=== PATIENT | female | born 1985 | race Caucasian/White ===

== ENCOUNTER 2018-05-22 13:43 | Emergency (ER) | payer BC, SELFPAY ==
[2018-05-22] VITALS (8 sets, daily range): BP systolic 104–132; BP diastolic 66–97; PULSE 51–100; RESP 16–18; TEMP 36.6; O2SAT 96–99; BMI 41.5
--- NOTE | 2018-05-22 14:18 | CT_ITS ---
STUDY: CT ABDOMEN AND PELVIS WITH CONTRAST REASON FOR EXAM: Female, 32 years old. UPPER ABDOM PAIN, HX OF GB REMOVED AND PANCREATITIS. RADIATION DOSAGE (If Supplied By Facility): CTDIvol = ( 17.19 ) mGy, DLP = ( 1149.26 ) mGycm TECHNIQUE: Transaxial images were obtained from the dome of the diaphragm to the symphysis pubis without oral contrast. 100 ml of Isovue 300 contrast was administered. Sagittal and coronal images were reconstructed. Individualized dose optimization techniques were used for this CT. COMPARISON: None. FINDINGS: The visualized lung bases are unremarkable. The visualized portions of the heart are within normal limits. Normal liver. 3 gallstones are seen within a cystic duct remnant measuring approximately 9 mm each. Normal spleen. Normal pancreas. Normal bilateral adrenal glands. Normal right kidney. Normal left kidney. Normal visualized stomach. Normal small intestine. Normal colon. The appendix is visualized and appears normal. Normal abdominal aorta. Normal inferior vena cava. Normal retroperitoneum. Normal urinary bladder. Normal abdominal wall. Normal osseous structures. CT/Abdomen/Pelvis W IV Cont ONLY IMPRESSION: 3 gallstones are seen within a cystic duct remnant measuring approximately 9 mm each. Electronically Signed: Amanda Gonzales MD at 15:27 EDT Tel , Service support ,
--- NOTE | 2018-05-22 14:19 | ED.VISSUMM ---
- ER Visit Summary Date of Service: 05/22/18 Chief Complaint: [] Abdominal pain pancreatitis, common bile duct stones cholecystectomy History of Present Illness: The patient is a 32 F [] patient reports that basically in April she began having pain in the right upper abdomen, she was seen at [facility] found to have cholecystitis/common bile duct stones, mid April she indicates she had an ERCP to remove the stones and then the next day she had a cholecystectomy she was discharged a few days later. She indicates around the she again developed severe abdominal pain and she was taken back to [facility] for management, she indicates she had studies done that showed she had recurrence of the common bile duct stones that could not be managed at [facility] they decided to put on a medicine to help dissolve the stones, she indicates the pain has persisted to the point now she is nauseated she cannot eat or drink. She indicates she has no other past history except as above She indicates she did not go back to [facility] because she is dissatisfied with the care that she received there and when she spoke with her primary care physician she was instructed to come to the [facility] In addition the patient reports that recently she was found to have bradycardia and she believes 2 days ago she had an outpatient Holter monitor she does not know those results, she believes her heart rate was anywhere from 40-60, she denies a history of cardiovascular disease Physical Examination: [] Her vital signs are within normal range this she is resting in the bed no distress she points to the epigastric area as area of discomfort head neck unremarkable lungs sound clear heart tones are normal the abdomen is soft there is a mild discomfort in the epigastric area and urban guarding organomegaly she indicates she is having bowel habits and urinary habits no blood, denies , no fever no cough upper lower extremity unremarkable and the rest of her exams unremarkable neurologically normal Test Results: [] Emergency Department Course and Treatment: [] She has a recent complicated history as above given all of the above we will obtain screening labs CT pain management I have explained to her that if she does not fact have pancreatitis and/or signs of common bile duct obstruction pancreatitis she may require transfer to [facility] and she is agreeable as she indicates she wanted to be seen there but the physicians at [facility] would not arrange for the visit, I further explained that sometimes those visits are done as an outpatient. The patient's screening labs are generally unremarkable see those reports, EKG shows a sinus rhythm no acute injury pattern appreciated, did obtain a CT scan from [facility] it does show 3 gallstones in the cystic duct region, CT abdomen done today shows 3 gallstones in the remnant of the cystic duct please see that report Patient's pain is improved but not gone completely she indicates she cannot continue to have abdominal pain and vomiting to where she cannot even take the prescribed home meds, given all the above, and as patient was requesting transfer she agreed to [facility], we spoke with [facility] Dr. Badillo surgery accepted her in transfer, all records will be sent with her, discussed all of the above with the patient her family again they agree and were requesting transfer to [facility] Treatment Plan: [] Disposition: [] Transfer to [facility] Impression: [] Abdominal pain, status post cholecystectomy with retained stones in cystic duct remnant, failed outpatient therapy, history of bradycardia This note was generated with Leevia dictation software. It may contain incorrect words, spelling, and punctuation that were not noted in review of the chart prior to signing ED Disposition - Plan for ED Patient: Chief Complaint: Abd Pain Referrals: Laith Amaya MD [STAFF PHYSICIAN] -
--- NOTE | 2018-05-22 14:22 | ED.DCSUM_ITS ---
- ER Visit Summary Date of Service: 05/22/18 Chief Complaint: [] Abdominal pain pancreatitis, common bile duct stones cholecystectomy History of Present Illness: The patient is a 32 F [] patient reports that basically in April she began having pain in the right upper abdomen, she was seen at [facility] found to have cholecystitis/common bile duct stones, mid April she indicates she had an ERCP to remove the stones and then the next day she had a cholecystectomy she was discharged a few days later. She indicates around the she again developed severe abdominal pain and she was taken back to [facility] for management, she indicates she had studies done that showed she had recurrence of the common bile duct stones that could not be managed at [facility] they decided to put on a medicine to help dissolve the stones, she indicates the pain has persisted to the point now she is nauseated she cannot eat or drink. She indicates she has no other past history except as above She indicates she did not go back to [facility] because she is dissatisfied with the care that she received there and when she spoke with her primary care physician she was instructed to come to the [facility] In addition the patient reports that recently she was found to have bradycardia and she believes 2 days ago she had an outpatient Holter monitor she does not know those results, she believes her heart rate was anywhere from 40-60, she denies a history of cardiovascular disease Physical Examination: [] Her vital signs are within normal range this she is resting in the bed no distress she points to the epigastric area as area of discomfort head neck unremarkable lungs sound clear heart tones are normal the abdomen is soft there is a mild discomfort in the epigastric area and urban guarding organomegaly she indicates she is having bowel habits and urinary habits no blood, denies , no fever no cough upper lower extremity unremarkable and the rest of her exams unremarkable neurologically normal Test Results: [] Emergency Department Course and Treatment: [] She has a recent complicated history as above given all of the above we will obtain screening labs CT pain management I have explained to her that if she does not fact have pancreatitis and/or signs of common bile duct obstruction pancreatitis she may require transfer to [facility] and she is agreeable as she indicates she wanted to be seen there but the physicians at [facility] would not arrange for the visit, I further explained that sometimes those visits are done as an outpatient. The patient's screening labs are generally unremarkable see those reports, EKG shows a sinus rhythm no acute injury pattern appreciated, did obtain a CT scan from [facility] it does show 3 gallstones in the cystic duct region, CT abdomen done today shows 3 gallstones in the remnant of the cystic duct please see that report Patient's pain is improved but not gone completely she indicates she cannot continue to have abdominal pain and vomiting to where she cannot even take the prescribed home meds, given all the above, and as patient was requesting transfer she agreed to [facility], we spoke with [facility] Dr. Badillo surgery accepted her in transfer, all records will be sent with her, discussed all of the above with the patient her family again they agree and were requesting transfer to [facility] Treatment Plan: [] Disposition: [] Transfer to [facility] Impression: [] Abdominal pain, status post cholecystectomy with retained stones in cystic duct remnant, failed outpatient therapy, history of bradycardia This note was generated with fundfindr dictation software. It may contain incorrect words, spelling, and punctuation that were not noted in review of the chart prior to signing ED Disposition - Plan for ED Patient: Chief Complaint: Abd Pain Referrals: Laith Amaya MD [STAFF PHYSICIAN] -
[2018-05-22] MEDS: 0.9% Normal Saline 1,000 ML 125 ML IV (14:31)
[2018-05-22] MEDS: Ondansetron 4 MG/2 ML Vial IV (14:32)
[2018-05-22] MEDS: morphine 8 MG/ML Syringe IV (14:32)
[2018-05-22 14:36] LABS: Absolute Lymphocyte Count 1.64 X10^3/ul (0.83-4.51); Absolute Neutrophil Count 3.6 X10^3/uL (2.0-7.7); Basophil# 0.04 X10^3/uL; Basophil% 0.6 % (0-1); Eosinophil# 0.15 X10^3/uL; Eosinophils% 2.4 % (0-5); Hematocrit 38.7 % (37-47); Hemoglobin 12.9 g/dl (12.0-15.0); Lymphocyte # 1.64 X10^3/ul (4.0); Lymphocyte % 26.5 % (19-41); Mean Corp Hgb Conc 33.3 g/gl (32-36); Mean Corpuscular Hgb 30.4 pg (27.0-32.0); Mean Corpuscular Volume 91.3 fL (81-99); Mean Platelet Vol. 10.9 fl (6.2-12.0); Monocyte# 0.82 X10^3/uL; Monocyte% 13.2 % (0-10); Neutrophil # 3.55 X10^3/uL (2.7-7.7); Neutrophil % 57.3 % (47-70); POSITIVE COUNT NO; POSITIVE DIFFERENTIAL NO; POSITIVE MORPHOLOGY NO; Platelet Count 220 K/mm3 (150-450); RBC Distribution Width CV 13.7 % (11.6-14.6); RBC Distribution Width SD 45.2 fl (35.1-43.9); Red Blood Count 4.24 M/mm3 (4.2-5.4); White Blood Count 6.2 K/mm3 (4.4-11.0)
[2018-05-22 14:51] LABS: AST(SGOT) 19 U/L (15-37); Alanine Aminotransfer ALT/SGPT 31 U/L (13-56); Albumin, Serum 3.5 g/dL (3.2-5.0); Alkaline Phosphatase 133 U/L (45-117); Anion Gap 6 (5-15); BUN 9 mg/dL (7-18); BUN/Creat Ratio 10.8 RATIO (10-20); Bilirubin, Direct 0.16 mg/dL (0.00-0.30); Calcium,Total 8.8 mg/dL (8.5-10.1); Chloride 107 mmol/L (98-107); Creatinine, Serum 0.83 mg/dL (0.55-1.02); EST Glomerular Filtration Rate 85 mL/min (>60); Est Glom Filt Rate - Afr Amer 103 mL/min (>60); Estimated Creatinine Clearance 89.18 ml/min; Globulin 4.1 g/dL (2.2-4.2); Glucose 90 mg/dL (74-106); Lipase 354 U/L (73-393); Potassium 3.7 mmol/L (3.5-5.1); Protein, Total 7.6 g/dL (6.4-8.2); Sodium Level 141 mmol/L (136-145)
[2018-05-22 14:52] LABS: Pregnancy, Serum, hCG Quali. NEGATIVE Negative (0-9 Nonpreg)
[2018-05-22 15:55] LABS: Mucous, Urine 0 SEEN /hpf (<or=2+); Red Blood Cells-Urine 0 SEEN /hpf (0-5); White Blood Cells 0 SEEN /hpf (0-5)
[2018-05-22 15:57] LABS: Color, Urine Yellow (Yellow); Glucose, Dipstick Normal (Normal); Ketone-Dipstick Negative (Negative); Leukocyte Esterase-Dipstick Negative /ul (Negative); Nitrite-Dipstick Negative (Negative); Occult Blood-Urine Negative /ul (Negative); Protein-Dipstick Negative (Negative); Specific Gravity, Urine 1.005 (1.002-1.030); Urine Bilirubin Dipstick Negative (Negative); Urine Clarity Clear (Clear); Urine Urobilinogen Normal (Normal)
[2018-05-22 16:17] LABS: Bacteria RARE /hpf (None Seen); Squamous Epithelial Cells - UA 10-25 SEEN /hpf (5-10)
[2018-05-22] MEDS: Morphine 4 MG/ML Syringe IV ×2 (17:10→22:31)
--- NOTE | 2018-05-22 18:20 | ED.RN ---
PER [facility] THEY ARE STILL WAITING ON A BED
--- NOTE | 2018-05-22 22:21 | PCM.HP.STD ---
History of Present Illness The patient is a 32 year old F [] Past Medical History Allergies No Known Allergies Allergy (Verified 05/22/18 13:45) Home Medications: Ambulatory Orders Medication Instructions Recorded Acetaminophen [Tylenol] 650 mg PO Q8H PRN 05/22/18 Ursodiol 300 mg PO BID 05/22/18 Smoking Status: Former smoker - Physical Exam Vital Signs Temp Pulse Resp BP Pulse Ox 97.9 F 62 16 119/97 H 96 05/22/18 13:44 05/22/18 22:00 05/22/18 22:00 05/22/18 18:00 05/22/18 22:00 Oxygen Delivery Method Room Air Weight: 113.398 kg Body Mass Index (BMI) 41.5 Laboratory Tests Past 24 Hrs 05/22/18 05/22/18 05/22/18 14:26 14:26 14:26 WBC 6.2 RBC 4.24 Hgb 12.9 Hct 38.7 MCV 91.3 MCH 30.4 MCHC 33.3 RDW 13.7 RDW Differential 45.2 H Plt Count 220 MPV 10.9 Immature Gran % (Auto) 0.000 Neut % (Auto) 57.3 Lymph % (Auto) 26.5 [place] % (Auto) 13.2 H Eos % (Auto) 2.4 Baso % (Auto) 0.6 Absolute Neuts (auto) 3.6 Absolute Lymphs (auto) 1.64 Total Counted Not Reportable Sodium 141 Potassium 3.7 Chloride 107 Carbon Dioxide 28.0 Anion Gap 6 BUN 9 Creatinine 0.83 Estim Creat Clear Calc 89.18 Est GFR (MDRD) Af Amer 103 Est GFR (MDRD) Non-Af 85 BUN/Creatinine Ratio 10.8 Glucose 90 Calcium 8.8 Total Bilirubin 0.40 Direct Bilirubin 0.16 AST 19 ALT 31 Alkaline Phosphatase 133 H Total Protein 7.6 Albumin 3.5 Globulin 4.1 Lipase 354 Serum , Qual NEGATIVE Urine Color Urine Clarity Urine pH Ur Specific [place] Urine Protein Urine Glucose (UA) Urine Ketones Urine Occult Blood Urine Nitrite Urine Bilirubin Urine Urobilinogen Ur Leukocyte Esterase Urine RBC Urine WBC Ur Squamous Epith Cells Urine Bacteria Urine Mucus 05/22/18 15:50 WBC RBC Hgb Hct MCV MCH MCHC RDW RDW Differential Plt Count MPV Immature Gran % (Auto) Neut % (Auto) Lymph % (Auto) [place] % (Auto) Eos % (Auto) Baso % (Auto) Absolute Neuts (auto) Absolute Lymphs (auto) Total Counted Sodium Potassium Chloride Carbon Dioxide Anion Gap BUN Creatinine Estim Creat Clear Calc Est GFR (MDRD) Af Amer Est GFR (MDRD) Non-Af BUN/Creatinine Ratio Glucose Calcium Total Bilirubin Direct Bilirubin AST ALT Alkaline Phosphatase Total Protein Albumin Globulin Lipase Serum , Qual Urine Color Yellow Urine Clarity Clear Urine pH 7.0 Ur Specific [place] 1.005 Urine Protein Negative Urine Glucose (UA) Normal Urine Ketones Negative Urine Occult Blood Negative Urine Nitrite Negative Urine Bilirubin Negative Urine Urobilinogen Normal Ur Leukocyte Esterase Negative Urine RBC 0 SEEN Urine WBC 0 SEEN Ur Squamous Epith Cells 10-25 SEEN Urine Bacteria RARE Urine Mucus 0 SEEN
== END 2018-05-23 00:09 | disposition short-term general hospital (02) ==
PROVIDERS: Emergency Provider Emergency Medicine; Family Provider Nurse Practitioner Primary Care; PCP Nurse Practitioner Primary Care
DX: K80.20 Calculus of gallbladder without cholecystitis without obstruction (principal); Z90.49 Acquired absence of other specified parts of digestive tract
CPT/HCPCS: 74177; 80048; 80076; 81001; 83690; 84703; 85025; 93005; 96361; 96374; 96375; 96376; 99284; J7030; Q9967; A4216; J2405

== ENCOUNTER 2018-07-02 17:55 | Emergency (ER) | payer BC, SELFPAY ==
[2018-07-02 17:56] VITALS: BP 139/81; PULSE 68; RESP 16; TEMP 36.2; O2SAT 100; BMI 36.3
--- NOTE | 2018-07-02 18:21 | CT_ITS ---
STUDY: CT ABDOMEN AND PELVIS WITHOUT CONTRAST REASON FOR EXAM: Female, 32 years old. Pain. History of cholecystectomy. RADIATION DOSAGE (If Supplied By Facility): CTDIvol = ( 18.03 ) mGy, DLP = ( 1223.94 ) mGycm TECHNIQUE: Transaxial images were obtained from the dome of the diaphragm to the symphysis pubis without oral contrast, and without intravenous contrast. Sagittal and coronal images were reconstructed. Individualized dose optimization techniques were used for this CT. COMPARISON: 05/22/2018 FINDINGS: Evaluation of the abdominal viscera is limited in the absence of intravenous contrast. The visualized lung bases are clear. The visualized portions of the heart and pericardium are within normal limits. The patient is status post cholecystectomy. There is a small amount of pneumobilia present. The liver demonstrates an unremarkable unenhanced appearance. The spleen is normal in size. The pancreas demonstrates an unremarkable unenhanced appearance. The adrenal glands are within normal limits. There are no renal or ureteral stones. There is no hydronephrosis. Normal visualized stomach. There is no bowel obstruction or inflammation. There is a large amount of stool in the colon, consistent with constipation. The appendix is visualized and appears normal. The aorta is normal in caliber. There is no abdominal or pelvic free air, free fluid, fluid collection or lymphadenopathy. There are no destructive osseous lesions. CT/Abdomen/Pelvis W IV Cont ONLY IMPRESSION: Status post cholecystectomy. Small amount of pneumobilia. No free air, free fluid or fluid collection. No bowel obstruction or inflammation. Normal appendix. Constipation. Electronically Signed: Filemon Medina, at 19:55 EST Tel , Service support ,
[2018-07-02 18:47] LABS: Bacteria 0 SEEN /hpf (None Seen); Mucous, Urine 0 SEEN /hpf (<or=2+); Red Blood Cells-Urine 0 SEEN /hpf (0-5); White Blood Cells 0 SEEN /hpf (0-5)
[2018-07-02 18:50] LABS: Color, Urine Yellow (Yellow); Glucose, Dipstick Normal (Normal); Ketone-Dipstick Negative (Negative); Leukocyte Esterase-Dipstick Negative /ul (Negative); Nitrite-Dipstick Negative (Negative); Occult Blood-Urine Negative /ul (Negative); Protein-Dipstick Negative (Negative); Specific Gravity, Urine 1.015 (1.002-1.030); Urine Bilirubin Dipstick Negative (Negative); Urine Clarity Clear (Clear); Urine Urobilinogen Normal (Normal)
[2018-07-02 18:56] LABS: Squamous Epithelial Cells - UA 0-5 SEEN /hpf (5-10)
[2018-07-02 18:57] LABS: Absolute Lymphocyte Count 1.88 X10^3/ul (0.83-4.51); Absolute Neutrophil Count 2.9 X10^3/uL (2.0-7.7); Basophil# 0.04 X10^3/uL; Basophil% 0.7 % (0-1); Eosinophil# 0.17 X10^3/uL; Eosinophils% 2.9 % (0-5); Hematocrit 35.5 % (37-47); Hemoglobin 11.3 g/dl (12.0-15.0); Lymphocyte # 1.88 X10^3/ul (4.0); Lymphocyte % 32.5 % (19-41); Mean Corp Hgb Conc 31.8 g/gl (32-36); Mean Corpuscular Hgb 29.8 pg (27.0-32.0); Mean Corpuscular Volume 93.7 fL (81-99); Mean Platelet Vol. 10.8 fl (6.2-12.0); Monocyte# 0.81 X10^3/uL; Neutrophil # 2.88 X10^3/uL (2.7-7.7); Neutrophil % 49.7 % (47-70); Platelet Count 286 K/mm3 (150-450); RBC Distribution Width CV 13.2 % (11.6-14.6); RBC Distribution Width SD 43.8 fl (35.1-43.9); Red Blood Count 3.79 M/mm3 (4.2-5.4); White Blood Count 5.8 K/mm3 (4.4-11.0)
[2018-07-02 19:02] LABS: POSITIVE COUNT NO; POSITIVE DIFFERENTIAL NO; POSITIVE MORPHOLOGY NO
--- NOTE | 2018-07-02 19:03 | ED.VISSUMM ---
- ER Visit Summary Date of Service: 07/02/18 Chief Complaint: Abdominal pain History of Present Illness: The patient is a 32 F presenting for evaluation secondary to abdominal pain. Patient has a history of having a laparoscopic cholecystectomy in April that suffered complications and required repeat surgery on 1028 at the [facility] with a open laparotomy. Patient states that she was doing well, but since yesterday she had an onset of abdominal pain. She reports that this is on the right side of her abdomen, both upper and lower and seems to be acutely worse with taking a deep breath. Patient states that the pain actually only is really present when she is taking a deep breath. She denies that she is having any sort of fevers cough nausea vomiting diarrhea constipation or urinary symptoms. Patient does report that she had a complication of also having C. difficile, and is currently taking oral vancomycin. She reports that she has been having formed stools. No prior history of DVT or PE in the past. She denies any hemoptysis associated with this. Review of systems otherwise negative. Physical Examination: Vital signs are within normal limits, patient is afebrile. General: Patient is well-nourished well-developed and in no acute distress. Head: Normocephalic, atraumatic Eyes: Pupils equal round and reactive bilaterally, extra occular motion intact bialterally ENT: Moist mucous membranes Neck: Supple, no lymphadenopathy, no JVD, no meningismus CVS: Heart regular rate and rhythm, no murmurs, rubs or gallops, radial pulses 2+ bilaterally Resp: Respirations nondistressed, lung sounds clear bilaterally, no chest tenderness to palpation noted Abdomen: Well-healing surgical incision coursing over the patient's right upper quadrant without any evidence of surrounding erythema or drainage. Tenderness palpation noted in the right upper and right lower quadrants with no guarding or rebound tenderness. Back: Nontender Extremities: Nontender, atraumatic, active full range of motion, no peripheral edema Skin: warm, no rashes, no petechia Neuro: Alert and oriented x 4, CN 2-12 intact, no lateralizing neurological defecits Psyc: Normal affect Test Results: CT abdomen and pelvis shows postsurgical changes and constipation. CBC chemistry liver lipase urinalysis all found to be unremarkable Emergency Department Course and Treatment: Patient presented for evaluation secondary to abdominal pain. She did state that this was worse with taking a deep breath, but she denies that there is any sort of pain in her chest, and although she has recent surgery this does not seem like a presentation that would be consistent with pulmonary embolism but rather seems more focused in the patient's abdomen. Abdominal workup was obtained and was found to be negative except for constipation. Patient's pain definitely could be explained by this. She was given a dose of lactulose and will be discharged with a course of the same. She was instructed to return for worsening symptoms and follow-up with her surgeon as previously scheduled. Disposition: Discharge Impression: 1. Constipation 2. History of recent open cholecystectomy This note was generated with Baton dictation software. It may contain incorrect words, spelling, and punctuation that were not noted in review of the chart prior to signing ED Disposition - Plan for ED Patient: Disposition: Home or Assisted Living Chief Complaint: Shortness of Breath Diagnosis: Constipation Instructions: ED Constipation Prescriptions: Lactulose 10 gm PO DAILY #90 ml Referrals: Janee Londono NP-C [Primary Care Provider] - 3-5 Days if not improving
[2018-07-02 19:05] LABS: ALB/GLOB Ratio 0.9 RATIO (0.9-2.4); AST(SGOT) 12 U/L (15-37); Alanine Aminotransfer ALT/SGPT 29 U/L (13-56); Albumin, Serum 3.6 g/dL (3.2-5.0); Alkaline Phosphatase 106 U/L (45-117); Anion Gap 7 (5-15); BUN 9 mg/dL (7-18); BUN/Creat Ratio 11.2 RATIO (10-20); Calcium,Total 8.4 mg/dL (8.5-10.1); Chloride 107 mmol/L (98-107); EST Glomerular Filtration Rate 89 mL/min (>60); Est Glom Filt Rate - Afr Amer 108 mL/min (>60); Estimated Creatinine Clearance 92.53 ml/min; Globulin 4.1 g/dL (2.2-4.2); Glucose 83 mg/dL (74-106); Lipase 186 U/L (73-393); Potassium 3.9 mmol/L (3.5-5.1); Protein, Total 7.7 g/dL (6.4-8.2); Sodium Level 140 mmol/L (136-145)
--- NOTE | 2018-07-02 19:07 | ED.DCSUM_ITS ---
- ER Visit Summary Date of Service: 07/02/18 Chief Complaint: Abdominal pain History of Present Illness: The patient is a 32 F presenting for evaluation secondary to abdominal pain. Patient has a history of having a laparoscopic cholecystectomy in April that suffered complications and required repeat s urgery on 1028 at the [facility] with a open laparotomy. Patient states that she was doing well, but since yesterday she had an onset of abdominal pain. She reports that this is on the right side of her abdomen, both upper and lower and seems to be acutely worse with taking a deep breath. Patient states that the pain actually only is really present when she is taking a deep breath. She denies that she is having any sort of fevers cough nausea vomiting diarrhea constipation or urinary symptoms. Patient does report that she had a complication of also having C. difficile, and is currently taking oral vancomycin. She reports that she has been having formed stools. No prior history of DVT or PE in the past. She denies any hemoptysis associated with this. Review of systems otherwise negative. Physical Examination: Vital signs are within normal limits, patient is afebrile. General: Patient is well-nourished well-developed and in no acute distress. Head: Normocephalic, atraumatic Eyes: Pupils equal round and reactive bilaterally, extra occular motion intact bialterally ENT: Moist mucous membranes Neck: Supple, no lymphadenopathy, no JVD, no meningismus CVS: Heart regular rate and rhythm, no murmurs, rubs or gallops, radial pulses 2+ bilaterally Resp: Respirations nondistressed, lung sounds clear bilaterally, no chest tenderness to palpation noted Abdomen: Well-healing surgical incision coursing over the patient's right upper quadrant without any evidence of surrounding erythema or drainage. Tenderness palpation noted in the right upper and right lower quadrants with no guarding or rebound tenderness. Back: Nontender Extremities: Nontender, atraumatic, active full range of motion, no peripheral edema Skin: warm, no rashes, no petechia Neuro: Alert and oriented x 4, CN 2-12 intact, no lateralizing neurological defecits Psyc: Normal affect Test Results: CT abdomen and pelvis shows postsurgical changes and constipation. CBC chemistry liver lipase urinalysis all found to be unremarkable Emergency Department Course and Treatment: Patient presented for evaluation secondary to abdominal pain. She did state that this was worse with taking a deep breath, but she denies that there is any sort of pain in her chest, and although she has recent surgery this does not seem like a presentation that would be consistent with pulmonary embolism but rather seems more focused in the patient's abdomen. Abdominal workup was obtained and was found to be negative except for constipation. Patient's pain definitely could be explained by this. She was given a dose of lactulose and will be discharged with a course of the same. She was instructed to return for worsening symptoms and follow-up with her surgeon as previously scheduled. Disposition: Discharge Impression: 1. Constipation 2. History of recent open cholecystectomy This note was generated with Logo[employer]ab dictation software. It may contain incorrect words, spelling, and punctuation that were not noted in review of the chart prior to signing ED Disposition - Plan for ED Patient: Disposition: Home or Assisted Living Chief Complaint: Shortness of Breath Diagnosis: Constipation Instructions: ED Constipation Prescriptions: Lactulose 10 gm PO DAILY #90 ml Referrals: Janee Londono NP-C [Primary Care Provider] - 3-5 Days if not improving
[2018-07-02 19:14] LABS: Internal QC Validated? YES +Cl - CLEAR BKGD; Pregnancy, Urine Negative Negative
[2018-07-02 20:29] VITALS: BP 113/65; PULSE 61; PULSE 67; O2SAT 98; O2SAT 99
[2018-07-02] MEDS: Lactulose 20 GM/30 ML UDC PO (20:29)
== END 2018-07-02 20:33 | disposition home or self-care (01) ==
PROVIDERS: Emergency Provider Emergency Medicine; Family Provider Nurse Practitioner Primary Care; PCP Nurse Practitioner Primary Care
DX: K59.00 Constipation, unspecified (principal); A04.72 Enterocolitis due to Clostridium difficile, not specified as recurrent; Z87.19 Personal history of other diseases of the digestive system; Z90.49 Acquired absence of other specified parts of digestive tract
CPT/HCPCS: 74177; 80053; 81001; 81025; 83690; 85025; 99284; Q9967; A4216

== ENCOUNTER 2018-08-04 10:57 | Emergency (ER) | payer BC, SELFPAY ==
[2018-08-04 10:59] VITALS: BP 130/83; PULSE 109; RESP 15; TEMP 35.9; BMI 37.0
--- NOTE | 2018-08-04 11:43 | ED.VISSUMM ---
- ER Visit Summary Date of Service: 08/04/18 Chief Complaint: Right upper quadrant incisional pain. History of Present Illness: The patient is a 32 F status post 2 attempted laparoscopic cholecystectomy is. First 1 they were unable to complete the procedure at [facility]. Weeks later about 6 weeks ago she had attempted laparoscopic cholecystectomy at the [facility] [place] they had to convert to an open procedure. Since then she is done well. She states that she has had some pain around the incision since yesterday. No vomiting. No diarrhea or fever. She did have diarrhea after developing C. difficile from her hospitalization but that is since resolved. She denies any dysuria. She states the pain is worse with movement or bending over. She sees no redness or discharge from the surgical incision. Physical Examination: Well-appearing young female. Vital signs are stable. She is afebrile. She does not look septic or toxic. No distress. H EENT exam unremarkable. Neck nontender. Lungs clear to auscultation bilaterally. Heart regular rhythm rate of 100 no murmur. Abdomen soft. Nondistended. Normal bowel sounds. No peritoneal signs. She is a large right upper quadrant prior open cholecystectomy surgical incision. It is well-healing. There is no separation. No redness or warmth. It is minimally tender in the very proximal medial end. There are no hernias. No palpable abscesses. No Marin sign. The rest abdomen is soft. Nondistended. Normal bowel sounds. No tenderness. She is moving all 4 extremities. Calves are nontender. Neurologically she is awake and alert. Back is nontender. Test Results: CBC shows acute change. White count of 4. 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 Electrolytes normal. Normal creatinine gap. Liver enzymes normal. Lipase normal at 85. Emergency Department Course and Treatment: Patient treated with IV Toradol. On multiple repeat exams patient is resting comfortably. Abdomen is benign. No peritoneal signs. Patient and her mom are comfortable being discharged home. Follow-up with your primary care physician as needed. Treatment Plan: Tylenol and/or Motrin for pain. Follow-up with your doctor if pain continues. Disposition: Discharge Impression: Right upper quadrant abdominal pain of uncertain etiology suspect secondary to incisional pain. Status post open cholecystectomy This note was generated with [employer] software. It may contain incorrect words, spelling, and punctuation that were not noted in review of the chart prior to signing ED Disposition - Plan for ED Patient: Chief Complaint: Other, Pain/Inj Referrals: Janee Londono, [facility] [Primary Care Provider] -
[2018-08-04] MEDS: Ketorolac 30 MG/ML Syringe IV (12:31)
[2018-08-04 13:02] VITALS: BP 102/80; PULSE 49; RESP 16; O2SAT 100
[2018-08-04 13:04] LABS: Absolute Lymphocyte Count 1.34 X10^3/ul (0.83-4.51); Absolute Neutrophil Count 2.8 X10^3/uL (2.0-7.7); Basophil# 0.04 X10^3/uL; Basophil% 0.8 % (0-1); Eosinophil# 0.11 X10^3/uL; Eosinophils% 2.3 % (0-5); Hematocrit 35.1 % (37-47); Hemoglobin 11.4 g/dl (12.0-15.0); Lymphocyte # 1.34 X10^3/ul (4.0); Lymphocyte % 27.5 % (19-41); Mean Corp Hgb Conc 32.5 g/gl (32-36); Mean Corpuscular Hgb 29.7 pg (27.0-32.0); Mean Corpuscular Volume 91.4 fL (81-99); Monocyte# 0.56 X10^3/uL; Monocyte% 11.5 % (0-10); Neutrophil # 2.82 X10^3/uL (2.7-7.7); Neutrophil % 57.9 % (47-70); POSITIVE COUNT NO; POSITIVE DIFFERENTIAL NO; POSITIVE MORPHOLOGY NO; Platelet Count 211 K/mm3 (150-450); RBC Distribution Width CV 13.1 % (11.6-14.6); RBC Distribution Width SD 43.9 fl (35.1-43.9); Red Blood Count 3.84 M/mm3 (4.2-5.4); White Blood Count 4.9 K/mm3 (4.4-11.0)
[2018-08-04 13:20] LABS: AST(SGOT) 12 U/L (15-37); Alanine Aminotransfer ALT/SGPT 21 U/L (13-56); Albumin, Serum 3.6 g/dL (3.2-5.0); Alkaline Phosphatase 82 U/L (45-117); Anion Gap 6 (5-15); BUN 12 mg/dL (7-18); BUN/Creat Ratio 15.7 RATIO (10-20); Bilirubin, Direct 0.11 mg/dL (0.00-0.30); Calcium,Total 8.8 mg/dL (8.5-10.1); Chloride 109 mmol/L (98-107); Creatinine, Serum 0.76 mg/dL (0.55-1.02); EST Glomerular Filtration Rate 94 mL/min (>60); Est Glom Filt Rate - Afr Amer 114 mL/min (>60); Globulin 4.1 g/dL (2.2-4.2); Glucose 84 mg/dL (74-106); Lipase 85 U/L (73-393); Potassium 3.9 mmol/L (3.5-5.1); Protein, Total 7.7 g/dL (6.4-8.2); Sodium Level 141 mmol/L (136-145)
--- NOTE | 2018-08-04 14:28 | ED.DEP ---
ED Disposition - Plan for ED Patient: Disposition: Home or Assisted Living Chief Complaint: Other, Pain/Inj Instructions: ED Abdominal Pain Unkn Cause Additional Instructions: Tylenol and/or Motrin for pain. If not improving follow-up with your surgeon. At the [facility].
[2018-08-04 14:46] VITALS: BP 122/86; PULSE 60; RESP 15; O2SAT 98
--- OUTSIDE RECORDS SUMMARY | 2018-11-06 02:23 | XMS RPT_ITS ---
:1985 Author Organization OHIP Support Name Relationship Address Phone ANUSHA Unavailable [address] + [place] [address] LAURA KIMBLEON Unavailable [address] + [place] [address] ANUSHA Unavailable [address] + [place] [address] LAURA KIMBLEON Unavailable [address] + [place] [address] ANUSHA Unavailable [address] + [place] [address] LAURA KIMBLEON Unavailable [address] + [place] [address] GLENDY KIMBLE Unavailable Unavailable + GLENDY KIMBLE Unavailable Unavailable + MARGARITA KIMBLE Unavailable [address] + [place] [address] ERIS KIMBLE Unavailable [address] + [place] [address] GLENDY KIMBLE Unavailable Unavailable + GLENDY KIMBLE Unavailable Unavailable + MARGARITA KIMBLE Unavailable [address] + [place] [address] ERIS KIMBLE Unavailable [address] + [place] [address] GLENDY KIMBLE Unavailable Unavailable + GLENDY KIMBLE Unavailable Unavailable + MARGARITA KIMBLE Unavailable [address] + [place] [address] ERIS KIMBLE Unavailable [address] + [place] [address] KIMBLELAURAON Unavailable Unavailable + KIMBLE, GLENDY Unavailable Unavailable + JUDITH KIMBLEYDENCE Unavailable [address] + [place] [address] MARY KIMBLENAH Unavailable [address] + [place] [address] KIMBLE, GLENDY Unavailable Unavailable + KIMBLE, GLENDY Unavailable Unavailable + JUDITH KIMBLEYDENCE Unavailable [address] + [place] [address] SHYANNEMARYERIS Unavailable [address] + [place] [address] KIMBLE, GLENDY Unavailable Unavailable + KIMBLE, GLENDY Unavailable Unavailable + SHYANNE ERIS Unavailable [address] + [place] [address] KIMBLE, GLENDY Unavailable Unavailable + KIMBLE, GLENDY Unavailable Unavailable + SHYANNE ERIS Unavailable [address] + [place] [address] KIMBLE, GLENDY Unavailable Unavailable + KIMBLE, GLENDY Unavailable Unavailable + SHYANNE ERIS Unavailable [address] + [place] [address] KIMBLE, GLENDY Unavailable Unavailable + KIMBLE, GLENDY Unavailable Unavailable + KIMBLE, ERIS Unavailable [address] + [place] [address] KIMBLE, GLENDY Unavailable Unavailable + KIMBLE, GLENDY Unavailable Unavailable + KIMBLE, ERIS Unavailable [address] + [place] [address] KIMBLE, GLENDY Unavailable Unavailable + KIMBLE, GLENDY Unavailable Unavailable + SHYANNE, BABY-GIRL AP Unavailable [address] + [place] [address] GLENDY KIMBLE Unavailable Unavailable + LAURA KIMBLEON Unavailable Unavailable + LAURA KIMBLEON Unavailable Unavailable + LAURA KIMBLEON Unavailable Unavailable + LAURA KIMBLEON Unavailable Unavailable + KIMBLELAURAON Unavailable Unavailable + KIMBLELAURAON Unavailable Unavailable + KIMBLELAURAON Unavailable Unavailable + Care Team Providers Name Role Phone Esvin Vera Attending Unavailable Janee Londono CUSTOMER EXPERT-C Primary Care Unavailable Janee Londono CUSTOMER EXPERT-C Primary Care Unavailable Antonio Guardado Attending Unavailable Janee Londono CUSTOMER EXPERT-C Primary Care Unavailable Aleksandar Grimaldo Attending Unavailable MIRNA GUTIERREZ CNM Attending Unavailable PHYSICIAN, NONE Primary Care Unavailable PANTERA TIJERINA, DR. MICHAEL Bach Attending Unavailable PHYSICIAN, NONE Primary Care Unavailable PANTERA TIJERINA, DR. MICHAEL Bach Attending Unavailable PHYSICIAN, NONE Primary Care Unavailable PANTERA TIJERINA, DR. MICHAEL Bach Attending Unavailable PHYSICIAN, NONE Primary Care Unavailable PANTERA TIJERINA, DR. MICHAEL Bach Attending Unavailable PHYSICIAN, NONE Primary Care Unavailable PANTERA TIJERINA, DR. MICHAEL Bach Admitting Unavailable MIRNA GUTIERREZ CNM Attending Unavailable PHYSICIAN, NONE Primary Care Unavailable Heidi Nagel MD Attending Unavailable PHYSICIAN, NONE Primary Care Unavailable IMELDA PINO, MS. JANEE SDusty Attending Unavailable PHYSICIAN, NONE Primary Care Unavailable IMELDA PINO, MS. JANEE SDusty Attending Unavailable PHYSICIAN, NONE Primary Care Unavailable ADAIR BRITTON, DR. LISA Solares Attending Unavailable PHYSICIAN, NONE Primary Care Unavailable ADAIR BRITTON, DR. LISA Solares Attending Unavailable IMELDA PINO, MS. JANEE S. Primary Care Unavailable OVIDIO DEL VALLE DO Attending Unavailable IMELDA PINO, MS. JANEE S. Primary Care Unavailable MD. VAZQUEZ NOVOA MD. Consulting Unavailable KATY WOMACK MD Consulting Unavailable MD. VAZQUEZ NOVOA MD. Admitting Unavailable MD. VAZQUEZ NOVOA MD. Attending Unavailable [facility], MS. JANEE S. Primary Care Unavailable [facility], MS. JANEE S. Consulting Unavailable AMARA RUANO MD Consulting Unavailable ALEKSANDAR PILLAI MD Consulting Unavailable MARIANN CHILDS MD Consulting Unavailable BETSY SANDERS MD Consulting Unavailable [facility], MS. JANEE S. Primary Care Unavailable KATY WOMACK MD Admitting Unavailable KATY WOMACK MD Attending Unavailable MD ALMAS WEN MD Consulting Unavailable JEN MEDEL Consulting Unavailable DILIP LYNCH MD Consulting Unavailable BETSY SANDERS MD Consulting Unavailable [facility], MS. JANEE S. Consulting Unavailable SOMMER BRITTON, MD. VAZQUEZ Solares Consulting Unavailable KATY WOMACK MD Consulting Unavailable OLGA WHEELER Attending Unavailable [facility], MS. JANEE S. Primary Care Unavailable VAZQUEZ HORTON (FEL) Admitting Unavailable VAZQUEZ HORTON (FEL) Attending Unavailable VAZQUEZ HORTON (FEL) Referring Unavailable TAMARA RAMIRES Attending Unavailable CLIFFORD, VAZQUEZ (FEL) Referring Unavailable CLIFFORD, VAZQUEZ (FEL) Referring Unavailable CLIFFORD, VAZQUEZ (FEL) Attending Unavailable CLIFFORD, VAZQUEZ (FEL) Referring Unavailable CLIFFORD, VAZQUEZ (FEL) Admitting Unavailable CLIFFORD, VAZQUEZ (FEL) Attending Unavailable CLIFFORD, VAZQUEZ (FEL) Admitting Unavailable CLIFFORD, VAZQUEZ (FEL) Attending Unavailable CLIFFORD, VAZQUEZ (FEL) Referring Unavailable CLIFFORD, VAZQUEZ (FEL) Attending Unavailable CHRISTIAN LIANG (PA) Referring Unavailable JOSESITO STEVENSON (CUSTOMER EXPERT) Referring Unavailable PROBLEMS PROBLEMS DATE TYPE CONDITION / CODE ATTENDING STATUS SOURCE 08/17/2018 Active Other general NA Active [place] symptoms and signs / [facility] Main R68.89(ICD-10) [facility] 06/22/2018 Active Nausea with VAZQUEZ HORTON Active [place] vomiting, (FEL) Clinic Main unspecified / [facility] R11.2(ICD-10) Repository 06/22/2018 Active Diarrhea, VAZQUEZ HORTON Active [place] unspecified / (FEL) Clinic Main R19.7(ICD-10) [facility] 06/22/2018 Active Generalized VAZQUEZ HORTON Active [place] abdominal pain / (FEL) Clinic Main R10.84(ICD-10) [facility] 06/22/2018 Active Acquired absence of VAZQUEZ HORTON Active [place] other specified (FEL) Clinic Main parts of digestive [facility] tract / Repository Z90.49(ICD-10) 06/22/2018 Active Other specified VAZQUEZ HORTON symptoms and signs (FEL) Clinic Main involving the [facility] digestive system and Repository abdomen / R19.8(ICD-10) 06/18/2018 Active Bradycardia, VAZQUEZ HORTON unspecified / (FEL) Clinic [facility] R00.1(ICD-10) [facility] 06/18/2018 Active Other postprocedural VAZQUEZ HORTON complications and (FEL) Clinic Main disorders of [facility] digestive system / Repository K91.89(ICD-10) 06/18/2018 Active Calculus of VAZQUEZ HORTON gallbladder without (FEL) Clinic Main cholecystitis [facility] without obstruction Repository / K80.20(ICD-10) 06/18/2018 Active Cholecystitis, VAZQUEZ HORTON unspecified / (FEL) Clinic [facility] K81.9(ICD-10) [facility] Rep[facility] 05/27/2018 Active Obesity, unspecified VAZQUEZ HORTON / E66.9(ICD-10) (FEL) Clinic [facility] 05/27/2018 Active Unspecified severe VAZQUEZ HORTON protein-calorie (FEL) Clinic Main malnutrition / [facility] E43(ICD-10) Repository 05/23/2018 Active Other acute VAZQUEZ HORTON postprocedural pain (FEL) Clinic Main / G89.18(ICD-10) [facility] Rep[facility] 04/11/2018 Admitting Right upper quadrant IMELDA EVALUATION MANAGER, Active [facility] Diagnosis pain / MS. JANEE Ch R10.11(ICD-10) Repository 2017 Admitting Unknown / NA Active [facility] Medical diagnosis UNK(Unknown) [facility] Repository PROCEDURES PROCEDURES No Procedure Records FoundRESULTS RESULTS XR CHEST 2V FRONTAL/LAT Observed: 08/17/2018 Status: F Source: [place] 2:17 PM [facility] REPOSITORY * * *Final Report* * * DATE OF EXAM: Aug 17 2018 2:17PM WOX [id number] - XR CHEST 2V FRONTAL/LAT / PROCEDURE REASON: Flu-like symptoms * * * * Physician Interpretation * * * * EXAMINATION: CHEST RADIOGRAPH (2 VIEW FRONTAL and LATERAL) CLINICAL HISTORY: Flu-like symptoms MQ: XC2_5 Comparison: 05/30/2016 RESULT: Lines, tubes, and devices: None. Lungs and pleura: No consolidation. No lung mass. No pleural effusion. Cardiomediastinal silhouette: Normal cardiomediastinal silhouette. IMPRESSION: No acute radiographic abnormality. Cloth Desizing Range Operator Chief: PSCB Transcribe Date/Time: Aug 17 2018 2:19P Dictated by : HAYLIE WALKER MD This examination was interpreted and the report reviewed and electronically signed by: HAYLIE WALKER MD on Aug 17 2018 2:19PM EST [id number] PROGRESS Observed: 08/17/2018 Status: COMPLETED Source: [place] 2:11 PM [facility] REPOSITORY HNO ID: [id number] Author: William Delgado (Rt) Harini Sales Service: (none) Author Type: Quality Process Lead Type: Progress Notes Filed: 08/17/2018 2:17 PM Note Text: Radiology Service Progress Note PATIENT NAME: Mary Alice Kimble DATE OF SERVICE: August 17, 2018 TIME: 2:11 PM PATIENT IDENTITY VERIFICATION COMPLETED USING TWO (2) METHODS: Patient confirmed name verbally and Date of . PATIENT GENDER DATA: Female. status: : No status: NO. PATIENT RELEVANT IMPLANT DATA REVIEWED: Not Applicable RADIOLOGY DEPARTMENT: General X-ray: Exam(s) Completed: Chest X-Ray PERIPHERAL IV DATA: Not applicable SIGNED BY: RT Loyd August 17, 2018 2:11 PM PROGRESS Observed: 08/17/2018 Status: COMPLETED Source: [place] 2:03 PM [facility] REPOSITORY HNO ID: [id number] Author: Josesito Phoenix Service: (none) Author Type: Nurse Practitioner Type: Progress Notes Filed: 08/17/2018 2:36 PM Note Text: Subjective HPI Patient presents with: Fatigue, Cough, nasal drainage and congestion x 3 days ill with same symptoms. Denies flu vaccine this season. Dayquil and Nyquil otc with minimal relief. Former smoker. Review of Systems Constitutional: Positive for fever and malaise/fatigue. Negative for chills. HENT: Positive for congestion and sore throat. Negative for ear pain. Eyes: Negative for discharge and redness. Respiratory: Positive for cough. Negative for hemoptysis, sputum production, shortness of breath and wheezing. Gastrointestinal: Negative for abdominal pain, diarrhea, nausea and vomiting. Musculoskeletal: Positive for myalgias. Skin: Negative for rash. Neurological: Negative for headaches. PAST MEDICAL HISTORY Diagnosis Date - Cholecystitis - Closed fracture of unspecified part of femur right - Cough - Other forms of migraine - Pancreatitis - Unspecified open fracture of carpal bone right PAST SURGICAL HISTORY Procedure Laterality Date - BREAST BIOPSY 2011 - ERCP x2 - LAPAROSCOPIC CHOLECYSTECTOMY ALLERGIES Patient has no known allergies. MEDICATIONS albuterol HFA (VENTOLIN HFA) 90 mcg/actuation inhaler Inhale 2 Puffs as instructed every 4 hours as needed for Wheezing/Shortness of Breath. benzonatate (TESSALON PERLE) 100 mg capsule Take 1 capsule by mouth three times daily as needed. multivit with calcium,iron,min (WOMEN'S MULTIPLE VITAMINS ORAL) Take by mouth. omeprazole (PRILOSEC) 20 mg capsule Take 20 mg by mouth once daily. predniSONE (DELTASONE) 20 mg tablet Prednisone 40 mg (2-20mg tablets) po QD for 5 days SPRINTEC 0.25-35 mg-mcg per tablet ursodiol (ACTIGALL) 300 mg capsule Take 300 mg by mouth twice daily. FAMILY HISTORY Problem Relation Age of Onset - Hearing Loss Sister hearing impaired - other (Cholelithiasis) Sister - Breast Cancer Paternal Grandmother - Pancreatic Cancer Maternal Uncle Social History Substance Use Topics - Smoking status: Former Smoker Years: 3.00 Quit date: 07/13/2016 - Smokeless tobacco: Never Used Comment: less than 1/4 pack daily - Alcohol use No Objective Physical Exam Constitutional: She is well-developed, well-nourished, and in no distress. HENT: Head: Normocephalic. Right Ear: Tympanic membrane, external ear and ear canal normal. Left Ear: Tympanic membrane, external ear and ear canal normal. Nose: Rhinorrhea present. Right sinus exhibits no maxillary sinus tenderness and no frontal sinus tenderness. Left sinus exhibits no maxillary sinus tenderness and no frontal sinus tenderness. Mouth/Throat: Posterior oropharyngeal erythema (PND) present. Eyes: Conjunctivae are normal. Neck: Normal range of motion. Neck supple. Cardiovascular: Normal rate, regular rhythm and normal heart sounds. Pulmonary/Chest: Effort normal. No respiratory distress. She has no wheezes. She has rhonchi (faint scattered rhonchi). She has no rales. Abdominal: Soft. She exhibits no distension. There is no tenderness. Lymphadenopathy: She has no cervical adenopathy. Skin: Skin is warm and dry. No rash noted. Nursing note and vitals reviewed. ASSESSMENT/PLAN: 1. Flu-like symptoms - ICD9: 780.99, ICD10: R68.89 ->48hrs onset -reviewed viral etiology -supportive care, rest, fluids, analgesics PRN -F/u with pcp in 3-5 days or sooner if symptoms are not improving or worsening Prescription instructions reviewed with patient as applicable. Patient advised if symptoms do not improve or if symptoms worsen sooner, to contact their primary care physician. Potential red flag symptoms discussed with the patient. Reviewed appropriate action plan to take if red flag symptoms occur. Patient agreeable to treatment plan. Josesito Phoenix APRN.CNP CNOV Observed: 08/17/2018 Status: COMPLETED Source: [place] 2:00 PM [facility] REPOSITORY Office Visit (WSTR) MARY ALICE KIMBLE ([id number]) 1985 F Date Time Provider Department 08/17/18 2:00 PM JOSESITO PHOENIX (CUSTOMER EXPERT) [facility] During your visit today, we recorded the following information about you: Temperature Pulse Respiration Blood pressure 100.5 degrees 106/minute 16/minute 120/80 Weight 98.9 kg Josesito Phoenix APRN.CNP 08/17/2018 2:36 PM Signed Subjective HPI Patient presents with: Fatigue, Cough, nasal drainage and congestion x 3 days ill with same symptoms. Denies flu vaccine this season. Dayquil and Nyquil otc with minimal relief. Former smoker. Review of Systems Constitutional: Positive for fever and malaise/fatigue. Negative for chills. HENT: Positive for congestion and sore throat. Negative for ear pain. Eyes: Negative for discharge and redness. Respiratory: Positive for cough. Negative for hemoptysis, sputum production, shortness of breath and wheezing. Gastrointestinal: Negative for abdominal pain, diarrhea, nausea and vomiting. Musculoskeletal: Positive for myalgias. Skin: Negative for rash. Neurological: Negative for headaches. PAST MEDICAL HISTORY Diagnosis Date - Cholecystitis - Closed fracture of unspecified part of femur right - Cough - Other forms of migraine - Pancreatitis - Unspecified open fracture of carpal bone right PAST SURGICAL HISTORY Procedure Laterality Date - BREAST BIOPSY 2011 - ERCP x2 - LAPAROSCOPIC CHOLECYSTECTOMY ALLERGIES Patient has no known allergies. MEDICATIONS albuterol HFA (VENTOLIN HFA) 90 mcg/actuation inhaler Inhale 2 Puffs as instructed every 4 hours as needed for Wheezing/Shortness of Breath. benzonatate (TESSALON PERLE) 100 mg capsule Take 1 capsule by mouth three times daily as needed. multivit with calcium,iron,min (WOMEN'S MULTIPLE VITAMINS ORAL) Take by mouth. omeprazole (PRILOSEC) 20 mg capsule Take 20 mg by mouth once daily. predniSONE (DELTASONE) 20 mg tablet Prednisone 40 mg (2-20mg tablets) po QD for 5 days SPRINTEC 0.25-35 mg-mcg per tablet ursodiol (ACTIGALL) 300 mg capsule Take 300 mg by mouth twice daily. FAMILY HISTORY Problem Relation Age of Onset - Hearing Loss Sister hearing impaired - other (Cholelithiasis) Sister - Breast Cancer Paternal Grandmother - Pancreatic Cancer Maternal Uncle Social History Substance Use Topics - Smoking status: Former Smoker Years: 3.00 Quit date: 07/13/2016 - Smokeless tobacco: Never Used Comment: less than 1/4 pack daily - Alcohol use No Objective Physical Exam Constitutional: She is well-developed, well-nourished, and in no distress. HENT: Head: Normocephalic. Right Ear: Tympanic membrane, external ear and ear canal normal. Left Ear: Tympanic membrane, external ear and ear canal normal. Nose: Rhinorrhea present. Right sinus exhibits no maxillary sinus tenderness and no frontal sinus tenderness. Left sinus exhibits no maxillary sinus tenderness and no frontal sinus tenderness. Mouth/Throat: Posterior oropharyngeal erythema (PND) present. Eyes: Conjunctivae are normal. Neck: Normal range of motion. Neck supple. Cardiovascular: Normal rate, regular rhythm and normal heart sounds. Pulmonary/Chest: Effort normal. No respiratory distress. She has no wheezes. She has rhonchi (faint scattered rhonchi). She has no rales. Abdominal: Soft. She exhibits no distension. There is no tenderness. Lymphadenopathy: She has no cervical adenopathy. Skin: Skin is warm and dry. No rash noted. Nursing note and vitals reviewed. ASSESSMENT/PLAN: 1. Flu-like symptoms - ICD9: 780.99, ICD10: R68.89 ->48hrs onset -reviewed viral etiology -supportive care, rest, fluids, analgesics PRN -F/u with pcp in 3-5 days or sooner if symptoms are not improving or worsening Prescription instructions reviewed with patient as applicable. Patient advised if symptoms do not improve or if symptoms worsen sooner, to contact their primary care physician. Potential red flag symptoms discussed with the patient. Reviewed appropriate action plan to take if red flag symptoms occur. Patient agreeable to treatment plan. Josesito Phoenix APRN.EVALUATION MANAGER Referring Provider: SELF [200] Allergies As of Date: 08/17/2018 (No Known Allergies) Date Reviewed: 08/17/2018 Reviewed by: Aaron Espinoza Ma - Fully Assessed Reason for Visit: Fatigue [46] Cough [28] Sinus Problem [99] Primary Visit Diagnosis:Flu-like symptoms [R68.89] Order(s):XR CHEST 2V FRONTAL/LAT [[id number]] Order #: [id number] FUTURE methylPREDNISolone (MEDROL, MILAGRO,) 4 mg Dose-PackAs Instructed per packageDisp: 1 PackageRfl: 0 Hhfcjnqltdvjvsi-Fejunzhph-IL (BROMFED DM) 2-30-10 mg/5 mL syrupTake 10 mL by mouth four times daily as needed for up to 7 days.Disp: 240 mLRfl: 0 albuterol HFA (PROAIR HFA) 90 mcg/actuation inhalerInhale 2 Puffs as instructed every 4 hours as needed.Disp: 1 InhalerRfl: 0 Inhalational Spacing Device spcr1 Device one time only for 1 dose.Disp: 1 EachRfl: 0 Prescriptions as of 08/17/2018 Sig: ALBUTEROL SULFATE HFA 90 MCG/* Inhale 2 Puffs as instructed * ALBUTEROL SULFATE HFA 90 MCG/* Inhale 2 Puffs as instructed * Patient not taking: Reported on 08/17/2018 BENZONATATE 100 MG CAPSULE Take 1 capsule by mouth three* Patient not taking: Reported on 08/17/2018 BROMPHENIRAMINE-PSEUDOEPHEDRI* Take 10 mL by mouth four time* INHALATIONAL SPACING DEVICE 1 Device one time only for 1 * METHYLPREDNISOLONE 4 MG TABLE* As Instructed per package WOMEN'S MULTIPLE VITAMINS ORAL Take by mouth. OMEPRAZOLE 20 MG CAPSULE,LEV* Take 20 mg by mouth once lois* PREDNISONE 20 MG TABLET Prednisone 40 mg (2-20mg tabl* Patient not taking: Reported on 08/17/2018 SPRINTEC (28) 0.25 MG-35 MCG * URSODIOL 300 MG CAPSULE Take 300 mg by mouth twice da* Problem List As Of Date 08/17/2018 Noted Resolved CLASSICAL MIGRAINE [346.0] INVALID FOR* LOW BLADDER COMPLIANCE [N31.8] INVALID FOR* Backache, unspecified [M54.9] INVALID FOR* Retained gallstones following laparoscopic chol*INVALID FOR* Severe protein-calorie malnutrition (HCC) [E43] INVALID FOR* Obesity, Class II, BMI 35-39.9 [E66.9] INVALID FOR* Cholecystitis [K81.9] INVALID FOR* More... Sinus bradycardia [R00.1] INVALID FOR* Obesity, Class I, BMI 30-34.9 [E66.9] INVALID FOR* Abdominal pain [R10.9] INVALID FOR* Prescriptions ordered this encounter Disp Refills Start End METHYLPREDNISOLONE 4 MG TABLETS IN A* 1 Pa* 0 08/17/2018 Sig: As Instructed per package [id number]-RK 2* 240 * 0 08/17/2018 08/24/2018 Route: ORAL Sig: Take 10 mL by mouth four times daily as needed for up to 7 days. ALBUTEROL SULFATE HFA 90 MCG/ACTUATI* 1 In* 0 08/17/2018 Route: INHALATION Sig: Inhale 2 Puffs as instructed every 4 hours as needed. INHALATIONAL SPACING DEVICE 1 Ea* 0 08/17/2018 08/17/2018 Route: Misc Si Device one time only for 1 dose. Disposition: Return if symptoms worsen or fail to improve. Follow-up and Disposition History Recorded Encounter Status:Closed by JOSESITO PHOENIX on 08/17/18 EMERGENCY DEPARTMENT Observed: 08/04/2018 Status: F Source: [place] SUMMARY 4:29 PM [facility] REPOSITORY [facility] Medical Records Department [address] [address] Emergency Department Summary 08/04/18 1143 MR#: [id number] Acct: [id number] Name: MARY ALICE KIMBLE Rep #: [id number] : 1985 32 From: Aleksandar Grimaldo MD PCP: Janee Norman Status: DEP ER - ER Visit Summary Date of Service: 08/04/18 Chief Complaint: Right upper quadrant incisional pain. History of Present Illness: The patient is a 32 F status post 2 attempted laparoscopic cholecystectomy is. First 1 they were unable to complete the procedure at [facility]. Weeks later about 6 weeks ago she had attempted laparoscopic cholecystectomy at the [facility] they had to convert to an open procedure. Since then she is done well. She states that she has had some pain around the incision since yesterday. No vomiting. No diarrhea or fever. She did have diarrhea after developing C. difficile from her hospitalization but that is since resolved. She denies any dysuria. She states the pain is worse with movement or bending over. She sees no redness or discharge from the surgical incision. Physical Examination: Well-appearing young female. Vital signs are stable. She is afebrile. She does not look septic or toxic. No distress. H EENT exam unremarkable. Neck nontender. Lungs clear to auscultation bilaterally. Heart regular rhythm rate of 100 no murmur. Abdomen soft. Nondistended. Normal bowel sounds. No peritoneal signs. She is a large right upper quadrant prior open cholecystectomy surgical incision. It is well-healing. There is no separation. No redness or warmth. It is minimally tender in the very proximal medial end. There are no hernias. No palpable abscesses. No Marin sign. The rest abdomen is soft. Nondistended. Normal bowel sounds. No tenderness. She is moving all 4 extremities. Calves are nontender. Neurologically she is awake and alert. Back is nontender. Test Results: CBC shows acute change. White count of 4. 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 Electrolytes normal. Normal creatinine gap. Liver enzymes normal. Lipase normal at 85. Emergency Department Course and Treatment: Patient treated with IV Toradol. On multiple repeat exams patient is resting comfortably. Abdomen is benign. No peritoneal signs. Patient and her mom are comfortable being discharged home. Follow-up with your primary care physician as needed. Treatment Plan: Tylenol and/or Motrin for pain. Follow-up with your doctor if pain continues. Disposition: Discharge Impression: Right upper quadrant abdominal pain of uncertain etiology suspect secondary to incisional pain. Status post open cholecystectomy This note was generated with [employer] dictation software. It may contain incorrect words, spelling, and punctuation that were not noted in review of the chart prior to signing ED Disposition - Plan for ED Patient: Chief Complaint: Other, Pain/Inj Referrals: Janee Londono NP-C [Primary Care Provider] - What to do if you have Problems For any increased pain, shortness of breath, bleeding, nausea or vomiting, chest pain, or any unexpected problems, contact your Primary Care Provider. Call [facility] ([phone]) or report to the closest Emergency Room. Call 911 if necessary. 08/04/18 1629 <Electronically signed by Aleksandar Grimaldo MD> Date Aleksandar Grimaldo MD Cosigner Signature (If Indicated): Date CC: Janee JESSICA DISCHARGE INSTRUCTION Observed: 08/04/2018 Status: F Source: [place] 4:28 PM [facility] REPOSITORY [facility] Medical Records Department [address] [place] [id number] Discharge Instruction 08/04/18 1428 MR#: [id number] Acct: [id number] Name: MARY ALICE KIMBLE Rep #: [id number] : 1985 32 From: Aleksandar Grimaldo MD PCP: Janee Norman Status: [facility] ER ED Disposition - Plan for ED Patient: Disposition: Home or Assisted Living Chief Complaint: Other, Pain/Inj Instructions: ED Abdominal Pain Unkn Cause Additional Instructions: Tylenol and/or Motrin for pain. If not improving follow-up with your surgeon. At the [facility]. What to do if you have Problems For any increased pain, shortness of breath, bleeding, nausea or vomiting, chest pain, or any unexpected problems, contact your Primary Care Provider. Call [facility] ([phone]) or report to the closest Emergency Room. Call 911 if necessary. 08/04/18 9918 <Electronically signed by Aleksandar Grimaldo MD> Date Aleksandar Grimaldo MD Cosigner Signature (If Indicated): Date CC: Janee Londono CUSTOMER EXPERT-C CBC W/DIFF, AUTOMATED Collected: 08/04/2018 Status: F Source: [place] 12:55 PM [facility] REPOSITORY TYPE CODE TESTS RESULT OUT OF RANGE REFERENCE UNITS LAB L100.1000 4.4-11.0 K/mm3 Normal WBC 4.9 LAB L100.1200 4.2-5.4 M/mm3 Low RBC 3.84 LAB L100.1300 12.0-15.0 g/dl Low HGB 11.4 LAB L100.1400 37-47 % Low HCT 35.1 LAB L100.1500 81-99 fL Normal MCV 91.4 LAB L100.1600 27.0-32.0 pg Normal MCH 29.7 LAB L100.1700 32-36 g/gl Normal MCHC 32.5 LAB L100.1810 11.6-14.6 % Normal RDW CV 13.1 LAB L100.1820 35.1-43.9 fl Normal RDW SD 43.9 LAB L100.1900 150-450 K/mm3 Normal PLT 211 LAB L100.2000 6.2-12.0 fl Normal MPV 10.0 LAB L100.2100 47-70 % Normal NEUT% 57.9 LAB L100.2200 19-41 % Normal LY% 27.5 LAB L100.2300 0-10 % High MONO% 11.5 LAB L100.2400 0-5 % Normal EO% 2.3 LAB L100.2500 0-1 % Normal BASO% 0.8 LAB L100.2550 0.0-0.9 % Normal IM GRAN % 0.000 Result Comment: IG% - Immature Granulocytes (promyelocytes, myelocytes and metamyelocytes) > 1% indicates that a LEFT SHIFT is Present. LAB L100.2620 2.0-7.7 X10 3/uL Normal Absolute Neut 2.8 LAB L100.2720 0.83-4.51 X10 3/ul Normal Absolute Lymph 1.34 Performed By: #### L100.0100 #### [facility] [address] [facility] [place], [place], [id number] BASIC METABOLIC Collected: 08/04/2018 Status: F Source: [place] PROFILE ([facility]) 12:55 PM [facility] REPOSITORY TYPE CODE TESTS RESULT OUT OF RANGE REFERENCE UNITS LAB L501.0100 74-106 mg/dL Normal GLU 84 Result Comment: Please note revised GLUCOSE reference range effective 2017. LAB L501.1000 7-18 mg/dL Normal BUN 12 LAB L501.1100 0.55-1.02 mg/dL Normal CREAT,SERUM 0.76 Result Comment: The validity of the calculated GFR AND GFRAA in patients over 70 years has not been determined. Clinical correlation is essential. LAB L501.1110 >60 mL/min Normal EST GFR 94 Result Comment: Non- GFR Calc LAB L501.1115 >60 mL/min Normal EST GFR - AA 114 Result Comment: GFR Calc LAB L501.1255 ml/min Normal Estimated CRCL 97.40 LAB L501.1300 10-20 RATIO Normal BUN/CRE 15.7 LAB L501.2200 8.5-10 mg/dL Normal .1 CA 8.8 LAB L501.5300 136-14 mmol/L Normal 5 NA 141 LAB L501.5600 3.5-5. mmol/L Normal 1 K 3.9 LAB L501.5900 98-107 mmol/L High CL 109 LAB L501.6100 21.0-3 mmol/L Normal 2.0 CO2 26.0 LAB L501.6200 5-15 Normal GAP 6 Performed By: #### L500.2500, L500.3400, L501.2450 #### [facility] [address] [place], [address] LIVER PROFILE Collected: 08/04/2018 Status: F Source: [place] 12:55 PM [facility] REPOSITORY TYPE CODE TESTS RESULT OUT OF RANGE REFERENCE UNITS LAB L501.1500 6.4-8.2 g/dL Normal T PROT 7.7 LAB L501.1800 3.2-5.0 g/dL Normal ALB 3.6 LAB L501.1950 2.2-4.2 g/dL Normal GLOB 4.1 LAB L501.4100 15-37 U/L Low AST 12 LAB L501.4305 45-117 U/L Normal ALK P 82 LAB L501.4405 13-56 U/L Normal ALT 21 LAB L501.4600 0.20-1.00 mg/dL Normal T BILI 0.30 LAB L501.4700 0.00-0.30 mg/dL Normal D BILI 0.11 Performed By: #### L500.2500, L500.3400, L501.2450 #### [facility] [address] [place], [address] LIPASE Collected: 08/04/2018 Status: F Source: [place] 12:55 PM [facility] REPOSITORY TYPE CODE TESTS RESULT OUT OF RANGE REFERENCE UNITS LAB L501.2450 73-393 U/L Normal LIPASE 85 Performed By: #### L500.2500, L500.3400, L501.2450 #### [facility] [address] [facility] [place], [address] PROGRESS Observed: 07/08/2018 Status: COMPLETED Source: [place] 12:51 PM [facility] REPOSITORY O ID: [id number] Author: Vazquez Horton Service: (none) Author Type: Physician Type: Progress Notes Filed: 07/08/2018 12:56 PM Note Text: Addendum: I have reviewed the history and physical examination obtained and documented by the resident and I personally participated in the dumont components. I have discussed the case and management of the patient's care. The following comments revise or confirm relevant dumont components of the note. CC: Diarrhea HPI: Patient continues to have some occasional RUQ abdominal pain. No nausea or vomiting. No fevers or chills. No problems with PO. Treated for c. Difficile. Plan: - If diarrhea continues or worsens, will recheck c. Difficile and potentially add cholestyramine - Follow up PRN SIGNATURE: Jerzy Horton MD HPB surgery Pager: [phone] PROGRESS Observed: 07/08/2018 Status: COMPLETED Source: [place] 12:19 PM [facility] REPOSITORY HNO ID: [id number] Author: Vazquez Horton Service: (none) Author Type: Physician Type: Progress Notes Filed: 07/08/2018 12:56 PM Note Text: General Surgery Clinic Progress Note Name: Mary Alice Kimble Date: 07/08/2018 Subjective: Patient presents following laparoscopic-converted to open completion cholecystectomy. Developed C diff and was treated. Diarrhea has improved, now just 1-2 times per day, down from 10 when presenting with C Diff. Has some RUQ pain. Eating okay. Objective: Physical exam: Blood pressure 141/83, pulse 75, temperature 36.4 ?C (97.6 ?F), temperature source Temporal Artery, resp. rate 16, height 165.1 cm (5' 5), weight 98 kg (216 lb), last menstrual period 06/08/2018. General: NAD, alert, oriented Abdomen: soft, nondistended, nontender, incisions C/D/I Assessment and plan: 32 year old female s/p completion cholecystectomy c/b C diff - No further treatment for C diff - Trial cholestyramine for diarrhea if does not resolve Michael Shanks MD General Surgery Resident Pager [phone] CNOV Observed: 07/08/2018 Status: COMPLETED Source: [place] 11:30 AM [facility] REPOSITORY Office Visit (ROSENDO) MARY ALICE KIMBLE ([id number]) 1985 F Date Time Provider Department 07/08/18 11:30 AM VAZQUEZ HORTON During your visit today, we recorded the following information about you: Temperature Pulse Respiration Blood pressure 97.6 degrees 75/minute 16/minute 141/83 Weight Height 98 kg 1.651 m Nabil Gregorio 07/08/2018 11:44 AM Signed What is the reason for your visit today? Post op Who is your referring physician? Dr Horton Are you having poor oral intake? NO Have you had unintentional weight loss of 15 lbs/7 Kg in the last 3-6 months? NO Bowels: regular Wound: clean AND dry Temperature: No Drains: No Vazquez Horton MD 07/08/2018 12:56 PM Signed General Surgery Clinic Progress Note Name: Mary Alice Kimble Date: 07/08/2018 Subjective: Patient presents following laparoscopic-converted to open completion cholecystectomy. Developed C diff and was treated. Diarrhea has improved, now just 1-2 times per day, down from 10 when presenting with C Diff. Has some RUQ pain. Eating okay. Objective: Physical exam: Blood pressure 141/83, pulse 75, temperature 36.4 ?C (97.6 ?F), temperature source Temporal Artery, resp. rate 16, height 165.1 cm (5' 5), weight 98 kg (216 lb), last menstrual period 06/08/2018. General: NAD, alert, oriented Abdomen: soft, nondistended, nontender, incisions C/D/I Assessment and plan: 32 year old female s/p completion cholecystectomy c/b C diff - No further treatment for C diff - Trial cholestyramine for diarrhea if does not resolve Michael Shanks MD General Surgery Resident Pager [phone] Vazquez Horton MD 07/08/2018 12:56 PM Signed Addendum: I have reviewed the history and physical examination obtained and documented by the resident and I personally participated in the dumont components. I have discussed the case and management of the patient's care. The following comments revise or confirm relevant dumont components of the note. CC: Diarrhea HPI: Patient continues to have some occasional RUQ abdominal pain. No nausea or vomiting. No fevers or chills. No problems with PO. Treated for c. Difficile. Plan: - If diarrhea continues or worsens, will recheck c. Difficile and potentially add cholestyramine - Follow up PRN SIGNATURE: Jerzy Horton MD HPB surgery Pager: [phone] Referring Provider: CHRISTIAN LIANG) [[id number]] Allergies As of Date: 07/08/2018 (No Known Allergies) Date Reviewed: 07/08/2018 Reviewed by: Vazquez Horton - Fully Assessed Reason for Visit: Post Op [174] Primary Visit Diagnosis:Cholecystitis [K81.9] Prescriptions as of 07/08/2018 Sig: OMEPRAZOLE 20 MG CAPSULE,LEV* Take 20 mg by mouth once lois* URSODIOL 300 MG CAPSULE Take 300 mg by mouth twice da* WOMEN'S MULTIPLE VITAMINS ORAL Take by mouth. 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 Sinus bradycardia [R00.1] INVALID FOR* Obesity, Class I, BMI 30-34.9 [E66.9] INVALID FOR* Abdominal pain [R10.9] INVALID FOR* Visit Notes: >> Nabil Jg Nix Jul 08, 2018 11:41 AM Status: Signed What is the reason for your visit today? Post op Who is your referring physician? Dr Horton Are you having poor oral intake? NO Have you had unintentional weight loss of 15 lbs/7 Kg in the last 3-6 months? NO Bowels: regular Wound: clean AND dry Temperature: No Drains: No Encounter Status:Closed by VAZQUEZ HORTON MD on 07/08/18 CNCO Observed: 07/08/2018 Status: COMPLETED Source: [place] 12:00 AM [facility] REPOSITORY Letter Text . Vazquez Horton MD Department of General Surgery [address] [place] [address]/[place] [address] Office: July 08, 2018 Re: Mary Aliceavni Kimble 1985 To Whom it May Concern: This is to confirm that the above patient has been under my care for a medical problem. The patient is able to return to work, 2017 Without restrictions.Thank you for your cooperation in this matter. Sincerely yours, Sarah Heck RN (Electronically signed to expedite mailing.) EMERGENCY DEPARTMENT Observed: 07/03/2018 Status: F Source: [place] SUMMARY 12:43 AM [facility] REPOSITORY [facility] Medical Records Department [address] [place] [address] Emergency Department Summary 07/02/18 1903 MR#: [id number] Acct: [id number] Name: MARY ALICE KIMBLE Rep #: [id number] : 1985 32 From: Antonio Guardado MD PCP: Janee Norman Status: DEP ER - ER Visit Summary Date of Service: 07/02/18 Chief Complaint: Abdominal pain History of Present Illness: The patient is a 32 F presenting for evaluation secondary to abdominal pain. Patient has a history of having a laparoscopic cholecystectomy in April that suffered complications and required repeat surgery on 1028 at the [facility] with a open laparotomy. Patient states that she was doing well, but since yesterday she had an onset of abdominal pain. She reports that this is on the right side of her abdomen, both upper and lower and seems to be acutely worse with taking a deep breath. Patient states that the pain actually only is really present when she is taking a deep breath. She denies that she is having any sort of fevers cough nausea vomiting diarrhea constipation or urinary symptoms. Patient does report that she had a complication of also having C. difficile, and is currently taking oral vancomycin. She reports that she has been having formed stools. No prior history of DVT or PE in the past. She denies any hemoptysis associated with this. Review of systems otherwise negative. Physical Examination: Vital signs are within normal limits, patient is afebrile. General: Patient is well-nourished well-developed and in no acute distress. Head: Normocephalic, atraumatic Eyes: Pupils equal round and reactive bilaterally, extra occular motion intact bialterally ENT: Moist mucous membranes Neck: Supple, no lymphadenopathy, no JVD, no meningismus CVS: Heart regular rate and rhythm, no murmurs, rubs or gallops, radial pulses 2+ bilaterally Resp: Respirations nondistressed, lung sounds clear bilaterally, no chest tenderness to palpation noted Abdomen: Well-healing surgical incision coursing over the patient's right upper quadrant without any evidence of surrounding erythema or drainage. Tenderness palpation noted in the right upper and right lower quadrants with no guarding or rebound tenderness. Back: Nontender Extremities: Nontender, atraumatic, active full range of motion, no peripheral edema Skin: warm, no rashes, no petechia Neuro: Alert and oriented x 4, CN 2-12 intact, no lateralizing neurological defecits Psyc: Normal affect Test Results: CT abdomen and pelvis shows postsurgical changes and constipation. CBC chemistry liver lipase urinalysis all found to be unremarkable Emergency Department Course and Treatment: Patient presented for evaluation secondary to abdominal pain. She did state that this was worse with taking a deep breath, but she denies that there is any sort of pain in her chest, and although she has recent surgery this does not seem like a presentation that would be consistent with pulmonary embolism but rather seems more focused in the patient's abdomen. Abdominal workup was obtained and was found to be negative except for constipation. Patient's pain definitely could be explained by this. She was given a dose of lactulose and will be discharged with a course of the same. She was instructed to return for worsening symptoms and follow-up with her surgeon as previously scheduled. Disposition: Discharge Impression: 1. Constipation 2. History of recent open cholecystectomy This note was generated with [employer] dictation software. It may contain incorrect words, spelling, and punctuation that were not noted in review of the chart prior to signing ED Disposition - Plan for ED Patient: Disposition: Home or Assisted Living Chief Complaint: Shortness of Breath Diagnosis: Constipation Instructions: ED Constipation Prescriptions: Lactulose 10 gm PO DAILY #90 ml Referrals: Janee Londono NP-C [Primary Care Provider] - 3-5 Days if not improving What to do if you have Problems For any increased pain, shortness of breath, bleeding, nausea or vomiting, chest pain, or any unexpected problems, contact your Primary Care Provider. Call [facility] ([phone]) or report to the closest Emergency Room. Call 911 if necessary. 07/03/18 0043 <Electronically signed by Antonio Guardado MD> Date Antonio Guardado MD Cosigner Signature (If Indicated): Date CC: Janee Londono CUSTOMER EXPERT-C ,URINE Collected: 07/02/2018 Status: F Source: [place] 7:05 PM [facility] REPOSITORY Order Comment: Order Date: 07/02/18 TYPE CODE TESTS RESULT OUT OF REFERENCE UNITS RANGE LAB L400.8000 Negative Normal HCGUQUAL Negative Result Comment: Very dilute urine specimens, as indicated by a low specific gravity, may not contain correspondence representative levels of hCG. If is still suspected, a first morning urine specimen should be collected 48 hours later and tested. Performed By: #### L400.7600 #### [facility] [address] [place], [place], [address] CBC W/DIFF, AUTOMATED Collected: 07/02/2018 Status: F Source: [place] 6:40 PM [facility] REPOSITORY TYPE CODE TESTS RESULT OUT OF RANGE REFERENCE UNITS LAB L100.1000 4.4-11.0 K/mm3 Normal WBC 5.8 LAB L100.1200 4.2-5.4 M/mm3 Low RBC 3.79 LAB L100.1300 12.0-15.0 g/dl Low HGB 11.3 LAB L100.1400 37-47 % Low HCT 35.5 LAB L100.1500 81-99 fL Normal MCV 93.7 LAB L100.1600 27.0-32.0 pg Normal MCH 29.8 LAB L100.1700 32-36 g/gl Low MCHC 31.8 LAB L100.1810 11.6-14.6 % Normal RDW CV 13.2 LAB L100.1820 35.1-43.9 fl Normal RDW SD 43.8 LAB L100.1900 150-450 K/mm3 Normal PLT 286 LAB L100.2000 6.2-12.0 fl Normal MPV 10.8 LAB L100.2100 47-70 % Normal NEUT% 49.7 LAB L100.2200 19-41 % Normal LY% 32.5 LAB L100.2300 0-10 % High MONO% 14.0 LAB L100.2400 0-5 % Normal EO% 2.9 LAB L100.2500 0-1 % Normal BASO% 0.7 LAB L100.2550 0.0-0.9 % Normal IM GRAN % 0.200 Result Comment: IG% - Immature Granulocytes (promyelocytes, myelocytes and metamyelocytes) > 1% indicates that a LEFT SHIFT is Present. LAB L100.2620 2.0-7.7 X10 3/uL Normal Absolute Neut 2.9 LAB L100.2720 0.83-4.51 X10 3/ul Normal Absolute Lymph 1.88 Performed By: #### L100.0100 #### [facility] [address] [place], [address] COMPREHENSIVE METABOLIC Collected: 07/02/2018 Status: F Source: [facility] 6:40 PM [facility] REPOSITORY TYPE CODE TESTS RESULT OUT OF RANGE REFERENCE UNITS LAB L501.0100 74-106 mg/dL Normal GLU 83 Result Comment: Please note revised GLUCOSE reference range effective 2017. LAB L501.1000 7-18 mg/dL Normal BUN 9 LAB L501.1100 0.55-1.02 mg/dL Normal CREAT,SERUM 0.80 Result Comment: The validity of the calculated GFR AND GFRAA in patients over 70 years has not been determined. Clinical correlation is essential. LAB L501.1110 >60 mL/min Normal EST GFR 89 Result Comment: Non- GFR Calc LAB L501.1115 >60 mL/min Normal EST GFR - AA 108 Result Comment: GFR Calc LAB L501.1255 ml/min Normal Estimated CRCL 92.53 LAB L501.1300 10-20 RATIO Normal BUN/CRE 11.2 LAB L501.1500 6.4-8. g/dL Normal 2 T PROT 7.7 LAB L501.1800 3.2-5. g/dL Normal 0 ALB 3.6 LAB L501.1950 2.2-4. g/dL Normal 2 GLOB 4.1 LAB L501.2000 0.9-2. RATIO Normal 4 A/G 0.9 LAB L501.2200 8.5-10 mg/dL Low .1 CA 8.4 LAB L501.4100 15-37 U/L Low AST 12 LAB L501.4305 45-117 U/L Normal ALK P 106 LAB L501.4405 13-56 U/L Normal ALT 29 LAB L501.4600 0.20-1 mg/dL Normal .00 T BILI 0.20 LAB L501.5300 136-14 mmol/L Normal 5 NA 140 LAB L501.5600 3.5-5. mmol/L Normal 1 K 3.9 LAB L501.5900 98-107 mmol/L Normal CL 107 LAB L501.6100 21.0-3 mmol/L Normal 2.0 CO2 26.0 LAB L501.6200 5-15 Normal GAP 7 Performed By: #### L500.4050, L501.2450 #### [facility] [address] [place], [address] LIPASE Collected: 07/02/2018 Status: F Source: [place] 6:40 PM [facility] REPOSITORY TYPE CODE TESTS RESULT OUT OF RANGE REFERENCE UNITS LAB L501.2450 73-393 U/L Normal LIPASE 186 Performed By: #### L500.4050, L501.2450 #### [facility] [address] [place], [address] URINALYSIS, COMPLETE Collected: 07/02/2018 Status: F Source: [place] 6:35 PM [facility] REPOSITORY Order Comment: Order Date: 07/02/18 How was Urine Obtained? CLEAN CATCH TYPE CODE TESTS RESULT OUT OF RANGE REFERENCE UNITS LAB L400.3000 Yellow COLOR Normal Yellow LAB L400.3050 Clear Normal CLARITY Clear LAB L400.3200 Normal mg/dl Normal GLUCOSE, UR Normal LAB L400.3300 Negative mg/dL Normal BILIRUBIN URINE Negative LAB L400.3400 Negative mg/dl Normal KETONE UR Negative LAB L400.3465 1.002-1.030 Normal SP.GR. DIPSTX 1.015 LAB L400.3550 5.0 - 8.0 pH UR Normal 6.0 LAB L400.3600 Negative mg/dl PROT Normal DIPSTX Negative LAB L400.3700 Normal mg/dl Normal UROBILI Normal LAB L400.3750 Negative Normal NITRITE UR Negative LAB L400.3780 Negative /ul Normal OCCULT BLOOD-UR Negative LAB L400.3800 Negative /ul LEUK Normal ESTERASE Negative LAB L400.4050 0-5 /hpf WBC 0 Normal SEEN LAB L400.4100 0-5 /hpf 0 Normal RBC-UA SEEN LAB L400.4150 5-10 /hpf SQUAM Normal EPI 0-5 SEEN LAB L400.4300 None Seen /hpf 0 Normal BACTERIA SEEN LAB L400.4350 <or=2+ /hpf 0 Normal MUCUS, URINE SEEN Performed By: #### L400.0001 #### [facility] [address] [place], [address] ABDOMEN/PELVIS W IV CONT Observed: 07/02/2018 Status: F Source: [facility] 6:22 PM [facility] REPOSITORY [facility] Imaging Services [address] [place] [address] Abdomen/Pelvis W IV Cont ONLY MR#: [id number] Acct: [id number] Name: MARY ALICE KIMBLE Rep #: [id number] : 1985 F 32 From: Mariann Medina MD PCP: Janee Norman Status: REG ER Study: Abdomen/Pelvis W IV Cont ONLY Date of Exam: 07/02/18 Exam# [id number] Ordering Dr: Antonio Guardado MD STUDY: CT ABDOMEN AND PELVIS WITHOUT CONTRAST REASON FOR EXAM: Female, 32 years old. Pain. History of cholecystectomy. RADIATION DOSAGE (If Supplied By Facility): CTDIvol = ( 18.03 ) mGy, DLP = ( 1223.94 ) mGycm TECHNIQUE: Transaxial images were obtained from the dome of the diaphragm to the symphysis pubis without oral contrast, and without intravenous contrast. Sagittal and coronal images were reconstructed. Individualized dose optimization techniques were used for this CT. COMPARISON: 05/22/2018 FINDINGS: Evaluation of the abdominal viscera is limited in the absence of intravenous contrast. The visualized lung bases are clear. The visualized portions of the heart and pericardium are within normal limits. The patient is status post cholecystectomy. There is a small amount of pneumobilia present. The liver demonstrates an unremarkable unenhanced appearance. The spleen is normal in size. The pancreas demonstrates an unremarkable unenhanced appearance. The adrenal glands are within normal limits. There are no renal or ureteral stones. There is no hydronephrosis. Normal visualized stomach. There is no bowel obstruction or inflammation. There is a large amount of stool in the colon, consistent with constipation. The appendix is visualized and appears normal. The aorta is normal in caliber. There is no abdominal or pelvic free air, free fluid, fluid collection or lymphadenopathy. There are no destructive osseous lesions. CT/Abdomen/Pelvis W IV Cont ONLY IMPRESSION: Status post cholecystectomy. Small amount of pneumobilia. No free air, free fluid or fluid collection. No bowel obstruction or inflammation. Normal appendix. Constipation. Electronically Signed: Mariann Adam, at 19:55 EST Tel , Service support , CC: Janee JESSICA; Antonio Guardado Cloth Desizing Range Operator Chief: Signed CNCO Observed: 06/27/2018 Status: COMPLETED Source: [place] 12:00 AM [facility] REPOSITORY Letter Text June 27, 2018 Ms. Wheat Iam Kimble [address] [facility] [address] Dear Ms. Mary Alice Kimble, You submitted an Advance Directive document to us. However, the Health Care Power of Human Services Instructor cannot be processed for one or more of the following reason(s): You did not sign the Health Care Power of Human Services Instructor as Principal. The Health Care Power of Human Services Instructor was not witnessed by two people who are not related to you or notarized. Your signature must be witnessed by two people not related to you or notarized as required by [place] law. Please provide the [facility] an accurate and completed copy of your Advance Directive document as soon as possible. Advance Directive forms are available free of charge at all [facility] locations. You can also download forms from this link: [email or web address]. Please return a copy of your Advance Directive documents (not the originals) to the following address: [facility] Information Management, AB7 Advance Directives Processing [address] [place], [place] [address] Thank you, Advance Directives Coordinator CNDS Observed: 06/24/2018 Status: COMPLETED Source: [place] 11:34 AM [facility] [place] REPOSITORY HNO ID: [id number] Author: Christian Liang (Pa) Service: General Surgery Author Type: Physician Sales Negotiator Type: Discharge Summaries Filed: 06/24/2018 11:39 AM Note Text: DISCHARGE SUMMARY PATIENT NAME: Mary Alice Kimble ADMISSION DATE: 06/22/2018 DISCHARGE DATE: 06/24/2018 Attending: Vazquez Horton Reason for Hospitalization: Active Problems: Abdominal pain Resolved Problems: * No resolved hospital problems. * Operations During Hospitalization: None Procedures During Hospitalization: No procedures performed Hospital Course: The patient was admitted to the hospital with a previous known diagnosis of completion cholecystectomy with intraoperative ultrasound, cholangiogram and choledochoduodenostomy 06/16/18. She presented to [facility] ED 06/22/2018 c/o worsening RUQ abdominal pain x 2 days associated with N/V and foul smelling, watery diarrhea. The patient was subsequently admitted to the [facility] surgery service. Stool culture was drawn and was positive for C. Diff. Patient was started on PO vancomycin. No complications were encountered. Daily labs were ordered and reviewed to follow up progress of patients medical condition. Heparin was ordered for prophylaxis of deep vein thrombosis. Diet was gradually advanced. After toleration of a full diet and adequate pain control, patient was discharged in a stable condition. Patient will continue with a 10 day course of oral Vancomycin upon discharge. Labs and Procedures Pending at Discharge: No pending results. Patient Condition at Discharge: Stable Discharge Disposition: Home/Self Care Discharge Physical Exam: VITAL SIGNS: BP 110/68 Pulse (!) 50 Temp 36.7 ?C (98.1 ?F) (Oral) Resp 18 Ht 165.1 cm (5' 5) Wt 95.3 kg (210 lb) LMP 06/08/2018 SpO2 100% BMI 34.95 kg/m? GENERAL/NEURO: Awake, Alert, no distress HEENT: Normocephalic, Atraumatic, sclera anicteric CARDIORESP: Non-labored breathing on RA, hemodynamically stable ABDOMEN: Soft, nontender, nondistended INCISIONS: clean/dry/intact EXTREMITIES: warm, well perfused, no jaundice, no cyanosis, no edema Information Provided to Patient: Patient given copy of Discharge Instructions Discharge Medications:Current Discharge Medication List START taking these medications vancomycin (VANCOCIN) 125 mg Take 125 mg by mouth four times daily. Qty: 200 mL Refills: 0 CONTINUE these medications which have NOT CHANGED omeprazole (PriLOSEC) 20 mg Take 20 mg by mouth once daily. Refills: 1 ursodiol (ACTIGALL) 300 mg Take 300 mg by mouth twice daily. Refills: 0 magnesium hydroxide (MOM) 30 mL Take 30 mL by mouth once daily as needed for Constipation. Qty: 354 mL Refills: 0 oxyCODONE IR (ROXICODONE) 5 mg Take 5 mg by mouth every 4 hours as needed. Earliest Fill Date: 06/18/18 Qty: 42 tablet Refills: 0 Associated Diagnoses:Postoperative pain ondansetron (ZOFRAN) 4 mg Take 4 mg by mouth every 8 hours as needed for Nausea/Vomiting. Qty: 42 tablet Refills: 0 docusate sodium (COLACE) 100 mg Take 100 mg by mouth twice daily. Qty: 14 capsule Refills: 0 acetaminophen (TYLENOL) 500 mg Take 500 mg by mouth every 4 hours as needed for Pain. Qty: 180 tablet Refills: 0 multivit with calcium,iron,min (WOMEN'S MULTIPLE VITAMINS ORAL) Take by mouth. predniSONE (DELTASONE) 20 mg tablet Prednisone 40 mg (2-20mg tablets) po QD for 5 days Qty: 10 tablet Refills: 0 Associated Diagnoses:Viral URI with cough benzonatate (TESSALON PERLE) 100 mg Take 100 mg by mouth three times daily as needed. Qty: 30 capsule Refills: 0 Associated Diagnoses:Viral URI with cough albuterol HFA (PROVENTIL HFA, VENTOLIN HFA) 2 Puffs Inhale 2 Puffs as instructed every 4 hours as needed for Wheezing/Shortness of Breath. Qty: 1 Inhaler Refills: 0 Associated Diagnoses:Viral URI with cough SPRINTEC 0.25-35 mg-mcg per tablet STOP taking these medications acetaminophen 325 mg cap Comments: Reason for Stopping: Future Appointments Date Time Provider Department Center 07/08/2018 11:30 AM Vazquez Clifford [facility] A/M BLD SIGNATURE: Christian Liang PA-C PAGER: [phone] DATE: June 24, 2018 TIME: 11:35 AM PROGRESS Observed: 06/24/2018 Status: COMPLETED Source: [place] 8:56 AM [facility] [place] REPOSITORY HNO ID: [id number] Author: Arnulfo Chiu MD Service: General Surgery Author Type: Resident Type: Progress Notes Filed: 06/24/2018 8:57 AM Note Text: SURGERY INPATIENT PROGRESS NOTE Patient Name: Mary Alice Kimble Assessment and Plan: 32 year old female with history of completion cholecystectomy on 06/16/18 who presented with 2 day duration with associated nausea, vomiting, multiple bouts of foul smelling watery diarrhea and found to be C Diff positive Neuro/Pain: PO/IV regimen Cardioresp: Incentive spirometry, OOB FEN/GI: HLIV. Replete Lytes. Diet: GIS diet . Zofran prn Renal: Strict I/Os. No Avery Heme: No indication for transfusion ID: C Diff positive. PO vanc Endo: monitor Prophylaxis: IPCs, SQH Dispo: DC today with 10d PO vanc Plan to be discussed with Surgery Staff Arnulfo Chiu MD General Surgery PGY-2 Date: 06/24/2018 Time: 8:56 AM [facility] pager: [phone] *Please page Night/Weekend Pager [phone]) after 6pm (7pm on Wednesdays) and on weekends.* Subjective: Interval Events: no acute events. Pain controlled. Tolerating diet Physical Exam: BP 106/61 Pulse (!) 41 Temp 36.6 ?C (97.9 ?F) (Oral) Resp 18 Ht 165.1 cm (5' 5) Wt 95.3 kg (210 lb) LMP 06/08/2018 SpO2 98% BMI 34.95 kg/m? GENERAL/NEURO: Awake, Alert, no distress HEENT: Normocephalic, Atraumatic, sclera anicteric CARDIORESP: Non-labored breathing on RA, hemodynamically stable ABDOMEN: Soft, nontender, nondistended INCISIONS: clean/dry/intact EXTREMITIES: warm, well perfused, no jaundice, no cyanosis, no edema Labs: CBC, BMP, MG, PHOS Recent Labs 06/24/18 0551 06/23/18 0823 06/23/18 0548 06/22/18 1626 06/22/18 1044 06/19/18 0435 06/18/18 0634 WBC 6.57 -- 10.76 14.93* 19.38* 6.35 7.64 HB 9.7* -- 9.3* 9.6* 12.4 10.7* 10.4* HCT 30.0* -- 27.7* 28.8* 36.3 32.0* 32.5* PLT 201 -- 199 202 262 199 193 NA -- 139 -- -- 139 138 139 K -- 4.1 -- -- 4.2 3.7 4.2 CHLOR -- 107* -- -- 102 99 104 CO2 -- 22 -- -- 23 24 22 BUN -- 3* -- -- 8 7 7 CREAT -- 0.70 -- -- 0.73 0.89 0.82 GLUC -- 103* -- -- 111* 89 81 CA -- 8.6 -- -- 9.7 8.9 8.7 MG -- 1.7 -- -- -- 1.6* 1.6* P -- 2.9 -- -- -- 3.7 2.6* Liver Function, Amylase, AND Lipase Recent Labs 06/23/18 0823 06/22/18 1044 06/22/18 1041 06/19/18 0435 06/16/18 1331 TPROT 6.2* 7.8 -- 6.7 < > -- ALB 3.1* 4.0 -- 3.5* < > -- ALT 22 37 -- 50* < > -- AST 15 19 -- 36* < > -- ALKPHOS 63 81 -- 62 < > -- TBILI 0.3 0.3 -- 0.3 < > -- LACT -- -- 1.2 -- -- 2.7* < > = values in this interval not displayed. Coags Recent Labs 06/15/18 0905 05/26/18 0556 APTT 26.5 27.9 INR 1.0 1.0 Intake and Output: Date 06/23/18 07 - 06/24/1859 06/24/18699 - 06/25/18 0659 Shift 2712-5619 5006-6371 3178-7652 24 Hour Total 3070-0136 9347-0279 0365-2953 24 Hour Total I N T A K E PO 240 240 PO 240 240 Shift Total 240 240 O U T P U T Urine Urine Incontinence/Not Saved 1 x 1 x Urine Not Saved. 1 x 1 x # of BMs Number of BMs 1 x 1 x Shift Total Weight (kg) 95.3 95.3 95.3 95.3 95.3 95.3 95.3 95.3 Current Medications: Current hospital medications: 0.9% NaCl 2-10 mL 2-10 mL INTRAVENOUS q 12 H vancomycin 125 mg oral liquid (VANCOCIN) 125 mg ORAL QID acetaminophen 650 mg tab(s) (TYLENOL) 650 mg ORAL q 6 H PRN ondansetron 4 mg tab(s) (ZOFRAN) 4 mg ORAL q 6 H PRN HYDROmorphone 0.2 mg injection (DILAUDID) 0.2 mg INTRAVENOUS q 4 H PRN heparin 5,000 Units injection 5,000 Units SUBCUTANEOUS q 12 H *A review of daily goals, interventions, and plan of care with the multidisciplinary team and patient has been conducted. The patient?s concerns have been addressed and he/she agrees to proceed with today?s plan of care. ALLIED HEALTH Observed: 06/24/2018 Status: COMPLETED Source: [place] 8:40 AM [facility] REPOSITORY [facility] ID: [id number] Author: Aaron Sutton RN Service: (none) Author Type: (none) Type: Allied Health Filed: 06/24/2018 8:42 AM Note Text: ISOLATION NOTE Admission Date: 06/22/2018 Type of Isolation Recommended: Contact Precautions - Soap and Water (Brown Isolation Sign) Indication: Clostridium difficile Date Isolation Initiated: 06/22/2018 Anticipated Duration of Isolation: Until patient completes 10-14 days of antibiotic therapy for C. difficile and no longer symptomatic. In the event of PCR-positive/EIA-negative result: Isolate the patient. Consult Infection Prevention for guidance regarding duration of isolation. Type and Date of Positive Test(s): 06/22/2018 Positive for C.difficile by PCR SIGNATURE: Aaron Sutton RN PATIENT NAME: Mary Alice Kimble DATE: June 24, 2018 TIME: 8:40 AM PAGER/CONTACT #: [phone] Infection Prevention after hours/weekend pager: [phone] CBC Collected: 06/24/2018 Status: F Source: [place] 5:51 AM [facility] RE[facility] TYPE CODE TESTS RESULT OUT OF REFERENCE UNITS RANGE LAB WBC 3.70-11.00 k/uL WBC 6.57 LAB RBC 3.90-5.20 m/uL Low RBC 3.24 LAB HGB 11.5-15.5 g/dL Low Hemoglobin 9.7 LAB HCT 36.0-46.0 % Low Hematocrit 30.0 LAB MCV 80.0-100.0 fL MCV 92.6 LAB MCH 26.0-34.0 pG MCH 29.9 LAB MCHC 30.5-36.0 g/dL MCHC 32.3 LAB RDWCV 11.5-15.0 % RDW-CV 13.1 LAB PLTCT 150-400 k/uL Platelet Count 201 LAB MPV 9.0-12.7 fL MPV 11.3 LAB ABSNUC <0.01 k/uL Absolute nRBC <0.01 Performed By: #### CBC #### [facility] [address] [place], [place] [address] ED NOTE Observed: 06/23/2018 Status: COMPLETED Source: [place] 8:45 PM [facility] [place] REPOSITORY HNO ID: [id number] Author: Leatha RutledgeRn) Allyson RN Service: Emergency Medicine Author Type: Registered Nurse Type: ED Notes Filed: 06/23/2018 8:46 PM Note Text: Report called to KIRSTEN Gallo. Bed 25 on G90 ready. ED NOTE Observed: 06/23/2018 Status: COMPLETED Source: [place] 8:12 PM [facility] [place] REPOSITORY HNO ID: [id number] Author: Leatha RutledgeRnMelania Valadez RN Service: Emergency Medicine Author Type: Registered Nurse Type: ED Notes Filed: 06/23/2018 8:13 PM Note Text: Assumed care of patient. Patient c/o abdominal pain 11/26. Patient denies sob, dizziness, and nausea. NAD. ABCs intact. AANDO X 3. ID band on, bed in lowest position and locked, side rails up X 2, call light within reach. Will continue to monitor. CDU Plan of Care Admit to inpatient. ED NOTE Observed: 06/23/2018 Status: COMPLETED Source: [place] 7:22 PM [facility] REPOSITORY HNO ID: [id number] Author: Jane RutledgeRn) KIRSTEN Mcguire Service: Emergency Medicine Author Type: Registered Nurse Type: ED Notes Filed: 06/23/2018 7:22 PM Note Text: Handoff report to KIRSTEN Zhang. ED NOTE Observed: 06/23/2018 Status: COMPLETED Source: [place] 6:53 PM [facility] REPOSITORY HNO ID: [id number] Author: Jane RutledgeRn) KIRSTEN Mcguire Service: Emergency Medicine Author Type: Registered Nurse Type: ED Notes Filed: 06/23/2018 6:54 PM Note Text: [place] [phone] to inquire as to patient dispo, inpatient vs discharge. Also advised peripheral IV discontinued 2/2 infiltration, inquiring if new peripheral IV site needs to be established or can hold on IVF's as patient is tolerating PO. Awaiting reply. ED NOTE Observed: 06/23/2018 Status: COMPLETED Source: [place] 4:36 PM [facility] REPOSITORY HNO ID: [id number] Author: Jane RutledgeRn) KIRSTEN Mcguire Service: Emergency Medicine Author Type: Registered Nurse Type: ED Notes Filed: 06/23/2018 4:37 PM Note Text: Text page sent to Arnulfo Chiu MD informing of passing 24 hour pankaj under Surg Obs, inquiring re: POC/Dispo. Return page received, per Dr. Chiu, will be down to see patient and determine dispo. ED NOTE Observed: 06/23/2018 Status: COMPLETED Source: [place] 11:20 AM [facility] REPOSITORY HNO ID: [id number] Author: Jane RutledgeRnMelania Mcguire RN Service: Emergency Medicine Author Type: Registered Nurse Type: ED Notes Filed: 06/23/2018 11:22 AM Note Text: Focused assessment complete as charted. VSS, Blood pressure 119/67, pulse 64, temperature 36.8 ?C (98.2 ?F), temperature source Oral, resp. rate 16, height 165.1 cm (5' 5), weight 95.3 kg (210 lb), last menstrual period 06/08/2018, SpO2 100 %. Denies pain at this time. Denies N/V at this time. Pt ate breakfast of cereal, yogurt and fruit cup without emesis, but states, it went right through me. Continues to have watery, yellow stools. IVF's infusing as ordered without complications. Contact precautions maintained. Cont to monitor. Comfort measures addressed. Patient has an ID Band on , is in the bed/cart with Side Rails up x2 and has the Call Spence within reach. COMP METABOLIC PANEL Collected: 06/23/2018 Status: F Source: [place] 8:23 AM [facility] RE[facility] TYPE CODE TESTS RESULT OUT OF REFERENCE UNITS RANGE LAB TP 6.3-8.0 g/dL Low Protein, Total 6.2 LAB ALB 3.9-4.9 g/dL Low Albumin 3.1 LAB CA 8.5-10.2 mg/dL Calcium, Total 8.6 LAB TBIL 0.2-1.3 mg/dL Bilirubin, Total 0.3 LAB ALKP 34-123 U/L Alkaline Phosphatase 63 LAB AST 13-35 U/L AST 15 LAB GLU 74-99 mg/dL Glucose High 103 Result Comment: The [place] Diabetes [employer] (ADA) provides guidance for cutoff values for fasting glucose and random glucose. The ADA defines fasting as no caloric intake for at least 8 hours. Fas ting plasma glucose results between 100 to 125 mg/dL indicate increased risk for diabetes (prediabetes). Fasting plasma glucose results greater than or equal to 126 mg/dL meet the criteria for diagnosis of diabetes. In the absence of unequivocal hyperglycemia, results should be confirmed by repeat testing. In a patient with classic symptoms of hyperglycemia or hyperglycemic crisis, random plasma glucose results greater than or equal to 200 mg/dL meet the criteria for diagnosis of diabetes. Reference: Standards of Medical Care in Diabetes 2016, [place] [employer]. Diabetes Care. 2016.39(Suppl 1). LAB BUN 7-21 mg/dL Low BUN 3 LAB CRET 0.58-0.96 mg/dL Creatinine 0.70 LAB NA 136-144 mmol/L Sodium 139 LAB K 3.7-5.1 mmol/L Potassium 4.1 LAB CL 97-105 mmol/L Chloride High 107 LAB CO2 22-30 mmol/L CO2 22 LAB AGAP 9-18 mmol/L Anion Gap 10 LAB ALT 7-38 U/L ALT 22 LAB GFRAA eGFR- Amer. >60 LAB GFRNAA . eGFR-All Other Races >60 Result Comment: eGFR (Estimated GFR) Units of measure: mL/min/1.73 meters squared eGFR is derived from the reexpressed MDRD Study equation using the following parameters: serum creatinine, age, gender and race. The creatinine assay has been calibrated to be traceable to IDMS. An eGFR <60 mL/min/1.73m2 for >3 months is consistent with chronic kidney disease. Refer to KDOQI guidelines for clinical interpretation. In patients with unstable renal function, e.g. those with acute kidney injury, the eGFR may not accurately reflect actual GFR. Performed By: #### CMP, MG1, PHOS #### [facility] [address] [place] [address] MAGNESIUM Collected: 06/23/2018 Status: F Source: [place] 8:23 AM [facility] REPOSITORY TYPE CODE TESTS RESULT OUT OF REFERENCE UNITS RANGE LAB MG 1.7-2.3 mg/dL Magnesium 1.7 Performed By: #### CMP, MG1, PHOS #### [facility] [address] [place] [address] PHOSPHORUS Collected: 06/23/2018 Status: F Source: [place] 8:23 AM [facility] REPOSITORY TYPE CODE TESTS RESULT OUT OF REFERENCE UNITS RANGE LAB PHOS 2.7-4.8 mg/dL Phosphorus 2.9 Performed By: #### CMP, MG1, PHOS #### [facility] [address] [place] [address] ED NOTE Observed: 06/23/2018 Status: COMPLETED Source: [place] 7:48 AM [facility] REPOSITORY [facility]NO ID: [id number] Author: Jane (Rn) KIRSTEN Mcguire Service: Emergency Medicine Author Type: Registered Nurse Type: ED Notes Filed: 06/23/2018 7:56 AM Note Text: Handoff report received from KIRSTEN Zhang. Assumed patient care. Assessment complete as charted. Pt is A/O X 3, calm AND cooperative. VSS,Blood pressure 129/74, pulse 66, temperature 36.6 ?C (97.9 ?F), temperature source Oral, resp. rate 16, height 165.1 cm (5' 5), weight 95.3 kg (210 lb), last menstrual period 06/08/2018, SpO2 97 %. Denies pain at this time. Reports intermittent ABD pain. ABD soft, distended, mildly tender to palpation. Pt is POD 7, ABD incision well approximated, no redness, erythema, drainage. Resp even AND unlabored. LS cta b/l. Pt c/o I am just really tired, not getting enough sleep. Encouraged frequent periods of rest. Intermittent nausea, none at this time. No emesis since yesterday morning per patient. Pt also reports frequent diarrhea, brown and watery in consistency. Contact precautions maintained for +C-diff. Pt advised diet advanced to GI diet. Tolerating PO intake. IVF's infusing as ordered without complications. POC reviewed. Nursing Plan of Care: Continue observation in CDU Obtain and monitor vital signs per protocol Treat pain and reassess per protocol Continue to monitor for patient safety and comfort Contact precautions GI diet Continuous IVF's Antibiotics Pt agreeable to POC. Comfort measures addressed. Cont to monitor. Patient has an ID Band on , is in the bed/cart with Side Rails up x2 and has the Call Spence within reach. PROGRESS Observed: 06/23/2018 Status: COMPLETED Source: [place] 7:06 AM [facility] REPOSITORY O ID: [id number] Author: Arnulfo (Lexi) MD Aram Service: General Surgery Author Type: Resident Type: Progress Notes Filed: 06/23/2018 7:09 AM Note Text: SURGERY INPATIENT PROGRESS NOTE Patient Name: Mary Alice Kimble Assessment and Plan: 32 year old female with history of completion cholecystectomy on 06/16/18 who presented with 2 day duration with associated nausea, vomiting, multiple bouts of foul smelling watery diarrhea and found to be C Diff positive Neuro/Pain: PO/IV regimen Cardioresp: Incentive spirometry, OOB FEN/GI: IVF until taking PO, improved dehydration. Replete Lytes. Diet: trial GIS diet . Zofran prn Renal: Strict I/Os. No Avery Heme: No indication for transfusion ID: C Diff positive. Started PO vanc Endo: monitor Prophylaxis: IPCs, SQH Dispo: CDU, pending diet tolerance Plan to be discussed with Surgery Staff Arnulfo Chiu MD General Surgery PGY-2 Date: 06/23/2018 Time: 7:06 AM [phone] [facility] pager: [phone] *Please page Night/Weekend Pager [phone]) after 6pm (7pm on Wednesdays) and on weekends.* Subjective: Interval Events: no acute events. Pain controlled. ++ liquid bowel function. + nausea. No other complaints. Physical Exam: BP 126/71 Pulse 65 Temp 36.8 ?C (98.2 ?F) (Oral) Resp 18 Ht 165.1 cm (5' 5) Wt 95.3 kg (210 lb) LMP 06/08/2018 SpO2 95% BMI 34.95 kg/m? GENERAL/NEURO: Awake, Alert, no distress HEENT: Normocephalic, Atraumatic, sclera anicteric CARDIORESP: Non-labored breathing on RA, hemodynamically stable ABDOMEN: Soft, nontender, nondistended INCISIONS: clean/dry/intact EXTREMITIES: warm, well perfused, no jaundice, no cyanosis, no edema Labs: CBC, BMP, MG, PHOS Recent Labs 06/23/18 0548 06/22/18 1626 06/22/18 1044 06/19/18 0435 06/18/18 0634 06/17/18 0641 05/27/18 0509 WBC 10.76 14.93* 19.38* 6.35 7.64 11.34* < > 6.49 HB 9.3* 9.6* 12.4 10.7* 10.4* 11.0* < > 12.6 HCT 27.7* 28.8* 36.3 32.0* 32.5* 33.0* < > 38.6 PLT 199 202 262 199 193 211 < > 205 NA -- -- 139 138 139 -- < > 140 K -- -- 4.2 3.7 4.2 -- < > 4.0 CHLOR -- -- 102 99 104 -- < > 103 CO2 -- -- 23 24 22 -- < > 22 BUN -- -- 8 7 7 -- < > 12 CREAT -- -- 0.73 0.89 0.82 -- < > 0.85 GLUC -- -- 111* 89 81 -- < > 92 CA -- -- 9.7 8.9 8.7 -- < > 9.3 MG -- -- -- 1.6* 1.6* 1.8 -- 1.7 P -- -- -- 3.7 2.6* -- -- 4.1 < > = values in this interval not displayed. Liver Function, Amylase, AND Lipase Recent Labs 06/22/18 1044 06/22/18 1041 06/19/18 0435 06/18/18 0634 06/16/18 1331 TPROT 7.8 -- 6.7 6.4 < > -- ALB 4.0 -- 3.5* 3.4* < > -- ALT 37 -- 50* 61* < > -- AST 19 -- 36* 51* < > -- ALKPHOS 81 -- 62 60 < > -- TBILI 0.3 -- 0.3 0.3 < > -- LACT -- 1.2 -- -- -- 2.7* < > = values in this interval not displayed. Coags Recent Labs 06/15/18 0905 05/26/18 0556 APTT 26.5 27.9 INR 1.0 1.0 Intake and Output: Date 06/22/18699 - 06/23/1865806/23/18699 - 06/24/18 0659 Shift 2474-4099 3007-8338 0177-7137 24 Hour Total 8531-2124 7034-0590 1610-3956 24 Hour Total I N T A K E PO 120 120 PO 120 120 Shift Total 120 120 O U T P U T Shift Total Weight (kg) 95.3 95.3 95.3 95.3 95.3 95.3 95.3 95.3 Current Medications: Current hospital medications: vancomycin 125 mg oral liquid (VANCOCIN) 125 mg ORAL QID ondansetron 4 mg tab(s) (ZOFRAN) 4 mg ORAL q 6 H PRN HYDROmorphone 0.2 mg injection (DILAUDID) 0.2 mg INTRAVENOUS q 4 H PRN dextrose 5% in NaCl 0.45% with 20 mEq/L KCl iv infusion 125 mL/hr INTRAVENOUS CONTINUOUS heparin 5,000 Units injection 5,000 Units SUBCUTANEOUS q 12 H *A review of daily goals, interventions, and plan of care with the multidisciplinary team and patient has been conducted. The patient?s concerns have been addressed and he/she agrees to proceed with today?s plan of care. ED NOTE Observed: 06/23/2018 Status: COMPLETED Source: [place] 7:05 AM [facility] REPOSITORY HNO ID: [id number] Author: Leatha Costa) Allyson RN Service: Emergency Medicine Author Type: Registered Nurse Type: ED Notes Filed: 06/23/2018 7:05 AM Note Text: Hand off report given to KIRSTEN Lara. CBC Collected: 06/23/2018 Status: F Source: [place] 5:48 AM [facility] REPOSITORY TYPE CODE TESTS RESULT OUT OF REFERENCE UNITS RANGE LAB WBC 3.70-11.00 k/uL WBC 10.76 LAB RBC 3.90-5.20 m/uL Low RBC 3.03 LAB HGB 11.5-15.5 g/dL Low Hemoglobin 9.3 LAB HCT 36.0-46.0 % Low Hematocrit 27.7 LAB MCV 80.0-100.0 fL MCV 91.4 LAB MCH 26.0-34.0 pG MCH 30.7 LAB MCHC 30.5-36.0 g/dL MCHC 33.6 LAB RDWCV 11.5-15.0 % RDW-CV 13.2 LAB PLTCT 150-400 k/uL Platelet Count 199 LAB MPV 9.0-12.7 fL MPV 10.4 LAB ABSNUC <0.01 k/uL Absolute nRBC <0.01 Performed By: #### CBC #### [facility] [address] [place], [place] [address] ED NOTE Observed: 06/23/2018 Status: COMPLETED Source: [place] 4:23 AM [facility] REPOSITORY HNO ID: [id number] Author: Leatha (Rn) Valadez, RN Service: Emergency Medicine Author Type: Registered Nurse Type: ED Notes Filed: 06/23/2018 4:24 AM Note Text: Patient c/o generalized back and abdominal pain 03/28. Patient denies sob, dizziness, and nausea. NAD. Call light within reach. Will continue to monitor. ED NOTE Observed: 06/23/2018 Status: COMPLETED Source: [place] 12:26 AM [facility] REPOSITORY HNO ID: [id number] Author: Leatha Valadez RN Service: Emergency Medicine Author Type: Registered Nurse Type: ED Notes Filed: 06/23/2018 12:27 AM Note Text: Patient c/o generalized abdominal and back pain 02/25. Patient denies sob, dizziness, and nausea. Patient medicated with zofran per request to help with temporary nausea from dilaudid. NAD. Call light within reach. Will continue to monitor. ED NOTE Observed: 06/22/2018 Status: COMPLETED Source: [place] 8:08 PM [facility] REPOSITORY HNO ID: [id number] Author: Leatha Valadez RN Service: Emergency Medicine Author Type: Registered Nurse Type: ED Notes Filed: 06/22/2018 8:09 PM Note Text: Surgery paged about patient statement that she has tingling in bilateral legs when asked during assessment. ED NOTE Observed: 06/22/2018 Status: COMPLETED Source: [place] 7:52 PM [facility] REPOSITORY [facility]NO ID: [id number] Author: Leatha Valadez RN Service: Emergency Medicine Author Type: Registered Nurse Type: ED Notes Filed: 06/22/2018 7:56 PM Note Text: Assumed care of patient. Patient is 32 year old female in with diagnosis of post op complications. Patient states she had the rest of her gallbladder removed Saturday after a previous operation where part of it was left in. Patient states starting this weekend she has been having abdominal pain and nausea. Patient currently c/o generalized abdominal and back pain 03/28. Patient denies sob, dizziness, and nausea. Patient states she occasionally feels like she needs to take and extra breath. NAD. ABCs intact. AANDO X 3. ID band on, bed in lowest position and locked, side rails up X 2, call light within reach. Will continue to monitor. CDU Plan of Care Vitals q 4 and as needed. Pain management. Continuous IVF infusion. Maintain patient comfort. Notify Lip of any acute changes. CBC AND DIFFERENTIAL Collected: 06/22/2018 Status: F Source: [place] 4:26 PM [facility] REPOSITORY TYPE CODE TESTS RESULT OUT OF REFERENCE UNITS RANGE LAB WBC 3.70-11.00 k/uL WBC High 14.93 LAB RBC 3.90-5.20 m/uL Low RBC 3.17 LAB HGB 11.5-15.5 g/dL Low Hemoglobin 9.6 LAB HCT 36.0-46.0 % Low Hematocrit 28.8 LAB MCV 80.0-100.0 fL MCV 90.9 LAB MCH 26.0-34.0 pG MCH 30.3 LAB MCHC 30.5-36.0 g/dL MCHC 33.3 LAB RDWCV 11.5-15.0 % RDW-CV 13.0 LAB PLTCT 150-400 k/uL Platelet Count 202 LAB MPV 9.0-12.7 fL MPV 10.5 LAB ANEUT % Neut% 83.5 LAB AANEUT 1.45-7.50 k/uL Abs Neut High 12.48 LAB ALYMP % Lymph% 7.7 LAB AALYMP 1.00-4.00 k/uL Abs Lymph 1.15 LAB AMONO % [place]% 8.4 LAB AAMONO <0.87 k/uL Abs [place] High 1.25 LAB AEOS % Eosin% 0.1 LAB AAEOS <0.46 k/uL Abs Eosin <0.03 LAB ABASO % Baso% 0.3 LAB AABASO <0.11 k/uL Abs Baso 0.04 LAB AUNRBC 0 /100 WBC NRBCs 0.0 LAB ABNRBC <0.01 k/uL Absolute nRBC <0.01 LAB DTYP DTYPE Auto Diff Performed By: #### CBCDIF #### [facility] [address] [place] [id number] ED NOTE Observed: 06/22/2018 Status: COMPLETED Source: [place] 4:10 PM [facility] REPOSITORY HNO ID: [id number] Author: Rosa RutledgeInvestment Sales Assistant) GERARDO Chu Service: Emergency Medicine Author Type: Registered Resp Therapist Type: ED Notes Filed: 06/22/2018 4:11 PM Note Text: Patient being admitted to CDU( Surgical Obs.) with complaints of N/V.Breath sounds bilaterally clear. Patient states no pulmonary history or medications.Patient able to speak full sentences and appears in no respiratory distress at this time. HR84, RR18, pulse ox 99% RA. Will continue to monitor patient. ED NOTE Observed: 06/22/2018 Status: COMPLETED Source: [place] 3:14 PM [facility] REPOSITORY HNO ID: [id number] Author: Key Costa) KIRSTEN Hernandez Service: Emergency Medicine Author Type: Registered Nurse Type: ED Notes Filed: 06/22/2018 3:17 PM Note Text: Pt is AOx3. Pt was transferred from ED to CDU as a surgical obs. Pt is able to ambulate steady from WC to bed. Pt denies dizziness. Pt is post -op albert on Saturday and has increased nausea, vomiting and pain at surgical site. Abd is soft and +tender to touch. Afebrile. BS+x4 and normoactive. Pt is tolerating clears at this time. MAEX4. Pt denies N+v at this time. Call light in reach. Oriented to unit and call light system. Nursing Plan of Care -manage and control pain -IV antibiotics -Gen surg following ED NOTE Observed: 06/22/2018 Status: COMPLETED Source: [place] 3:02 PM [facility] REPOSITORY HNO ID: [id number] Author: Key Costa) KIRSTEN Hernandez Service: Emergency Medicine Author Type: Registered Nurse Type: ED Notes Filed: 06/22/2018 3:02 PM Note Text: Patient has an ID Band on , has an Allergy Band on, is in the bed/cart with Side Rails up x2 and has the Call Spence within reach. ED NOTE Observed: 06/22/2018 Status: COMPLETED Source: [place] 2:19 PM [facility] REPOSITORY HNO ID: [id number] Author: Sidra RutledgeRn) KIRSTEN Sanchez Service: Emergency Medicine Author Type: Registered Nurse Type: ED Notes Filed: 06/22/2018 2:19 PM Note Text: Report given to KIRSTEN Mackey. Bed 6 ready. CDU-6. ED NOTE Observed: 06/22/2018 Status: COMPLETED Source: [place] 2:19 PM [facility] REPOSITORY HNO ID: [id number] Author: Mike Gee MD Service: Emergency Medicine Author Type: Resident Type: ED Notes Filed: 06/22/2018 2:20 PM Note Text: Received sign out from Dr. Hendrickson. TO follow up on general surgery recommendations, and recommendation is to admit to CDU for observation. She will not receive abx there, and per Dr. Romero's recommendation, she has been prescribed a 1 x dose of unasyn 3g whilst in the ED, only to be given after blood and urine cultures are obtained. Mike Gee MD Pre-neurology Resident PGY-1 Pager: [phone] June 22, 2018 PROGRESS Observed: 06/22/2018 Status: COMPLETED Source: [place] 12:45 PM [facility] REPOSITORY [facility] ID: [id number] Author: KELSI Myers (Ct) Service: (none) Author Type: Clinical Quality Process Lead Type: Progress Notes Filed: 06/22/2018 12:45 PM Note Text: Radiology Service Progress Note PATIENT NAME: Mary Alice Kimble DATE OF SERVICE: June 22, 2018 TIME: 12:45 PM PATIENT IDENTITY VERIFICATION COMPLETED USING TWO (2) METHODS: Patient confirmed name verbally and ID band matches.. PATIENT GENDER DATA: Female. status: : No status: NO. PATIENT RELEVANT IMPLANT DATA REVIEWED: Yes CONTRAST INDUCED NEPHROPATHY RISK FACTORS: Not applicable CREATININE: Creatinine Date Value Ref Range Status 06/22/2018 0.73 0.58 - 0.96 mg/dL Final 06/19/2018 0.89 0.58 - 0.96 mg/dL Final 06/18/2018 0.82 0.58 - 0.96 mg/dL Final eGFR-All Other Races Date Value Ref Range Status 06/22/2018 >60 . Final Comment: eGFR (Estimated GFR) Units of measure: mL/min/1.73 meters squared eGFR is derived from the reexpressed MDRD Study equation using the following parameters: serum creatinine, age, gender and race. The creatinine assay has been calibrated to be traceable to IDMS. An eGFR <60 mL/min/1.73m2 for >3 months is consistent with chronic kidney disease. Refer to KDOQI guidelines for clinical interpretation. In patients with unstable renal function, e.g. those with acute kidney injury, the eGFR may not accurately reflect actual GFR. eGFR- Date Value Ref Range Status 06/22/2018 >60 Final P.O.C.T. RESULTS: N/A June 22, 2018 RADIOLOGIST NOTIFIED?: No ALLERGIES: Reviewed and unchanged CONTRAST ALLERGY: NO. PERIPHERAL IV ACCESS: Ambulatory: IV type: Existing peripheral IV utilized, Site assessment: Clean,Dry and Intact, Site disposition Left in for next appointment RADIOLOGY DEPARTMENT: CT; Exam(s) Completed: Abdomen/Pelvis SIGNED BY: Kirstin Lester RT(R)(CT) June 22, 2018 12:[address] ABD/PEL W IVCON Observed: 06/22/2018 Status: F Source: [place] 12:45 PM [facility] REPOSITORY * * *Final Report* * * DATE OF EXAM: Jun 22 2018 12:45PM [facility] 0530 - CT ABD/PEL W IVCON / PROCEDURE REASON: Infection, abdomen-pelvis * * * * Physician Interpretation * * * * EXAMINATION: CT ABDOMEN AND PELVIS WITH IV CONTRAST CLINICAL HISTORY: Laparoscopic subtotal cholecystectomy for acute cholecystitis performed at an outside hospital complicated by retained cystic duct stones. Status post laparoscopic converted to open completion cholecystectomy and choledochoduodenostomy. Now with worsening nausea, vomiting, abdominal pain, and leukocytosis. TECHNIQUE: CT of the abdomen and pelvis was performed using standard technique, scanning from just above the dome of the diaphragm to the symphysis pubis. MQ: CTAP_3 Contrast: IV: 150 ml of Omnipaque 300 Oral: 600 ml of 50ML Omnipaque [address] Radiation dose: Integrated Dose-length product (DLP) for this visit = 990 mGy*cm. CT Dose Reduction Employed: Automated exposure control (AEC) COMPARISON: CT abdomen pelvis 08/22/2017, MRCP 05/23/2018 RESULT: Liver: No mass. Biliary: Small amount of intrahepatic pneumobilia. Status post cholecystectomy. Trace fluid in the cholecystectomy bed. No fluid collection. Spleen: No mass. Craniocaudal length of the spleen is 13 cm, top normal. No splenic lesion. Pancreas: No mass or duct dilation. Adrenals: No mass. Kidneys: Subcentimeter low-attenuation lesion in the lower pole of the left kidney, too small to characterize but likely benign. No hydronephrosis or nephrolithiasis. GI tract: Mild wall thickening of the rectum and sigmoid colon with surrounding fat stranding and vascular engorgement. The appendix is unremarkable. Small bowel is normal caliber with no wall thickening. Lymph nodes: No abdominal or pelvic lymphadenopathy. Mesentery/Peritoneum/Retroperitoneum: Ill-defined stranding in the cholecystectomy bed. No fluid collection. No ascites or mass. Vasculature: The celiac axis and SMA are patent. The portal vein and branches, splenic vein, SMV, and hepatic veins are patent. No abdominal aortic or iliac artery aneurysm. Pelvis: Trace free fluid in the pelvis. No loculated fluid collection. Tiny focus of gas in the urinary bladder, likely from recent instrumentation. Bones/Soft Tissues: Small foci of gas along the right abdominal wall, as well as subcutaneous stranding, likely related to recent surgery. No acute or destructive osseous lesion. Lower thorax: Trace bilateral pleural effusions. Dependent atelectasis. IMPRESSION: Sigmoid colon wall thickening, likely related to nonspecific infectious or inflammatory colitis. Expected postoperative changes with trace fluid and stranding in the cholecystectomy bed and pneumobilia. No loculated intra-abdominal fluid collection. Cloth Desizing Range Operator Chief: PSCB Transcribe Date/Time: Jun 22 2018 12:56P Dictated by : ERIS PEREZ MD This examination was interpreted and the report reviewed and electronically signed by: IRMA MEDINA MD on Jun 22 2018 2:17PM EST [id number] ED NOTE Observed: 06/22/2018 Status: COMPLETED Source: [place] 12:05 PM [facility] REPOSITORY HNO ID: [id number] Author: Sandra Danielle (Medic) Service: Emergency Medicine Author Type: Railroad Maintenance Clerk and Quality Process Lead Type: ED Notes Filed: 06/22/2018 12:14 PM Note Text: Blood cultures drawn and sent.L arm Observed: 06/22/2018 Status: F Source: [place] BLOOD CULTURE 12:05 PM [facility] REPOSITORY Culture Result - No growth 5 days Performed By: #### BLCUL #### [facility] [address] [place], [place] [address] ED NOTE Observed: 06/22/2018 Status: COMPLETED Source: [place] 11:51 AM [facility] REPOSITORY HNO ID: [id number] Author: Manav (MedicSnadra Contreras Service: Emergency Medicine Author Type: Railroad Maintenance Clerk and Quality Process Lead Type: ED Notes Filed: 06/22/2018 11:51 AM Note Text: Blood cultures drawn and sent.BC#1 RAC Observed: 06/22/2018 Status: F Source: [place] BLOOD CULTURE 11:49 AM [facility] REPOSITORY Culture Result - No growth 5 days Performed By: #### BLCUL #### [facility] [address] [place] [address] C DIFFICILE PCR Collected: 06/22/2018 Status: F Source: [place] 11:18 AM [facility] REPOSITORY TYPE CODE TESTS RESULT OUT OF RANGE REFERENCE UNITS LAB CDFRES C Abnormal difficile PCR Positive for Alert C. difficile toxin by PCR Result Comment: . A positive PCR result may indicate C. difficile infection or colonization. The positive predictive value of this test for C. difficile infection is highest for patients with clinically significant diarrhea (>=3 unformed stools in 24 h) who do not have an alternative explanation (e.g., recent receipt of laxatives). Toxin EIA testing will also be performed as recommended by IDSA clinical practice guidelines for institutions without preagreed criteria for specimen submission. Performed By: #### CDPCR #### [facility] [address] [place] [id number] C. DIFF TOXIN BY Collected: 06/22/2018 Status: F Source: [place] EIA LAB 11:18 AM [facility] ORDER ONLY REPOSITORY TYPE CODE TESTS RESULT OUT OF RANGE REFERENCE UNITS LAB CDEIAT C. Abnormal difficile toxin Alert C.diff detected by Toxin EIA EIA. Performed By: #### CDEIA #### [facility] [address] [place] [address] ED NOTE Observed: 06/22/2018 Status: COMPLETED Source: [place] 11:00 AM [facility] REPOSITORY HNO ID: [id number] Author: Sidra RutledgeRnMelania Sanchez RN Service: Emergency Medicine Author Type: Registered Nurse Type: ED Notes Filed: 06/22/2018 12:00 PM Note Text: Patient lying in bed in stable condition. Agree with previous triage per RN. Assumed care of pt. Pt presented to ED for post op complications. Pt had 2nd gall bladder surgery earlier this week, reports increasing pain and nausea since surgery. Pt reports having diarrhea that started last night as well, stating that she had x10 liquid BM's last night. NAD, ABC's intact, respirations even and unlabored. Pain 8/10, generalized. Awaiting further orders or disposition. Will notify MD of any acute changes. Side rails up x2, bed in lowest locked position, call light within reach. Pt. has no further questions/concerns at this time. Will continue to monitor. Pt. updated on POC. CONSULT Observed: 06/22/2018 Status: COMPLETED Source: [place] 10:57 AM [facility] REPOSITORY HNO ID: [id number] Author: Torsten Melo MD Service: General Surgery Author Type: Resident Type: Consults Filed: 06/22/2018 11:56 AM Note Text: ACUTE CARE SURGERY HISTORY AND PHYSICAL EVALUATION Mary Alice Kimble [id number] SERVICE DATE: 06/22/2018 SERVICE TIME: 10:57 AM PRIMARY CARE PHYSICIAN: Janee Londono CNP ASSESSMENT AND PLAN 32 year old female with history of completion cholecystectomy on 06/16/18 with intraoperative u/s, cholangiogram, and choledochoduodenostomy presenting today following RUQ abdominal pain of 2 day duration with associated nausea, vomiting, multiple bouts of foul smelling watery diarrhea. Neuro: Pain control per ED NPO, and IVF resuscitation per ED Follow up CBC w/ diff, CMP, C.diff, hepatic function panel, lipase Imaging: obtain CT AP with IV and PO contrast Disposition Plan: pending CT results Care discussed with senior resident personal carer SUBJECTIVE CHIEF COMPLAINT: RUQ abdominal pain HISTORY OF PRESENT ILLNESS: Ms. Kimble is a 32 year old female w/ a hx significant for pancreatitis, cholecystitis s/p ERCP on 05/01/18 and lap subtotal cholecystectomy on 05/02/18 at [facility] who was admitted to on 05/23/18 with persistent RUQ abdominal pain and was found to have retained cystic duct stones. she underwent an ERCP on 05/26/18 which had unsuccessful extraction of the stones with balloon extraction and mechanical lithotripsy. On 06/16/18 underwent laparoscopic converted to open completion cholecystectomy with intraoperative u/s, cholangiogram, and choledochoduodenostomy. She presents today following RUQ abdominal pain of 2 day duration with associated nausea, vomiting, multiple bouts of diarrhea - foul smelling and watery. Denies sob, cp, torres, myalgias, or seizure. PAST MEDICAL HISTORY: PAST MEDICAL HISTORY Diagnosis Date - Cholecystitis - Closed fracture of unspecified part of femur right - Cough - Other forms of migraine - Pancreatitis - Unspecified open fracture of carpal bone right PAST SURGICAL HISTORY: PAST SURGICAL HISTORY Procedure Laterality Date - BREAST BIOPSY 2012 - ERCP x2 - LAPAROSCOPIC CHOLECYSTECTOMY FAMILY HISTORY: FAMILY HISTORY Problem Relation Age of Onset - Hearing Loss Sister hearing impaired - other (Cholelithiasis) Sister - Breast Cancer Paternal Grandmother - Pancreatic Cancer Maternal Uncle SOCIAL HISTORY: Social History Substance Use Topics - Smoking status: Former Smoker Years: 3.00 Quit date: 07/13/2016 - Smokeless tobacco: Never Used Comment: less than 1/4 pack daily - Alcohol use No MEDICATIONS: Prior to Admission Medications: (Not in a hospital admission) ALLERGIES: ALLERGIES No Known Allergies COMPLETE REVIEW OF SYSTEMS: GENERAL: Positive for decrease in appetite, chills, fatigue, No weight loss, malaise or fevers HEENT: Negative for frequent or significant headaches NECK: Negative for pain and significant neck swelling RESPIRATORY: Negative for cough, wheezing or shortness of breath. CARDIOVASCULAR: Negative for chest pain, or palpitations GI: Positive for abdominal pain, diarrhea, nausea, vomiting : No history of dysuria, negative for CKD or ESRD MUSCULOSKELETAL: Negative for new joint pain SKIN: Negative for new lesions NEURO: No new headaches. No new symptoms of TIA or difficultly speaking All other reviewed and negative other than HPI OBJECTIVE PHYSICAL EXAM: BP 120/73 Pulse (!) 99 Temp 36.6 ?C (97.9 ?F) (Oral) Resp 20 Ht 165.1 cm (5' 5) Wt 95.3 kg (210 lb) LMP 06/08/2018 SpO2 100% BMI 34.95 kg/m? General Appearance: appears in mild distress, AANDO HEENT: NC/AT Eyes: Sclera anicteric, EOMI Lungs: Nonlabored breathing on RA Heart: Regular rate Abdomen: Soft, very ttp in RUQ, nondistended Neuro: Non focal, sensory motor grossly intact, moving all extremities Incisions: clean, dry, and intact DATA: Laboratory: CBC, Coags, BMP, Mg, Phos Recent Labs 06/22/18 1044 WBC 19.38* HB 12.4 HCT 36.3 PLT 262 NA 139 K 4.2 CHLOR 102 CO2 23 BUN 8 CREAT 0.73 GLUC 111* CA 9.7 Liver Function, Amylase, AND Lipase Recent Labs 06/22/18 1044 06/22/18 1041 TPROT 7.8 -- ALB 4.0 -- ALT 37 -- AST 19 -- ALKPHOS 81 -- TBILI 0.3 -- AMYLASE 35 -- LIPASE 21 -- LACT -- 1.2 SIGNATURE: Torsten Melo MD PATIENT NAME: Mary Alice Kimble DATE: June 22, 2018 TIME: 10:57 AM PAGER/CONTACT #: [phone] Weekends, holidays and after 6pm please page General Surgery Celeste Pager [phone] ED NOTE Observed: 06/22/2018 Status: COMPLETED Source: [place] 10:57 AM [facility] REPOSITORY HNO ID: [id number] Author: Manav (Medic) Sandra Robles Service: Emergency Medicine Author Type: Railroad Maintenance Clerk and Quality Process Lead Type: ED Notes Filed: 06/22/2018 10:57 AM Note Text: Clean catch urine specimen obtained and sent. URINALYSIS WITH Collected: 06/22/2018 Status: F Source: [facility] 10:55 AM [facility] REPOSITORY TYPE CODE TESTS RESULT OUT OF RANGE REFERENCE UNITS LAB UCOL Yellow Color Yellow LAB [facility] Clear Clarity Abnormal Cloudy Alert LAB UGLUC Negative mg/dL Glucose, Urine Negative LAB UBIL Negative Bilirubin, Urine Negative LAB UKET Negative Ketones, Abnormal Urine 1+ Alert LAB USPG 1.005-1.030 Specific [place], Ur 1.024 LAB UHGB Negative Hemoglobin/Blood, Negative Ur LAB UPH 4.5-8.0 pH 5.0 LAB UPROT Negative mg/dL Protein, Urine Negative LAB UUROB Normal Urobilinogen Normal LAB UNITR Negative Nitrites Negative LAB ULKEST Negative Leukest Negative LAB UCOM Comments SEE COMMENT Result Comment: N/A LAB UMCOM Urine SEE Teddy Comment COMMENT Result Comment: N/A LAB UWBC 0-5 /HPF WBC 0-5 LAB URBC 0-3 /HPF RBC 0-3 LAB UEPI /HPF Epithelial SEE Cells COMMENT Result Comment: Few Squamous Epithelial Cells Performed By: #### UAWMIC #### [facility] [address] [place] [address] Observed: 06/22/2018 Status: F Source: [place] URINE CULTURE 10:55 AM [facility] REPOSITORY Sp. Request/Comment: - Specimen received in preservative Culture Result - 50,000 - <100,000 CFU/ml Enterococcus faecalis --> ABNORMAL ALERT Cephalosporins, clindamycin, and TMP-SMX are not effective for the treatment of enterococcal infections. --> A BNORMAL ALERT Insignificant colony count. No further workup. --> ABNORMAL ALERT <10,000 CFU/ml --> ABNORMAL ALERT Lactose positive gram negative bacilli --> ABNORMAL ALERT Insignificant colo ny count. No further workup. --> ABNORMAL ALERT 10,000 - <50,000 CFU/ml Normal urogenital axel Performed By: #### URCUL #### [facility] [address] [place] [address] ED NOTE Observed: 06/22/2018 Status: COMPLETED Source: [place] 10:49 AM [facility] REPOSITORY HNO ID: [id number] Author: Manav (Medic) Sandra Robles Service: Emergency Medicine Author Type: Railroad Maintenance Clerk and Quality Process Lead Type: ED Notes Filed: 06/22/2018 10:50 AM Note Text: Labs were drawn and sent. POC lactate CBC Collected: 06/22/2018 Status: F Source: [place] 10:44 AM [facility] REPOSITORY TYPE CODE TESTS RESULT OUT OF REFERENCE UNITS RANGE LAB WBC 3.70-11.00 k/uL WBC High 19.38 LAB RBC 3.90-5.20 m/uL RBC 3.99 LAB HGB 11.5-15.5 g/dL Hemoglobin 12.4 LAB HCT 36.0-46.0 % Hematocrit 36.3 LAB MCV 80.0-100.0 fL MCV 91.0 LAB MCH 26.0-34.0 pG MCH 31.1 LAB MCHC 30.5-36.0 g/dL MCHC 34.2 LAB RDWCV 11.5-15.0 % RDW-CV 13.0 LAB PLTCT 150-400 k/uL Platelet Count 262 LAB MPV 9.0-12.7 fL MPV 10.6 LAB ABSNUC <0.01 k/uL Absolute nRBC <0.01 Performed By: #### CBC, AMYL, CMP, LIPA #### [facility] [address], [place] [address] AMYLASE Collected: 06/22/2018 Status: F Source: [place] 10:44 AM [facility] REPOSITORY TYPE CODE TESTS RESULT OUT OF REFERENCE UNITS RANGE LAB AMYL 30-104 U/L Amylase 35 Performed By: #### CBC, AMYL, CMP, LIPA #### [facility] [address] [place], [place] [address] COMP METABOLIC PANEL Collected: 06/22/2018 Status: F Source: [place] 10:44 AM [facility] REPOSITORY TYPE CODE TESTS RESULT OUT OF REFERENCE UNITS RANGE LAB TP 6.3-8.0 g/dL Protein, Total 7.8 LAB ALB 3.9-4.9 g/dL Albumin 4.0 LAB CA 8.5-10.2 mg/dL Calcium, Total 9.7 LAB TBIL 0.2-1.3 mg/dL Bilirubin, Total 0.3 LAB ALKP 34-123 U/L Alkaline Phosphatase 81 LAB AST 13-35 U/L AST 19 LAB GLU 74-99 mg/dL Glucose High 111 Result Comment: The [place] Diabetes Association (ADA) provides guidance for cutoff values for fasting glucose and random glucose. The ADA defines fasting as no caloric intake for at least 8 hours. Fas ting plasma glucose results between 100 to 125 mg/dL indicate increased risk for diabetes (prediabetes). Fasting plasma glucose results greater than or equal to 126 mg/dL meet the criteria for diagnosis of diabetes. In the absence of unequivocal hyperglycemia, results should be confirmed by repeat testing. In a patient with classic symptoms of hyperglycemia or hyperglycemic crisis, random plasma glucose results greater than or equal to 200 mg/dL meet the criteria for diagnosis of diabetes. Reference: Standards of Medical Care in Diabetes 2016, [place] [employer] Association. Diabetes Care. 2016.39(Suppl 1). LAB BUN 7-21 mg/dL BUN 8 LAB CRET 0.58-0.96 mg/dL Creatinine 0.73 LAB NA 136-144 mmol/L Sodium 139 LAB K 3.7-5.1 mmol/L Potassium 4.2 LAB CL 97-105 mmol/L Chloride 102 LAB CO2 22-30 mmol/L CO2 23 LAB AGAP 9-18 mmol/L Anion Gap 14 LAB ALT 7-38 U/L ALT 37 LAB GFRAA eGFR- Amer. >60 LAB GFRNAA . eGFR-All Other Races >60 Result Comment: eGFR (Estimated GFR) Units of measure: mL/min/1.73 meters squared eGFR is derived from the reexpressed MDRD Study equation using the following parameters: serum creatinine, age, gender and race. The creatinine assay has been calibrated to be traceable to IDMS. An eGFR <60 mL/min/1.73m2 for >3 months is consistent with chronic kidney disease. Refer to KDOQI guidelines for clinical interpretation. In patients with unstable renal function, e.g. those with acute kidney injury, the eGFR may not accurately reflect actual GFR. Performed By: #### CBC, AMYL, CMP, LIPA #### [facility] [address] [place] [id number] LIPASE Collected: 06/22/2018 Status: F Source: [place] 10:44 AM [facility] REPOSITORY TYPE CODE TESTS RESULT OUT OF REFERENCE UNITS RANGE LAB LIPA 16-61 U/L Lipase 21 Performed By: #### CBC, AMYL, CMP, LIPA #### [facility] [address] [place] [address] ED NOTE Observed: 06/22/2018 Status: COMPLETED Source: [place] 10:40 AM [facility] [facility] HNO ID: [id number] Author: Marciano Costa) KIRSTEN Grijalva Service: Emergency Medicine Author Type: Registered Nurse Type: ED Notes Filed: 06/22/2018 10:58 AM Note Text: Assumed care of pt. Pt presented to ED for abd pain with N/V/D. Pt states symptoms started on Saturday and have not improved. Pt states she had a second gallbladder surgery on Saturday. Pt states pain is worse when she eats. NAD noted at this time. Safety checks completed. Will continue to monitor. ED NOTE Observed: 06/22/2018 Status: COMPLETED Source: [place] 10:32 AM [facility] REPOSITORY HNO ID: [id number] Author: Flores Costa) KIRSTEN Montez Service: (none) Author Type: Registered Nurse Type: ED Notes Filed: 06/22/2018 10:33 AM Note Text: Pt instructed to come to ED for eval for diarrhea, vomiting s/p completion open cholecystectomy. ABCs intact in triage. No active vomiting. ED PROV NOTE Observed: 06/22/2018 Status: COMPLETED Source: [place] 10:32 AM [facility] REPOSITORY HNO ID: [id number] Author: Floyd Mcgill) MD Heather Service: Emergency Medicine Author Type: Physician Type: ED Provider Notes Filed: 06/22/2018 2:26 PM Note Text: ED Provider Note Patient Name: Mary Alice Kimble SERVICE DATE: 06/22/18 History Patient presents with: Post op complications Vomiting Ms. Mishra os a 32 y/o female w PMHx of Cholecystitis s/p subtotal lap cholecystecomy c/b retained cystic duct stones at an OSH 05/02 s/p open cholecystectomy for symptomatic retained cystic stones on 05/22 after a failed ERCP who presents w worsening nausea, vomiting and abdomen pain. She says she had the surgery on 06/19 and had been recovering ok up until Saturday when she started experiencing diffuse abdomen pain, nausea and nonbilious vomiting which is worse with food. Abd pain is dull in nature and diffuse and radiates to the back, 6/10 in severity. It is associated with diarrhea which is foul smelling, brown in color and watery and has lot of mucus in it. She also endorses tenesmus with the diarrhea. Endorses chills but no fever. No SOB, chest pain, leg pain, headache, vision changes, myalgias. Of note, she received ceftriaxone and metronidazole josefina-operatively. Per recent DC summary: After subtotal lap cholecystectomy, she was readmitted to the OSH 05/09 and received medications to help dissolve the retained stones and she was dishcarged 05/16. Upon discharge, the patient continued to have persistent RUQ abdominal pain. The patient presented to OSH ED 05/22 with imaging notable for retained cystic duct stones. Patient was transferred to [facility] and admitted under the B surgery service for further management. The GI team was consulted for ERCP with stone extraction but the procedure was unsuccessful. The decision was then made along with the patient to manage her condition operatively with the above noted procedure. Patient tolerated the procedure well and was transferred to the regular nursing floor. During the post op course patient developed asymptomatic bradycardia and PVCs. The Cardiology team was consulted recommended to perform an ECHO which was subsequently benign. No complications were encountered. PAST MEDICAL HISTORY Diagnosis Date - Cholecystitis - Closed fracture of unspecified part of femur right - Cough - Other forms of migraine - Pancreatitis - Unspecified open fracture of carpal bone right PAST SURGICAL HISTORY Procedure Laterality Date - BREAST BIOPSY 2011 - ERCP x2 - LAPAROSCOPIC CHOLECYSTECTOMY FAMILY HISTORY Problem Relation Age of Onset - Hearing Loss Sister hearing impaired - other (Cholelithiasis) Sister - Breast Cancer Paternal Grandmother - Pancreatic Cancer Maternal Uncle Social History Social History Main Topics - Smoking status: Former Smoker Years: 3.00 Quit date: 07/13/2016 - Smokeless tobacco: Never Used Comment: less than 1/4 pack daily - Alcohol use No - Drug use: No - Sexual activity: Not on file ALLERGIES No Known Allergies Review of Systems Constitutional: Positive for appetite change, chills and fatigue. Negative for activity change, diaphoresis, fever and unexpected weight change. HENT: Negative for postnasal drip, rhinorrhea, sinus pain and tinnitus. Eyes: Negative for pain, discharge and itching. Respiratory: Negative for apnea, choking, chest tightness, shortness of breath and wheezing. Cardiovascular: Negative for chest pain, palpitations and leg swelling. Gastrointestinal: Positive for abdominal distention, abdominal pain, diarrhea, nausea, rectal pain and vomiting. Endocrine: Positive for cold intolerance. Negative for heat intolerance, polydipsia, polyphagia and polyuria. Genitourinary: Negative for difficulty urinating, dysuria, flank pain, hematuria and urgency. Musculoskeletal: Negative for arthralgias, back pain, gait problem, neck pain and neck stiffness. Skin: Negative for color change and pallor. Neurological: Negative for dizziness, tremors, syncope, weakness and headaches. Hematological: Negative for adenopathy. Psychiatric/Behavioral: Negative for agitation, confusion and suicidal ideas. Physical Exam BP 120/73 Pulse 99 Temp (Src) 97.9 (Oral) Resp 20 Ht 5' 5 (1.65m) Wt 210 lb (95.3kg) SpO2 100% LMP 06/08/2018 BMI 34.95 kg/(m2). Physical Exam Constitutional: She is oriented to person, place, and time. She appears well-developed and well-nourished. Distressed: due to pain. HENT: Head: Normocephalic and atraumatic. Eyes: Pupils are equal, round, and reactive to light. EOM are normal. Neck: Normal range of motion. Neck supple. Cardiovascular: Normal rate. Exam reveals no gallop. No murmur heard. Tachycardic Pulmonary/Chest: Effort normal and breath sounds normal. Abdominal: Bowel sounds are normal. She exhibits distension. There is tenderness (Diffuse tenderness worse in RUQ). Musculoskeletal: She exhibits no edema or deformity. Neurological: She is alert and oriented to person, place, and time. No cranial nerve deficit. Skin: Skin is warm and dry. Capillary refill takes less than 2 seconds. No erythema. Psychiatric: She has a normal mood and affect. Diagnostic Testing ED Labs Ordered and Reviewed CBC - Abnormal; Notable for the following: Result Value Ref Range WBC 19.38 (*) 3.70 - 11.00 k/uL All other components within normal limits HCG URINE - ED(POC) - Normal COMP METABOLIC PANEL LIPASE BLD AMYLASE BLD LACTATE - ED (POC) ED BG VENOUS/LAB PANELS URINALYSIS WITH MICROSCOPIC C. DIFFICILE PCR Procedures ED Course / Clinical Impression Clinical Impressions as of Jun 22 1113 Nausea vomiting and diarrhea Diffuse abdominal pain Post-op pain S/P cholecystectomy Tenesmus (rectal) MDM / Disposition / Plan 32 year old w h/o cholecystitis s/p open cholecystectomy for residual cystic stones after lap subtotal cholecystectomy who presents with chills, nausea, vomiting, diarrhea, tenesmus and diffuse abdomen pain for 3 days. DDx: C.diff vs pancreatitis vs post op complications CBC shows leukocytosis of 19K, CMP shows NO transaminitis, PREET or dyselectrolytemia. Lipase/Amylase within normal range. Lactate 1.2 C.diff PCR sent and pending CT abd/pel w iv AND po contrast pending. General surgery team aware of the patient. IVF Morphine for pain zofran for nausea At the end of my shift, sign out given to Dr. Mike Gee MD. C.diff PCR and CT abd/pel result is pending. SIGNATURE: MD Michael Stewart (Lexi) Emeka Resident 06/22/18 2923 . ATTENDING NOTE: I personally evaluated the patient and personally participated in the dumont components. I agree with the resident's findings and plan as documented and have discussed the case and management of the patient's care with the resident. Active Ambulatory Problems Migraine with aura Date Noted: 06/22/2005 Low bladder compliance Date Noted: 06/22/2005 Backache, unspecified Date Noted: 04/02/2013 Retained gallstones following laparoscopic cholecystectomy Date Noted: 05/23/2018 Severe protein-calorie malnutrition (HCC) Date Noted: 05/23/2018 Obesity, Class II, BMI 35-39.9 Date Noted: 05/27/2018 Cholecystitis Date Noted: 06/13/2018 Sinus bradycardia Date Noted: 06/14/2018 Obesity, Class I, BMI 30-34.9 Date Noted: 06/18/2018 Resolved Ambulatory Problems No Resolved Ambulatory Problems Past Medical History: No date: Cholecystitis No date: Closed fracture of unspecified part of femur No date: Cough No date: Other forms of migraine No date: Pancreatitis No date: Unspecified open fracture of carpal bone No current facility-administered medications on file prior to encounter. Current Outpatient Prescriptions on File Prior to Encounter: magnesium hydroxide (MILK OF MAGNESIA) 400 mg/5 mL suspension Take 30 mL by mouth once daily as needed for Constipation for up to 7 days. oxyCODONE IR (ROXICODONE) 5 mg immediate release tablet Take 1 tablet by mouth every 4 hours as needed for up to 7 days. acetaminophen (TYLENOL EXTRA STRENGTH) 500 mg tablet Take 1 tablet by mouth every 4 hours as needed. ondansetron (ZOFRAN) 4 mg tablet Take 1 tablet by mouth every 8 hours as needed for Nausea/Vomiting for up to 14 days. docusate sodium (COLACE) 100 mg capsule Take 1 capsule by mouth twice daily for 7 days. acetaminophen (TYLENOL EXTRA STRENGTH) 500 mg tablet Take 1 tablet by mouth every 4 hours as needed for Pain. ursodiol (ACTIGALL ORAL) Take by mouth twice daily. multivit with calcium,iron,min (WOMEN'S MULTIPLE VITAMINS ORAL) Take by mouth. predniSONE (DELTASONE) 20 mg tablet Prednisone 40 mg (2-20mg tablets) po QD for 5 days (Patient not taking: Reported on 01/30/2018 ) benzonatate (TESSALON PERLE) 100 mg capsule Take 1 capsule by mouth three times daily as needed. (Patient not taking: Reported on 01/30/2018 ) albuterol HFA (VENTOLIN HFA) 90 mcg/actuation inhaler Inhale 2 Puffs as instructed every 4 hours as needed for Wheezing/Shortness of Breath. SPRINTEC 0.25-35 mg-mcg per tablet Social History Marital status: Spouse name: Years of education: Number of children: Social History Main Topics Smoking status: Former Smoker Packs/day: 0.00 Years: 3.00 Quit date: 07/13/2016 Smokeless tobacco: Never Used Comment: less than 1/4 pack daily Alcohol use: No Drug use: No Other Topics Concern Service No Blood Transfusions No Caffeine Concern No Occupational Exposure Yes Hobby Hazards No Sleep Concern No Stress Concern Yes Weight Concern Yes Special Diet No Back Care No Exercise No Bike Helmet No Seat Belt Yes Self-Exams No Comment:breast exam sheets ALLERGIES No Known Allergies Family History Problem Relation Age of Onset - Hearing Loss Sister hearing impaired - other (Cholelithiasis) Sister - Breast Cancer Paternal Grandmother - Pancreatic Cancer Maternal Uncle PE: BP 125/68 Pulse 90 Temp 36.8 ?C (98.2 ?F) (Oral) Resp 20 Ht 165.1 cm (5' 5) Wt 95.3 kg (210 lb) LMP 06/08/2018 SpO2 96% BMI 34.95 kg/m? General Appearance: This is an age appropriate patient who appears in NAD HENT: NCAT, MMM, OP normal. Lungs: CTA bilaterally, no rales, rhonchi or wheezes. Cardiac: RRR, normal S1 AND S2, no murmur Abd: TTP diffusely without rebound nor guarding, normal bowel sounds. Neuro: Alert and oriented, appropriate with no gross deficits, normal speech. This is a well appearing pt who is appropriate for out-pt.treatment and follow-up. Dx: (R11.2, R19.7) Nausea vomiting and diarrhea (primary encounter diagnosis) (R10.84) Diffuse abdominal pain (G89.18) Post-op pain (Z90.49) S/P cholecystectomy (R19.8) Tenesmus (rectal) Course: EMR reviewed IVF labs reviewed Discussed withy Surgery CT reviewed This is a well appearing pt who is appropriate for CDU referral and if doing well tomorrow, out-pt.treatment and follow-up. There is no indication for ICU care Disposition: CDU as Surgical Observation patient Condition: Improved Floyd Romero MD, FACEP Floyd Mcgill) MD Heather 06/22/18 1426 PLAN OF CARE Observed: 06/19/2018 Status: COMPLETED Source: [place] 12:03 PM [facility] REPOSITORY HNO ID: [id number] Author: Lisset Ballesteros (Account Support Analyst) Service: (none) Author Type: Quality Process Lead Type: Plan of Care Filed: 06/19/2018 12:04 PM Note Text: PHARMACY BEDSIDE DELIVERY SERVICE Patient Name: Mary Alice Kimble The marked outpatient medications were Filled at: [facility] and delivered to the patient's bedside to patient Medication List START taking these medications docusate sodium 100 mg capsule Commonly known as: COLACE (gave pt hard copy) Take 1 capsule by mouth twice daily for 7 days. magnesium hydroxide 400 mg/5 mL suspension Commonly known as: MILK OF MAGNESIA (gave pt hard copy) Take 30 mL by mouth once daily as needed for Constipation for up to 7 days. ondansetron 4 mg tablet Commonly known as: ZOFRAN Take 1 tablet by mouth every 8 hours as needed for Nausea/Vomiting for up to 14 days. X oxyCODONE IR 5 mg immediate release tablet Commonly known as: ROXICODONE Take 1 tablet by mouth every 4 hours as needed for up to 7 days. X CHANGE how you take these medications * acetaminophen 500 mg tablet Commonly known as: TYLENOL EXTRA STRENGTH Take 1 tablet by mouth every 4 hours as needed for Pain. What changed: Another medication with the same name was added. Make sure you understand how and when to take each. * acetaminophen 500 mg tablet Commonly known as: TYLENOL EXTRA STRENGTH (gave pt hard copy) Take 1 tablet by mouth every 4 hours as needed. What changed: You were already taking a medication with the same name, and this prescription was added. Make sure you understand how and when to take each. * This list has 2 medication(s) that are the same as other medications prescribed for you. Read the directions carefully, and ask your doctor or other care provider to review them with you. CONTINUE taking these medications ACTIGALL ORAL albuterol HFA 90 mcg/actuation inhaler Commonly known as: VENTOLIN HFA Inhale 2 Puffs as instructed every 4 hours as needed for Wheezing/Shortness of Breath. benzonatate 100 mg capsule Commonly known as: TESSALON PERLE Take 1 capsule by mouth three times daily as needed. predniSONE 20 mg tablet Commonly known as: DELTASONE Prednisone 40 mg (2-20mg tablets) po QD for 5 days Sprintec 0.25-35 mg-mcg per tablet Generic drug: norgestimate 0.25 mg-ethinyl estradiol 35 mcg WOMEN'S MULTIPLE VITAMINS ORAL You might also be taking other medications not listed above. If you have questions about any of your other medications, talk to the person who prescribed them or your Primary Care Provider. STOP taking these medications HYDROcodone-acetaminophen 5-325 mg per tablet Commonly known as: MICHAEL Ballesteros ([place]) PAGER: [phone] June 19, 2018 12:04 PM PLAN OF CARE Observed: 06/19/2018 Status: COMPLETED Source: [place] 11:01 AM [facility] REPOSITORY HNO ID: [id number] Author: Lisset Ballesteros ([place]) Service: (none) Author Type: Quality Process Lead Type: Plan of Care Filed: 06/19/2018 11:01 AM Note Text: Pharmacy Discharge Medication Service: This patient has elected to receive their discharge prescriptions through the [facility] Bedside Prescription Delivery program. The prescriptions are currently being processed. A follow-up note will be entered once the prescriptions have been filled and delivered to the patient. Please contact me with any questions or updates to the patient's discharge medications. Lisset Ballesteros ([place]) DCT Contact Info: [phone] PLAN OF CARE Observed: 06/19/2018 Status: COMPLETED Source: [place] 10:37 AM [facility] REPOSITORY HNO ID: [id number] Author: Lisset Ballesteros ([place]) Service: (none) Author Type: Quality Process Lead Type: Plan of Care Filed: 06/19/2018 11:00 AM Note Text: DISTRIBUTION ASSOCIATE BEDSIDE DELIVERY SURVEY 1. Patient to use [facility] Bedside Delivery - YES 2. If fax, patient would like us to fax prescriptions to Pharmacy of choice a. Pharmacy: b. Location: c. Phone: 3. Insurance card on file - YES 4. Credit card for payment - YES CNDS Observed: 06/19/2018 Status: COMPLETED Source: [place] 7:50 AM [facility] REPOSITORY HNO ID: [id number] Author: Christian Liang (Pa) Service: General Surgery Author Type: Physician Sales Negotiator Type: Discharge Summaries Filed: 06/19/2018 8:37 AM Note Text: DISCHARGE SUMMARY PATIENT NAME: Mary Alice Kimble ADMISSION DATE: 06/13/2018 DISCHARGE DATE: 06/19/2018 Attending: Vazquez Horton Reason for Hospitalization: Principal Problem: Retained gallstones following laparoscopic cholecystectomy Active Problems: Cholecystitis Sinus bradycardia Obesity, Class I, BMI 30-34.9 Resolved Problems: * No resolved hospital problems. * Operations During Hospitalization: Laparoscopic converted to open completion cholecystectomy, intraoperative ultrasound, intraoperative cholangiogram, choledochoduodenostomy Procedures During Hospitalization: Echocardiogram Hospital Course: The patient was admitted to the hospital with a previous known diagnosis of cholecystitis s/p laparoscopic subtotal cholecystectomy c/b retained cystic duct stones at an OSH 05/02. She was subsequently readmitted to the OSH 05/09 and received medications to help dissolve the retained stones and she was dishcarged 05/16. Upon discharge, the patient continued to have persistent RUQ abdominal pain. The patient presented to OSH ED 05/22 with imaging notable for retained cystic duct stones. Patient was transferred to [facility] and admitted under the [facility] surgery service for further management. The GI team was consulted for ERCP with stone extraction but the procedure was unsuccessful. The decision was then made along with the patient to manage her condition operatively with the above noted procedure. Patient tolerated the procedure well and was transferred to the regular nursing floor. During the post op course patient developed asymptomatic bradycardia and PVCs. The Cardiology team was consulted recommended to perform an ECHO which was subsequently benign. No complications were encountered. Daily labs were ordered and reviewed to follow up progress of patients medical condition. Heparin was ordered for prophylaxis of deep vein thrombosis. Diet was gradually advanced. After toleration of a full diet and adequate pain control, patient was discharged in a stable condition. Labs and Procedures Pending at Discharge: No pending results. Patient Condition at Discharge: Stable Discharge Disposition: Home/Self Care Discharge Physical Exam: VITAL SIGNS: BP 119/74 Pulse 64 Temp 36.8 ?C (98.2 ?F) (Oral) Resp 16 Ht 165.1 cm (5' 5) Wt 95.3 kg (210 lb) SpO2 97% BMI 34.95 kg/m? General: no acute distress, alert, oriented CV: RRR Pulm: nonlabored on RA, symmetrical rise Abdomen: soft, nondistended. Appropriately TTP. Incision c/d/i. Neuro: no focal deficits. DAVIS Information Provided to Patient: Patient given copy of Discharge Instructions Discharge Medications:Current Discharge Medication List START taking these medications oxyCODONE IR (ROXICODONE) 5 mg Take 5 mg by mouth every 4 hours as needed. Earliest Fill Date: 06/18/18 Qty: 42 tablet Refills: 0 Associated Diagnoses:Postoperative pain !! acetaminophen (TYLENOL) 500 mg Take 500 mg by mouth every 4 hours as needed. Qty: 180 tablet Refills: 0 ondansetron (ZOFRAN) 4 mg Take 4 mg by mouth every 8 hours as needed for Nausea/Vomiting. Qty: 42 tablet Refills: 0 docusate sodium (COLACE) 100 mg Take 100 mg by mouth twice daily. Qty: 14 capsule Refills: 0 !! - Potential duplicate medications found. Please discuss with provider. CONTINUE these medications which have NOT CHANGED !! acetaminophen (TYLENOL) 500 mg Take 500 mg by mouth every 4 hours as needed for Pain. Qty: 180 tablet Refills: 0 ursodiol (ACTIGALL ORAL) Take by mouth twice daily. multivit with calcium,iron,min (WOMEN'S MULTIPLE VITAMINS ORAL) Take by mouth. predniSONE (DELTASONE) 20 mg tablet Prednisone 40 mg (2-20mg tablets) po QD for 5 days Qty: 10 tablet Refills: 0 Associated Diagnoses:Viral URI with cough benzonatate (TESSALON PERLE) 100 mg Take 100 mg by mouth three times daily as needed. Qty: 30 capsule Refills: 0 Associated Diagnoses:Viral URI with cough albuterol HFA (PROVENTIL HFA, VENTOLIN HFA) 2 Puffs Inhale 2 Puffs as instructed every 4 hours as needed for Wheezing/Shortness of Breath. Qty: 1 Inhaler Refills: 0 Associated Diagnoses:Viral URI with cough SPRINTEC 0.25-35 mg-mcg per tablet !! - Potential duplicate medications found. Please discuss with provider. STOP taking these medications HYDROcodone-acetaminophen (NORCO) 5-325 mg per tablet Comments: Reason for Stopping: Future Appointments Date Time Provider Department Center 07/08/2018 11:30 AM Vazquez MASON A/Jerson [facility] SIGNATURE: Christian Liang PA-C PAGER: [phone] DATE: June 19, 2018 TIME: 7:50 AM PROGRESS Observed: 06/19/2018 Status: COMPLETED Source: [place] 6:55 AM [facility] REPOSITORY [facility] ID: [id number] Author: Arnulfo Chiu MD Service: General Surgery Author Type: Resident Type: Progress Notes Filed: 06/19/2018 6:57 AM Note Text: Attestation signed by Vazquez Horton at 06/19/2018 12:35 PM Addendum: I have reviewed the history and physical examination obtained and documented by the resident and I personally participated in the dumont components. I have discussed the case and management of the patient's care. The following comments revise or confirm relevant dumont components of the note. CC: No bowel movement HPI: Patient is passing flatus, but has not had bowel movement since surgery. No nausea or vomiting. Pain is well controlled. Plan: - Suppository - Diet as tolerated - PO pain medications - DIspo: Likely home later today SIGNATURE: Jerzy Horton MD B surgery Pager: [phone] GENERAL SURGERY PROGRESS NOTE ASSESSMENT AND PLAN 32 year old female with a hx of cholecystitis and CBD stones s/p ERCP (05/01) and lap subtotal cholecystectomy (05/02) c/b retained cystic duct stones with persistent RUQ pain and nausea. No evidence of biliary obstruction or pancreatitis on lap work. Now POD#3 s/p laparoscopic converted to open completion cholecystectomy, intraoperative ultrasound, intraoperative cholangiogram, choledochoduodenostomy. ? -Neuro/pain: PO/IV regimen -Pulm: bronchopulmonary hygiene. Encourage IS. PRN albuterol -CV: 1st degree AV block, no need for further workup per discussion with Cards -FEN/GI: GIS. HLIV -Endo: no active issues -ID: s/p periop abx -Heme: trend H/H. No indication for transfusion -DVT ppx: SCDs, SQH -Lines/drains: PIV until DC -Dispo: Plan for discharge today Arnulfo Chiu MD General Surgery PGY-2 Date: 06/19/2018 Time: 6:56 AM [id number] HPB pager: [phone] *Please page Night/Weekend Pager ([phone]) after 6pm (7pm on Wednesdays) and on weekends.* SUBJECTIVE/INTERVAL EVENTS No N/V Tolerating GIS +flatus, -BM Pain controlled OBJECTIVE BP 119/74 Pulse 64 Temp 36.8 ?C (98.2 ?F) (Oral) Resp 16 Ht 165.1 cm (5' 5) Wt 95.3 kg (210 lb) SpO2 97% BMI 34.95 kg/m? Intake/Output Summary (Last 24 hours) at 06/18/18 0659 Last data filed at 06/18/18 0500 Gross per 24 hour Intake 2540 ml Output 3521 ml Net -981 ml General: no acute distress, alert, oriented CV: RRR Pulm: nonlabored on RA, symmetrical rise Abdomen: soft, nondistended. Appropriately TTP. Incision c/d/i. Neuro: no focal deficits. DAVIS Labs/Imaging: CBC, BMP, MG, PHOS Recent Labs 06/18/18 0634 06/17/18 0641 06/16/18 1331 06/15/18 0904 06/14/18 0619 06/13/18 1622 05/27/18 0509 05/26/18 0556 05/25/18 0720 WBC 7.64 11.34* -- 3.92 3.78 4.71 8.64 6.49 5.89 5.50 HB 10.4* 11.0* -- 12.6 12.5 12.2 12.9 12.6 12.8 12.3 HCT 32.5* 33.0* -- 37.6 37.4 36.1 38.5 38.6 38.2 37.2 PLT 193 211 -- 222 222 218 251 205 218 208 NA 139 -- -- 137 137 136 140 139 138 K 4.2 -- -- 3.8 3.7 4.2 4.0 3.8 4.0 CHLOR 104 -- -- 99 100 100 103 105 101 CO2 22 -- 24* 27 22 23 22 21* 22 BUN 7 -- -- 14 9 11 12 12 11 CREAT 0.82 -- -- 0.96 0.88 0.79 0.85 0.80 0.83 GLUC 81 -- -- 70* 86 92 92 88 91 CA 8.7 -- -- 9.7 9.2 9.9 9.3 9.5 9.2 MG 1.6* 1.8 -- -- -- -- 1.7 1.8 1.9 P 2.6* -- -- -- -- -- 4.1 3.6 3.2 Liver Function, Amylase, AND Lipase Recent Labs 06/18/18 0634 06/17/18 1530 06/16/18 1331 06/15/18 0904 06/14/18 0619 TPROT 6.4 6.6 -- 7.7 7.4 ALB 3.4* 3.8* -- 4.2 3.9 ALT 61* 75* -- 19 18 AST 51* 65* -- 16 17 ALKPHOS 60 67 -- 85 83 TBILI 0.3 0.4 -- 0.4 0.5 LACT -- -- 2.7* -- -- Coags Recent Labs 06/15/18 0905 05/26/18 0556 APTT 26.5 27.9 INR 1.0 1.0 Active Hospital Problems Diagnosis Date Noted - Retained gallstones following laparoscopic cholecystectomy 05/23/2018 - Obesity, Class I, BMI 30-34.9 06/18/2018 - Sinus bradycardia 06/14/2018 - Cholecystitis 06/13/2018 Overview Note: Added automatically from request for surgery [id number] CBC Collected: 06/19/2018 Status: F Source: [place] 4:35 AM [facility] REPOSITORY TYPE CODE TESTS RESULT OUT OF REFERENCE UNITS RANGE LAB WBC 3.70-11.00 k/uL WBC 6.35 LAB RBC 3.90-5.20 m/uL Low RBC 3.44 LAB HGB 11.5-15.5 g/dL Low Hemoglobin 10.7 LAB HCT 36.0-46.0 % Low Hematocrit 32.0 LAB MCV 80.0-100.0 fL MCV 93.0 LAB MCH 26.0-34.0 pG MCH 31.1 LAB MCHC 30.5-36.0 g/dL MCHC 33.4 LAB RDWCV 11.5-15.0 % RDW-CV 13.2 LAB PLTCT 150-400 k/uL Platelet Count 199 LAB MPV 9.0-12.7 fL MPV 11.6 LAB ABSNUC <0.01 k/uL Absolute nRBC <0.01 Performed By: #### CBC, CMP, MG1, PHOS #### [facility] [address] [place], [place] [address] COMP METABOLIC PANEL Collected: 06/19/2018 Status: F Source: [place] 4:35 AM [facility] REPOSITORY TYPE CODE TESTS RESULT OUT OF REFERENCE UNITS RANGE LAB TP 6.3-8.0 g/dL Protein, Total 6.7 LAB ALB 3.9-4.9 g/dL Low Albumin 3.5 LAB CA 8.5-10.2 mg/dL Calcium, Total 8.9 LAB TBIL 0.2-1.3 mg/dL Bilirubin, Total 0.3 LAB ALKP 34-123 U/L Alkaline Phosphatase 62 LAB AST 13-35 U/L AST High 36 LAB GLU 74-99 mg/dL Glucose 89 Result Comment: The [place] Diabetes Association (ADA) provides guidance for cutoff values for fasting glucose and random glucose. The ADA defines fasting as no caloric intake for at least 8 hours. Fas ting plasma glucose results between 100 to 125 mg/dL indicate increased risk for diabetes (prediabetes). Fasting plasma glucose results greater than or equal to 126 mg/dL meet the criteria for diagnosis of diabetes. In the absence of unequivocal hyperglycemia, results should be confirmed by repeat testing. In a patient with classic symptoms of hyperglycemia or hyperglycemic crisis, random plasma glucose results greater than or equal to 200 mg/dL meet the criteria for diagnosis of diabetes. Reference: Standards of Medical Care in Diabetes 2016, [place] [employer]. Diabetes Care. 2016.39(Suppl 1). LAB BUN 7-21 mg/dL BUN 7 LAB CRET 0.58-0.96 mg/dL Creatinine 0.89 LAB NA 136-144 mmol/L Sodium 138 LAB K 3.7-5.1 mmol/L Potassium 3.7 LAB CL 97-105 mmol/L Chloride 99 LAB CO2 22-30 mmol/L CO2 24 LAB AGAP 9-18 mmol/L Anion Gap 15 LAB ALT 7-38 U/L ALT High 50 LAB GFRAA eGFR- Amer. >60 LAB GFRNAA . eGFR-All Other Races >60 Result Comment: eGFR (Estimated GFR) Units of measure: mL/min/1.73 meters squared eGFR is derived from the reexpressed MDRD Study equation using the following parameters: serum creatinine, age, gender and race. The creatinine assay has been calibrated to be traceable to IDMS. An eGFR <60 mL/min/1.73m2 for >3 months is consistent with chronic kidney disease. Refer to KDOQI guidelines for clinical interpretation. In patients with unstable renal function, e.g. those with acute kidney injury, the eGFR may not accurately reflect actual GFR. Performed By: #### CBC, CMP, MG1, PHOS #### [facility] [address] [address] MAGNESIUM Collected: 06/19/2018 Status: F Source: [place] 4:35 AM [facility] REPOSITORY TYPE CODE TESTS RESULT OUT OF REFERENCE UNITS RANGE LAB MG 1.7-2.3 mg/dL Low Magnesium 1.6 Performed By: #### CBC, CMP, MG1, PHOS #### [facility] [address] [address] PHOSPHORUS Collected: 06/19/2018 Status: F Source: [place] 4:35 AM [facility] REPOSITORY TYPE CODE TESTS RESULT OUT OF REFERENCE UNITS RANGE LAB PHOS 2.7-4.8 mg/dL Phosphorus 3.7 Performed By: #### CBC, CMP, MG1, PHOS #### [facility] [address] [place] [id number] TROPONIN T Collected: 06/18/2018 Status: F Source: [place] 5:02 PM [facility] REPOSITORY TYPE CODE TESTS RESULT OUT OF REFERENCE UNITS RANGE LAB TROPT 0.000-0.029 ng/mL Troponin T <0.010 Performed By: #### DANA #### [facility] [address] [place], [place] [address] ECG COMPLETE W Observed: 06/18/2018 Status: F Source: [place] INTERPRET[place] 4:23 PM [facility] [place] REPOSITORY NAME : MARY ALICE KIMBLE PID : [id number] : 1985 Gender : Female Race : ORD : [id number] Procedure Date : Jun 18 2018 16:23:03 Edit Date : Jun 27 2018 07:52:32 Diagnosis:SINUS RHYTHM WITH 1ST DEGREE AV BLOCK OTHERWISE NORMAL ECG Confirmed by ANALY JORGE MD ([id number]) on 06/27/2018 7:52:30 AM Ventricular Rate : 92 BPM Atrial Rate : 92 BPM P-R Interval : 296 ms QRS Duration : 92 ms Q-T Interval : 358 ms QTC Calculation(Bezet) : 442 ms P [place] : 46 degrees R [place] : 41 degrees T [place] : 47 degrees Test Reason : Chest Pain Location : 54 : H51 025 Overread By : ANALY JORGE MD Edited By : ANALY JORGE MD Referred By : , Acquired by : ISAIAH FLETCHER NURSING PROG Observed: 06/18/2018 Status: COMPLETED Source: [place] 3:13 PM [facility] [place] REPOSITORY O ID: [id number] Author: Janee (Rn) KIRSTEN Bains Service: (none) Author Type: Registered Nurse Type: Nursing Progress Note Filed: 06/18/2018 6:58 PM Note Text: Nursing Progress Note Patient Name: Mary Alice Kimble Patient Location: H[facility]/H051-25 Event(s) / Intervention Note: The patient complained of the following problems: sharp chest pain. The time of the event occurred at: 1510. The following intervention(s) were initiated: RN to assess. Pt describes pain only lasting 10 sec and happened yesterday as well. States it getting worse when takes a deep breath. Currently on tele. MD Tommy Dover made aware via page at [phone] After the initiated interventions, the following observation(s) were made: MD at bedside. Orders placed for EKG to be done and troponin lab work. Addendum: 1630: EKG done - showed normal sinus with 1st degree AV block - Tommy Dover made aware. at bedside to talk to pt; cards c/s This note was completed by: Janee Bains RN CASE MANAGEM Observed: 06/18/2018 Status: COMPLETED Source: [place] 12:13 PM [facility] REPOSITORY HNO ID: [id number] Author: Aniya Barnett (Sw) Service: Care Management Author Type: Sleeper Cutter Type: Care Mgt Progress Note Filed: 06/18/2018 12:14 PM Note Text: CARE MANAGEMENT PROGRESS NOTE SERVICE DATE: 06/18/2018 SERVICE TIME: 12:13 PM LOS: 5 days Needs Prior to Discharge: To Be Determined Per PA-C, patient to have R drain taken out today. Anticipated discharge possible tomorrow. Patient has no skilled needs. SUSANA following. SIGNATURE: YURIY Cramer PATIENT NAME: Mary Alice Kimble DATE: June 18, 2018 TIME: 12:13 PM PAGER/CONTACT #:[phone] PROGRESS Observed: 06/18/2018 Status: COMPLETED Source: [place] 11:04 AM [facility] REPOSITORY HNO ID: [id number] Author: Kendra Dover Service: General Surgery Author Type: Resident Type: Progress Notes Filed: 06/18/2018 11:05 AM Note Text: Attestation signed by Vazquez Horton at 06/18/2018 2:34 PM Addendum: I have reviewed the history and physical examination obtained and documented by the resident and I personally participated in the dumont components. I have discussed the case and management of the patient's care. The following comments revise or confirm relevant dumont components of the note. CC: Tired HPI: No nausea or vomiting. Pain well controlled. Abd soft, mild josefina-incisional tenderness. Plan: - Remove drain - ADAT - PO pain control - Dispo planning SIGNATURE: Jerzy Horton MD B surgery Pager: [phone] GENERAL SURGERY PROGRESS NOTE ASSESSMENT AND PLAN 32 year old female with a hx of cholecystitis and CBD stones s/p ERCP (05/01) and lap subtotal cholecystectomy (05/02) c/b retained cystic duct stones with persistent RUQ pain and nausea. No evidence of biliary obstruction or pancreatitis on lap work. Now POD#2 s/p laparoscopic converted to open completion cholecystectomy, intraoperative ultrasound, intraoperative cholangiogram, choledochoduodenostomy. ? -Neuro/pain: d/c INSPECTOR [facility]IALS-->PO + IV BTP -Pulm: bronchopulmonary hygiene. Encourage IS. PRN albuterol -FEN/GI: GIS. HLIV -Endo: no active issues -ID: s/p periop abx -Heme: trend H/H. No indication for transfusion -DVT ppx: SCDs, SQH -Lines/drains: d/c [facility]OR [facility]S -Dispo: continue care on RNF Kendra Dover MD PGY4 General Surgery Pager: [phone] *After 6pm and on weekends please page general surgery personal carer [phone]* SUBJECTIVE/INTERVAL EVENTS No N/V Tolerating clears +flatus, -BM Pain controlled OBJECTIVE BP 118/74 Pulse 93 Temp 37 ?C (98.6 ?F) (Oral) Resp 18 Ht 165.1 cm (5' 5) Wt 95.3 kg (210 lb) SpO2 95% BMI 34.95 kg/m? Intake/Output Summary (Last 24 hours) at 06/18/18 0659 Last data filed at 06/18/18 0500 Gross per 24 hour Intake 2540 ml Output 3521 ml Net -981 ml General: no acute distress, alert, oriented CV: RRR Pulm: nonlabored on RA, symmetrical rise Abdomen: soft, nondistended. Appropriately TTP. Incision c/d/i. LUIS ALFREDO serosang. Neuro: no focal deficits. DAVIS Labs/Imaging: CBC, BMP, MG, PHOS Recent Labs 06/18/18 0634 06/17/18 0641 06/16/18 1331 06/15/18 0904 06/14/18 0619 06/13/18 1622 05/27/18 0509 05/26/18 0556 05/25/18 0720 WBC 7.64 11.34* -- 3.92 3.78 4.71 8.64 6.49 5.89 5.50 HB 10.4* 11.0* -- 12.6 12.5 12.2 12.9 12.6 12.8 12.3 HCT 32.5* 33.0* -- 37.6 37.4 36.1 38.5 38.6 38.2 37.2 PLT 193 211 -- 222 222 218 251 205 218 208 NA 139 -- -- 137 137 136 140 139 138 K 4.2 -- -- 3.8 3.7 4.2 4.0 3.8 4.0 CHLOR 104 -- -- 99 100 100 103 105 101 CO2 22 -- 24* 27 22 23 22 21* 22 BUN 7 -- -- 14 9 11 12 12 11 CREAT 0.82 -- -- 0.96 0.88 0.79 0.85 0.80 0.83 GLUC 81 -- -- 70* 86 92 92 88 91 CA 8.7 -- -- 9.7 9.2 9.9 9.3 9.5 9.2 MG 1.6* 1.8 -- -- -- -- 1.7 1.8 1.9 P 2.6* -- -- -- -- -- 4.1 3.6 3.2 Liver Function, Amylase, AND Lipase Recent Labs 06/18/18 0634 06/17/18 1530 06/16/18 1331 06/15/18 0904 06/14/18 0619 TPROT 6.4 6.6 -- 7.7 7.4 ALB 3.4* 3.8* -- 4.2 3.9 ALT 61* 75* -- 19 18 AST 51* 65* -- 16 17 ALKPHOS 60 67 -- 85 83 TBILI 0.3 0.4 -- 0.4 0.5 LACT -- -- 2.7* -- -- Coags Recent Labs 06/15/18 0905 05/26/18 0556 APTT 26.5 27.9 INR 1.0 1.0 Active Hospital Problems Diagnosis Date Noted - Cholecystitis 06/13/2018 Overview Note: Added automatically from request for surgery [id number] - Sinus bradycardia 06/14/2018 - Retained gallstones following laparoscopic cholecystectomy 05/23/2018 NUTRITION Observed: 06/18/2018 Status: COMPLETED Source: [place] 8:30 AM [facility] [place] REPOSITORY O ID: [id number] Author: Rosa (Leyla) LEYLA Vargas Service: Nutrition Therapy Author Type: Registered Dietitian Type: Nutrition Filed: 06/18/2018 2:48 PM Note Text: NUTRITION THERAPY INITIAL ASSESSMENT SERVICE DATE: 06/18/2018 SERVICE TIME: 10:25 AM RECOMMENDED MALNUTRITION DIAGNOSIS: NO MALNUTRITION IDENTIFIED NUTRITION CARE PLAN: Problem, Etiology and Signs/Symptoms: Increased protein-energy needs related to healing as evidenced by surgery. Intervention: Meals and Snacks - Continue GI Soft fiber controlled diet - Encourage intake Medical Food Supplements - Ensure Enlive TID (350 kcals, 20g pro each) Coordination of Care: -PCNAs- please record percentage of meal intakes and supplement intakes in I/Os for most accurate nutrient analysis - thank you Monitor and Evaluation: Goal: Meet >75% of estimated needs Monitor fluid/electrolyte balance Monitor labs, I/Os, vital signs, weight Discharge Nutrition Recommendations: Diet: gi soft Supplements: high calorie, high protein oral supplements when meeting <75% estimated needs via meals Per HPI: 32 year old female with a hx of cholecystitis and CBD stones s/p ERCP (05/01) and lap subtotal cholecystectomy (05/02) c/b retained cystic duct stones with persistent RUQ pain and nausea. No evidence of biliary obstruction or pancreatitis on lap work. Now s/p laparoscopic converted to open completion cholecystectomy, intraoperative ultrasound, intraoperative cholangiogram, choledochoduodenostomy (06/16/18). Current Diet Order DIET LIQUID Order Specific Question: Liquid Diet Answer: CLEAR LIQUID -- diet advanced to gi soft Supplement 1 (19 years and up): ENSURE ENLIVE STRAWBERRY Supplement 1 Frequency: THREE TIMES/DAY BETWEEN MEALS Lines and Drains: Peripheral 06/16/18 0859 Short Right Forearm 22 Gauge (Active) Peripheral 06/16/18 Left Hand 18 Gauge (Active) Drain/Tube 06/16/18 1604 Jg Solano Right Upper Quadrant Abdomen Drain #1 (Active) Current intake: 06/16-06/17: NPO/Cl 06/15: 75%, 100%, 100% = 1412 kclas, 59g pro 06/14: 100% x 3 meals = 1739 kcals, 67g pro Nutritional Intake Prior to Admission: Unable to determine GI symptoms: none Nutrition Abdominal Exam: and not assessed ANTHROPOMETRICS Height: 165.1 cm (5' 5) Admission Weight: 95.3 kg (210 lb) Current Weight: 95.3 kg (210 lb) Body mass index is 34.95 kg/m?. class 1 obesity Weight has decreased by 5.3 kg over 5-6 months representing 5 % weight change potentially clinically significant but does not meet criteria to support a malnutrition diagnosis Last Wt 06/13/18 : 95.3 kg (210 lb) 06/06/18 : 99.8 kg (220 lb) 05/23/18 : 98.7 kg (217 lb 9.6 oz) 01/30/18 : 100.6 kg (221 lb 12.8 oz) 05/16/17 : 108 kg (238 lb) 01/22/17 : 108.4 kg (239 lb) 11/28/16 : 104.8 kg (231 lb) 11/13/16 : 104.3 kg (230 lb) 11/09/16 : 107 kg (236 lb) UBW: ~235lbs (106.8kg) x 1 year ago [place] Body Weight: 56.8kg Dosing Weight: 95 kg Resting Metabolic Rate: 1674 Estimated kilocalorie needs: 7664-3433 kilocalories determined by [employer] x 1.1-1.3 Estimated protein needs: 92-108 grams determined by 20% of estimated energy needs Estimated fluid needs: 9194-3488 milliliters based on 1 mL per kcal NUTRITION FOCUSED PHYSICAL EXAM: Subcutaneous Fat Loss Orbital No fat loss Triceps No fat loss Mid-axillary at the iliac crest Unable to determine at this time Muscle Loss Locations: Temporalis No muscle loss Pectoralis No muscle loss Deltoids No muscle loss Interosseous No muscle loss Latissimus dorsi, trapezius Unable to determine at this time Quadriceps No muscle loss Gastrocnemius No muscle loss Potential micronutrient deficiency revealed in: No deficiency identified Edema: No Ascites: No Assessment of Functional Status: Functional capacity is unrelated to nutrition status Temperature Max in 24 hours: Temp (24hrs), Av.9 ?C (98.5 ?F), Min:36.7 ?C (98 ?F), Max:37.4 ?C (99.3 ?F) BP 118/74 Pulse 93 Temp 37 ?C (98.6 ?F) (Oral) Resp 18 Ht 165.1 cm (5' 5) Wt 95.3 kg (210 lb) SpO2 95% BMI 34.95 kg/m? Recent Labs 06/17/18 1530 06/17/18 0641 06/16/18 1331 06/15/18 0904 GLUC -- -- -- 70* BUN -- -- -- 14 CREAT -- -- -- 0.96 NA -- -- -- 137 K -- -- -- 3.8 CHLOR -- -- -- 99 CO2 -- -- 24* 27 ALB 3.8* -- -- 4.2 HB -- 11.0* -- 12.6 12.5 HCT -- 33.0* -- 37.6 37.4 WBC -- 11.34* -- 3.92 3.78 MG -- 1.8 -- -- Potential Signs of Inflammation: leukocytosis and hypoalbuminemia ALLERGIES No Known Allergies Current Facility-Administered Medications: HYDROmorphone 0.2 mg injection (DILAUDID) 0.2 mg INTRAVENOUS q 3 H PRN oxyCODONE IR 5-10 mg tab(s) (ROXICODONE) 5-10 mg ORAL q 3 H PRN perflutren lipid microspheres 1.1 mg/mL 1.3 mL injection (DEFINITY) 1.3 mL INTRAVENOUS DIRECTED PRN docusate sodium 100 mg cap(s) (COLACE) 100 mg ORAL BID benzonatate 100 mg cap(s) (TESSALON PERLE) 100 mg ORAL TID PRN albuterol HFA 90 mcg/actuation 2 Puff (PROVENTIL HFA, VENTOLIN HFA) 2 Puff INHALATION q 4 H PRN 0.9% NaCl 2-10 mL 2-10 mL INTRAVENOUS q 12 H ondansetron (PF) 4 mg injection (ZOFRAN) 4 mg INTRAVENOUS q 6 H PRN heparin 5,000 Units injection 5,000 Units SUBCUTANEOUS q 12 H ondansetron 4 mg tab(s) (ZOFRAN) 4 mg ORAL q 6 H acetaminophen 650 mg tab(s) (TYLENOL) 650 mg ORAL q 6 H PRN Date 06/17/18 07 - 06/18/18 0659 06/18/18 07 - 06/19/18 0659 Shift 6193-7149 0627-3568 0357-9692 24 Hour Total 8323-2024 1301-8508 4552-6764 24 Hour Total I N T A K E PO 200 240 200 640 PO 200 240 200 640 IV 700 640 844 1183 IVPB 100 100 NS 0.9% 600 041 656 9366 Shift Total 900 346 470 2840 O U T P U T Urine 1400 1000 1101 3501 300 300 Void (ml) 600 1000 1101 2701 300 300 Urine Incontinence/Not Saved 1 x 1 x Tube Output ([REMOVED] Indwelling Urinary Catheter 06/16/18 1213 [place] 06/17/18 0859) 800 800 Tubes 10 5 5 20 Drain/Tube Output ([REMOVED] Drain/Tube 06/16/18 1604 Jg Solano Right Upper Quadrant Abdomen Drain #1 06/18/18 0946) 10 5 5 20 # of BMs Number of BMs 0 x 0 x Stool 0 0 0 Liquid BM (mL) 0 0 0 Shift Total 1410 1005 1106 3521 300 300 Weight (kg) 95.3 95.3 95.3 95.3 95.3 95.3 95.3 95.3 Surgical Incision 06/16/18 1237 Abdomen - Laparoscopy Sites (Active) Dressing Status None: Open to Air 06/18/2018 8:42 AM Incision Closures Topical Skin Adhesive 06/18/2018 8:42 AM Drainage Description None 06/18/2018 8:42 AM Drainage Amount None 06/18/2018 8:42 AM Edges Intact 06/18/2018 8:42 AM Hematoma No 06/18/2018 8:42 AM Number of days: 2 Surgical Incision 06/16/18 1457 Abdomen (Active) Dressing Status None: Open to Air 06/18/2018 8:42 AM Frequency of Dressing Change Daily 06/17/2018 9:40 AM Dressing Change Due 06/18/18 06/17/2018 8:36 PM Dressing /Treatment Type Dry Sterile Dressing 06/17/2018 8:36 PM Incision Closures Topical Skin Adhesive 06/18/2018 8:42 AM Drainage Description None 06/18/2018 8:42 AM Drainage Amount None 06/18/2018 8:42 AM Edges Intact 06/18/2018 8:42 AM Hematoma No 06/18/2018 8:42 AM Number of days: 1 MNT Billing Type: Initial Assess/15 min 4 units SIGNATURE: Rosa Vargas, MS, RD, LD PATIENT NAME: Mary Alice Kimble DATE: June 18, 2018 TIME: 8:31 AM PAGER: [phone] CBC Collected: 06/18/2018 Status: F Source: [place] 6:34 AM [facility] REPOSITORY TYPE CODE TESTS RESULT OUT OF REFERENCE UNITS RANGE LAB WBC 3.70-11.00 k/uL WBC 7.64 LAB RBC 3.90-5.20 m/uL Low RBC 3.38 LAB HGB 11.5-15.5 g/dL Low Hemoglobin 10.4 LAB HCT 36.0-46.0 % Low Hematocrit 32.5 LAB MCV 80.0-100.0 fL MCV 96.2 LAB MCH 26.0-34.0 pG MCH 30.8 LAB MCHC 30.5-36.0 g/dL MCHC 32.0 LAB RDWCV 11.5-15.0 % RDW-CV 13.5 LAB PLTCT 150-400 k/uL Platelet Count 193 LAB MPV 9.0-12.7 fL MPV 11.5 LAB ABSNUC <0.01 k/uL Absolute nRBC <0.01 Performed By: #### CBC, CMP, MG1, PHOS #### [facility] [address] [place], [place] [address] COMP METABOLIC PANEL Collected: 06/18/2018 Status: F Source: [place] 6:34 AM [facility] REPOSITORY TYPE CODE TESTS RESULT OUT OF REFERENCE UNITS RANGE LAB TP 6.3-8.0 g/dL Protein, Total 6.4 LAB ALB 3.9-4.9 g/dL Low Albumin 3.4 LAB CA 8.5-10.2 mg/dL Calcium, Total 8.7 LAB TBIL 0.2-1.3 mg/dL Bilirubin, Total 0.3 LAB ALKP 34-123 U/L Alkaline Phosphatase 60 LAB AST 13-35 U/L AST High 51 LAB GLU 74-99 mg/dL Glucose 81 Result Comment: The [place] Diabetes [employer] (ADA) provides guidance for cutoff values for fasting glucose and random glucose. The ADA defines fasting as no caloric intake for at least 8 hours. Fas ting plasma glucose results between 100 to 125 mg/dL indicate increased risk for diabetes (prediabetes). Fasting plasma glucose results greater than or equal to 126 mg/dL meet the criteria for diagnosis of diabetes. In the absence of unequivocal hyperglycemia, results should be confirmed by repeat testing. In a patient with classic symptoms of hyperglycemia or hyperglycemic crisis, random plasma glucose results greater than or equal to 200 mg/dL meet the criteria for diagnosis of diabetes. Reference: Standards of Medical Care in Diabetes 2016, [place] [employer]. Diabetes Care. 2016.39(Suppl 1). LAB BUN 7-21 mg/dL BUN 7 LAB CRET 0.58-0.96 mg/dL Creatinine 0.82 LAB NA 136-144 mmol/L Sodium 139 LAB K 3.7-5.1 mmol/L Potassium 4.2 LAB CL 97-105 mmol/L Chloride 104 LAB CO2 22-30 mmol/L CO2 22 LAB AGAP 9-18 mmol/L Anion Gap 13 LAB ALT 7-38 U/L ALT High 61 LAB GFRAA eGFR- Amer. >60 LAB GFRNAA . eGFR-All Other Races >60 Result Comment: eGFR (Estimated GFR) Units of measure: mL/min/1.73 meters squared eGFR is derived from the reexpressed MDRD Study equation using the following parameters: serum creatinine, age, gender and race. The creatinine assay has been calibrated to be traceable to IDMS. An eGFR <60 mL/min/1.73m2 for >3 months is consistent with chronic kidney disease. Refer to KDOQI guidelines for clinical interpretation. In patients with unstable renal function, e.g. those with acute kidney injury, the eGFR may not accurately reflect actual GFR. Performed By: #### CBC, CMP, MG1, PHOS #### [facility] [address] [address] MAGNESIUM Collected: 06/18/2018 Status: F Source: [place] 6:34 AM [facility] REPOSITORY TYPE CODE TESTS RESULT OUT OF REFERENCE UNITS RANGE LAB MG 1.7-2.3 mg/dL Low Magnesium 1.6 Performed By: #### CBC, CMP, MG1, PHOS #### [place] [address] PHOSPHORUS Collected: 06/18/2018 Status: F Source: [place] 6:34 AM [facility] REPOSITORY TYPE CODE TESTS RESULT OUT OF REFERENCE UNITS RANGE LAB PHOS 2.7-4.8 mg/dL Low Phosphorus 2.6 Performed By: #### CBC, CMP, MG1, PHOS #### [place] [address] HEPATIC FUNCTN PANEL Collected: 06/17/2018 Status: F Source: [place] 3:30 PM [facility] REPOSITORY TYPE CODE TESTS RESULT OUT OF REFERENCE UNITS RANGE LAB ALB 3.9-4.9 g/dL Low Albumin 3.8 LAB TBIL 0.2-1.3 mg/dL Bilirubin, Total 0.4 LAB CBIL <0.2 mg/dL Bilirubin,Conjuga <0.2 terrence LAB ALKP 34-123 U/L Alkaline Phosphatase 67 LAB AST 13-35 U/L AST High 65 LAB ALT 7-38 U/L ALT High 75 LAB TP 6.3-8.0 g/dL Protein, Total 6.6 Performed By: #### HFP #### [facility] [address] [address] ALLIED HEALTH Observed: 06/17/2018 Status: COMPLETED Source: [place] 1:17 PM [facility] REPOSITORY HNO ID: [id number] Author: Nargis RutledgeRn) wJ [place] RN Service: Healing Service Author Type: Registered Nurse Type: Allied Health Filed: 06/17/2018 2:21 PM Note Text: HEALING SERVICES THERAPY NOTE SERVICE DATE: 06/17/2018 SERVICE TIME: 01:17 PM INTERVENTIONAL FOCUS: Emotional Support Self-directed Care / Patient Experience Other: Canine Visit Visit With: Patient Urgency of Visit: Routine Type of Visit: Brief Visit Pt sitting in a chair in her room. Provided supportive community for pt who is alone. Caring, calm, attentive and intentional presence provided with empathetic, active listening and conversation while pt shared some of her story with this nurse. Emotional support provided. Introduced HS to pt; various HS modalities explained. Written HS information provided along with our phone number to call if she would like another HS visit. Pt thanked this nurse for the HS visit; she would like a canine visit - referral placed and Kendra Lance notified. Will return upon request. SIGNATURE: Nargis Lowry RN PATIENT NAME: Mary Alice Kimble DATE: June 17, 2018 TIME: 2:19 PM PAGER/CONTACT #: [phone] NURSING PROG Observed: 06/17/2018 Status: COMPLETED Source: [place] 10:08 AM [facility] REPOSITORY HNO ID: [id number] Author: Leo RutledgeRn) KIRSTEN Man Service: Nursing Author Type: Registered Nurse Type: Nursing Progress Note Filed: 06/17/2018 10:46 AM Note Text: Nursing Progress Note Patient Name: Mary Alice Kimble Patient Location: [place] [address]- Event(s) / Intervention Note: The patient was observed having the following problems: telemetry showing bigeminy and multiple PVCs. The time of the event occurred at: 0915. The following intervention(s) were [place]: [place] [phone] Liang around 1005. After the initiated interventions, the following observation(s) were made: Pt is up to the chair and asymptomatic. Nothing further noted. Will continue to observe and check with patient. 1046: Cards c/s placed for management of PVCs. Will continue to monitor the pt. This note was completed by: Leo Man RN PROGRESS Observed: 06/17/2018 Status: COMPLETED Source: [place] 9:00 AM [facility] REPOSITORY O ID: [id number] Author: Kendra Dover Service: General Surgery Author Type: Resident Type: Progress Notes Filed: 06/17/2018 9:03 AM Note Text: Attestation signed by Vazquez Horton at 06/17/2018 6:23 PM Addendum: I have reviewed the history and physical examination obtained and documented by the resident and I personally participated in the dumont components. I have discussed the case and management of the patient's care. The following comments revise or confirm relevant dumont components of the note. CC: Pleuritic abdominal pain HPI: POD#1 completion cholecystectomy. Pain is well controlled, although is having some pain with deep inspiration. No nausea or vomiting. Passing flatus. LUIS ALFREDO with serosanguinous drainage, non-bilious. Plan: - Ambulate - Clears - Continue LUIS ALFREDO drain today, likely remove tomorrow - Continue INSPECTOR DIALS for now, will convert to PO with IV for breakthrough tomorrow - Continue RNF SIGNATURE: Jerzy Horton MD B surgery Pager: [phone] GENERAL SURGERY PROGRESS NOTE ASSESSMENT AND PLAN 32 year old female with a hx of cholecystitis and CBD stones s/p ERCP (05/01) and lap subtotal cholecystectomy (05/02) c/b retained cystic duct stones with persistent RUQ pain and nausea. No evidence of biliary obstruction or pancreatitis on lap work. Now POD#1 s/p laparoscopic converted to open completion cholecystectomy, intraoperative ultrasound, intraoperative cholangiogram, choledochoduodenostomy. ? -Neuro/pain: PRN pain meds -Pulm: bronchopulmonary hygiene. Encourage IS. PRN albuterol -FEN/GI: clears. MIVF. -Endo: no active issues -ID: s/p periop abx -Heme: trend H/H. No indication for transfusion -DVT ppx: SCDs, SQH -Dispo: continue care on RNF Kendra Dover MD PGY4 General Surgery Pager: [phone] *After 6pm and on weekends please page general surgery personal carer [phone]* SUBJECTIVE/INTERVAL EVENTS No N/V Pain controlled with INSPECTOR DIALS -flatus, -BM OBJECTIVE BP 134/85 Pulse 103 Temp 37.2 ?C (98.9 ?F) (Oral) Resp 18 Ht 165.1 cm (5' 5) Wt 95.3 kg (210 lb) SpO2 100% BMI 34.95 kg/m? Intake/Output Summary (Last 24 hours) at 06/17/18 0659 Last data filed at 06/17/18 0500 Gross per 24 hour Intake 4625 ml Output 1740 ml Net 2885 ml General: no acute distress, alert, oriented CV: RRR Pulm: nonlabored on RA, symmetrical rise Abdomen: soft, nondistended. Appropriately TTP. Dressing c/d/i. LUIS ALFREDO serosang. Neuro: no focal deficits. DAVIS Labs/Imaging: CBC, BMP, MG, PHOS Recent Labs 06/17/18 0641 06/16/18 1331 06/15/18 0904 06/14/18 0619 06/13/18 1622 05/27/18 0509 05/26/18 0556 05/25/18 0720 05/24/18 0615 WBC 11.34* -- 3.92 3.78 4.71 8.64 6.49 5.89 5.50 5.05 HB 11.0* -- 12.6 12.5 12.2 12.9 12.6 12.8 12.3 11.9 HCT 33.0* -- 37.6 37.4 36.1 38.5 38.6 38.2 37.2 35.9* PLT 211 -- 222 222 218 251 205 218 208 201 NA -- -- 137 137 136 140 139 138 139 K -- -- 3.8 3.7 4.2 4.0 3.8 4.0 4.0 CHLOR -- -- 99 100 100 103 105 101 103 CO2 -- 24* 27 22 23 22 21* 22 24 BUN -- -- 14 9 11 12 12 11 10 CREAT -- -- 0.96 0.88 0.79 0.85 0.80 0.83 0.79 GLUC -- -- 70* 86 92 92 88 91 92 CA -- -- 9.7 9.2 9.9 9.3 9.5 9.2 8.8 MG 1.8 -- -- -- -- 1.7 1.8 1.9 1.9 P -- -- -- -- -- 4.1 3.6 3.2 3.4 Liver Function, Amylase, AND Lipase Recent Labs 06/16/18 1331 06/15/18 0904 06/14/18 0619 06/13/18 1622 05/27/18 0509 TPROT -- 7.7 7.4 8.1* 6.7 ALB -- 4.2 3.9 4.5 3.8* ALT -- 19 18 23 13 AST -- 16 17 20 16 ALKPHOS -- 85 83 94 96 TBILI -- 0.4 0.5 0.5 0.3 LACT 2.7* -- -- -- -- Coags Recent Labs 06/15/18 0905 05/26/18 0556 APTT 26.5 27.9 INR 1.0 1.0 Active Hospital Problems Diagnosis Date Noted - Cholecystitis 06/13/2018 Overview Note: Added automatically from request for surgery [id number] - Sinus bradycardia 06/14/2018 - Retained gallstones following laparoscopic cholecystectomy 05/23/2018 CBC Collected: 06/17/2018 Status: F Source: [place] 6:41 AM [facility] REPOSITORY TYPE CODE TESTS RESULT OUT OF REFERENCE UNITS RANGE LAB WBC 3.70-11.00 k/uL WBC High 11.34 LAB RBC 3.90-5.20 m/uL Low RBC 3.57 LAB HGB 11.5-15.5 g/dL Low Hemoglobin 11.0 LAB HCT 36.0-46.0 % Low Hematocrit 33.0 LAB MCV 80.0-100.0 fL MCV 92.4 LAB MCH 26.0-34.0 pG MCH 30.8 LAB MCHC 30.5-36.0 g/dL MCHC 33.3 LAB RDWCV 11.5-15.0 % RDW-CV 13.2 LAB PLTCT 150-400 k/uL Platelet Count 211 LAB MPV 9.0-12.7 fL MPV 11.9 LAB ABSNUC <0.01 k/uL Absolute nRBC <0.01 Performed By: #### CBC, MG1 #### [facility] [address] [place], [place] [id number] MAGNESIUM Collected: 06/17/2018 Status: F Source: [place] 6:41 AM [facility] REPOSITORY TYPE CODE TESTS RESULT OUT OF REFERENCE UNITS RANGE LAB MG 1.7-2.3 mg/dL Magnesium 1.8 Performed By: #### CBC, MG1 #### [facility] [address] [place], [place] [address] PLAN OF CARE Observed: 06/16/2018 Status: COMPLETED Source: [place] 9:14 PM [facility] REPOSITORY HNO ID: [id number] Author: Analy (Koffi Goldman MD Service: General Surgery Author Type: Resident Type: Plan of Care Filed: 06/16/2018 9:16 PM Note Text: POST OP CHECK Mary Alice Kimble [id number] 06/16/2018 9:14 PM S: Mary Alice Kimble is a 32 year old female now POD 0 s/p laparoscopic converted to open completion cholecystectomy, intraoperative ultrasound, intraoperative cholangiogram, choledochoduodenostomy. Currently on a RNF. Doing well postoperatively in NAD. - Pain well controlled - Denies fever, chills, cp, sob - No nausea or vomiting O: BP 119/74 Pulse 110 Temp (Src) 98.5 (Oral) Resp 18 Ht 5' 5 (1.65m) Wt 210 lb (95.3kg) SpO2 99% BMI 34.95 kg/(m2). Gen: well appearing, nad, resting comfortably, AANDO Pulm: breathing comfortably on RA Abd: soft, hypoactive BS, appropriately TTP, ND Surgical dressing c/d Extrem: WWP, no edema Intake/Output Summary (Last 24 hours) at 06/16/184 Last data filed at 06/16/18 1900 Gross per 24 hour Intake 3920 ml Output 1385 ml Net 2535 ml A/P: Mary Alice Kimble is a 32 year old female. POD 0 with appropriate postoperative course, pain well controlled, patient in NAD. - Continue routine post operative care - Follow AM labs Analy Goldman MD Surgery, PGY-1 NURSING PROG Observed: 06/16/2018 Status: COMPLETED Source: [place] 7:35 PM [facility] REPOSITORY HNO ID: [id number] Author: Janee RutledgeRn) Herson RN Service: (none) Author Type: Registered Nurse Type: Nursing Progress Note Filed: 06/16/2018 7:46 PM Note Text: Admission/Transfer Note PATIENT NAME: Mary Alice Kimble Patient transferred from PACU via bed in stable condition. Actions taken: Patient oriented to room, call light function, prescribed activities, Patient rights and Quiet at night. The patient has been instructed on the plan of care , importance of IPC use and IS. Patient belongings with patient and family at bedside. No futher actions taken at this time. Will continue to monitor and check with patient. This note was completed by: Janee Bains RN NURSING PROG Observed: 06/16/2018 Status: COMPLETED Source: [place] 6:55 PM [facility] REPOSITORY HNO ID: [id number] Author: Deanne RutledgeRn) KIRSTEN Edwards Service: Nursing Author Type: Registered Nurse Type: Nursing Progress Note Filed: 06/16/2018 6:56 PM Note Text: Nursing Progress Note Patient Name: Mary Alice Kimble Patient Location: G031 [facility]/G031-07 VSS. Pain 8 but more tolerable, I want to go back to my room. Patient has received fentanyl + Dilaudid IV push as well as a INSPECTOR DIALS pump. Ofirmev infusing and will get Toradol as well. This note was completed by: KIRSTEN Vo POST Observed: 06/16/2018 Status: COMPLETED Source: [place] 6:33 PM [facility] REPOSITORY HNO ID: [id number] Author: Paige Lee Service: Anesthesiology Author Type: Anesthesiologist Type: Anesthesia PostOp Filed: 06/16/2018 6:34 PM Note Text: POST ANESTHESIA EVALUATION NOTE SERVICE DATE: 06/16/2018 SERVICE TIME: current : 1987 Vitals: 06/16/18 0222 06/16/18 0500 06/16/18 1000 06/16/181745 Temp: 36.5 ?C (97.7 ?F) 36.8 ?C (98.2 ?F) 36.7 ?C (98.1 ?F) 36.6 ?C (97.9 ?F) 06/16/18 17406/16/18 1800 06/16/18 18106/16/18 183 BP: 113/56 100/53 115/58 113/61 06/16/18 17406/16/18 1800 06/16/18 18106/16/18 183 Pulse: 89 81 94 80 06/16/18 17406/16/18 1800 06/16/18 18106/16/18 183 Resp: 20 18 18 14 06/16/18 17406/16/18 1800 06/16/18 18106/16/18 183 SpO2: 97% 96% 96% 97% Validated Vital Signs: Yes POST ANES STATUS: PACU/ICU Patient Condition: Stable Neurological Status: Awake AND alert. Pulmonary Status: Breathing comfortably on supplemental oxygen. Airway Control: Returned to baseline unsupported. Cardiovascular Status: Stable Pain: Uncontrolled with additional medications being ordered/administered. Postoperative Nausea/Vomiting: No significant post operative nausea or vomiting Postoperative Hydration Status: Adequate. Intra-Operative Events: No Significant Anesthesia Events Anesthetic Complications: None Recommendation: Continue current plan of care and Pain control: IV Tylenol ordered, IV INSPECTOR DIALS started per primary service Other Remarks: SIGNATURE: Paige Lee MD PATIENT NAME: Mary Alice Kimble DATE: June 16, 2018 TIME: 6:33 PM PAGER/CONTACT #: [phone] BRIEF OP NOT Observed: 06/16/2018 Status: COMPLETED Source: [place] 5:08 PM [facility] REPOSITORY HNO ID: [id number] Author: Kendra Dover Service: General Surgery Author Type: Resident Type: Brief Op Note Filed: 06/16/2018 5:10 PM Note Text: BRIEF OP NOTE LOG ID: [id number] Surgery/Procedure Date: 06/16/2018 Incision/Procedure Start Time: 12:37 PM Incision Close/Procedure End Time: 5:05 PM Surgeon(s)/Proceduralist(s) and Sales Negotiator(s): Surgeon(s) and Role: * Ruben Christian - Primary * Kendra Dover - Resident - Assisting * Ana Paredes - Resident - Assisting * Vazquez Horton - Assisting Procedure(s): laparoscopic converted to open completion cholecystectomy, intraoperative ultrasound, intraoperative cholangiogram, choledochoduodenostomy Anesthesia: General Findings: 3 stones impacted in cystic duct and CBD. Adhesions in cystic triangle. IOC showed filling of duodenum. Estimated Blood Loss: 50 mls Specimens: Specimen ID Type Site Comments Sent To Path 1 Stone Common Bile duct stones Pathology Routine Path 2 Tissue Gallbladder Pathology Routine Complications: None Pre-Op/Pre-Procedure Diagnosis: s/p subtotal cholecystectomy with retained cystic duct stones Post-Op/Post-Procedure Diagnosis: retained cystic duct and CBD stone SIGNATURE: Kendra Dover MD PATIENT NAME: Mary Alice Kimble DATE: June 16, 2018 TIME: 5:08 PM PAGER/CONTACT #: [phone] CHOLANGIOGRAM INTRAOP Observed: 06/16/2018 Status: F Source: [place] 3:54 PM [facility] REPOSITORY * * *Final Report* * * DATE OF EXAM: Jun 16 2018 3:54PM ESX [id number] - XR CHOLANGIOGRAM INTRAOP / PROCEDURE REASON: ALBERT * * * * Physician Interpretation * * * * INTRAOPERATIVE CHOLANGIOGRAM HISTORY: Prior cholecystectomy with choledochoduodenostomy, reported impacted cystic duct and common bile duct stones. TECHNIQUE: 2 images are submitted for interpretation. The procedure was performed by the referring surgical service. Fluoroscopy radiation summary: Fluoroscopy time: 0:18 (min:sec). Air kerma: 1.2 mGy. RESULT: See impression. IMPRESSION: Contrast opacifies normal caliber common bile duct and short cystic duct stump. No stricture or filling defect in the opacified bile ducts on limited provided images. Contrast opacifies the second duodenum. Cloth Desizing Range Operator Chief: PSCB Transcribe Date/Time: Jun 17 2018 7:50A Dictated by : KAMINI MADERA DO This examination was interpreted and the report reviewed and electronically signed by: KAMINI MADERA DO on Jun 17 2018 7:51AM EST [id number] LILI BARTON MG Collected: 06/16/2018 Status: F Source: [place] 1:31 PM [facility] REPOSITORY TYPE CODE TESTS RESULT OUT OF REFERENCE UNITS RANGE LAB VPH 7.32-7.42 pH 7.33 LAB VPC2 42-55 mm Hg pCO2 45 LAB VPO2 35-45 mm Hg pO2 High 58 LAB VBE mmol/L Base Excess NEG 3 LAB VHC3 24-28 mmol/L Bicarbonate Low 23 LAB VC2C 25-29 mmol/L CO2 Content Low 24 LAB O2HBCX 60-85 % Oxyhemoglobin, High Jonah. 86 LAB CO <2.0 % Carboxyhemoglobin,V 0.9 en LAB METHB 0.4-1.5 % Methemoglobin 0.4 LAB VTMP C Temperature, Body 37.0 LAB VPHTC 7.32-7.42 pH, Temp Corrected 7.33 LAB VPC2T mm Hg pCO2, Temp Correct 45 LAB VPO2T mm Hg pO2, Temp Corrected 58 LAB NAB 132-148 mmol/L Sodium,Whole Bld 138 LAB KWB 3.5-5.0 mmol/L Potassium, Whole Bld 4.0 LAB HGBB 11.5-15.5 g/dL Low Hemoglobin,Total,AC 11.1 L LAB HCTB 36.0-46.0 % Hematocrit, ACL Low 34 LAB IC 1.08-1.30 mmol/L Calcium, Ion, WB 1.20 LAB GLB 60-105 mg/dL Glucose,Whole Bld High 222 LAB LACT 0.5-2.2 mmol/L Lactate High 2.7 LAB MGI 0.43-0.66 mmol/L Magnesium, Ion, WB 0.50 Performed By: #### VALLMG #### [facility] [address] [place], [place] [address] OPERATIVE NO Observed: 06/16/2018 Status: COMPLETED Source: [place] 11:47 AM [facility] REPOSITORY HNO ID: [id number] Author: Vazquez Horton Service: General Surgery Author Type: Physician Type: Operative Report Filed: 06/16/2018 5:46 PM Note Text: OPERATIVE/PROCEDURE REPORT LOG ID: [id number] Surgery/Procedure Date: 06/16/2018 Incision/Procedure Start Time: 12:37 PM Incision Close/Procedure End Time: 5:05 PM Surgeon(s)/Proceduralist(s) and Sales Negotiator(s): * Ruben Christian - Primary * Kendra (Res) Stanislaw - Resident - Assisting * Ana (Res) Reggie - Resident - Assisting * Vazquez Horton - Assisting Pre-Op/Pre-Procedure Diagnosis: Retained gallbladder Cystic duct stones Cholecystitis Post-Op/Post-Procedure Diagnosis: Same Procedure(s): Laparoscopic converted to open completion cholecystectomy, intraoperative ultrasound, intraoperative cholangiogram, choledochoduodenostomy Anesthesia: General Indications: The patient underwent a laparoscopic subtotal cholecystectomy for acute cholecystitis at an OSH. The patient had a lots of inflammation and therefore the patient underwent a laparoscopic subtotal cholecystectomy at the outside hospital. The patient had persistent symptoms and was found to have retained cystic duct stones. They were unable to retrieve the stones with a post-operative ERCP and it was recommended that she undergo a completion cholecystectomy. The risks of the operation were discussed in detail with the patient, including, but not limited to infection, bleeding, and damage to surrounding structures. All of her questions were answered and informed consent was obtained. Procedure Details: A huddle was performed when the patient first entered the operating room. The patient was sedated and intubated. The patient was prepped and draped in the normal sterile fashion and a pre-operative timeout was performed. A left subcostal 5mm visiport was inserted under direct visualization. Additional 5mm ports and a supraumbilical 12mm port was inserted under direct visualization. The right lobe of the liver was retracted superiorly and there were some adhesions to the gallbladder fossa that were carefully taken down with electrocautery. A jude retractor was inserted to help retract the right lobe of the liver. The retained gallbladder was identified and a maryland retractor was used to help dissect it out. An intraoperative ultrasound was used to help identify the 3 retained stones. The Pinpoint camera was used to try and identify the common bile duct, but there was too much inflammation in the gallbladder fossa and therefore it was determined to convert to an open operation. The 12mm portsite fascia incisions were closed with heavy vicryl under direct visualization prior to making the subcostal incision. A right subcostal incision was made and the muscle was cauterized. The peritoneum was opened and the round ligament was ligated with heavy silk suture. The falciform ligament was then dissected with electrocautery. The liver gutierrez retractor was then placed. Two packs were placed behind the liver and the sweetheart retractor was placed to help retract the liver. The duodenum was kocherized and the remnant gallbladder was dissected off of the gallbladder fossa. The right hepatic artery was identified and spared. The ultrasound was utilized to help visualize the stones. The cystic duct was opened at the end and two of the stones were removed. The cystic duct was then followed down to the common bile duct and opened directly over the remaining stone. The stone was then able to be removed and bile was immediately seen pouring out of the duct. A cholangiogram was then performed and rapid transit of contrast was obtained flowing into the duodenum. The choledochotomy was felt to be right at the junction of the cystic duct and the common hepatic duct and therefore there was no flow of contrast into the right and left hepatic ducts. Since there was rapid flow of bile though, the biliary tree was patent and not obstructed. At this time a choledochoduodenostomy was fashioned after making a transverse duodenotomy. A single layer of 4-0 PDS was used to make the anastomosis. There was no leakage of bile. The abdomen was irrigated out with copious warm irrigation. Hemostasis was obtained. A 19 kiswahili round reno drain was placed over the anastomosis and secured to the skin with 3-0 nylon suture. The fascia was closed in two layers with heavy PDS and the subcutaneous tissue was closed with 3-0 vicryl in an interrupted fashion. The skin was then closed with 4-0 monocril in a running subcuticular fashion and covered with skin glue. All counts were correct. Dr. Horton assisted with the case because there was no qualified resident available. Estimated Blood Loss: 50 mls Specimens: Specimen ID Type Site Comments Sent To Path 1 Stone Common Bile duct stones Pathology Routine Path 2 Tissue Gallbladder Pathology Routine Implantable Devices: None Drains: LUIS ALFREDO x1 near biliary anastomosis Complications: None The primary surgeon/proceduralist performed the procedure with assistance. SIGNATURE: Vazquez Horton MD PATIENT NAME: Mary Alice Kimble DATE: June 16, 2018 TIME: 5:24 PM PAGER/CONTACT #: [phone] CASE MGT INIT Observed: 06/16/2018 Status: COMPLETED Source: [facility] 11:30 AM [facility] REPOSITORY HNO ID: [id number] Author: Anneliese (Rn) KIRSTEN Wright Service: Care Management Author Type: Registered Nurse Type: Care Mgt Initial Assessment Filed: 06/16/2018 11:36 AM Note Text: CARE MANAGEMENT: ASSESSMENT AND DISCHARGE PLAN SERVICE DATE: 06/16/2018 SERVICE TIME: 11:30 AM PRIMARY CARE PHYSICIAN: Janee Londono CNP ADMISSION STATUS: Inpatient Needs Prior to Discharge: To Be Determined MEDICAL: Patient/[employer] Stated Goals: To have reduction in pain To have reduction in symptoms To be cured/healed Health Insurance: [employer] [facility] Issues Impacting Discharge Plan: Cholecystitis Last Admission Date: Previous admit date: 05/23/2018 Is this Within the Past 30 days? Yes Is This a Planned Readmission? Yes Followed Up with Appointment Prior to Admission: Appointment completed Where Did the Patient Come From? Home Intervention Taken to Avoid Future Readmission? 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 How often do you need to have someone help you when you read instructions, pamphlets, or other written material from your doctor or pharmacy? Never - 1 2. How confident are you filling out medical forms by yourself? Extremely - 1 If Patient scores > 3 on either question, the following interventions were put into place: Patient did not score > 3 FUNCTIONAL AND COGNITIVE/BEHAVIORAL PRIOR TO ADMISSION: Baseline Mental Status: Alert AND Oriented, Person, Place , Time and Situation Functional Status: Independent Does Patient Currently Receive Any Community Services or Home Care? None Equipment Prior to Admission: None Has the Patient Been in a Intermediate Facility in the Past 30 days? No SOCIAL: Living Arrangement: Home Lives With: Spouse Financial Resources: Employed: [employer] Primary Contact: Extended Emergency Contact Information Primary Emergency Contact: Glendy Kimble Address: [address] [place] [id number] [facility] Mobile Relation: Spouse Secondary Emergency Contact: Obdulia Riley Mobile Relation: Mother Supportive: Yes Other Important Patient Contacts: None Caregiver Assessment: Caregiver is ready, willing and able to meet the patient's needs as recommended by the inter-professional team? No Caregiver Needed Patient's transition needs and plan for meeting these needs: TBD Does the patient have an acute stroke diagnosis, or has the patient had a stroke during this admission? No Medication Adherence: I am convinced of the importance of my prescription medication: Agree completely - 0 I worry that my prescription medication will do more harm than good to me Disagree completely - 0 I feel financially burdened by my niz-uw-mucuft expenses for my prescription medication: Disagree completely - 0 Patient is categorized as low risk < 2 Are you interested in bedside delivery of your medications? Yes Food Concerns: In the Last Month, Have You had Trouble Getting Food? No trouble getting food During the Last Month, Have You Worried Whether Your Food Would Run Out Before You Had Enough Money to Buy More? No Is the Patient Psychosocially Complex? No ASSESSMENT AND PLAN: Medical Needs: None Psychosocial Needs: None FREEDOM OF CHOICE EXPLAINED: Yes Patient Declined skilled home care needs POTENTIAL TRANSITION PLANS Home .Pick Up And Delivery Driver to bedside for introduction and to discuss discharge plans and needs. Anticipated discharge plan is home with no skilled home care needs at this time. Patient denies any new questions or concerns at this time. CM will continue to follow and update on discharge plans and needs. Upon discharge family will provide transport. SIGNATURE: Anneliese Wright RN PATIENT NAME: Mary Alice Kimble DATE: June 16, 2018 TIME: 11:30 AM PAGER/CONTACT #: [phone] PROGRESS Observed: 06/16/2018 Status: COMPLETED Source: [place] 7:23 AM [facility] REPOSITORY HNO ID: [id number] Author: Arnulfo Chiu MD Service: General Surgery Author Type: Resident Type: Progress Notes Filed: 06/16/2018 7:24 AM Note Text: GENERAL SURGERY PROGRESS NOTE ASSESSMENT AND PLAN 32 year old female with a hx of cholecystitis and CBD stones s/p ERCP (05/01) and lap partial cholecystectomy (05/02) c/b retained cystic duct stones with persistent RUQ pain and nausea. No evidence of biliary obstruction or pancreatitis on lap work. ? -Neuro/pain: PRN pain meds -CV: hx of symptomatic bradycardia at previous admission. Cards consult for pre-op clearance/risk stratification. Appreciate recs. -Pulm: bronchopulmonary hygiene. Encourage IS. PRN albuterol -FEN/GI:NPO for OR today -Endo: no active issues -ID: no abx. Josefina-op abx OCTOR -Heme: type and screen/coags pre-op -DVT ppx: SCDs, SQH -Dispo: admit to RNF under [facility]B surgery. Plan for completion cholecystectomy today Arnulfo Chiu MD General Surgery PGY-2 Date: 06/16/2018 Time: 7:24 AM [id number] [facility] pager: [phone] *Please page Night/Weekend Pager [phone]) after 6pm (7pm on Wednesdays) and on weekends.* SUBJECTIVE/INTERVAL EVENTS No N/V Still with pain in RUQ, improved Afebrile OBJECTIVE BP 105/55 Pulse 61 Temp 36.8 ?C (98.2 ?F) (Oral) Resp 16 Ht 165.1 cm (5' 5) Wt 95.3 kg (210 lb) SpO2 100% BMI 34.95 kg/m? Intake/Output Summary (Last 24 hours) at 06/16/18 0659 Last data filed at 06/16/18 0600 Gross per 24 hour Intake 910 ml Output 2026 ml Net -1116 ml General: no acute distress, alert, oriented CV: RRR Pulm: nonlabored on RA, symmetrical rise Abdomen: soft, nondistended. Mildly tender in RUQ. No rebound or guarding. Healed incisions from prior surgery Neuro: no focal deficits. DAVIS Labs/Imaging: CBC, BMP, MG, PHOS Recent Labs 06/15/18 0904 06/14/18 0619 06/13/18 1622 05/27/18 0509 05/26/18 0556 05/25/18 0720 05/24/18 0615 WBC 3.92 3.78 4.71 8.64 6.49 5.89 5.50 5.05 HB 12.6 12.5 12.2 12.9 12.6 12.8 12.3 11.9 HCT 37.6 37.4 36.1 38.5 38.6 38.2 37.2 35.9* PLT 222 222 218 251 205 218 208 201 NA 137 137 136 140 139 138 139 K 3.8 3.7 4.2 4.0 3.8 4.0 4.0 CHLOR 99 100 100 103 105 101 103 CO2 27 22 23 22 21* 22 24 BUN 14 9 11 12 12 11 10 CREAT 0.96 0.88 0.79 0.85 0.80 0.83 0.79 GLUC 70* 86 92 92 88 91 92 CA 9.7 9.2 9.9 9.3 9.5 9.2 8.8 MG -- -- -- 1.7 1.8 1.9 1.9 P -- -- -- 4.1 3.6 3.2 3.4 Liver Function, Amylase, AND Lipase Recent Labs 06/15/18 0904 06/14/18 0619 06/13/18 1622 05/27/18 0509 TPROT 7.7 7.4 8.1* 6.7 ALB 4.2 3.9 4.5 3.8* ALT 19 18 23 13 AST 16 17 20 16 ALKPHOS 85 83 94 96 TBILI 0.4 0.5 0.5 0.3 Coags Recent Labs 06/15/18 0905 05/26/18 0556 APTT 26.5 27.9 INR 1.0 1.0 Active Hospital Problems Diagnosis Date Noted - Cholecystitis 06/13/2018 Overview Note: Added automatically from request for surgery [id number] - Sinus bradycardia 06/14/2018 - Retained gallstones following laparoscopic cholecystectomy 05/23/2018 NURSING PROG Observed: 06/16/2018 Status: COMPLETED Source: [place] 1:27 AM [facility] REPOSITORY HNO ID: [id number] Author: Sherlyn (Rn) KIRSTEN Larry Service: (none) Author Type: Registered Nurse Type: Nursing Progress Note Filed: 06/16/2018 1:28 AM Note Text: Nursing Progress Note Patient Name: Mary Alice Kimble Patient Location: [id number]/[id number] Daily Note: Pt scheduled for OR, it does not appear she has a HANDP on file, personal carer notified This note was completed by: Sherlyn Larry RN OPERATIVE NO Observed: 06/16/2018 Status: COMPLETED Source: [place] 12:00 AM [facility] REPOSITORY O ID: [id number] Author: Ruben Christian Service: General Surgery Author Type: Physician Type: Operative Report Filed: 06/18/2018 12:12 PM Note Text: [facility] - Operative Report [address] [place] [address] [place] MARY ALICE KIMBLE : 1985 AGE: 32. SEX: F PATIENT TYPE: I HOSP [facility]: GEN LOCATION: [id number] ATTENDING PHYSICIAN: Ruben Murdock M.D. CSN NUMBER: [id number] DATE OF SURGERY/PROCEDURE: 06/16/2018 INCISION/PROCEDURE START TIME: 12:37 p.m. INCISION CLOSE/PROCEDURE END TIME: 05:05 p.m. TOTAL OPERATIVE TIME: 4 hours and 28 minutes. PREOPERATIVE DIAGNOSIS: 1. Status post subtotal cholecystectomy with retained cystic duct stones. 2. Recurrent acute cholecystitis POSTOPERATIVE DIAGNOSIS: 1. Status post subtotal cholecystectomy with retained cystic duct stones. 2. Recurrent acute cholecystitis SURGEON: Ruben Murdock M.D. Co-SURGEON: Vazquez Horton M.D. PASTEURIZER: 1. Kendra Dover M.D. 2. Ana Paredes M.D. SURGERY/PROCEDURE: 1. Laparoscopic converted to open completion cholecystectomy. 2. Intraoperative laparoscopic ultrasound with intraoperative cholangiogram and ICG imaging. 3. Common bile duct exploration with removal of multiple common bile duct stones. 4. Choledochoduodenostomy. ANESTHESIA: General with endotracheal anesthesia. OPERATIVE FINDINGS: Three stones impacted in the cystic duct and common bile duct requiring common bile duct exploration with flushing of the biliary system adhesions within the cystic triangle. Intraoperative cholangiogram showed filling of the duodenum. ESTIMATED BLOOD LOSS: 50 mL. COMPLICATIONS: None. WOUND CLASS: Class 2, clean and contaminated. OPERATIVE INDICATIONS: This is a 32-year-old female, who underwent a prior subtotal cholecystectomy with evidence of recurrent pain and disease consistent with her recurrent cholecystitis. She underwent significant workup and imaging that confirmed the diagnosis of retained bile duct stones and choledocholithiasis. She had multiple endoscopic attempts at clearing the stones, and these were unsuccessful. Therefore, following discussion of the risks, benefits, alternatives, and personnel involved with the patient, she consents to proceed with the above- mentioned findings. DESCRIPTION OF PROCEDURE: The patient was undergoing the operation with Dr. Horton, when I entered the operating room. I scrubbed in and assisted with laparoscopic dissection of the retained gallbladder. ICG was instilled intravenously and using the pinHumacyte imaging system, we were able to identify the evidence of biliary dilation. We also identified at this point using intraoperative ultrasound, 3 stones, 2 within what appeared to be a retained infundibulum of the gallbladder as well as 1 located at the junction of the cystic duct common duct. For this reason, we felt it more prudent to proceed with a laparotomy and common bile duct exploration. This was performed and the Gutierrez retractor was placed for better exposure. This area was again confirmed via ultrasound, and the infundibulum was opened. Two stones were evacuated and there was 1 remaining within the bile duct. The infundibulum was then resected to the level of the stone in the common bile duct. An incision was made to evacuate the final stone. This area was then irrigated and flushed, and a cholangiogram was performed showing rapid filling within the duodenum with inability to fill the proximal hepatic ducts. For this reason, we elected to proceed with a biliary enteric bypass namely with choledochoduodenostomy. A transverse incision was made along the duodenum and the longitudinal incision was anastomosed from the bile duct to the duodenum in side-to- side fashion using 4-0 PDS suture in interrupted technique. The abdomen was then irrigated and suctioned. A #19 round drain was placed within the abdomen, and the patient was closed by Dr. Horton and his team. Dr. Murdock performed the entire dictated portion with assistance. Dr. Horton and Dr. Murdock were required as co- surgeons due to complexity of the operation and the lack of qualified residents available. SPECIMENS: Completion cholecystectomy with bile duct stones COUNTS: Correct x 2 WOUND CLASS: Class 2, clean contaminated DRAINS: 1 19 Fr round reno drain Ruben Murdock M.D. KE:[id number] /[id number] cc: SURGICAL PATHOLOGY Observed: 06/16/2018 Status: F Source: [place] 12:00 AM [facility] REPOSITORY Specimen originated from [facility] Specimen #: [id number] Submitting Physician: RUBEN MURDOCK MD FINAL DIAGNOSIS 1. Stones, common bile duct, removal (A) - Stones (gross diagnosis only). FT/CINDA/analy 06/17/2018 2. Gallbladder, cholecystectomy (B) - Acute and chronic cholecystitis with transmural inflammation. AEB//srpatricia 06/18/2018 Blanca De Jesus M.D. (Electronic Signature) SPECIMEN SUBMITTED A: COMMON BILE DUCT STONES B: GALLBLADDER CLINICAL DATA CHOLECYSTITIS GROSS DESCRIPTION A. Received fresh labeled common bile duct stones are multiple mineralized segments of material consistent with stones of the admixed nature ranging in size from 0.8 to 0.9 cm in greatest dimension. No tissue is present. No sections are submitted. The specimen is for gross examination only. The specimen was reviewed by Dr. Swartz. CINDA/analy 06/17/2018 B. Received fixed in formalin and labeled with patient's name, medical record number and gallbladder is an unoriented partial gallbladder measuring 2.5 x 2 x 1 cm. The serosal aspect is white-resendiz and dull. A defect is present opposite the presumed cystic duct margin. The gallbladder wall ranges from 0.3 cm to 1 cm in thickness and appears fibrotic. Calculi are not present. The lumen is empty. The mucosa appears hemorrhagic. Slunk Skinner sections are submitted as follows: B1 presumed duct margin and opposing defect, B2 correspondence representative gallbladder wall. /airam/06-17-2018 Gross examination performed at [facility], [facility] [place] [address] Date of Report: 06/19/2018 Date of Procedure: 06/16/2018 Date of Receipt: 06/16/2018 Submitted by: RUBEN MURDOCK MD Location: [facility] Diagnostic interpretation performed at [place] [address]. HCG QUAL, URINE Collected: 06/15/2018 Status: F Source: [place] 10:29 PM [facility] REPOSITORY TYPE CODE TESTS RESULT OUT OF REFERENCE UNITS RANGE LAB UHCG Negative HCG Qual, Negative Urine Result Comment: This test is intended to aid in the early detection of . Very dilute urine samples, as indicated by a low specific gravity, may not contain correspondence representative levels of hCG. This te st detects intact hCG only. This test does not reliably detect hCG degradation products, including free-beta subunit and beta-core fragment. Therefore, this test may show reduced reactivity in urine after 8 weeks gestation. A number of conditions other than , including trophoblastic disease and certain non-trophoblastic neoplasms ca use elevated levels of hCG. As with any assay employing mouse antibodies, the possibility exists for interference by human anti-mouse antibodies (HAMA) in the specimen. The test provides a presumptive diagnosis for . Performed By: #### UHCG #### [place] [address] [place] [address] TYPE AND SCREEN Collected: 06/15/2018 Status: F Source: [place] 9:06 AM [facility] REPOSITORY TYPE CODE TESTS RESULT OUT OF REFERENCE UNITS RANGE LAB %ABR O ABO/RH(D) POSITIVE LAB % Antibody NEG Screen Performed By: #### TSCR #### [place] [address] [place], [place] [address] PROTIME Collected: 06/15/2018 Status: F Source: [place] 9:05 AM [facility] REPOSITORY TYPE CODE TESTS RESULT OUT OF RANGE REFERENCE UNITS LAB PSEC 9.7-13.0 sec PT Sec 10.5 LAB INR 0.9-1.3 PT INR 1.0 Result Comment: Vitamin K Antagonist (VKA) Therapeutic Range: INR 2 to 3 (Target INR of 2.5) Note: For patients treated with VKA drugs, such as warfarin, the [place] [employer] 2012 Guideline recommends a therapeutic INR range of 2 to 3 (target INR of 2.5). This recommendation includes high-risk patients with antiphospholipid syndrome with previous arterial or venous thromboembolism, current-generation mechanical or bioprosthetic aortic heart valve replacement. Note: Patients with mechanical aortic valve replacement and additional risk factors for thromboembolic events (atrial fibrillation, previous thromboembolism, LV dysfunction, hypercoagulable conditions) or an older generation mechanical AVR (i.e., ball in-Cage) or any mechanical MVR should have a INR therapeutic range of 2.5 to 3.5 (target INR of 3). Shawn GH, et al. Chest 2012, 141:7S-47S Pipo RA, et al. JAC 2017, 70: 252-289 Performed By: #### PT, PTT #### [facility] [address] [place], [place] [address] APTT Collected: 06/15/2018 Status: F Source: [place] 9:05 [facility] REPOSITORY TYPE CODE TESTS RESULT OUT OF RANGE REFERENCE UNITS LAB APTT 23.0-32.4 sec APTT 26.5 Result Comment: Unfractionated Heparin Therapeutic Ranges: Standard Heparin Nomogram: 53 to 78 seconds (anti-Xa level of 0.3 to 0.7 U/ml) Low Dose/ACS Nomogram: 49 to 67 seconds (anti-Xa level of 0.2 to 0.5 U/ml) Stroke Treatment Nomogram: 49 to 67 seconds (anti-Xa level of 0.2 to 0.5 U/ml) Note: The APTT therapeutic range has been determined for the current lot of laboratory APTT reagent in use throughout the [facility]. Performed By: #### PT, PTT #### [facility] [address] [place], [place] [address] CBC AND DIFFERENTIAL Collected: 06/15/2018 Status: F Source: [place] 9:04 AM [facility] REPOSITORY TYPE CODE TESTS RESULT OUT OF REFERENCE UNITS RANGE LAB WBC 3.70-11.00 k/uL WBC 3.78 LAB RBC 3.90-5.20 m/uL RBC 4.09 LAB HGB 11.5-15.5 g/dL Hemoglobin 12.5 LAB HCT 36.0-46.0 % Hematocrit 37.4 LAB MCV 80.0-100.0 fL MCV 91.4 LAB MCH 26.0-34.0 pG MCH 30.6 LAB MCHC 30.5-36.0 g/dL MCHC 33.4 LAB RDWCV 11.5-15.0 % RDW-CV 13.1 LAB PLTCT 150-400 k/uL Platelet Count 222 LAB MPV 9.0-12.7 fL MPV 10.5 LAB ANEUT % Neut% 44.0 LAB AANEUT 1.45-7.50 k/uL Abs Neut 1.65 LAB ALYMP % Lymph% 38.9 LAB AALYMP 1.00-4.00 k/uL Abs Lymph 1.47 LAB AMONO % [place]% 12.4 LAB AAMONO <0.87 k/uL Abs [place] 0.47 LAB AEOS % Eosin% 4.2 LAB AAEOS <0.46 k/uL Abs Eosin 0.16 LAB ABASO % Baso% 0.5 LAB AABASO <0.11 k/uL Abs Baso <0.03 LAB AUNRBC 0 /100 WBC NRBCs 0.0 LAB ABNRBC <0.01 k/uL Absolute nRBC <0.01 LAB DTYP DTYPE Auto Diff Performed By: #### CBCDIF #### [facility] [address] [place], [place] [address] CBC AND DIFFERENTIAL Collected: 06/15/2018 Status: F Source: [place] 9:04 [facility] REPOSITORY TYPE CODE TESTS RESULT OUT OF REFERENCE UNITS RANGE LAB WBC 3.70-11.00 k/uL WBC 3.92 LAB RBC 3.90-5.20 m/uL RBC 4.12 LAB HGB 11.5-15.5 g/dL Hemoglobin 12.6 LAB HCT 36.0-46.0 % Hematocrit 37.6 LAB MCV 80.0-100.0 fL MCV 91.3 LAB MCH 26.0-34.0 pG MCH 30.6 LAB MCHC 30.5-36.0 g/dL MCHC 33.5 LAB RDWCV 11.5-15.0 % RDW-CV 13.2 LAB PLTCT 150-400 k/uL Platelet Count 222 LAB MPV 9.0-12.7 fL MPV 10.7 LAB ANEUT % Neut% 43.6 LAB AANEUT 1.45-7.50 k/uL Abs Neut 1.70 LAB ALYMP % Lymph% 37.5 LAB AALYMP 1.00-4.00 k/uL Abs Lymph 1.47 LAB AMONO % [place]% 13.3 LAB AAMONO <0.87 k/uL Abs [place] 0.52 LAB AEOS % Eosin% 5.1 LAB AAEOS <0.46 k/uL Abs Eosin 0.20 LAB ABASO % Baso% 0.5 LAB AABASO <0.11 k/uL Abs Baso <0.03 LAB AUNRBC 0 /100 WBC NRBCs 0.0 LAB ABNRBC <0.01 k/uL Absolute nRBC <0.01 LAB DTYP DTYPE Auto Diff Performed By: #### CBCDIF, CMP #### [facility] [address] [place] [place] [id number] COMP METABOLIC PANEL Collected: 06/15/2018 Status: F Source: [place] 9:04 [facility] REPOSITORY TYPE CODE TESTS RESULT OUT OF REFERENCE UNITS RANGE LAB TP 6.3-8.0 g/dL Protein, Total 7.7 LAB ALB 3.9-4.9 g/dL Albumin 4.2 LAB CA 8.5-10.2 mg/dL Calcium, Total 9.7 LAB TBIL 0.2-1.3 mg/dL Bilirubin, Total 0.4 LAB ALKP 34-123 U/L Alkaline Phosphatase 85 LAB AST 13-35 U/L AST 16 LAB GLU 74-99 mg/dL Low Glucose 70 Result Comment: The [place] [employer] (ADA) provides guidance for cutoff values for fasting glucose and random glucose. The ADA defines fasting as no caloric intake for at least 8 hours. Fas ting plasma glucose results between 100 to 125 mg/dL indicate increased risk for diabetes (prediabetes). Fasting plasma glucose results greater than or equal to 126 mg/dL meet the criteria for diagnosis of diabetes. In the absence of unequivocal hyperglycemia, results should be confirmed by repeat testing. In a patient with classic symptoms of hyperglycemia or hyperglycemic crisis, random plasma glucose results greater than or equal to 200 mg/dL meet the criteria for diagnosis of diabetes. Reference: Standards of Medical Care in Diabetes 2016, [place] [employer]. Diabetes Care. 2016.39(Suppl 1). LAB BUN 7-21 mg/dL BUN 14 LAB CRET 0.58-0.96 mg/dL Creatinine 0.96 LAB NA 136-144 mmol/L Sodium 137 LAB K 3.7-5.1 mmol/L Potassium 3.8 LAB CL 97-105 mmol/L Chloride 99 LAB CO2 22-30 mmol/L CO2 27 LAB AGAP 9-18 mmol/L Anion Gap 11 LAB ALT 7-38 U/L ALT 19 LAB GFRAA eGFR- Amer. >60 LAB GFRNAA . eGFR-All Other Races >60 Result Comment: eGFR (Estimated GFR) Units of measure: mL/min/1.73 meters squared eGFR is derived from the reexpressed MDRD Study equation using the following parameters: serum creatinine, age, gender and race. The creatinine assay has been calibrated to be traceable to IDMS. An eGFR <60 mL/min/1.73m2 for >3 months is consistent with chronic kidney disease. Refer to KDOQI guidelines for clinical interpretation. In patients with unstable renal function, e.g. those with acute kidney injury, the eGFR may not accurately reflect actual GFR. Performed By: #### CBCDIF, CMP #### [facility] [address] [place] [id number] PROGRESS Observed: 06/15/2018 Status: COMPLETED Source: [place] 7:08 AM [facility] REPOSITORY HNO ID: [id number] Author: Kendra Dover Service: General Surgery Author Type: Resident Type: Progress Notes Filed: 06/15/2018 7:09 AM Note Text: GENERAL SURGERY PROGRESS NOTE ASSESSMENT AND PLAN 32 year old female with a hx of cholecystitis and CBD stones s/p ERCP (9/13) and lap partial cholecystectomy (05/02) c/b retained cystic duct stones with persistent RUQ pain and nausea. No evidence of biliary obstruction or pancreatitis on lap work. ? -Neuro/pain: PRN pain meds -CV: hx of symptomatic bradycardia at previous admission. Cards consult for pre-op clearance/risk stratification. Appreciate recs. -Pulm: bronchopulmonary hygiene. Encourage IS. PRN albuterol -FEN/GI: low fat diet + supplements. NPO after midnight on Saturday for OR. -Endo: no active issues -ID: no abx. Josefina-op abx OCTOR -Heme: type and screen/coags pre-op -DVT ppx: SCDs, SQH -Dispo: admit to RNF under HPB surgery. Plan for completion cholecystectomy on Saturday (consent obtained) Kendra Dover MD PGY4 General Surgery Pager: [phone] *After 6pm and on weekends please page general surgery personal carer [phone]* SUBJECTIVE/INTERVAL EVENTS Tolerating diet. No N/V Still with pain in RUQ Afebrile OBJECTIVE BP 90/50 Pulse 60 Temp 36.5 ?C (97.7 ?F) (Oral) Resp 18 Ht 165.1 cm (5' 5) Wt 95.3 kg (210 lb) SpO2 96% BMI 34.95 kg/m? Intake/Output Summary (Last 24 hours) at 06/15/18 0659 Last data filed at 06/15/18 0500 Gross per 24 hour Intake 2060 ml Output 2125 ml Net -65 ml General: no acute distress, alert, oriented CV: RRR Pulm: nonlabored on RA, symmetrical rise Abdomen: soft, nondistended. Tender in RUQ. No rebound or guarding. Healed incisions from prior surgery Neuro: no focal deficits. DAVIS Labs/Imaging: CBC, BMP, MG, PHOS Recent Labs 06/14/18 0619 06/13/18 1622 05/27/18 0509 05/26/18 0556 05/25/18 0720 05/24/18 0615 WBC 4.71 8.64 6.49 5.89 5.50 5.05 HB 12.2 12.9 12.6 12.8 12.3 11.9 HCT 36.1 38.5 38.6 38.2 37.2 35.9* PLT 218 251 205 218 208 201 NA 137 136 140 139 138 139 K 3.7 4.2 4.0 3.8 4.0 4.0 CHLOR 100 100 103 105 101 103 CO2 22 23 22 21* 22 24 BUN 9 11 12 12 11 10 CREAT 0.88 0.79 0.85 0.80 0.83 0.79 GLUC 86 92 92 88 91 92 CA 9.2 9.9 9.3 9.5 9.2 8.8 MG -- -- 1.7 1.8 1.9 1.9 P -- -- 4.1 3.6 3.2 3.4 Liver Function, Amylase, AND Lipase Recent Labs 06/14/18 0619 06/13/18 1622 05/27/18 0509 05/26/18 0556 TPROT 7.4 8.1* 6.7 7.1 ALB 3.9 4.5 3.8* 3.9 ALT 18 23 13 14 AST 17 20 16 14 ALKPHOS 83 94 96 101 TBILI 0.5 0.5 0.3 0.3 Coags Recent Labs 05/26/18 0556 APTT 27.9 INR 1.0 Active Hospital Problems Diagnosis Date Noted - Cholecystitis 06/13/2018 Overview Note: Added automatically from request for surgery [id number] - Sinus bradycardia 06/14/2018 - Retained gallstones following laparoscopic cholecystectomy 05/23/2018 PROGRESS Observed: 06/14/2018 Status: COMPLETED Source: [place] 9:14 AM [facility] REPOSITORY O ID: [id number] Author: Kendra Dover Service: General Surgery Author Type: Resident Type: Progress Notes Filed: 06/14/2018 9:15 AM Note Text: GENERAL SURGERY PROGRESS NOTE ASSESSMENT AND PLAN 32 year old female with a hx of cholecystitis and CBD stones s/p ERCP (05/01) and lap partial cholecystectomy (05/02) c/b retained cystic duct stones with persistent RUQ pain and nausea. No evidence of biliary obstruction or pancreatitis on lap work. ? -Neuro/pain: PRN pain meds -CV: hx of symptomatic bradycardia at previous admission. Cards consult for pre-op clearance/risk stratification. Appreciate recs. Echo ordered. -Pulm: bronchopulmonary hygiene. Encourage IS. PRN albuterol -FEN/GI: low fat diet + supplements. NPO after midnight on Saturday for OR. -Endo: no active issues -ID: no abx. Josefina-op abx OCTOR -Heme: type and screen/coags pre-op -DVT ppx: SCDs, SQH -Dispo: admit to RNF under HPB surgery. Plan for completion cholecystectomy on Saturday (consent obtained) Kendra Dover MD PGY4 General Surgery Pager: [phone] *After 6pm and on weekends please page general surgery personal carer [phone]* SUBJECTIVE/INTERVAL EVENTS Still having RUQ pain No N/V Minimal PO intake OBJECTIVE BP 101/64 Pulse (!) 50 Temp 36.2 ?C (97.2 ?F) (Oral) Resp 16 Ht 165.1 cm (5' 5) Wt 95.3 kg (210 lb) SpO2 98% BMI 34.95 kg/m? Intake/Output Summary (Last 24 hours) at 06/14/18 0659 Last data filed at 06/14/18 0530 Gross per 24 hour Intake 200 ml Output 500 ml Net -300 ml General: no acute distress, alert, oriented CV: RRR Pulm: nonlabored on RA, symmetrical rise Abdomen: soft, nondistended. Tender in epigastrium and RUQ. No rebound or guarding. Healed incisions from prior surgery Neuro: no focal deficits. DAVIS Labs/Imaging: CBC, BMP, MG, PHOS Recent Labs 06/14/18 0619 06/13/18 1622 05/27/18 0509 05/26/18 0556 05/25/18 0720 05/24/18 0615 WBC 4.71 8.64 6.49 5.89 5.50 5.05 HB 12.2 12.9 12.6 12.8 12.3 11.9 HCT 36.1 38.5 38.6 38.2 37.2 35.9* PLT 218 251 205 218 208 201 NA 137 136 140 139 138 139 K 3.7 4.2 4.0 3.8 4.0 4.0 CHLOR 100 100 103 105 101 103 CO2 22 23 22 21* 22 24 BUN 9 11 12 12 11 10 CREAT 0.88 0.79 0.85 0.80 0.83 0.79 GLUC 86 92 92 88 91 92 CA 9.2 9.9 9.3 9.5 9.2 8.8 MG -- -- 1.7 1.8 1.9 1.9 P -- -- 4.1 3.6 3.2 3.4 Liver Function, Amylase, AND Lipase Recent Labs 06/14/18 0619 06/13/18 1622 05/27/18 0509 05/26/18 0556 TPROT 7.4 8.1* 6.7 7.1 ALB 3.9 4.5 3.8* 3.9 ALT 18 23 13 14 AST 17 20 16 14 ALKPHOS 83 94 96 101 TBILI 0.5 0.5 0.3 0.3 Coags Recent Labs 05/26/18 0556 APTT 27.9 INR 1.0 Active Hospital Problems Diagnosis Date Noted - Cholecystitis 06/13/2018 Overview Note: Added automatically from request for surgery [id number] - Retained gallstones following laparoscopic cholecystectomy 05/23/2018 COMP METABOLIC PANEL Collected: 06/14/2018 Status: F Source: [place] 6:19 AM [facility] REPOSITORY TYPE CODE TESTS RESULT OUT OF REFERENCE UNITS RANGE LAB TP 6.3-8.0 g/dL Protein, Total 7.4 LAB ALB 3.9-4.9 g/dL Albumin 3.9 LAB CA 8.5-10.2 mg/dL Calcium, Total 9.2 LAB TBIL 0.2-1.3 mg/dL Bilirubin, Total 0.5 LAB ALKP 34-123 U/L Alkaline Phosphatase 83 LAB AST 13-35 U/L AST 17 LAB GLU 74-99 mg/dL Glucose 86 Result Comment: The [place] Diabetes Association (ADA) provides guidance for cutoff values for fasting glucose and random glucose. The ADA defines fasting as no caloric intake for at least 8 hours. Fas ting plasma glucose results between 100 to 125 mg/dL indicate increased risk for diabetes (prediabetes). Fasting plasma glucose results greater than or equal to 126 mg/dL meet the criteria for diagnosis of diabetes. In the absence of unequivocal hyperglycemia, results should be confirmed by repeat testing. In a patient with classic symptoms of hyperglycemia or hyperglycemic crisis, random plasma glucose results greater than or equal to 200 mg/dL meet the criteria for diagnosis of diabetes. Reference: Standards of Medical Care in Diabetes 2016, [place] [employer]. Diabetes Care. 2016.39(Suppl 1). LAB BUN 7-21 mg/dL BUN 9 LAB CRET 0.58-0.96 mg/dL Creatinine 0.88 LAB NA 136-144 mmol/L Sodium 137 LAB K 3.7-5.1 mmol/L Potassium 3.7 LAB CL 97-105 mmol/L Chloride 100 LAB CO2 22-30 mmol/L CO2 22 LAB AGAP 9-18 mmol/L Anion Gap 15 LAB ALT 7-38 U/L ALT 18 LAB GFRAA eGFR- Amer. >60 LAB GFRNAA . eGFR-All Other Races >60 Result Comment: eGFR (Estimated GFR) Units of measure: mL/min/1.73 meters squared eGFR is derived from the reexpressed MDRD Study equation using the following parameters: serum creatinine, age, gender and race. The creatinine assay has been calibrated to be traceable to IDMS. An eGFR <60 mL/min/1.73m2 for >3 months is consistent with chronic kidney disease. Refer to KDOQI guidelines for clinical interpretation. In patients with unstable renal function, e.g. those with acute kidney injury, the eGFR may not accurately reflect actual GFR. Performed By: #### CMP, CBCDIF #### [facility] [address] [place], [place] [address] CBC AND DIFFERENTIAL Collected: 06/14/2018 Status: F Source: [place] 6:19 AM [facility] REPOSITORY TYPE CODE TESTS RESULT OUT OF REFERENCE UNITS RANGE LAB WBC 3.70-11.00 k/uL WBC 4.71 LAB RBC 3.90-5.20 m/uL RBC 3.96 LAB HGB 11.5-15.5 g/dL Hemoglobin 12.2 LAB HCT 36.0-46.0 % Hematocrit 36.1 LAB MCV 80.0-100.0 fL MCV 91.2 LAB MCH 26.0-34.0 pG MCH 30.8 LAB MCHC 30.5-36.0 g/dL MCHC 33.8 LAB RDWCV 11.5-15.0 % RDW-CV 13.2 LAB PLTCT 150-400 k/uL Platelet Count 218 LAB MPV 9.0-12.7 fL MPV 11.2 LAB ANEUT % Neut% 45.1 LAB AANEUT 1.45-7.50 k/uL Abs Neut 2.11 LAB ALYMP % Lymph% 37.8 LAB AALYMP 1.00-4.00 k/uL Abs Lymph 1.78 LAB AMONO % [place]% 12.5 LAB AAMONO <0.87 k/uL Abs [place] 0.59 LAB AEOS % Eosin% 4.0 LAB AAEOS <0.46 k/uL Abs Eosin 0.19 LAB ABASO % Baso% 0.6 LAB AABASO <0.11 k/uL Abs Baso 0.03 LAB AUNRBC 0 /100 WBC NRBCs 0.0 LAB ABNRBC <0.01 k/uL Absolute nRBC <0.01 LAB DTYP DTYPE Auto Diff Performed By: #### CMP, CBCDIF #### [facility] [address] [address] PROGRESS Observed: 06/14/2018 Status: COMPLETED Source: [place] 1:58 AM [facility] REPOSITORY HNO ID: [id number] Author: Downtime Note Service: (none) Author Type: (none) Type: Progress Notes Filed: 06/14/2018 2:00 AM Note Text: Epic Scheduled Downtime: 06/14/2018 12:00:01 AM to 06/14/2018 1:54:00 AM ED NOTE Observed: 06/13/2018 Status: COMPLETED Source: [place] 6:13 PM [facility] REPOSITORY HNO ID: [id number] Author: Blu RutledgeRn) KIRSTEN Wylie Service: Emergency Medicine Author Type: Registered Nurse Type: ED Notes Filed: 06/13/2018 6:14 PM Note Text: Report called to KIRSTEN Arce. Pt will be transferred to [facility]. CONSULT Observed: 06/13/2018 Status: COMPLETED Source: [place] 5:39 PM [facility] REPOSITORY HNO ID: [id number] Author: Homero Zhou Service: Cardiovascular Medicine Author Type: Physician Type: Consults Filed: 06/14/2018 10:35 AM Note Text: CARDIOVASCULAR MEDICINE CONSULTATION Mary Alice Kimble [id number] PRIMARY SERVICE: Surgery CONSULTING SERVICE: Cardiovascular Medicine: General Consults DATE OF ADMISSION: 06/13/2018 DATE OF CONSULT: 06/13/2018 REASON FOR CONSULT Pre-op risk evaluation HISTORY OF PRESENT ILLNESS Mary Alice Kimble is a 32 year old female with cholecystitis and CBD stones s/p ERCP (9/13) and laparoscopic cholecystectomy (05/02) c/b retained cystic duct stones who now presents again with abdominal pain with plan for repeat operation this coming Saturday 06/16. Cardiology is consulted for pre-op risk evaluation given reported symptomatic bradycardia during last admission. She currently complains of no chest pain, SOB, or palpitations. Only complain is abdominal pain. EKG shows sinus bradycardia with rate of 57. PAST MEDICAL HISTORY PAST MEDICAL HISTORY Diagnosis Date - Cholecystitis - Closed fracture of unspecified part of femur right - Cough - Other forms of migraine - Pancreatitis - Unspecified open fracture of carpal bone right PAST SURGICAL HISTORY Procedure Laterality Date - BREAST BIOPSY 2012 - ERCP x2 - LAPAROSCOPIC CHOLECYSTECTOMY FAMILY HISTORY FAMILY HISTORY Problem Relation Age of Onset - Hearing Loss Sister hearing impaired - other (Cholelithiasis) Sister - Breast Cancer Paternal Grandmother - Pancreatic Cancer Maternal Uncle SOCIAL HISTORY Social History Substance Use Topics - Smoking status: Former Smoker Years: 3.00 Quit date: 07/13/2016 - Smokeless tobacco: Never Used Comment: less than 1/4 pack daily - Alcohol use No HOME MEDICATIONS HYDROcodone-acetaminophen (NORCO) 5-325 mg per tablet TAKE 1 TABLET BY MOUTH EVERY 6 HOURS FOR 7 DAYS NEEDED FOR PAIN acetaminophen (TYLENOL EXTRA STRENGTH) 500 mg tablet Take 1 tablet by mouth every 4 hours as needed for Pain. ursodiol (ACTIGALL ORAL) Take by mouth twice daily. multivit with calcium,iron,min (WOMEN'S MULTIPLE VITAMINS ORAL) Take by mouth. predniSONE (DELTASONE) 20 mg tablet Prednisone 40 mg (2-20mg tablets) po QD for 5 days benzonatate (TESSALON PERLE) 100 mg capsule Take 1 capsule by mouth three times daily as needed. albuterol HFA (VENTOLIN HFA) 90 mcg/actuation inhaler Inhale 2 Puffs as instructed every 4 hours as needed for Wheezing/Shortness of Breath. SPRINTEC 0.25-35 mg-mcg per tablet INPATIENT MEDICATIONS Current hospital medications: benzonatate 100 mg cap(s) (TESSALON PERLE) 100 mg ORAL TID PRN albuterol HFA 90 mcg/actuation 2 Puff (PROVENTIL HFA, VENTOLIN HFA) 2 Puff INHALATION q 4 H PRN oxyCODONE-acetaminophen 5-325 mg 1-2 tablet (PERCOCET) 1-2 tablet ORAL q 4 H PRN ondansetron (PF) 4 mg injection (ZOFRAN) 4 mg INTRAVENOUS q 6 H PRN heparin 5,000 Units injection 5,000 Units SUBCUTANEOUS q 12 H ALLERGIES ALLERGIES No Known Allergies COMPLETE REVIEW OF SYSTEMS Constitutional: No weight loss, malaise or fevers. HEENT: Negative for frequent or significant headaches Respiratory: Negative for cough, wheezing, or shortness of breath Cardiovascular: Negative for chest pain, leg swelling or palpitations Gastrointestinal: + abdominal discomfort Genitourinary: No history of dysuria, frequency, or incontinence Endocrine: Negative for cold or heat intolerance, polyuria, polydipsia and goiter Hematologic: Negative for prolonged bleeding, bruising easily or swollen nodes Neurologic: No history or headaches, syncope, paralysis, seizures or tremors Integumentary: Negative for lesions, rash, and itching. PHYSICAL EXAM BP 131/94 Pulse 74 Temp 36.3 ?C (97.4 ?F) Resp 18 Ht 165.1 cm (5' 5) Wt 95.3 kg (210 lb) SpO2 99% BMI 34.95 kg/m? General Appearance: Well developed and No acute distress. Pleasant. HEENT: No JVD or carotid bruits Lungs: Clear bilaterally. No IWB on RA. Heart: Regular rate AND rhythm and S1, S2 normal. No m/g/r. Pulses 2+. Abdomen: Soft and Non-tender. +BS. Skin: Warm and Dry. Without edema. Musculoskeletal: No deformities Neurologic/Psychiatric: Oriented to time, place AND person DATA Laboratory: Recent Labs 06/13/18 1622 WBC 8.64 HB 12.9 HCT 38.5 PLT 251 Recent Labs 06/13/18 1622 NA 136 K 4.2 CO2 23 BUN 11 CREAT 0.79 GLUC 92 No results found for: CHOL, HDL, LDL, TG No results found for: HBA1C) EKG: Sinus bradycardia ASSESSMENT AND RECOMMENDATIONS Mary Alice Kimble is a 32 year old female with cholecystitis and CBD stones s/p ERCP (05/01) and laparoscopic cholecystectomy (05/02) c/b retained cystic duct stones who now presents again with abdominal pain with plan for repeat operation this coming Saturday 06/16. This 32 year olds RCRI is 0, which portends a 0.4% risk of major cardiac events. In this setting there is no further cardiac testing indicated prior to surgery. However, given reported hx of symptomatic bradycardia which patient explains as feeling sweaty, then they tell me my HR is in the 20-30s, would avoid beta blockers or non-dihydropyridine calcium channel blockers; anesthesia should also keep this in mind with induction and drug choice. Would also check echo prior to surgery. - monitor on telemetry - order Echo Case to be discussed with staff. Brenton Mo MD Cardiovascular Medicine Fellow Pager [phone] 06/13/2018 5:39 PM [facility] STAFF PHYSICIAN NOTE OF PERSONAL INVOLVEMENT IN CARE I have reviewed the consult note obtained and documented by the fellow and I personally participated in the dumont components. I have discussed the case and management of the patient's care. The following comments revise or confirm relevant dumont components of the note. IMPRESSION: Patient with previous history of bradycardia which may have been related to increased vagal tone-no indication for a pacemaker PLAN: Continue telemetry-agree with echo Homero Zhou MD CONSULT Observed: 06/13/2018 Status: COMPLETED Source: [place] 5:13 PM [facility] REPOSITORY HNO ID: [id number] Author: Kendra Dover Service: General Surgery Author Type: Resident Type: Consults Filed: 06/13/2018 5:35 PM Note Text: CONSULT INITIAL - SURGICAL SERVICES PATIENT NAME: Mary Alice Kimble SERVICE DATE: 06/13/2018 SERVICE TIME: 5:27 PM REASON FOR CONSULT: RUQ pain, hx of partial cholecystectomy REQUESTING PHYSICIAN: Dr. Buckley PRIMARY CARE PHYSICIAN: Janee Londono CNP ASSESSMENT AND PLAN 32 year old female with a hx of cholecystitis and CBD stones s/p ERCP (05/01) and lap partial cholecystectomy (05/02) c/b retained cystic duct stones with persistent RUQ pain and nausea. No evidence of biliary obstruction or pancreatitis on lap work. -Neuro/pain: PRN pain meds -CV: hx of symptomatic bradycardia at previous admission. Cards consult for pre-op clearance/risk stratification -Pulm: bronchopulmonary hygiene. Encourage IS. PRN albuterol -FEN/GI: low fat diet + supplements. NPO after midnight on Saturday for OR. -Endo: no active issues -ID: no abx. Josefina-op abx OCTOR -Heme: type and screen/coags pre-op -DVT ppx: SCDs, SQH -Dispo: admit to RNF under HPB surgery. Plan for completion cholecystectomy on Saturday (consent obtained) Discussed with staff, Dr. Horton SUBJECTIVE HISTORY OF PRESENT ILLNESS: Ms. Kimble is a 32 year old female with a hx of cholecystitis and CBD stones s/p ERCP (05/01) and lap partial cholecystectomy (05/02) c/b retained cystic duct stones. The patient underwent ERCP with sphincterotomy by Dr. James on 05/26 with attempted stone extraction. There were 2 large filling defects in the dilated remnant cystic duct that were unable to be extracted. There was evidence of stricture and large stone in cystic duct on cholangioscopy with spyglass. Pt was subsequently discharged and presented at B conference where it was recommend that she undergo a completion cholecystectomy. She has had intermittent dizziness and bradycardia first identified prior to her admission at an OSH. Reported HR to 40 at OSH with dizziness and lightheadedness. The patient has been following a low fat diet with some improvement in her symptoms. However, yesterday she developed severe RUQ pain. The pain is constant, with radiation to the back. Associated with nausea, no emesis. No fevers/chills. No jaundice. No dark urine or acholic stools. PAST MEDICAL HISTORY: has a past medical history of Cholecystitis; Closed fracture of unspecified part of femur; Cough; Other forms of migraine; Pancreatitis; and Unspecified open fracture of carpal bone. PAST SURGICAL HISTORY: has a past surgical history that includes breast biopsy (2011); laparoscopic cholecystectomy; and ercp. FAMILY HISTORY: family history includes Breast Cancer in her paternal grandmother; Cholelithiasis in her sister; Hearing Loss in her sister; Pancreatic Cancer in her maternal uncle. SOCIAL HISTORY: Social History Substance Use Topics - Smoking status: Former Smoker Years: 3.00 Quit date: 07/13/2016 - Smokeless tobacco: Never Used Comment: less than 1/4 pack daily - Alcohol use No MEDICATIONS: (Not in a hospital admission) Current hospital medications: NaCl 0.9% 1,000 mL iv bolus 1,000 mL INTRAVENOUS ONCE ALLERGIES: ALLERGIES No Known Allergies COMPLETE REVIEW OF SYSTEMS: Consitutional: no fevers/chills, +weight loss HEENT: no TORRES, no vision changes CV: no chest pain, no palpitations. See HPI. Pulm: no dyspnea, no cough GI: see HPI : no hematuria, no dysuria MSK: no back pain, no joint pain Skin: no rashes/lesions, no pruritus Neuro: no syncope, no numbness/tingling Heme: no hx of easy bleeding/bruising, no hx of DVT/PE OBJECTIVE PHYSICAL EXAM: BP 131/94 Pulse 74 Temp 36.3 ?C (97.4 ?F) Resp 18 Ht 165.1 cm (5' 5) Wt 95.3 kg (210 lb) SpO2 99% BMI 34.95 kg/m? Body mass index is 34.95 kg/m?. General: no acute distress, alert, oriented CV: RRR Pulm: nonlabored on RA, symmetrical rise Abdomen: soft, nondistended. Tender in epigastrium and RUQ. No rebound or guarding. Healed incisions from prior surgery Neuro: no focal deficits. DAVIS DATA: CBC, Coags, BMP, Mg, Phos Recent Labs 06/13/18 1622 WBC 8.64 HB 12.9 HCT 38.5 PLT 251 NA 136 K 4.2 CHLOR 100 CO2 23 BUN 11 CREAT 0.79 GLUC 92 CA 9.9 Liver Function, Amylase, AND Lipase Recent Labs 06/13/18 1622 TPROT 8.1* ALB 4.5 ALT 23 AST 20 ALKPHOS 94 TBILI 0.5 LIPASE 20 Kendra Dover MD PGY4 General Surgery Pager: [phone] June 13, 2018 5:13 PM ED NOTE Observed: 06/13/2018 Status: COMPLETED Source: [place] 4:51 PM [facility] REPOSITORY HNO ID: [id number] Author: Blu (Rn) KIRSTEN Wylie Service: Emergency Medicine Author Type: Registered Nurse Type: ED Notes Filed: 06/13/2018 4:51 PM Note Text: Dr. Buckley at bedside. ED NOTE Observed: 06/13/2018 Status: COMPLETED Source: [place] 4:22 PM [facility] REPOSITORY HNO ID: [id number] Author: Aba Spencer Service: Emergency Medicine Author Type: Railroad Maintenance Clerk and Quality Process Lead Type: ED Notes Filed: 06/13/2018 4:26 PM Note Text: Labs were drawn and sent. CBC AND DIFFERENTIAL Collected: 06/13/2018 Status: F Source: [place] 4:22 PM [facility] REPOSITORY TYPE CODE TESTS RESULT OUT OF REFERENCE UNITS RANGE LAB WBC 3.70-11.00 k/uL WBC 8.64 LAB RBC 3.90-5.20 m/uL RBC 4.25 LAB HGB 11.5-15.5 g/dL Hemoglobin 12.9 LAB HCT 36.0-46.0 % Hematocrit 38.5 LAB MCV 80.0-100.0 fL MCV 90.6 LAB MCH 26.0-34.0 pG MCH 30.4 LAB MCHC 30.5-36.0 g/dL MCHC 33.5 LAB RDWCV 11.5-15.0 % RDW-CV 12.9 LAB PLTCT 150-400 k/uL Platelet Count 251 LAB MPV 9.0-12.7 fL MPV 11.1 LAB ANEUT % Neut% 76.0 LAB AANEUT 1.45-7.50 k/uL Abs Neut 6.54 LAB ALYMP % Lymph% 14.6 LAB AALYMP 1.00-4.00 k/uL Abs Lymph 1.26 LAB AMONO % [place]% 8.3 LAB AAMONO <0.87 k/uL Abs [place] 0.72 LAB AEOS % Eosin% 0.8 LAB AAEOS <0.46 k/uL Abs Eosin 0.07 LAB ABASO % Baso% 0.3 LAB AABASO <0.11 k/uL Abs Baso 0.03 LAB AUNRBC 0 /100 WBC NRBCs 0.0 LAB ABNRBC <0.01 k/uL Absolute nRBC <0.01 LAB DTYP DTYPE Auto Diff Performed By: #### CBCDIF, CMP, LIPA #### [facility] [address] [place], [place] [address] COMP METABOLIC PANEL Collected: 06/13/2018 Status: F Source: [place] 4:22 PM [facility] REPOSITORY TYPE CODE TESTS RESULT OUT OF REFERENCE UNITS RANGE LAB TP 6.3-8.0 g/dL Protein, High Total 8.1 LAB ALB 3.9-4.9 g/dL Albumin 4.5 LAB CA 8.5-10.2 mg/dL Calcium, Total 9.9 LAB TBIL 0.2-1.3 mg/dL Bilirubin, Total 0.5 LAB ALKP 34-123 U/L Alkaline Phosphatase 94 LAB AST 13-35 U/L AST 20 LAB GLU 74-99 mg/dL Glucose 92 Result Comment: The [place] Diabetes Association (ADA) provides guidance for cutoff values for fasting glucose and random glucose. The ADA defines fasting as no caloric intake for at least 8 hours. Fas ting plasma glucose results between 100 to 125 mg/dL indicate increased risk for diabetes (prediabetes). Fasting plasma glucose results greater than or equal to 126 mg/dL meet the criteria for diagnosis of diabetes. In the absence of unequivocal hyperglycemia, results should be confirmed by repeat testing. In a patient with classic symptoms of hyperglycemia or hyperglycemic crisis, random plasma glucose results greater than or equal to 200 mg/dL meet the criteria for diagnosis of diabetes. Reference: Standards of Medical Care in Diabetes 2016, [place] [employer] Association. Diabetes Care. 2016.39(Suppl 1). LAB BUN 7-21 mg/dL BUN 11 LAB CRET 0.58-0.96 mg/dL Creatinine 0.79 LAB NA 136-144 mmol/L Sodium 136 LAB K 3.7-5.1 mmol/L Potassium 4.2 LAB CL 97-105 mmol/L Chloride 100 LAB CO2 22-30 mmol/L CO2 23 LAB AGAP 9-18 mmol/L Anion Gap 13 LAB ALT 7-38 U/L ALT 23 LAB GFRAA eGFR- Amer. >60 LAB GFRNAA . eGFR-All Other Races >60 Result Comment: eGFR (Estimated GFR) Units of measure: mL/min/1.73 meters squared eGFR is derived from the reexpressed MDRD Study equation using the following parameters: serum creatinine, age, gender and race. The creatinine assay has been calibrated to be traceable to IDMS. An eGFR <60 mL/min/1.73m2 for >3 months is consistent with chronic kidney disease. Refer to KDOQI guidelines for clinical interpretation. In patients with unstable renal function, e.g. those with acute kidney injury, the eGFR may not accurately reflect actual GFR. Performed By: #### CBCDIF, CMP, LIPA #### [facility] [address] [place], [place] [address] LIPASE Collected: 06/13/2018 Status: F Source: [place] 4:22 PM [facility] REPOSITORY TYPE CODE TESTS RESULT OUT OF REFERENCE UNITS RANGE LAB LIPA 16-61 U/L Lipase 20 Performed By: #### CBCDIF, CMP, LIPA #### [facility] [address] [place], [place] [address] ED PROV NOTE Observed: 06/13/2018 Status: COMPLETED Source: [place] 3:42 PM [facility] REPOSITORY HNO ID: [id number] Author: Antonio Buckley MD Service: Emergency Medicine Author Type: Physician Type: ED Provider Notes Filed: 06/13/2018 11:24 PM Note Text: ED Provider Note Patient Name: Mary Alice Kimble SERVICE DATE: 06/13/18 History No chief complaint on file. HPI Patient is a 32-year-old female with a past medical history of cholecystitis, pancreatitis presenting to the emergency department for Right upper quadrant and right posterior scapular pain ?2 days. Patient states the pain is constant and progressive over the last 2 days. Worsened by eating and associated with nausea. Patient denies any vomiting, chills, fever or fatigue. States this is similar to her complication sustained after cholecystectomy. Patient states the pain has worsened since her discharge at the beginning of May. States she called the surgical office who told her to come to the emergency department. Patient states she took Tylenol 3 as well as oxycodone at home without improvement in her symptoms. Per chart review, patient was previously admitted May 01 following the diagnosis of cholecystitis and common bile duct stones on ERCP. Patient underwent a laparoscopic cholecystectomy on May 02 which was complicated by retained cystic duct stones for which patient was readmitted. She remained at [facility] from May 09 receiving meds to dissolve stones until discharge on May 16. on May 22, patient presented to outside ED and found to have 3 retained gallstones and the cystic duct region. Patient was then transferred and admitted to [facility] on May 23. While in hospital, gastroenterology attempted stone removal with ERCP. GI was unable to use extraction balloon or balloon dilator to remove stones past inflammatory stricture. Mechanical lithotripsy was also unsuccessful because the stone could not be trapped. Gastroenterology deferred to surgery for definitive management. Scheduled for surgery July 17. PAST MEDICAL HISTORY Diagnosis Date - Cholecystitis - Closed fracture of unspecified part of femur right - Cough - Other forms of migraine - Pancreatitis - Unspecified open fracture of carpal bone right PAST SURGICAL HISTORY Procedure Laterality Date - BREAST BIOPSY 2011 - ERCP x2 - LAPAROSCOPIC CHOLECYSTECTOMY FAMILY HISTORY Problem Relation Age of Onset - Hearing Loss Sister hearing impaired - other (Cholelithiasis) Sister - Breast Cancer Paternal Grandmother - Pancreatic Cancer Maternal Uncle Social History Social History Main Topics - Smoking status: Former Smoker Years: 3.00 Quit date: 07/13/2016 - Smokeless tobacco: Never Used Comment: less than 1/4 pack daily - Alcohol use No - Drug use: No - Sexual activity: Not on file ALLERGIES No Known Allergies Review of Systems Constitutional: Positive for fatigue. Negative for chills and fever. HENT: Negative for trouble swallowing. Eyes: Negative for visual disturbance. Respiratory: Negative for cough and shortness of breath. Cardiovascular: Negative for chest pain. Gastrointestinal: Positive for abdominal pain and nausea. Negative for constipation, diarrhea and vomiting. Genitourinary: Negative for difficulty urinating. Musculoskeletal: Negative for back pain. Skin: Negative for rash. Neurological: Negative for headaches. Psychiatric/Behavioral: Negative for confusion. Physical Exam BP 131/94 Pulse 74 Temp 97.4 Resp 18 Ht 5' 5 (1.65m) Wt 210 lb (95.3kg) SpO2 99% BMI 34.95 kg/(m2). Physical Exam Constitutional: She is oriented to person, place, and time. She appears well-developed. No distress. HENT: Head: Normocephalic and atraumatic. Eyes: Pupils are equal, round, and reactive to light. Neck: Neck supple. Cardiovascular: Normal rate, regular rhythm, normal heart sounds and intact distal pulses. Pulmonary/Chest: Effort normal and breath sounds normal. No respiratory distress. Abdominal: Soft. She exhibits no distension. There is tenderness. There is no rebound and no guarding. TTP in the RUQ. No guarding, rebound, or rigidity. Musculoskeletal: Normal range of motion. She exhibits no edema. No tenderness to palpation to the right posterior shoulder Neurological: She is alert and oriented to person, place, and time. Skin: Skin is warm and dry. No rash noted. Psychiatric: She has a normal mood and affect. Diagnostic Testing ED Labs Ordered and Reviewed COMP METABOLIC PANEL - Abnormal; Notable for the following: Result Value Ref Range Protein, Total 8.1 (*) 6.3 - 8.0 g/dL All other components within normal limits CBC + DIFF LIPASE BLD EKG:Sinus bradycardia at a rate of 57 bpm. Normal axis. Normal intervals. No acute ST segment changes. Procedures ED Course / Clinical Impression Clinical Impressions as of Jun 13 1717 Retained gallstones following laparoscopic cholecystectomy MDM / Disposition / Plan MDM Patient is a 32-year-old female presenting to the emergency department following complications from her cholecystectomy resulting in retained cystic duct stones. Patient reports worsening of her right upper quadrant pain over the last 24 hours. On arrival patient is afebrile with normal vital signs. Exam and history as above. Nontoxic appearing on arrival. Abdominal exam benign with minimal tenderness. Provided IV fluids, Tylenol, and Zofran for symptom control. Obtained labs as above as well as EKG. Consulted surgery given history of retained stones and planned surgery. Laboratory results unremarkable. Lipase within normal limits and not consistent with pancreatitis. Hepatobiliary labs within normal limits. General surgery team at bedside and recommending admission for planned surgery Saturday. Patient understands the plan and is agreeable. The patient was ADMITTED TO: Regular nursing floor. Condition at time of disposition: stable SIGNATURE: MD Ingris Lopez) MD Jackie Resident 06/13/18 1721 Attending Note I evaluated the patient and personally participated in the dumont components. I agree with the resident's findings and plan as documented and have discussed the case and management of the patient's care with the resident. Signature: Antonio Buckley MD Date: 06/13/2018 Time: 11:24 PM Antonio Buckley MD 06/13/18 0632 ED NOTE Observed: 06/13/2018 Status: COMPLETED Source: [place] 3:30 PM [facility] REPOSITORY [facility] ID: [id number] Author: Blu (Rn) KIRSTEN Wylie Service: Emergency Medicine Author Type: Registered Nurse Type: ED Notes Filed: 06/13/2018 4:18 PM Note Text: Assumed care of patient. Patient presents to ER for abd pain and back pain. Pt states concern for pain being r/t gallstones; states recent partial gallbladder removal and thinks that they have missed some stones that are causing pain. Pt reports ongoing nausea, denies vomiting. Patient is alert and oriented X 3. NAD, ABC's intact, respirations even and unlabored, DAVIS. Skin acyanotic, warm and dry. Oriented to room and call light placed in reach. Side rails up x2, bed low AND locked, safety measures initiated. Plan of Care for patient: -Monitor vital signs -Monitor pain level -Monitor patient's status for acute changes and notify LIP as needed -Maintain patient safety and comfort -Maintain bed low and locked, with call light within reach -Await further orders and disposition HOSP Observed: 06/13/2018 Status: COMPLETED Source: [place] 12:00 AM [facility] REPOSITORY Patient Update (GENSMN) MARY ALICE KIMBLE ([id number]) 1985 F Date Time Provider Department 06/13/18 AARON SALMON (RN) ROSENDO During your visit today, we recorded the following information about you: Aaron Salmon RN, RN 06/13/2018 5:23 PM Signed I WILL CANCEL THIS CURE PER . PATIENT WILL BE ADMITTED TODAY AND DR. MURDOCK WILL DO PROCEDURE ON Saturday 06/16. Aaron Salmon RN, RN 06/13/2018 5:24 PM Signed Addended by: AARON SALMON on: 06/13/2018 05:24 PM Modules accepted: Orders Allergies As of Date: 06/13/2018 (No Known Allergies) Date Reviewed: 06/13/2018 Reviewed by: Whit RutledgeRn) KIRSTEN Thomason - Fully Assessed Reason for Visit: Schedule Surgery [1330] Primary Visit Diagnosis:Retained gallstones following laparoscopic cholecystectomy [K91.89, K80.20] Other Visit Diagnosis:Preoperative examination [Z01.818] Prescriptions as of 06/13/2018 Sig: HYDROCODONE 5 MG-ACETAMINOPHE* TAKE 1 TABLET BY MOUTH EVERY * ACETAMINOPHEN 500 MG TABLET Take 1 tablet by mouth every * ACTIGALL ORAL Take by mouth twice daily. WOMEN'S MULTIPLE VITAMINS ORAL Take by mouth. PREDNISONE 20 MG TABLET Prednisone 40 mg (2-20mg tabl* Patient not taking: Reported on 01/30/2018 BENZONATATE 100 MG CAPSULE Take 1 capsule by mouth three* Patient not taking: Reported on 01/30/2018 ALBUTEROL SULFATE HFA 90 MCG/* Inhale 2 Puffs as instructed * SPRINTEC (28) 0.25 MG-35 MCG * Problem List As Of Date 06/13/2018 Noted Resolved CLASSICAL MIGRAINE [346.0] INVALID FOR* LOW BLADDER COMPLIANCE [N31.8] INVALID FOR* Backache, unspecified [M54.9] INVALID FOR* Retained gallstones following laparoscopic chol*INVALID FOR* Severe protein-calorie malnutrition (HCC) [E43] INVALID FOR* Obesity, Class II, BMI 35-39.9 [E66.9] INVALID FOR* Visit Notes: >> Aaron (Rn) KIRSTEN Salmon SatJun 13, 2018 5:22 PM Status: Signed I WILL CANCEL THIS CURE PER . PATIENT WILL BE ADMITTED TODAY AND DR. MURDOCK WILL DO PROCEDURE ON Saturday 06/16. Follow-up and Disposition History Recorded Encounter Status:Closed by AARON SALMON on 06/13/18 HOSP Observed: 06/13/2018 Status: COMPLETED Source: [place] 12:00 AM [facility] REPOSITORY Patient:Mary Alice Kimble MRN: <[id number]> Height:5' 5(1.651 m) Weight:210 lb (95.255 kg) Outpatient Medications as of 06/16/18: HYDROcodone-acetaminophen (NORCO) 5-325 mg per tablet acetaminophen (TYLENOL EXTRA STRENGTH) 500 mg tablet ursodiol (ACTIGALL ORAL) multivit with calcium,iron,min (WOMEN'S MULTIPLE VITAMINS ORAL) predniSONE (DELTASONE) 20 mg tablet benzonatate (TESSALON PERLE) 100 mg capsule albuterol HFA (VENTOLIN HFA) 90 mcg/actuation inhaler SPRINTEC 0.25-35 mg-mcg per tablet Admission/Clinic Administered Medications as of 06/16/18: cefTRIAXone 2 g in D5W 100 mL MB+ (ROCEPHIN) metroNIDAZOLE 500 mg PREMIX piggyback (FLAGYL) perflutren lipid microspheres 1.1 mg/mL 1.3 mL injection (DEFINITY) docusate sodium 100 mg cap(s) (COLACE) benzonatate 100 mg cap(s) (TESSALON PERLE) albuterol HFA 90 mcg/actuation 2 Puff (PROVENTIL HFA, VENTOLIN HFA) HYDROcodone 5 mg - acetaminophen 325 mg tablet (NORCO) 0.9% NaCl 2-10 mL ondansetron (PF) 4 mg injection (ZOFRAN) heparin 5,000 Units injection ondansetron 4 mg tab(s) (ZOFRAN) acetaminophen 650 mg tab(s) (TYLENOL) oxyCODONE IR 5 mg tab(s) (ROXICODONE) Problem List: Migraine with aura [346.0] Low bladder compliance [N31.8] Backache, unspecified [M54.9] Retained gallstones following laparoscopic cholecystectomy [K91.89, K80.20] Severe protein-calorie malnutrition (HCC) [E43] Obesity, Class II, BMI 35-39.9 [E66.9] Cholecystitis [K81.9] Sinus bradycardia [R00.1] Allergies: No Known Allergies Date Verified:06/16/18 Lab Values Lab Value Units Date High Low POTA* 3.8 mmol/L 06/15/2018 5.1 3.7 NYDIA* 37.4 % 06/15/2018 46.0 36.0 Progress Notes (): Blu Wylie, RN, RN 06/13/2018 4:18 PM Signed Assumed care of patient. Patient presents to ER for abd pain and back pain. Pt states concern for pain being r/t gallstones; states recent partial gallbladder removal and thinks that they have missed some stones that are causing pain. Pt reports ongoing nausea, denies vomiting. Patient is alert and oriented X 3. NAD, ABC's intact, respirations even and unlabored, DAVIS. Skin acyanotic, warm and dry. Oriented to room and call light placed in reach. Side rails up x2, bed low AND locked, safety measures initiated. Plan of Care for patient: -Monitor vital signs -Monitor pain level -Monitor patient's status for acute changes and notify LIP as needed -Maintain patient safety and comfort -Maintain bed low and locked, with call light within reach -Await further orders and disposition Antonio Buckley MD, MD 06/13/2018 11:24 PM Signed ED Provider Note Patient Name: Mary Alice Kimble SERVICE DATE: 06/13/18 History No chief complaint on file. HPI Patient is a 32-year-old female with a past medical history of cholecystitis, pancreatitis presenting to the emergency department for Right upper quadrant and right posterior scapular pain ?2 days. Patient states the pain is constant and progressive over the last 2 days. Worsened by eating and associated with nausea. Patient denies any vomiting, chills, fever or fatigue. States this is similar to her complication sustained after cholecystectomy. Patient states the pain has worsened since her discharge at the beginning of May. States she called the surgical office who told her to come to the emergency department. Patient states she took Tylenol 3 as well as oxycodone at home without improvement in her symptoms. Per chart review, patient was previously admitted May 01 following the diagnosis of cholecystitis and common bile duct stones on ERCP. Patient underwent a laparoscopic cholecystectomy on May 02 which was complicated by retained cystic duct stones for which patient was readmitted. She remained at [facility] from May 09 receiving meds to dissolve stones until discharge on May 16. on May 22, patient presented to outside ED and found to have 3 retained gallstones and the cystic duct region. Patient was then transferred and admitted to [facility] on May 23. While in hospital, gastroenterology attempted stone removal with ERCP. GI was unable to use extraction balloon or balloon dilator to remove stones past inflammatory stricture. Mechanical lithotripsy was also unsuccessful because the stone could not be trapped. Gastroenterology deferred to surgery for definitive management. Scheduled for surgery July 17. PAST MEDICAL HISTORY Diagnosis Date - Cholecystitis - Closed fracture of unspecified part of femur right - Cough - Other forms of migraine - Pancreatitis - Unspecified open fracture of carpal bone right PAST SURGICAL HISTORY Procedure Laterality Date - BREAST BIOPSY 2011 - ERCP x2 - LAPAROSCOPIC CHOLECYSTECTOMY FAMILY HISTORY Problem Relation Age of Onset - Hearing Loss Sister hearing impaired - other (Cholelithiasis) Sister - Breast Cancer Paternal Grandmother - Pancreatic Cancer Maternal Uncle Social History Social History Main Topics - Smoking status: Former Smoker Years: 3.00 Quit date: 07/13/2016 - Smokeless tobacco: Never Used Comment: less than 1/4 pack daily - Alcohol use No - Drug use: No - Sexual activity: Not on file ALLERGIES No Known Allergies Review of Systems Constitutional: Positive for fatigue. Negative for chills and fever. HENT: Negative for trouble swallowing. Eyes: Negative for visual disturbance. Respiratory: Negative for cough and shortness of breath. Cardiovascular: Negative for chest pain. Gastrointestinal: Positive for abdominal pain and nausea. Negative for constipation, diarrhea and vomiting. Genitourinary: Negative for difficulty urinating. Musculoskeletal: Negative for back pain. Skin: Negative for rash. Neurological: Negative for headaches. Psychiatric/Behavioral: Negative for confusion. Physical Exam BP 131/94 Pulse 74 Temp 97.4 Resp 18 Ht 5' 5 (1.65m) Wt 210 lb (95.3kg) SpO2 99% BMI 34.95 kg/(m2). Physical Exam Constitutional: She is oriented to person, place, and time. She appears well-developed. No distress. HENT: Head: Normocephalic and atraumatic. Eyes: Pupils are equal, round, and reactive to light. Neck: Neck supple. Cardiovascular: Normal rate, regular rhythm, normal heart sounds and intact distal pulses. Pulmonary/Chest: Effort normal and breath sounds normal. No respiratory distress. Abdominal: Soft. She exhibits no distension. There is tenderness. There is no rebound and no guarding. TTP in the RUQ. No guarding, rebound, or rigidity. Musculoskeletal: Normal range of motion. She exhibits no edema. No tenderness to palpation to the right posterior shoulder Neurological: She is alert and oriented to person, place, and time. Skin: Skin is warm and dry. No rash noted. Psychiatric: She has a normal mood and affect. Diagnostic Testing ED Labs Ordered and Reviewed COMP METABOLIC PANEL - Abnormal; Notable for the following: Result Value Ref Range Protein, Total 8.1 (*) 6.3 - 8.0 g/dL All other components within normal limits CBC + DIFF LIPASE BLD EKG:Sinus bradycardia at a rate of 57 bpm. Normal axis. Normal intervals. No acute ST segment changes. Procedures ED Course / Clinical Impression Clinical Impressions as of Jun 13 1717 Retained gallstones following laparoscopic cholecystectomy MDM / Disposition / Plan MDM Patient is a 32-year-old female presenting to the emergency department following complications from her cholecystectomy resulting in retained cystic duct stones. Patient reports worsening of her right upper quadrant pain over the last 24 hours. On arrival patient is afebrile with normal vital signs. Exam and history as above. Nontoxic appearing on arrival. Abdominal exam benign with minimal tenderness. Provided IV fluids, Tylenol, and Zofran for symptom control. Obtained labs as above as well as EKG. Consulted surgery given history of retained stones and planned surgery. Laboratory results unremarkable. Lipase within normal limits and not consistent with pancreatitis. Hepatobiliary labs within normal limits. General surgery team at bedside and recommending admission for planned surgery Saturday. Patient understands the plan and is agreeable. The patient was ADMITTED TO: Regular nursing floor. Condition at time of disposition: stable SIGNATURE: MD Ingris Lopez () MD Jackie Resident 06/13/18 7846 Attending Note I evaluated the patient and personally participated in the dumont components. I agree with the resident's findings and plan as documented and have discussed the case and management of the patient's care with the resident. Signature: Antonio Buckley MD Date: 06/13/2018 Time: 11:24 PM Antonio Buckley MD 06/13/18 8227 Previous Version Aba Spencer, Medic 06/13/2018 4:26 PM Signed Labs were drawn and sent. Blu Wylie, RN, RN 06/13/2018 4:[address] Buckley at bedside. Kendra Dover MD 06/13/2018 5:35 PM Signed CONSULT INITIAL - SURGICAL SERVICES PATIENT NAME: Mary Alice Kimble SERVICE DATE: 06/13/2018 SERVICE TIME: 5:27 PM REASON FOR CONSULT: RUQ pain, hx of partial cholecystectomy REQUESTING PHYSICIAN: Dr. Buckley PRIMARY CARE PHYSICIAN: Janee Londono CNP ASSESSMENT AND PLAN 32 year old female with a hx of cholecystitis and CBD stones s/p ERCP (05/01) and lap partial cholecystectomy (05/02) c/b retained cystic duct stones with persistent RUQ pain and nausea. No evidence of biliary obstruction or pancreatitis on lap work. -Neuro/pain: PRN pain meds -CV: hx of symptomatic bradycardia at previous admission. Cards consult for pre-op clearance/risk stratification -Pulm: bronchopulmonary hygiene. Encourage IS. PRN albuterol -FEN/GI: low fat diet + supplements. NPO after midnight on Saturday for OR. -Endo: no active issues -ID: no abx. Josefina-op abx OCTOR -Heme: type and screen/coags pre-op -DVT ppx: SCDs, SQH -Dispo: admit to RNF under [facility] surgery. Plan for completion cholecystectomy on Saturday (consent obtained) Discussed with staff, Dr. Horton SUBJECTIVE HISTORY OF PRESENT ILLNESS: Ms. Kimble is a 32 year old female with a hx of cholecystitis and CBD stones s/p ERCP (05/01) and lap partial cholecystectomy (05/02) c/b retained cystic duct stones. The patient underwent ERCP with sphincterotomy by Dr. James on 05/26 with attempted stone extraction. There were 2 large filling defects in the dilated remnant cystic duct that were unable to be extracted. There was evidence of stricture and large stone in cystic duct on cholangioscopy with spyglass. Pt was subsequently discharged and presented at [facility] conference where it was recommend that she undergo a completion cholecystectomy. She has had intermittent dizziness and bradycardia first identified prior to her admission at an OSH. Reported HR to 40 at OSH with dizziness and lightheadedness. The patient has been following a low fat diet with some improvement in her symptoms. However, yesterday she developed severe RUQ pain. The pain is constant, with radiation to the back. Associated with nausea, no emesis. No fevers/chills. No jaundice. No dark urine or acholic stools. PAST MEDICAL HISTORY: has a past medical history of Cholecystitis; Closed fracture of unspecified part of femur; Cough; Other forms of migraine; Pancreatitis; and Unspecified open fracture of carpal bone. PAST SURGICAL HISTORY: has a past surgical history that includes breast biopsy (2011); laparoscopic cholecystectomy; and ercp. FAMILY HISTORY: family history includes Breast Cancer in her paternal grandmother; Cholelithiasis in her sister; Hearing Loss in her sister; Pancreatic Cancer in her maternal uncle. SOCIAL HISTORY: Social History Substance Use Topics - Smoking status: Former Smoker Years: 3.00 Quit date: 07/13/2016 - Smokeless tobacco: Never Used Comment: less than 1/4 pack daily - Alcohol use No MEDICATIONS: (Not in a hospital admission) Current hospital medications: NaCl 0.9% 1,000 mL iv bolus 1,000 mL INTRAVENOUS ONCE ALLERGIES: ALLERGIES No Known Allergies COMPLETE REVIEW OF SYSTEMS: Consitutional: no fevers/chills, +weight loss HEENT: no TORRES, no vision changes CV: no chest pain, no palpitations. See HPI. Pulm: no dyspnea, no cough GI: see HPI : no hematuria, no dysuria MSK: no back pain, no joint pain Skin: no rashes/lesions, no pruritus Neuro: no syncope, no numbness/tingling Heme: no hx of easy bleeding/bruising, no hx of DVT/PE OBJECTIVE PHYSICAL EXAM: BP 131/94 Pulse 74 Temp 36.3 ?C (97.4 ?F) Resp 18 Ht 165.1 cm (5' 5) Wt 95.3 kg (210 lb) SpO2 99% BMI 34.95 kg/m? Body mass index is 34.95 kg/m?. General: no acute distress, alert, oriented CV: RRR Pulm: nonlabored on RA, symmetrical rise Abdomen: soft, nondistended. Tender in epigastrium and RUQ. No rebound or guarding. Healed incisions from prior surgery Neuro: no focal deficits. DAVIS DATA: CBC, Coags, BMP, Mg, Phos Recent Labs 06/13/18 1622 WBC 8.64 HB 12.9 HCT 38.5 PLT 251 NA 136 K 4.2 CHLOR 100 CO2 23 BUN 11 CREAT 0.79 GLUC 92 CA 9.9 Liver Function, Amylase, AND Lipase Recent Labs 06/13/18 1622 TPROT 8.1* ALB 4.5 ALT 23 AST 20 ALKPHOS 94 TBILI 0.5 LIPASE 20 Kendra Dover MD PGY4 General Surgery Pager: [phone] June 13, 2018 5:13 PM Homero Zhou MD 06/14/2018 10:35 AM Signed CARDIOVASCULAR MEDICINE CONSULTATION Mary Alice Kimble [id number] PRIMARY SERVICE: Surgery CONSULTING SERVICE: Cardiovascular Medicine: General Consults DATE OF ADMISSION: 06/13/2018 DATE OF CONSULT: 06/13/2018 REASON FOR CONSULT Pre-op risk evaluation HISTORY OF PRESENT ILLNESS Mary Alice Kimble is a 32 year old female with cholecystitis and CBD stones s/p ERCP (05/01) and laparoscopic cholecystectomy (05/02) c/b retained cystic duct stones who now presents again with abdominal pain with plan for repeat operation this coming Saturday 06/16. Cardiology is consulted for pre-op risk evaluation given reported symptomatic bradycardia during last admission. She currently complains of no chest pain, SOB, or palpitations. Only complain is abdominal pain. EKG shows sinus bradycardia with rate of 57. PAST MEDICAL HISTORY PAST MEDICAL HISTORY Diagnosis Date - Cholecystitis - Closed fracture of unspecified part of femur right - Cough - Other forms of migraine - Pancreatitis - Unspecified open fracture of carpal bone right PAST SURGICAL HISTORY Procedure Laterality Date - BREAST BIOPSY 2011 - ERCP x2 - LAPAROSCOPIC CHOLECYSTECTOMY FAMILY HISTORY FAMILY HISTORY Problem Relation Age of Onset - Hearing Loss Sister hearing impaired - other (Cholelithiasis) Sister - Breast Cancer Paternal Grandmother - Pancreatic Cancer Maternal Uncle SOCIAL HISTORY Social History Substance Use Topics - Smoking status: Former Smoker Years: 3.00 Quit date: 07/13/2016 - Smokeless tobacco: Never Used Comment: less than 1/4 pack daily - Alcohol use No HOME MEDICATIONS HYDROcodone-acetaminophen (NORCO) 5-325 mg per tablet TAKE 1 TABLET BY MOUTH EVERY 6 HOURS FOR 7 DAYS NEEDED FOR PAIN acetaminophen (TYLENOL EXTRA STRENGTH) 500 mg tablet Take 1 tablet by mouth every 4 hours as needed for Pain. ursodiol (ACTIGALL ORAL) Take by mouth twice daily. multivit with calcium,iron,min (WOMEN'S MULTIPLE VITAMINS ORAL) Take by mouth. predniSONE (DELTASONE) 20 mg tablet Prednisone 40 mg (2-20mg tablets) po QD for 5 days benzonatate (TESSALON PERLE) 100 mg capsule Take 1 capsule by mouth three times daily as needed. albuterol HFA (VENTOLIN HFA) 90 mcg/actuation inhaler Inhale 2 Puffs as instructed every 4 hours as needed for Wheezing/Shortness of Breath. SPRINTEC 0.25-35 mg-mcg per tablet INPATIENT MEDICATIONS Current hospital medications: benzonatate 100 mg cap(s) (TESSALON PERLE) 100 mg ORAL TID PRN albuterol HFA 90 mcg/actuation 2 Puff (PROVENTIL HFA, VENTOLIN HFA) 2 Puff INHALATION q 4 H PRN oxyCODONE-acetaminophen 5-325 mg 1-2 tablet (PERCOCET) 1-2 tablet ORAL q 4 H PRN ondansetron (PF) 4 mg injection (ZOFRAN) 4 mg INTRAVENOUS q 6 H PRN heparin 5,000 Units injection 5,000 Units SUBCUTANEOUS q 12 H ALLERGIES ALLERGIES No Known Allergies COMPLETE REVIEW OF SYSTEMS Constitutional: No weight loss, malaise or fevers. HEENT: Negative for frequent or significant headaches Respiratory: Negative for cough, wheezing, or shortness of breath Cardiovascular: Negative for chest pain, leg swelling or palpitations Gastrointestinal: + abdominal discomfort Genitourinary: No history of dysuria, frequency, or incontinence Endocrine: Negative for cold or heat intolerance, polyuria, polydipsia and goiter Hematologic: Negative for prolonged bleeding, bruising easily or swollen nodes Neurologic: No history or headaches, syncope, paralysis, seizures or tremors Integumentary: Negative for lesions, rash, and itching. PHYSICAL EXAM BP 131/94 Pulse 74 Temp 36.3 ?C (97.4 ?F) Resp 18 Ht 165.1 cm (5' 5) Wt 95.3 kg (210 lb) SpO2 99% BMI 34.95 kg/m? General Appearance: Well developed and No acute distress. Pleasant. HEENT: No JVD or carotid bruits Lungs: Clear bilaterally. No IWB on RA. Heart: Regular rate AND rhythm and S1, S2 normal. No m/g/r. Pulses 2+. Abdomen: Soft and Non-tender. +BS. Skin: Warm and Dry. Without edema. Musculoskeletal: No deformities Neurologic/Psychiatric: Oriented to time, place AND person DATA Laboratory: Recent Labs 06/13/18 1622 WBC 8.64 HB 12.9 HCT 38.5 PLT 251 Recent Labs 06/13/18 1622 NA 136 K 4.2 CO2 23 BUN 11 CREAT 0.79 GLUC 92 No results found for: CHOL, HDL, LDL, TG No results found for: HBA1C) EKG: Sinus bradycardia ASSESSMENT AND RECOMMENDATIONS Mary Alice Kibmle is a 32 year old female with cholecystitis and CBD stones s/p ERCP (05/01) and laparoscopic cholecystectomy (05/02) c/b retained cystic duct stones who now presents again with abdominal pain with plan for repeat operation this coming Saturday 06/16. This 32 year olds RCRI is 0, which portends a 0.4% risk of major cardiac events. In this setting there is no further cardiac testing indicated prior to surgery. However, given reported hx of symptomatic bradycardia which patient explains as feeling sweaty, then they tell me my HR is in the 20-30s, would avoid beta blockers or non-dihydropyridine calcium channel blockers; anesthesia should also keep this in mind with induction and drug choice. Would also check echo prior to surgery. - monitor on telemetry - order Echo Case to be discussed with staff. Brenton Mo MD Cardiovascular Medicine Fellow Pager [phone] 06/13/2018 5:39 PM [facility] STAFF PHYSICIAN NOTE OF PERSONAL INVOLVEMENT IN CARE I have reviewed the consult note obtained and documented by the fellow and I personally participated in the dumont components. I have discussed the case and management of the patient's care. The following comments revise or confirm relevant dumont components of the note. IMPRESSION: Patient with previous history of bradycardia which may have been related to increased vagal tone-no indication for a pacemaker PLAN: Continue telemetry-agree with echo Homero Zhou MD Previous Version Blu Wylie RN, RN 06/13/2018 6:14 PM Signed Report called to KIRSTEN Arce. Pt will be transferred to [facility]. DOWNTIME NOTE 06/14/2018 2:00 AM Signed Epic Scheduled Downtime: 06/14/2018 12:00:01 AM to 06/14/2018 1:54:00 AM Kendra Dover MD 06/14/2018 9:15 AM Signed GENERAL SURGERY PROGRESS NOTE ASSESSMENT AND PLAN 32 year old female with a hx of cholecystitis and CBD stones s/p ERCP (05/01) and lap partial cholecystectomy (05/02) c/b retained cystic duct stones with persistent RUQ pain and nausea. No evidence of biliary obstruction or pancreatitis on lap work. ? -Neuro/pain: PRN pain meds -CV: hx of symptomatic bradycardia at previous admission. Cards consult for pre-op clearance/risk stratification. Appreciate recs. Echo ordered. -Pulm: bronchopulmonary hygiene. Encourage IS. PRN albuterol -FEN/GI: low fat diet + supplements. NPO after midnight on Saturday for OR. -Endo: no active issues -ID: no abx. Josefina-op abx OCTOR -Heme: type and screen/coags pre-op -DVT ppx: SCDs, SQH -Dispo: admit to RNF under [facility] surgery. Plan for completion cholecystectomy on Saturday (consent obtained) Kendra Dover MD PGY4 General Surgery Pager: [phone] *After 6pm and on weekends please page general surgery personal carer [phone]* SUBJECTIVE/INTERVAL EVENTS Still having RUQ pain No N/V Minimal PO intake OBJECTIVE BP 101/64 Pulse (!) 50 Temp 36.2 ?C (97.2 ?F) (Oral) Resp 16 Ht 165.1 cm (5' 5) Wt 95.3 kg (210 lb) SpO2 98% BMI 34.95 kg/m? Intake/Output Summary (Last 24 hours) at 06/14/18 0659 Last data filed at 06/14/18 0530 Gross per 24 hour Intake 200 ml Output 500 ml Net -300 ml General: no acute distress, alert, oriented CV: RRR Pulm: nonlabored on RA, symmetrical rise Abdomen: soft, nondistended. Tender in epigastrium and RUQ. No rebound or guarding. Healed incisions from prior surgery Neuro: no focal deficits. DAVIS Labs/Imaging: CBC, BMP, MG, PHOS Recent Labs 06/14/18 0619 06/13/18 1622 05/27/18 0509 05/26/18 0556 05/25/18 0720 05/24/18 0615 WBC 4.71 8.64 6.49 5.89 5.50 5.05 HB 12.2 12.9 12.6 12.8 12.3 11.9 HCT 36.1 38.5 38.6 38.2 37.2 35.9* PLT 218 251 205 218 208 201 NA 137 136 140 139 138 139 K 3.7 4.2 4.0 3.8 4.0 4.0 CHLOR 100 100 103 105 101 103 CO2 22 23 22 21* 22 24 BUN 9 11 12 12 11 10 CREAT 0.88 0.79 0.85 0.80 0.83 0.79 GLUC 86 92 92 88 91 92 CA 9.2 9.9 9.3 9.5 9.2 8.8 MG -- -- 1.7 1.8 1.9 1.9 P -- -- 4.1 3.6 3.2 3.4 Liver Function, Amylase, AND Lipase Recent Labs 06/14/18 0619 06/13/18 1622 05/27/18 0509 05/26/18 0556 TPROT 7.4 8.1* 6.7 7.1 ALB 3.9 4.5 3.8* 3.9 ALT 18 23 13 14 AST 17 20 16 14 ALKPHOS 83 94 96 101 TBILI 0.5 0.5 0.3 0.3 Coags Recent Labs 05/26/18 0556 APTT 27.9 INR 1.0 Active Hospital Problems Diagnosis Date Noted - Cholecystitis 06/13/2018 Overview Note: Added automatically from request for surgery [id number] - Retained gallstones following laparoscopic cholecystectomy 05/23/2018 Kendra Dover MD 06/15/2018 7:09 AM Signed GENERAL SURGERY PROGRESS NOTE ASSESSMENT AND PLAN 32 year old female with a hx of cholecystitis and CBD stones s/p ERCP (05/01) and lap partial cholecystectomy (05/02) c/b retained cystic duct stones with persistent RUQ pain and nausea. No evidence of biliary obstruction or pancreatitis on lap work. ? -Neuro/pain: PRN pain meds -CV: hx of symptomatic bradycardia at previous admission. Cards consult for pre-op clearance/risk stratification. Appreciate recs. -Pulm: bronchopulmonary hygiene. Encourage IS. PRN albuterol -FEN/GI: low fat diet + supplements. NPO after midnight on Saturday for OR. -Endo: no active issues -ID: no abx. Josefina-op abx OCTOR -Heme: type and screen/coags pre-op -DVT ppx: SCDs, SQH -Dispo: admit to RNF under [facility] surgery. Plan for completion cholecystectomy on Saturday (consent obtained) Kendra Dover MD PGY4 General Surgery Pager: [phone] *After 6pm and on weekends please page general surgery personal carer [phone]* SUBJECTIVE/INTERVAL EVENTS Tolerating diet. No N/V Still with pain in RUQ Afebrile OBJECTIVE BP 90/50 Pulse 60 Temp 36.5 ?C (97.7 ?F) (Oral) Resp 18 Ht 165.1 cm (5' 5) Wt 95.3 kg (210 lb) SpO2 96% BMI 34.95 kg/m? Intake/Output Summary (Last 24 hours) at 06/15/18 0659 Last data filed at 06/15/18 0500 Gross per 24 hour Intake 2060 ml Output 2125 ml Net -65 ml General: no acute distress, alert, oriented CV: RRR Pulm: nonlabored on RA, symmetrical rise Abdomen: soft, nondistended. Tender in RUQ. No rebound or guarding. Healed incisions from prior surgery Neuro: no focal deficits. DAVIS Labs/Imaging: CBC, BMP, MG, PHOS Recent Labs 06/14/18 0619 06/13/18 1622 05/27/18 0509 05/26/18 0556 05/25/18 0720 05/24/18 0615 WBC 4.71 8.64 6.49 5.89 5.50 5.05 HB 12.2 12.9 12.6 12.8 12.3 11.9 HCT 36.1 38.5 38.6 38.2 37.2 35.9* PLT 218 251 205 218 208 201 NA 137 136 140 139 138 139 K 3.7 4.2 4.0 3.8 4.0 4.0 CHLOR 100 100 103 105 101 103 CO2 22 23 22 21* 22 24 BUN 9 11 12 12 11 10 CREAT 0.88 0.79 0.85 0.80 0.83 0.79 GLUC 86 92 92 88 91 92 CA 9.2 9.9 9.3 9.5 9.2 8.8 MG -- -- 1.7 1.8 1.9 1.9 P -- -- 4.1 3.6 3.2 3.4 Liver Function, Amylase, AND Lipase Recent Labs 06/14/18 0619 06/13/18 1622 05/27/18 0509 05/26/18 0556 TPROT 7.4 8.1* 6.7 7.1 ALB 3.9 4.5 3.8* 3.9 ALT 18 23 13 14 AST 17 20 16 14 ALKPHOS 83 94 96 101 TBILI 0.5 0.5 0.3 0.3 Coags Recent Labs 05/26/18 0556 APTT 27.9 INR 1.0 Active Hospital Problems Diagnosis Date Noted - Cholecystitis 06/13/2018 Overview Note: Added automatically from request for surgery [id number] - Sinus bradycardia 06/14/2018 - Retained gallstones following laparoscopic cholecystectomy 05/23/2018 Sherlyn Larry, RN, RN 06/16/2018 1:28 AM Signed Nursing Progress Note Patient Name: Mary Alice Kimble Patient Location: H051 025/H051-25 Daily Note: Pt scheduled for OR, it does not appear she has a HANDP on file, personal carer notified This note was completed by: Sherlyn Larry, RN Arnulfo Chiu MD, MD 06/16/2018 7:24 AM Signed GENERAL SURGERY PROGRESS NOTE ASSESSMENT AND PLAN 32 year old female with a hx of cholecystitis and CBD stones s/p ERCP (05/01) and lap partial cholecystectomy (05/02) c/b retained cystic duct stones with persistent RUQ pain and nausea. No evidence of biliary obstruction or pancreatitis on lap work. ? -Neuro/pain: PRN pain meds -CV: hx of symptomatic bradycardia at previous admission. Cards consult for pre-op clearance/risk stratification. Appreciate recs. -Pulm: bronchopulmonary hygiene. Encourage IS. PRN albuterol -FEN/GI:NPO for OR today -Endo: no active issues -ID: no abx. Josefina-op abx OCTOR -Heme: type and screen/coags pre-op -DVT ppx: SCDs, SQH -Dispo: admit to RNF under [facility] surgery. Plan for completion cholecystectomy today Arnulfo Chiu MD General Surgery PGY-2 Date: 06/16/2018 Time: 7:24 AM [phone] HPB pager: [phone] *Please page Night/Weekend Pager ([phone]) after 6pm (7pm on Wednesdays) and on weekends.* SUBJECTIVE/INTERVAL EVENTS No N/V Still with pain in RUQ, improved Afebrile OBJECTIVE BP 105/55 Pulse 61 Temp 36.8 ?C (98.2 ?F) (Oral) Resp 16 Ht 165.1 cm (5' 5) Wt 95.3 kg (210 lb) SpO2 100% BMI 34.95 kg/m? Intake/Output Summary (Last 24 hours) at 06/16/18 0659 Last data filed at 06/16/18 0600 Gross per 24 hour Intake 910 ml Output 2026 ml Net -1116 ml General: no acute distress, alert, oriented CV: RRR Pulm: nonlabored on RA, symmetrical rise Abdomen: soft, nondistended. Mildly tender in RUQ. No rebound or guarding. Healed incisions from prior surgery Neuro: no focal deficits. DAVIS Labs/Imaging: CBC, BMP, MG, PHOS Recent Labs 06/15/18 0904 06/14/18 0619 06/13/18 1622 05/27/18 0509 05/26/18 0556 05/25/18 0720 05/24/18 0615 WBC 3.92 3.78 4.71 8.64 6.49 5.89 5.50 5.05 HB 12.6 12.5 12.2 12.9 12.6 12.8 12.3 11.9 HCT 37.6 37.4 36.1 38.5 38.6 38.2 37.2 35.9* PLT 222 222 218 251 205 218 208 201 NA 137 137 136 140 139 138 139 K 3.8 3.7 4.2 4.0 3.8 4.0 4.0 CHLOR 99 100 100 103 105 101 103 CO2 27 22 23 22 21* 22 24 BUN 14 9 11 12 12 11 10 CREAT 0.96 0.88 0.79 0.85 0.80 0.83 0.79 GLUC 70* 86 92 92 88 91 92 CA 9.7 9.2 9.9 9.3 9.5 9.2 8.8 MG -- -- -- 1.7 1.8 1.9 1.9 P -- -- -- 4.1 3.6 3.2 3.4 Liver Function, Amylase, AND Lipase Recent Labs 06/15/18 0904 06/14/18 0619 06/13/18 1622 05/27/18 0509 TPROT 7.7 7.4 8.1* 6.7 ALB 4.2 3.9 4.5 3.8* ALT 19 18 23 13 AST 16 17 20 16 ALKPHOS 85 83 94 96 TBILI 0.4 0.5 0.5 0.3 Coags Recent Labs 06/15/18 0905 05/26/18 0556 APTT 26.5 27.9 INR 1.0 1.0 Active Hospital Problems Diagnosis Date Noted - Cholecystitis 06/13/2018 Overview Note: Added automatically from request for surgery [id number] - Sinus bradycardia 06/14/2018 - Retained gallstones following laparoscopic cholecystectomy 05/23/2018 Anneliese Wright, RN, RN 06/16/2018 11:36 AM Signed CARE MANAGEMENT: ASSESSMENT AND DISCHARGE PLAN SERVICE DATE: 06/16/2018 SERVICE TIME: 11:30 AM PRIMARY CARE PHYSICIAN: Janee Londono CNP ADMISSION STATUS: Inpatient Needs Prior to Discharge: To Be Determined MEDICAL: Patient/[employer] Stated Goals: To have reduction in pain To have reduction in symptoms To be cured/healed Health Insurance: [employer] [facility] Issues Impacting Discharge Plan: Cholecystitis Last Admission Date: Previous admit date: 05/23/2018 Is this Within the Past 30 days? Yes Is This a Planned Readmission? Yes Followed Up with Appointment Prior to Admission: Appointment completed Where Did the Patient Come From? Home Intervention Taken to Avoid Future Readmission? 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 How often do you need to have someone help you when you read instructions, pamphlets, or other written material from your doctor or pharmacy? Never - 1 2. How confident are you filling out medical forms by yourself? Extremely - 1 If Patient scores > 3 on either question, the following interventions were put into place: Patient did not score > 3 FUNCTIONAL AND COGNITIVE/BEHAVIORAL PRIOR TO ADMISSION: Baseline Mental Status: Alert AND Oriented, Person, Place , Time and Situation Functional Status: Independent Does Patient Currently Receive Any Community Services or Home Care? None Equipment Prior to Admission: None Has the Patient Been in a Intermediate Facility in the Past 30 days? No SOCIAL: Living Arrangement: Home Lives With: Spouse Financial Resources: Employed: [employer] Primary Contact: Extended Emergency Contact Information Primary Emergency Contact: Glendy Kimble Address: [address] [place] [address] Mobile Relation: Spouse Secondary Emergency Contact: Obdulia Riley Mobile Relation: Mother Supportive: Yes Other Important Patient Contacts: None Caregiver Assessment: Caregiver is ready, willing and able to meet the patient's needs as recommended by the inter-professional team? No Caregiver Needed Patient's transition needs and plan for meeting these needs: TBD Does the patient have an acute stroke diagnosis, or has the patient had a stroke during this admission? No Medication Adherence: I am convinced of the importance of my prescription medication: Agree completely - 0 I worry that my prescription medication will do more harm than good to me Disagree completely - 0 I feel financially burdened by my [id number] expenses for my prescription medication: Disagree completely - 0 Patient is categorized as low risk < 2 Are you interested in bedside delivery of your medications? Yes Food Concerns: In the Last Month, Have You had Trouble Getting Food? No trouble getting food During the Last Month, Have You Worried Whether Your Food Would Run Out Before You Had Enough Money to Buy More? No Is the Patient Psychosocially Complex? No ASSESSMENT AND PLAN: Medical Needs: None Psychosocial Needs: None FREEDOM OF CHOICE EXPLAINED: Yes Patient Declined skilled home care needs POTENTIAL TRANSITION PLANS Home .Pick Up And Delivery Driver to bedside for introduction and to discuss discharge plans and needs. Anticipated discharge plan is home with no skilled home care needs at this time. Patient denies any new questions or concerns at this time. CM will continue to follow and update on discharge plans and needs. Upon discharge family will provide transport. SIGNATURE: Anneliese Wright RN PATIENT NAME: Mary Alice Kimble DATE: June 16, 2018 TIME: 11:30 AM PAGER/CONTACT #: [phone] Progress Notes ([facility]): Jen Shyanne Psr 06/13/2018 9:40 AM Signed Patient called to be advised on pain. Please return her call at [phone]. Aaron Salmon RN, RN 06/13/2018 12:41 PM Signed Patient states that she is having abdominal pain and the oxycodone is not helping. I have advised her to go to the ED. She will come to [facility] ED. I told that in the meantime, I will discuss with Dr. Horton to see if he is available to see her today. She has verbalized understanding. HISTORY PHYSICAL Observed: 06/06/2018 Status: COMPLETED Source: [place] 5:20 PM [facility] REPOSITORY [facility] ID: [id number] Author: Vazquez Horton Service: (none) Author Type: Physician Type: HANDP Filed: 06/15/2018 1:09 PM Note Text: Addendum: I have reviewed the history and physical examination obtained and documented by the resident and I personally participated in the dumont components. I have discussed the case and management of the patient's care. The following comments revise or confirm relevant dumont components of the note. CC: Abdominal pain HPI: The patient had a cholecystectomy a little over a month ago, but it was a subtotal cholecystectomy because of the amount of inflammation. She was found to have retained cystic duct stones and continues to have postprandial RUQ/epigastric abdominal pain when she eats greasy/fatty food. She is able to avoid having abdominal pain when she eats chicken and vegetables. She denies any fevers, chills, nausea, vomiting, or jaundice. She underwent an ERCP during an admission earlier this month that was unable to remove the cystic duct stones. Plan: - Will perform a completion cholecystectomy, laparoscopic/robotic, possibly open - The risks of the operation were discussed in detail with the patient, including, but not limited to, infection, bleeding, and damage to surrounding structures. The potential need for a common bile duct exploration were discussed in detail with the patient, and all of her questions were answered. - Educated patient that if she develops persistent abdominal pain, fevers, jaundice, to come to the ER and call the office SIGNATURE: Jerzy Horton MD B surgery Pager: [phone] HISTORY PHYSICAL Observed: 06/06/2018 Status: COMPLETED Source: [place] 3:48 PM [facility] REPOSITORY O ID: [id number] Author: Vito Butcher Service: (none) Author Type: Resident Type: HANDP Filed: 06/15/2018 1:09 PM Note Text: [facility] Surgery HANDP SERVICE DATE: 06/06/2018 SERVICE TIME: 3:58 PM PRIMARY CARE PHYSICIAN: Janee Londono CNP Subjective CHIEF COMPLAINT: Retained cystic duct stones HISTORY OF PRESENT ILLNESS: Ms. Kimble is a 32 year old female with PMH of pancreatitis, cholecystitis s/p ERCP on 05/01/18 and laparoscopic cholecystectomy on 05/02/18 at [facility] who was recently admitted with retained cystic duct stones. Pt had attempted medical management of stones but the stones and abdominal pain persisted. Pt was recently admitted at [facility] on 05/23/18 with persistent RUQ abdominal pain. She underwent an ERCP on 05/26/18 which had unsuccessful extraction of the stones with balloon extraction and mechanical lithotripsy. Pt was subsequently discharged and presented at [facility] conference where it was recommend that she undergo a completion cholecystectomy. Since discharge, she continues to have intermittent RUQ pain. She is tolerating a GI soft diet, but has diarrhea and worse pain with fatty foods. Denies any fever or chills. Of note, she has had intermittent dizziness and bradycardia first identified prior to her admission at an OSH. She is seeing a city alderman for evaluation on 06/18/18. PAST MEDICAL HISTORY Diagnosis Date - Cholecystitis - Choledocholithiasis - Closed fracture of unspecified part of femur right - Cough - Other forms of migraine - Pancreatitis - Unspecified open fracture of carpal bone right PAST SURGICAL HISTORY Procedure Laterality Date - BREAST BIOPSY 2011 - ERCP x2 - LAPAROSCOPIC CHOLECYSTECTOMY FAMILY HISTORY Problem Relation Age of Onset - Hearing Loss Sister hearing impaired - other (Cholelithiasis) Sister - Breast Cancer Paternal Grandmother - Pancreatic Cancer Maternal Uncle Social History Substance Use Topics - Smoking status: Former Smoker Years: 3.00 Quit date: 07/13/2016 - Smokeless tobacco: Never Used Comment: less than 1/4 pack daily - Alcohol use No Current Outpatient Prescriptions on File Prior to Visit: acetaminophen (TYLENOL EXTRA STRENGTH) 500 mg tablet Take 1 tablet by mouth every 4 hours as needed for Pain. ursodiol (ACTIGALL ORAL) Take by mouth twice daily. multivit with calcium,iron,min (WOMEN'S MULTIPLE VITAMINS ORAL) Take by mouth. predniSONE (DELTASONE) 20 mg tablet Prednisone 40 mg (2-20mg tablets) po QD for 5 days (Patient not taking: Reported on 01/30/2018 ) benzonatate (TESSALON PERLE) 100 mg capsule Take 1 capsule by mouth three times daily as needed. (Patient not taking: Reported on 01/30/2018 ) albuterol HFA (VENTOLIN HFA) 90 mcg/actuation inhaler Inhale 2 Puffs as instructed every 4 hours as needed for Wheezing/Shortness of Breath. SPRINTEC 0.25-35 mg-mcg per tablet ALLERGIES No Known Allergies COMPLETE REVIEW OF SYSTEMS: GENERAL: No weight loss, malaise or fevers HEENT: No changes in hearing or vision, no nose bleeds or other nasal problems NECK: Negative for lumps, goiter, pain and significant neck swelling RESPIRATORY: Negative for cough or shortness of breath CARDIOVASCULAR: Negative for chest pain or palpitations. Positive for bradycardia GI: Positive for nausea and emesis. Negative for melena or diarrhea : No dysuria, frequency or incontinence MUSCULOSKELETAL: Negative for joint pain or swelling, back pain or muscle pain SKIN: Negative for lesions, rash, and itching HEMATOLOGY/LYMPHOLOGY: Negative for prolonged bleeding, bruising easily or swollen nodes ENDOCRINE: Negative for cold or heat intolerance, polyuria, polydipsia and goiter NEURO: No syncope, paralysis, seizures or tremors. Positive for dizziness Objective PHYSICAL EXAM: BP 128/77 Pulse 79 Temp (Src) 97.2 (Temporal Artery) Resp 14 Ht 5' 5 (1.65m) Wt 220 lb (99.8kg) BMI 36.61 kg/(m2). Physical Exam Performed GENERAL: Alert, no distress, cooperative SKIN: Skin color, texture, turgor normal. No rashes or lesions. Abdominal surgical sites well healed HEAD/SINUSES: Atraumatic, normocephalic EYES: Anicteric sclera EARS: External ears normal NOSE: Nares normal. NECK: Supple, no lymphadenopathy LUNGS: Lungs clear to auscultation, Good diaphragmatic excursion CARDIAC: Normal S1 and S2; no rubs, murmurs, or gallops ABDOMEN: Abdomen soft, non-tender, No masses or organomegaly EXTREMITIES: No peripheral edema NEURO: Grossly normal cognition and gait PULSES: 2+ radial DATA: Diagnostic tests reviewed for today's visit: Most recent labs and imaging results. Assessment/Plan 32 y/o F w/ hx of gallstone pancreatitis s/p laparoscopic cholecystectomy c/b retained cystic duct stones causing persistent RUQ pain. - Recommend robotic/laparoscopic completion cholecystectomy - Follow-up cardiology evaluation to determine if cardiac optimization required prior to surgery - Consent obtained SIGNATURE: Vito Butcher MD PATIENT NAME: Mary Alice Kimble DATE: June 06, 2018 TIME: 3:49 PM PAGER/CONTACT #: [phone] CNOV Observed: 06/06/2018 Status: COMPLETED Source: [place] 3:30 PM [facility] REPOSITORY Office Visit (ROSENDO) SHYANNENOMANMARY ALICE Iam ([id number]) 1985 F Date Time Provider Department 06/06/18 3:30 PM VAZQUEZ HORTON During your visit today, we recorded the following information about you: Temperature Pulse Respiration Blood pressure 97.2 degrees 79/minute 14/minute 128/77 Weight Height 99.8 kg 1.651 m Vito Butcher MD 06/15/2018 1:09 PM Signed [facility] Surgery HANDP SERVICE DATE: 06/06/2018 SERVICE TIME: 3:58 PM PRIMARY CARE PHYSICIAN: Janee Londono CNP Subjective CHIEF COMPLAINT: Retained cystic duct stones HISTORY OF PRESENT ILLNESS: Ms. Kimble is a 32 year old female with PMH of pancreatitis, cholecystitis s/p ERCP on 05/01/18 and laparoscopic cholecystectomy on 05/02/18 at [facility] who was recently admitted with retained cystic duct stones. Pt had attempted medical management of stones but the stones and abdominal pain persisted. Pt was recently admitted at [facility] on 05/23/18 with persistent RUQ abdominal pain. She underwent an ERCP on 05/26/18 which had unsuccessful extraction of the stones with balloon extraction and mechanical lithotripsy. Pt was subsequently discharged and presented at [facility] conference where it was recommend that she undergo a completion cholecystectomy. Since discharge, she continues to have intermittent RUQ pain. She is tolerating a GI soft diet, but has diarrhea and worse pain with fatty foods. Denies any fever or chills. Of note, she has had intermittent dizziness and bradycardia first identified prior to her admission at an OSH. She is seeing a city alderman for evaluation on 06/18/18. PAST MEDICAL HISTORY Diagnosis Date - Cholecystitis - Choledocholithiasis - Closed fracture of unspecified part of femur right - Cough - Other forms of migraine - Pancreatitis - Unspecified open fracture of carpal bone right PAST SURGICAL HISTORY Procedure Laterality Date - BREAST BIOPSY 2011 - ERCP x2 - LAPAROSCOPIC CHOLECYSTECTOMY FAMILY HISTORY Problem Relation Age of Onset - Hearing Loss Sister hearing impaired - other (Cholelithiasis) Sister - Breast Cancer Paternal Grandmother - Pancreatic Cancer Maternal Uncle Social History Substance Use Topics - Smoking status: Former Smoker Years: 3.00 Quit date: 07/13/2016 - Smokeless tobacco: Never Used Comment: less than 1/4 pack daily - Alcohol use No Current Outpatient Prescriptions on File Prior to Visit: acetaminophen (TYLENOL EXTRA STRENGTH) 500 mg tablet Take 1 tablet by mouth every 4 hours as needed for Pain. ursodiol (ACTIGALL ORAL) Take by mouth twice daily. multivit with calcium,iron,min (WOMEN'S MULTIPLE VITAMINS ORAL) Take by mouth. predniSONE (DELTASONE) 20 mg tablet Prednisone 40 mg (2-20mg tablets) po QD for 5 days (Patient not taking: Reported on 01/30/2018 ) benzonatate (TESSALON PERLE) 100 mg capsule Take 1 capsule by mouth three times daily as needed. (Patient not taking: Reported on 01/30/2018 ) albuterol HFA (VENTOLIN HFA) 90 mcg/actuation inhaler Inhale 2 Puffs as instructed every 4 hours as needed for Wheezing/Shortness of Breath. SPRINTEC 0.25-35 mg-mcg per tablet ALLERGIES No Known Allergies COMPLETE REVIEW OF SYSTEMS: GENERAL: No weight loss, malaise or fevers HEENT: No changes in hearing or vision, no nose bleeds or other nasal problems NECK: Negative for lumps, goiter, pain and significant neck swelling RESPIRATORY: Negative for cough or shortness of breath CARDIOVASCULAR: Negative for chest pain or palpitations. Positive for bradycardia GI: Positive for nausea and emesis. Negative for melena or diarrhea : No dysuria, frequency or incontinence MUSCULOSKELETAL: Negative for joint pain or swelling, back pain or muscle pain SKIN: Negative for lesions, rash, and itching HEMATOLOGY/LYMPHOLOGY: Negative for prolonged bleeding, bruising easily or swollen nodes ENDOCRINE: Negative for cold or heat intolerance, polyuria, polydipsia and goiter NEURO: No syncope, paralysis, seizures or tremors. Positive for dizziness Objective PHYSICAL EXAM: BP 128/77 Pulse 79 Temp (Src) 97.2 (Temporal Artery) Resp 14 Ht 5' 5 (1.65m) Wt 220 lb (99.8kg) BMI 36.61 kg/(m2). Physical Exam Performed GENERAL: Alert, no distress, cooperative SKIN: Skin color, texture, turgor normal. No rashes or lesions. Abdominal surgical sites well healed HEAD/SINUSES: Atraumatic, normocephalic EYES: Anicteric sclera EARS: External ears normal NOSE: Nares normal. NECK: Supple, no lymphadenopathy LUNGS: Lungs clear to auscultation, Good diaphragmatic excursion CARDIAC: Normal S1 and S2; no rubs, murmurs, or gallops ABDOMEN: Abdomen soft, non-tender, No masses or organomegaly EXTREMITIES: No peripheral edema NEURO: Grossly normal cognition and gait PULSES: 2+ radial DATA: Diagnostic tests reviewed for today's visit: Most recent labs and imaging results. Assessment/Plan 32 y/o F w/ hx of gallstone pancreatitis s/p laparoscopic cholecystectomy c/b retained cystic duct stones causing persistent RUQ pain. - Recommend robotic/laparoscopic completion cholecystectomy - Follow-up cardiology evaluation to determine if cardiac optimization required prior to surgery - Consent obtained SIGNATURE: Vito Butcher MD PATIENT NAME: Mary Alice Kimble DATE: June 06, 2018 TIME: 3:49 PM PAGER/CONTACT #: [phone] Nabil Gregorio 06/06/2018 3:54 PM Signed What is the reason for your visit today? Post op Who is your referring physician? Dr. Horton Are you having poor oral intake? NO Have you had unintentional weight loss of 15 lbs/7 Kg in the last 3-6 months? NO Bowels: regular Wound: clean AND dry Temperature: No Drains: No Vazquez Horton MD 06/15/2018 1:09 PM Signed Addendum: I have reviewed the history and physical examination obtained and documented by the resident and I personally participated in the dumont components. I have discussed the case and management of the patient's care. The following comments revise or confirm relevant dumont components of the note. CC: Abdominal pain HPI: The patient had a cholecystectomy a little over a month ago, but it was a subtotal cholecystectomy because of the amount of inflammation. She was found to have retained cystic duct stones and continues to have postprandial RUQ/epigastric abdominal pain when she eats greasy/fatty food. She is able to avoid having abdominal pain when she eats chicken and vegetables. She denies any fevers, chills, nausea, vomiting, or jaundice. She underwent an ERCP during an admission earlier this month that was unable to remove the cystic duct stones. Plan: - Will perform a completion cholecystectomy, laparoscopic/robotic, possibly open - The risks of the operation were discussed in detail with the patient, including, but not limited to, infection, bleeding, and damage to surrounding structures. The potential need for a common bile duct exploration were discussed in detail with the patient, and all of her questions were answered. - Educated patient that if she develops persistent abdominal pain, fevers, jaundice, to come to the ER and call the office SIGNATURE: Jerzy Horton MD B surgery Pager: [phone] Referring Provider: VAZQUEZ HROTON [[id number]] Allergies As of Date: 06/06/2018 (No Known Allergies) Date Reviewed: 06/06/2018 Reviewed by: Vazquez Horton - Fully Assessed Reason for Visit: Post Op [174] Primary Visit Diagnosis:Obesity, Class II, BMI 35-39.9 [E66.9] Other Visit Diagnosis:Retained gallstones following laparoscopic cholecystectomy [K91.89, K80.20] Prescriptions as of 06/06/2018 Sig: ACETAMINOPHEN 500 MG TABLET Take 1 tablet by mouth every * ACTIGALL ORAL Take by mouth twice daily. HYDROCODONE 5 MG-ACETAMINOPHE* TAKE 1 TABLET BY MOUTH EVERY * WOMEN'S MULTIPLE VITAMINS ORAL Take by mouth. PREDNISONE 20 MG TABLET Prednisone 40 mg (2-20mg tabl* Patient not taking: Reported on 01/30/2018 BENZONATATE 100 MG CAPSULE Take 1 capsule by mouth three* Patient not taking: Reported on 01/30/2018 ALBUTEROL SULFATE HFA 90 MCG/* Inhale 2 Puffs as instructed * SPRINTEC (28) 0.25 MG-35 MCG * Problem List As Of Date 06/06/2018 Noted Resolved CLASSICAL MIGRAINE [346.0] INVALID FOR* LOW BLADDER COMPLIANCE [N31.8] INVALID FOR* Backache, unspecified [M54.9] INVALID FOR* Retained gallstones following laparoscopic chol*INVALID FOR* Severe protein-calorie malnutrition (HCC) [E43] INVALID FOR* Obesity, Class II, BMI 35-39.9 [E66.9] INVALID FOR* Visit Notes: >> Nabilmaria c Gregorio Fri Jun 06, 2018 3:49 PM Status: Signed What is the reason for your visit today? Post op Who is your referring physician? Dr. Horton Are you having poor oral intake? NO Have you had unintentional weight loss of 15 lbs/7 Kg in the last 3-6 months? NO Bowels: regular Wound: clean AND dry Temperature: No Drains: No Encounter Status:Closed by VAZQUEZ HORTON MD on 06/15/18 PROGRESS Observed: 05/27/2018 Status: COMPLETED Source: [place] 12:11 PM [facility] REPOSITORY O ID: [id number] Author: Gilles Stone (Fel) Service: (none) Author Type: Fellow Type: Progress Notes Filed: 05/27/2018 12:12 PM Note Text: Case discussed at multidisciplinary Hepatopancreatobiliary conference on 05/27/18 Consensus/ Recommendations: Completion cholecystectomy CNDS Observed: 05/27/2018 Status: COMPLETED Source: [place] 9:44 AM [facility] REPOSITORY O ID: [id number] Author: Christian Liang (Pa) Service: General Surgery Author Type: Physician Sales Negotiator Type: Discharge Summaries Filed: 05/27/2018 9:50 AM Note Text: DISCHARGE SUMMARY PATIENT NAME: Mary Alice Kimble ADMISSION DATE: 05/23/2018 DISCHARGE DATE: 05/27/2018 Attending: Vazquez Horton Reason for Hospitalization: Principal Problem: Retained gallstones following laparoscopic cholecystectomy Active Problems: Severe protein-calorie malnutrition (HCC) Obesity, Class II, BMI 35-39.9 Resolved Problems: * No resolved hospital problems. * Operations During Hospitalization: None Procedures During Hospitalization: ERCP Hospital Course: The patient was admitted to the hospital with a previous known diagnosis of cholecystitis and CBD stones s/p ERCP (05/01) and laparoscopic cholecystectomy (05/02) c/b retained cystic duct stones. The surgical team was unable to use extraction balloon or balloon dilator to remove stones past inflammatory stricture at the site of stone impaction. Patient tolerated the procedure well and was transferred to the regular nursing floor. Patient experienced no complications during the post operative course. Daily labs were ordered and reviewed to follow up progress of patients medical condition. Heparin was ordered for prophylaxis of deep vein thrombosis. Diet was gradually advanced. After toleration of a full diet and adequate pain control, patient was discharged in a stable condition. Labs and Procedures Pending at Discharge: No pending results. Patient Condition at Discharge: Stable Discharge Disposition: Home/Self Care Discharge Physical Exam: VITAL SIGNS: BP 102/50 Pulse (!) 55 Temp 36.7 ?C (98.1 ?F) (Oral) Resp 16 Ht 165.1 cm (5' 5) Wt 98.7 kg (217 lb 9.6 oz) SpO2 97% BMI 36.21 kg/m? GENERAL: Alert, no distress, cooperative LUNGS: Lungs clear to auscultation, Good diaphragmatic excursion CARDIAC: Rhythm: regular rate and rhythm, Rate: normal ABDOMEN: Abdomen soft, non-tender, BS normal, No masses or organomegaly Information Provided to Patient: Patient given copy of Discharge Instructions Discharge Medications:Current Discharge Medication List START taking these medications acetaminophen (TYLENOL) 500 mg Take 500 mg by mouth every 4 hours as needed for Pain. Qty: 180 tablet Refills: 0 oxyCODONE IR (ROXICODONE) 5 mg Take 5 mg by mouth every 4 hours as needed. Earliest Fill Date: 05/27/18 Qty: 42 tablet Refills: 0 Associated Diagnoses:Post-operative pain docusate sodium (COLACE) 100 mg Take 100 mg by mouth twice daily as needed for Constipation. Qty: 14 capsule Refills: 0 CONTINUE these medications which have NOT CHANGED ursodiol (ACTIGALL ORAL) Take by mouth twice daily. multivit with calcium,iron,min (WOMEN'S MULTIPLE VITAMINS ORAL) Take by mouth. predniSONE (DELTASONE) 20 mg tablet Prednisone 40 mg (2-20mg tablets) po QD for 5 days Qty: 10 tablet Refills: 0 Associated Diagnoses:Viral URI with cough benzonatate (TESSALON PERLE) 100 mg Take 100 mg by mouth three times daily as needed. Qty: 30 capsule Refills: 0 Associated Diagnoses:Viral URI with cough albuterol HFA (PROVENTIL HFA, VENTOLIN HFA) 2 Puffs Inhale 2 Puffs as instructed every 4 hours as needed for Wheezing/Shortness of Breath. Qty: 1 Inhaler Refills: 0 Associated Diagnoses:Viral URI with cough SPRINTEC 0.25-35 mg-mcg per tablet Follow up with Dr. Horton in 2-4 weeks SIGNATURE: Christian Liang PA-C PAGER: [phone] DATE: May 27, 2018 TIME: 9:44 AM CBC Collected: 05/27/2018 Status: F Source: [place] 5:09 AM [facility] RE[facility] TYPE CODE TESTS RESULT OUT OF REFERENCE UNITS RANGE LAB WBC 3.70-11.00 k/uL WBC 6.49 LAB RBC 3.90-5.20 m/uL RBC 4.19 LAB HGB 11.5-15.5 g/dL Hemoglobin 12.6 LAB HCT 36.0-46.0 % Hematocrit 38.6 LAB MCV 80.0-100.0 fL MCV 92.1 LAB MCH 26.0-34.0 pG MCH 30.1 LAB MCHC 30.5-36.0 g/dL MCHC 32.6 LAB RDWCV 11.5-15.0 % RDW-CV 13.2 LAB PLTCT 150-400 k/uL Platelet Count 205 LAB MPV 9.0-12.7 fL MPV 11.2 LAB ABSNUC <0.01 k/uL Absolute nRBC <0.01 Performed By: #### CBC, CMP, MG1, PHOS #### [facility] [address] [place], [place] [address] COMP METABOLIC PANEL Collected: 05/27/2018 Status: F Source: [place] 5:09 AM [facility] REPOSITORY TYPE CODE TESTS RESULT OUT OF REFERENCE UNITS RANGE LAB TP 6.3-8.0 g/dL Protein, Total 6.7 LAB ALB 3.9-4.9 g/dL Low Albumin 3.8 LAB CA 8.5-10.2 mg/dL Calcium, Total 9.3 LAB TBIL 0.2-1.3 mg/dL Bilirubin, Total 0.3 LAB ALKP 34-123 U/L Alkaline Phosphatase 96 LAB AST 13-35 U/L AST 16 LAB GLU 74-99 mg/dL Glucose 92 Result Comment: The [place] Diabetes [employer] (ADA) provides guidance for cutoff values for fasting glucose and random glucose. The ADA defines fasting as no caloric intake for at least 8 hours. Fas ting plasma glucose results between 100 to 125 mg/dL indicate increased risk for diabetes (prediabetes). Fasting plasma glucose results greater than or equal to 126 mg/dL meet the criteria for diagnosis of diabetes. In the absence of unequivocal hyperglycemia, results should be confirmed by repeat testing. In a patient with classic symptoms of hyperglycemia or hyperglycemic crisis, random plasma glucose results greater than or equal to 200 mg/dL meet the criteria for diagnosis of diabetes. Reference: Standards of Medical Care in Diabetes 2016, [place] [employer]. Diabetes Care. 2016.39(Suppl 1). LAB BUN 7-21 mg/dL BUN 12 LAB CRET 0.58-0.96 mg/dL Creatinine 0.85 LAB NA 136-144 mmol/L Sodium 140 LAB K 3.7-5.1 mmol/L Potassium 4.0 LAB CL 97-105 mmol/L Chloride 103 LAB CO2 22-30 mmol/L CO2 22 LAB AGAP 9-18 mmol/L Anion Gap 15 LAB ALT 7-38 U/L ALT 13 LAB GFRAA eGFR- Amer. >60 LAB GFRNAA . eGFR-All Other Races >60 Result Comment: eGFR (Estimated GFR) Units of measure: mL/min/1.73 meters squared eGFR is derived from the reexpressed MDRD Study equation using the following parameters: serum creatinine, age, gender and race. The creatinine assay has been calibrated to be traceable to IDMS. An eGFR <60 mL/min/1.73m2 for >3 months is consistent with chronic kidney disease. Refer to KDOQI guidelines for clinical interpretation. In patients with unstable renal function, e.g. those with acute kidney injury, the eGFR may not accurately reflect actual GFR. Performed By: #### CBC, CMP, MG1, PHOS #### [facility] [address] [address] MAGNESIUM Collected: 05/27/2018 Status: F Source: [place] 5:09 AM [facility] REPOSITORY TYPE CODE TESTS RESULT OUT OF REFERENCE UNITS RANGE LAB MG 1.7-2.3 mg/dL Magnesium 1.7 Performed By: #### CBC, CMP, MG1, PHOS #### [facility] [address] [place] [address] PHOSPHORUS Collected: 05/27/2018 Status: F Source: [place] 5:09 AM [facility] REPOSITORY TYPE CODE TESTS RESULT OUT OF REFERENCE UNITS RANGE LAB PHOS 2.7-4.8 mg/dL Phosphorus 4.1 Performed By: #### CBC, CMP, MG1, PHOS #### [facility] [address] [address] CNTRTM Observed: 05/27/2018 Status: COMPLETED Source: [place] 12:00 AM [facility] REPOSITORY Treatment Team (GENSMN) MARY ALICE KIMBLE ([id number]) 1985 F Date Time Provider Department 05/27/18 GILLES STONE (FEL) During your visit today, we recorded the following information about you: Gilles Stone MD 05/27/2018 12:12 PM Signed Case discussed at multidisciplinary Hepatopancreatobiliary conference on 05/27/18 Consensus/ Recommendations: Completion cholecystectomy Allergies As of Date: 05/27/2018 (No Known Allergies) Date Reviewed: 05/27/2018 Reviewed by: Cuca Costa) KIRSTEN Vallejo - Fully Assessed Prescriptions as of 05/27/2018 Sig: ACETAMINOPHEN 500 MG TABLET Take 1 tablet by mouth every * OXYCODONE 5 MG TABLET Take 1 tablet by mouth every * DOCUSATE SODIUM 100 MG CAPSULE Take 1 capsule by mouth twice* ACTIGALL ORAL Take by mouth twice daily. WOMEN'S MULTIPLE VITAMINS ORAL Take by mouth. PREDNISONE 20 MG TABLET Prednisone 40 mg (2-20mg tabl* Patient not taking: Reported on 01/30/2018 BENZONATATE 100 MG CAPSULE Take 1 capsule by mouth three* Patient not taking: Reported on 01/30/2018 ALBUTEROL SULFATE HFA 90 MCG/* Inhale 2 Puffs as instructed * SPRINTEC (28) 0.25 MG-35 MCG * Problem List As Of Date 05/27/2018 Noted Resolved CLASSICAL MIGRAINE [346.0] INVALID FOR* LOW BLADDER COMPLIANCE [N31.8] INVALID FOR* Backache, unspecified [M54.9] INVALID FOR* Retained gallstones following laparoscopic chol*INVALID FOR* Severe protein-calorie malnutrition (HCC) [E43] INVALID FOR* Obesity, Class II, BMI 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 [E66.9] INVALID FOR* Encounter Status:Closed by GILLES STONE on 05/27/18 CONFIRM BLOOD TYPE Collected: 05/26/2018 Status: F Source: [place] 1:45 PM [facility] [place] REPOSITORY TYPE CODE TESTS RESULT OUT OF REFERENCE UNITS RANGE LAB %ABR O ABO/RH(D) POSITIVE Performed By: #### CONABO #### [facility] [address] [place], [place] [address] ANES POST Observed: 05/26/2018 Status: COMPLETED Source: [place] 11:50 AM [facility] [place] REPOSITORY HNO ID: [id number] Author: Carlos Berg Service: Anesthesiology Author Type: Anesthesiologist Type: Anesthesia PostOp Filed: 05/26/2018 11:51 AM Note Text: POST ANESTHESIA EVALUATION NOTE SERVICE DATE: 05/26/2018 SERVICE TIME: 11:51 AM : 1985 Vitals: 05/25/18174705/25/18211905/26/1813105/26/18 0539 Temp: 36.7 ?C (98 ?F) 36.7 ?C (98.1 ?F) 36.9 ?C (98.4 ?F) 36.6 ?C (97.8 ?F) 05/25/18174705/25/18211905/26/1813105/26/18 0539 BP: 116/74 106/59 107/54 102/57 05/25/18174705/25/18211905/26/1813105/26/18 0539 Pulse: 64 62 63 60 05/25/18174705/25/18211905/26/1813105/26/18 0539 Resp: 16 16 16 16 05/25/18174705/25/18211905/26/1813105/26/18 0539 SpO2: 100% 97% 98% 97% Validated Vital Signs: Yes POST ANES STATUS: No apparent anesthetic complications. The patient is appropriately hydrated with stable respiratory and cardiovascular status. Patient has safe and adequate airway control. The patient has appropriate pain relief and no significant post operative nausea or vomiting. The patient has achieved baseline mental status. Intra-Operative Events: No Significant Anesthesia Events Further assessment by Anesthesia Service: None Other Remarks: SIGNATURE: Cralos Berg MD PATIENT NAME: Mary Alice Kimble DATE: May 26, 2018 TIME: 11:51 AM PAGER/CONTACT #: [phone] CASE MANAGEM Observed: 05/26/2018 Status: COMPLETED Source: [place] 11:39 AM [facility] REPOSITORY O ID: [id number] Author: Aniya Barnett (Sw) Service: Care Management Author Type: Sleeper Cutter Type: Care Mgt Progress Note Filed: 05/26/2018 11:43 AM Note Text: CARE MANAGEMENT PROGRESS NOTE SERVICE DATE: 05/26/2018 SERVICE TIME: 11:39 AM LOS: 3 days Needs Prior to Discharge: None Per phone conversation with General Surgery resident, Raisa Vela, plan for ERCP today. Anticipated discharge plans for later today or tomorrow. Patient has no skilled needs. SW following. SIGNATURE: YURIY Cramer PATIENT NAME: Mary Alice Kimble DATE: May 26, 2018 TIME: 11:39 AM PAGER/CONTACT #: [phone] PLAN OF CARE Observed: 05/26/2018 Status: COMPLETED Source: [place] 11:06 AM [facility] REPOSITORY HNO ID: [id number] Author: Mark Tellez Service: Gastroenterology Author Type: Physician Type: Plan of Care Filed: 05/26/2018 11:31 AM Note Text: ERCP performed in AM: - Prior biliary sphincterotomy appeared open. ?- 2 large filling defects in the dilated remnant cystic duct consistent with stones seen on the cholangiogram. - Unable to use extraction balloon or balloon dilator to remove stones (not able to advance tool proximal to the stone) past presumed inflammatory stricture at the site of stone impaction. - Cholangioscopy with Spyglass performed. A stricture and a large stone was found in the cystic? duct. Due to stone location at angulation and unable to obtain en face view, was not able to treat stone with EHL probe through spyglass. - Mechanical lithotripsy was unsuccessful because the stone could not be trapped. Plan: ? - Consult surgery for removal of cystic duct stones. Mark Tellez M.D. Fellow, Gastroenterology AND Hepatology Pager: [phone] May 26, 2018 11:31 AM NUTRITION Observed: 05/26/2018 Status: COMPLETED Source: [place] 10:42 AM [facility] REPOSITORY HNO ID: [id number] Author: Rosa Vargas RD Service: Nutrition Therapy Author Type: Registered Dietitian Type: Nutrition Filed: 05/26/2018 2:03 PM Note Text: NUTRITION THERAPY PROGRESS NOTE SERVICE DATE: 05/26/2018 SERVICE TIME: 9:28 AM RECOMMENDED DIAGNOSIS: SEVERE PROTEIN-CALORIE MALNUTRITION per Registered Dietitian on 05/23 NUTRITION CARE PLAN Intervention: 1. Monitor diet advancement when medically appropriate -Rec for pt to be on GI soft-fiber controlled diet, low fat when diet advances 2. If anticipated to remain NPO for >7days, would consider NST consult for PN evaluation Monitor and Evaluation: Nutrition care Indicator: Diet advancement, presence of bowel function Data Source: I/O's, francheska [place], pt/family report, lab reports Criteria for evaluation: oral diet advance in 2-3 days; pt to meet ~50% estimated needs ? Discharge Nutrition Recommendations: Diet: goal for gi soft, low fat with supplements Per HPI: 32 year old female with PMH of AV block, pancreatitis, cholecystitis and common bile duct stones s/p ERCP on May 01 and laparoscopic cholecystectomy on may 02 at [facility] who presents with retained cystic duct stones. ? Interval History: NPO for ERCP Nutritional Intake: ~57% estimated energy need over the past 3 day(s) 05/25 : 100%, 100%, 100% = 1169 kcals, 54 g pro 10 : 100%, 100%, 100% = 1637 kcals, 66 g pro 05/23 : NPO, NPO, 100% = 518 kcals, 29 g pro Estimated kilocalorie needs: 2929-6494 kilocalories determined by 20-25 kcal/kg Estimated protein needs: 68-85 grams determined by 1.2-1.5 g/kg [place] weight Current Diet Order DIET NPO Height: 165.1 cm (5' 5) Admission Weight: 98.7 kg (217 lb 9.6 oz) Current Weight: 98.7 kg (217 lb 9.6 oz) Body mass index is 36.21 kg/m?. class 2 obesity Recent Labs 05/26/18 0556 GLUC 88 BUN 12 CREAT 0.80 NA 139 K 3.8 CHLOR 105 CO2 21* ALB 3.9 P 3.6 HB 12.8 HCT 38.2 WBC 5.89 MG 1.8 MNT Billing Type: Re-assess/15 min 2 units SIGNATURE: Rosa Vargas, MS, RD, LD PATIENT NAME: Mary Alice Kimble DATE: May 26, 2018 TIME: 10:42 AM PAGER: [phone] PROGRESS Observed: 05/26/2018 Status: COMPLETED Source: [place] 9:45 AM [facility] REPOSITORY HNO ID: [id number] Author: Raisa Vela Service: General Surgery Author Type: Resident Type: Progress Notes Filed: 05/26/2018 10:32 AM Note Text: [facility] GENERAL SURGERY PROGRESS NOTE Mary Alice Kimble [id number] Hospital Day: 4 ASSESSMENT AND PLAN: 32 year old female with PMH of AV block, pancreatitis, cholecystitis and common bile duct stones s/p ERCP on May 01 and laparoscopic cholecystectomy on may 02 at [facility] who presents with retained cystic duct stones. ? -ERCP today -diet after procedure -Will discuss at HPB conference if ERCP unsuccessful -PRN analgesia -HLIV -DARWIN, SCDs, OOB, Amb -RNF, outpatient cardiology follow up for palpitations Raisa Vela MD, PGY1 Acute Care Surgery Service Pager [phone] till 6pm (on Wednesdays: 7pm) nights/ weekends pager [phone] ? Subjective INTERVAL EVENTS: No acute events. Feels heart racing when she gets up. Once episode of leg numbness and tingling overnight. No SOB/CP/syncope/N/V. Normal bowel function. Objective PHYSICAL EXAM: BP 102/57 Pulse 60 Temp 36.6 ?C (97.8 ?F) (Oral) Resp 16 Ht 165.1 cm (5' 5) Wt 98.7 kg (217 lb 9.6 oz) SpO2 97% BMI 36.21 kg/m? GEN: alert and in no acute distress HEENT: Normocephalic, Atraumatic, sclera anicteric, PULM: Unlabored breathing on RA CV: hemodynamically stable ABD: Soft, Non-tender, Non-Distended EXT: warm and well perfused, no jaundice, no cyanosis, no edema NEURO: Awake, Alert DATA: Lines, Drains, and Airways Line Peripheral 05/23/18 1713 Short Right Forearm 22 Gauge 2 days Medications: Reviewed Current hospital medications: lactated ringers infusion 100 mL/hr INTRAVENOUS CONTINUOUS acetaminophen 650 mg tab(s) (TYLENOL) 650 mg ORAL q 4 H PRN heparin 5,000 Units injection 5,000 Units SUBCUTANEOUS q 12 H oxyCODONE IR 5-10 mg tab(s) (ROXICODONE) 5-10 mg ORAL q 4 H PRN HYDROmorphone 0.2 mg injection (DILAUDID) 0.2 mg INTRAVENOUS q 4 H PRN Recent Labs 05/26/18 0556 05/25/18 0720 05/24/18 0615 WBC 5.89 5.50 5.05 HB 12.8 12.3 11.9 HCT 38.2 37.2 35.9* PLT 218 208 201 NA 139 138 139 K 3.8 4.0 4.0 CHLOR 105 101 103 CO2 21* 22 24 CREAT 0.80 0.83 0.79 P 3.6 3.2 3.4 BUN 12 11 10 GLUC 88 91 92 TPROT 7.1 6.9 6.6 ALB 3.9 3.9 3.6* MG 1.8 1.9 1.9 CA 9.5 9.2 8.8 ALKPHOS 101 105 104 TBILI 0.3 0.3 0.4 AST 14 17 21 ALT 14 18 19 APTT 27.9 -- -- INR 1.0 -- -- Active Problems: Retained gallstones following laparoscopic cholecystectomy Severe protein-calorie malnutrition (HCC) Resolved Problems: * No resolved hospital problems. * CALCIUM, IONIZED Collected: 05/26/2018 Status: F Source: [place] 7:34 AM [facility] REPOSITORY TYPE CODE TESTS RESULT OUT OF REFERENCE UNITS RANGE LAB ICAL 1.08-1.30 mmol/L Calcium, Ionized 1.14 LAB NCA 1.08-1.30 mmol/L Calcium, Normalized 1.14 Performed By: #### ICA #### [facility] [address] [place], [place] [address] HCG QUAL, URINE Collected: 05/26/2018 Status: F Source: [place] 7:08 AM [facility] REPOSITORY TYPE CODE TESTS RESULT OUT OF REFERENCE UNITS RANGE LAB CG Negative HCG Qual, Negative Urine Result Comment: This test is intended to aid in the early detection of . Very dilute urine samples, as indicated by a low specific gravity, may not contain correspondence representative levels of hCG. This te st detects intact hCG only. This test does not reliably detect hCG degradation products, including free-beta subunit and beta-core fragment. Therefore, this test may show reduced reactivity in urine after 8 weeks gestation. A number of conditions other than , including trophoblastic disease and certain non-trophoblastic neoplasms ca use elevated levels of hCG. As with any assay employing mouse antibodies, the possibility exists for interference by human anti-mouse antibodies (HAMA) in the specimen. The test provides a presumptive diagnosis for . Performed By: #### UHCG #### [facility] [address], [place] [address] PROTIME Collected: 05/26/2018 Status: F Source: [place] 5:56 AM [facility] REPOSITORY TYPE CODE TESTS RESULT OUT OF RANGE REFERENCE UNITS LAB PSEC 9.7-13.0 sec PT Sec 10.9 LAB INR 0.9-1.3 PT INR 1.0 Result Comment: Vitamin K Antagonist (VKA) Therapeutic Range: INR 2 to 3 (Target INR of 2.5) Note: For patients treated with VKA drugs, such as warfarin, the [place] [employer] 2012 Guideline recommends a therapeutic INR range of 2 to 3 (target INR of 2.5). This recommendation includes high-risk patients with antiphospholipid syndrome with previous arterial or venous thromboembolism, current-generation mechanical or bioprosthetic aortic heart valve replacement. Note: Patients with mechanical aortic valve replacement and additional risk factors for thromboembolic events (atrial fibrillation, previous thromboembolism, LV dysfunction, hypercoagulable conditions) or an older generation mechanical AVR (i.e., ball in-Cage) or any mechanical MVR should have a INR therapeutic range of 2.5 to 3.5 (target INR of 3). Shawn GH, et al. Chest 2012, 141:7S-47S Pipo RA, et al. [facility] 2017, 70: 252-289 Performed By: #### PT, PTT, CMP, MG1, PHOS, CBC #### [facility] [address] [place], [place] [address] APTT Collected: 05/26/2018 Status: F Source: [place] 5:56 AM [facility] REPOSITORY TYPE CODE TESTS RESULT OUT OF RANGE REFERENCE UNITS LAB APTT 23.0-32.4 sec APTT 27.9 Result Comment: Unfractionated Heparin Therapeutic Ranges: Standard Heparin Nomogram: 53 to 78 seconds (anti-Xa level of 0.3 to 0.7 U/ml) Low Dose/ACS Nomogram: 49 to 67 seconds (anti-Xa level of 0.2 to 0.5 U/ml) Stroke Treatment Nomogram: 49 to 67 seconds (anti-Xa level of 0.2 to 0.5 U/ml) Note: The APTT therapeutic range has been determined for the current lot of laboratory APTT reagent in use throughout the [facility]. Performed By: #### PT, PTT, CMP, MG1, PHOS, CBC #### [facility] [address] [place], [place] [address] COMP METABOLIC PANEL Collected: 05/26/2018 Status: F Source: [place] 5:56 AM [facility] REPOSITORY TYPE CODE TESTS RESULT OUT OF REFERENCE UNITS RANGE LAB TP 6.3-8.0 g/dL Protein, Total 7.1 LAB ALB 3.9-4.9 g/dL Albumin 3.9 LAB CA 8.5-10.2 mg/dL Calcium, Total 9.5 LAB TBIL 0.2-1.3 mg/dL Bilirubin, Total 0.3 LAB ALKP 34-123 U/L Alkaline Phosphatase 101 LAB AST 13-35 U/L AST 14 LAB GLU 74-99 mg/dL Glucose 88 Result Comment: The [place] [employer] (ADA) provides guidance for cutoff values for fasting glucose and random glucose. The ADA defines fasting as no caloric intake for at least 8 hours. Fas ting plasma glucose results between 100 to 125 mg/dL indicate increased risk for diabetes (prediabetes). Fasting plasma glucose results greater than or equal to 126 mg/dL meet the criteria for diagnosis of diabetes. In the absence of unequivocal hyperglycemia, results should be confirmed by repeat testing. In a patient with classic symptoms of hyperglycemia or hyperglycemic crisis, random plasma glucose results greater than or equal to 200 mg/dL meet the criteria for diagnosis of diabetes. Reference: Standards of Medical Care in Diabetes 2016, [place] [employer]. Diabetes Care. 2016.39(Suppl 1). LAB BUN 7-21 mg/dL BUN 12 LAB CRET 0.58-0.96 mg/dL Creatinine 0.80 LAB NA 136-144 mmol/L Sodium 139 LAB K 3.7-5.1 mmol/L Potassium 3.8 LAB CL 97-105 mmol/L Chloride 105 LAB CO2 22-30 mmol/L CO2 Low 21 LAB AGAP 9-18 mmol/L Anion Gap 13 LAB ALT 7-38 U/L ALT 14 LAB GFRAA eGFR- Amer. >60 LAB GFRNAA . eGFR-All Other Races >60 Result Comment: eGFR (Estimated GFR) Units of measure: mL/min/1.73 meters squared eGFR is derived from the reexpressed MDRD Study equation using the following parameters: serum creatinine, age, gender and race. The creatinine assay has been calibrated to be traceable to IDMS. An eGFR <60 mL/min/1.73m2 for >3 months is consistent with chronic kidney disease. Refer to KDOQI guidelines for clinical interpretation. In patients with unstable renal function, e.g. those with acute kidney injury, the eGFR may not accurately reflect actual GFR. Performed By: #### PT, PTT, CMP, MG1, PHOS, CBC #### [facility] [address] [place] [address] MAGNESIUM Collected: 05/26/2018 Status: F Source: [place] 5:56 AM [facility] REPOSITORY TYPE CODE TESTS RESULT OUT OF REFERENCE UNITS RANGE LAB MG 1.7-2.3 mg/dL Magnesium 1.8 Performed By: #### PT, PTT, CMP, MG1, PHOS, CBC #### [facility] [address] [address] PHOSPHORUS Collected: 05/26/2018 Status: F Source: [place] 5:56 AM [facility] REPOSITORY TYPE CODE TESTS RESULT OUT OF REFERENCE UNITS RANGE LAB PHOS 2.7-4.8 mg/dL Phosphorus 3.6 Performed By: #### PT, PTT, CMP, MG1, PHOS, CBC #### [place] [address] CBC Collected: 05/26/2018 Status: F Source: [place] 5:56 AM [facility] REPOSITORY TYPE CODE TESTS RESULT OUT OF REFERENCE UNITS RANGE LAB WBC 3.70-11.00 k/uL WBC 5.89 LAB RBC 3.90-5.20 m/uL RBC 4.19 LAB HGB 11.5-15.5 g/dL Hemoglobin 12.8 LAB HCT 36.0-46.0 % Hematocrit 38.2 LAB MCV 80.0-100.0 fL MCV 91.2 LAB MCH 26.0-34.0 pG MCH 30.5 LAB MCHC 30.5-36.0 g/dL MCHC 33.5 LAB RDWCV 11.5-15.0 % RDW-CV 13.3 LAB PLTCT 150-400 k/uL Platelet Count 218 LAB MPV 9.0-12.7 fL MPV 11.9 LAB ABSNUC <0.01 k/uL Absolute High nRBC 0.01 Performed By: #### PT, PTT, CMP, MG1, PHOS, CBC #### [facility] [address], [place] [address] TYPE AND SCREEN Collected: 05/26/2018 Status: F Source: [place] 5:55 AM [facility] REPOSITORY TYPE CODE TESTS RESULT OUT OF REFERENCE UNITS RANGE LAB %ABR O ABO/RH(D) POSITIVE LAB % Antibody NEG Screen Performed By: #### TSCR #### [facility] [address], [place] [address] NURSING PROG Observed: 05/26/2018 Status: COMPLETED Source: [place] 3:06 AM [facility] REPOSITORY HNO ID: [id number] Author: Stefani (Rn) KIRSTEN Hunt Service: (none) Author Type: Registered Nurse Type: Nursing Progress Note Filed: 05/26/2018 3:08 AM Note Text: Nursing Progress Note Patient Name: Mary Alice Kimble Patient Location: H051 [id number]/[id number] Daily Note: Pt went to get OOB to bathroom and reported SOB and numbness/tingling in both legs from her feet up to her knees. When she got back to bed the symptoms improved. This was happening at the OSH when her HR would drop. Primary service notified. This note was completed by: Stefani Hunt RN ECG COMPLETE W Observed: 05/25/2018 Status: F Source: [place] INTERPRETATION 1:41 PM [facility] REPOSITORY NAME : MARY ALICE KIMBLE PID : [id number] : 1985 Gender : Female Race : ORD : [id number] Procedure Date : May 25 2018 13:41:22 Edit Date : May 26 2018 13:33:01 Diagnosis:NORMAL SINUS RHYTHM LOW VOLTAGE QRS, CONSIDER PULMONARY DISEASE, PERICARDIAL EFFUSION, OR NORMAL VARIANT BORDERLINE ECG Confirmed by MD LIZ, PhD, GABBI ([id number]) on 05/26/2018 1:32:55 PM Ventricular Rate : 71 BPM Atrial Rate : 71 BPM P-R Interval : 186 ms QRS Duration : 92 ms Q-T Interval : 410 ms QTC Calculation(Bezet) : 445 ms P [place] : 35 degrees R [place] : 77 degrees T [place] : 58 degrees Test Reason : RETAINED GALLBLADDER STONES Location : 54 : H51 22 Overread By : MD LIZ, PhD,GABBI Edited By : MD LIZ, PhD,GABBI Referred By : , Acquired by : BORA BLACK PROGRESS Observed: 05/25/2018 Status: COMPLETED Source: [place] 10:39 AM [facility] REPOSITORY O ID: [id number] Author: Raisa Vela Service: General Surgery Author Type: Resident Type: Progress Notes Filed: 05/25/2018 10:41 AM Note Text: Attestation signed by Vazquez Horton at 05/25/2018 4:59 PM Addendum: I have reviewed the history and physical examination obtained and documented by the resident and I personally participated in the dumont components. I have discussed the case and management of the patient's care. The following comments revise or confirm relevant dumont components of the note. CC: Tired HPI: No new issues. Minimal abdominal pain. Tolerating PO. Ambulating. Having bowel movements. No nausea or vomiting. Afebrile. Plan: - ERCP tomorrow to attempt retrieval of cystic duct stones - NPO at midnight, diet as tolerated until then - Ambulate - Continue RNF SIGNATURE: Jerzy Horton MD HPB surgery Pager: [phone] [facility] GENERAL SURGERY PROGRESS NOTE Mary Alice Kimble [id number] Hospital Day: 3 ASSESSMENT AND PLAN: 32 year old female with PMH of AV block, pancreatitis, cholecystitis and common bile duct stones s/p ERCP on May 01 and laparoscopic cholecystectomy on may 02 at [facility] who presents with retained cystic duct stones. ? -ERCP Saturday 10Am with GI -GIS low fat, then NPO @ midnight -Will discuss at [facility] conference if ERCP unsuccessful -PRN analgesia -HLIV -DARWIN, SCDs, OOB, Amb -RNF Raisa Vela MD, PGY1 Acute Care Surgery Service Pager [phone] till 6pm (on Wednesdays: 7pm) nights/ weekends pager [phone] ? Subjective INTERVAL EVENTS: No acute events. No new complaints. Objective PHYSICAL EXAM: BP 120/63 Pulse 61 Temp 36.7 ?C (98 ?F) (Oral) Resp 16 Ht 165.1 cm (5' 5) Wt 98.7 kg (217 lb 9.6 oz) SpO2 99% BMI 36.21 kg/m? GEN: alert and in no acute distress HEENT: Normocephalic, Atraumatic, sclera anicteric, PULM: Unlabored breathing on RA CV: hemodynamically stable ABD: Soft, Non-tender, Non-Distended EXT: warm and well perfused, no jaundice, no cyanosis, no edema NEURO: Awake, Alert DATA: Lines, Drains, and Airways Line Peripheral 05/23/18 1713 Short Right Forearm 22 Gauge 1 day Medications: Reviewed Current hospital medications: acetaminophen 650 mg tab(s) (TYLENOL) 650 mg ORAL q 4 H PRN heparin 5,000 Units injection 5,000 Units SUBCUTANEOUS q 12 H oxyCODONE IR 5-10 mg tab(s) (ROXICODONE) 5-10 mg ORAL q 4 H PRN HYDROmorphone 0.2 mg injection (DILAUDID) 0.2 mg INTRAVENOUS q 4 H PRN Recent Labs 05/25/18 0720 05/24/18 0615 05/23/18 0556 WBC 5.50 5.05 5.65 HB 12.3 11.9 12.5 HCT 37.2 35.9* 38.6 PLT 208 201 220 NA 138 139 142 K 4.0 4.0 4.0 CHLOR 101 103 103 CO2 22 24 25 CREAT 0.83 0.79 0.87 P 3.2 3.4 3.5 BUN 11 10 8 GLUC 91 92 86 TPROT 6.9 6.6 6.7 ALB 3.9 3.6* 3.7* MG 1.9 1.9 1.9 CA 9.2 8.8 9.1 ALKPHOS 105 104 109 TBILI 0.3 0.4 0.4 AST 17 21 22 ALT 18 19 20 AMYLASE -- -- 49 LIPASE -- -- 39 Active Problems: Retained gallstones following laparoscopic cholecystectomy Severe protein-calorie malnutrition (HCC) Resolved Problems: * No resolved hospital problems. * CBC Collected: 05/25/2018 Status: F Source: [place] 7:20 AM [facility] REPOSITORY TYPE CODE TESTS RESULT OUT OF REFERENCE UNITS RANGE LAB WBC 3.70-11.00 k/uL WBC 5.50 LAB RBC 3.90-5.20 m/uL RBC 4.08 LAB HGB 11.5-15.5 g/dL Hemoglobin 12.3 LAB HCT 36.0-46.0 % Hematocrit 37.2 LAB MCV 80.0-100.0 fL MCV 91.2 LAB MCH 26.0-34.0 pG MCH 30.1 LAB MCHC 30.5-36.0 g/dL MCHC 33.1 LAB RDWCV 11.5-15.0 % RDW-CV 13.2 LAB PLTCT 150-400 k/uL Platelet Count 208 LAB MPV 9.0-12.7 fL MPV 11.3 LAB ABSNUC <0.01 k/uL Absolute nRBC <0.01 Performed By: #### CBC, CMP, MG1, PHOS #### [facility] [address] [place], [place] [address] COMP METABOLIC PANEL Collected: 05/25/2018 Status: F Source: [place] 7:20 AM [facility] REPOSITORY TYPE CODE TESTS RESULT OUT OF REFERENCE UNITS RANGE LAB TP 6.3-8.0 g/dL Protein, Total 6.9 LAB ALB 3.9-4.9 g/dL Albumin 3.9 LAB CA 8.5-10.2 mg/dL Calcium, Total 9.2 LAB TBIL 0.2-1.3 mg/dL Bilirubin, Total 0.3 LAB ALKP 34-123 U/L Alkaline Phosphatase 105 LAB AST 13-35 U/L AST 17 LAB GLU 74-99 mg/dL Glucose 91 Result Comment: The [place] Diabetes Association (ADA) provides guidance for cutoff values for fasting glucose and random glucose. The ADA defines fasting as no caloric intake for at least 8 hours. Fas ting plasma glucose results between 100 to 125 mg/dL indicate increased risk for diabetes (prediabetes). Fasting plasma glucose results greater than or equal to 126 mg/dL meet the criteria for diagnosis of diabetes. In the absence of unequivocal hyperglycemia, results should be confirmed by repeat testing. In a patient with classic symptoms of hyperglycemia or hyperglycemic crisis, random plasma glucose results greater than or equal to 200 mg/dL meet the criteria for diagnosis of diabetes. Reference: Standards of Medical Care in Diabetes 2016, [place] [employer]. Diabetes Care. 2016.39(Suppl 1). LAB BUN 7-21 mg/dL BUN 11 LAB CRET 0.58-0.96 mg/dL Creatinine 0.83 LAB NA 136-144 mmol/L Sodium 138 LAB K 3.7-5.1 mmol/L Potassium 4.0 LAB CL 97-105 mmol/L Chloride 101 LAB CO2 22-30 mmol/L CO2 22 LAB AGAP 9-18 mmol/L Anion Gap 15 LAB ALT 7-38 U/L ALT 18 LAB GFRAA eGFR- Amer. >60 LAB GFRNAA . eGFR-All Other Races >60 Result Comment: eGFR (Estimated GFR) Units of measure: mL/min/1.73 meters squared eGFR is derived from the reexpressed MDRD Study equation using the following parameters: serum creatinine, age, gender and race. The creatinine assay has been calibrated to be traceable to IDMS. An eGFR <60 mL/min/1.73m2 for >3 months is consistent with chronic kidney disease. Refer to KDOQI guidelines for clinical interpretation. In patients with unstable renal function, e.g. those with acute kidney injury, the eGFR may not accurately reflect actual GFR. Performed By: #### CBC, CMP, MG1, PHOS #### [facility] [address] [place] [address] MAGNESIUM Collected: 05/25/2018 Status: F Source: [place] 7:20 AM [facility] REPOSITORY TYPE CODE TESTS RESULT OUT OF REFERENCE UNITS RANGE LAB MG 1.7-2.3 mg/dL Magnesium 1.9 Performed By: #### CBC, CMP, MG1, PHOS #### [facility] [address] [place] [address] PHOSPHORUS Collected: 05/25/2018 Status: F Source: [place] 7:20 AM [facility] REPOSITORY TYPE CODE TESTS RESULT OUT OF REFERENCE UNITS RANGE LAB PHOS 2.7-4.8 mg/dL Phosphorus 3.2 Performed By: #### CBC, CMP, MG1, PHOS #### [facility] [address] [place] [address] PLAN OF CARE Observed: 05/24/2018 Status: COMPLETED Source: [place] 9:14 AM [facility] REPOSITORY HNO ID: [id number] Author: Jennifer Hernandez (Fel) Service: Gastroenterology Author Type: Fellow Type: Plan of Care Filed: 05/24/2018 9:35 AM Note Text: Brief GI update: Case d/w Dr. Ramires yesterday. MRCP reviewed and retained stones in cystic duct remnant noted. Plan for ERCP for retrieval. Order placed and scheduled for Saturday at 10am. NPO after MN on Saturday MN - Ok for regular diet for now - Pain control per primary team Jennifer Hernandez M.D. Fellow, Gastroenterology AND Hepatology May 24, 2018 9:15 AM PROGRESS Observed: 05/24/2018 Status: COMPLETED Source: [place] 9:07 AM [facility] REPOSITORY HNO ID: [id number] Author: Raisa Vela Service: General Surgery Author Type: Resident Type: Progress Notes Filed: 05/24/2018 9:12 AM Note Text: Attestation signed by Vazquez Horton at 05/24/2018 10:46 AM Addendum: I have reviewed the history and physical examination obtained and documented by the resident and I personally participated in the dumont components. I have discussed the case and management of the patient's care. The following comments revise or confirm relevant dumont components of the note. CC: Tired HPI: Pain is improved. No nausea or vomiting. Abdomen is soft nondistended. There is no tenderness. She isn't bleeding. Hungry and tolerating food. Plan: - ERCP per GI on Saturday for attempted retrieval of cystic duct stones - Presented HPV conference on Saturday morning - Okay for diet as tolerated this weekend will make nothing by mouth at midnight on Saturday night - Continue regular nursing floor SIGNATURE: Jerzy Horton MD B surgery Pager: [phone] [facility] GENERAL SURGERY PROGRESS NOTE Mary Alice Kimble [id number] Hospital Day: 2 ASSESSMENT AND PLAN: 32 year old female with PMH of AV block, pancreatitis, cholecystitis and common bile duct stones s/p ERCP on May 01 and laparoscopic cholecystectomy on may 02 at [facility] who presents with retained cystic duct stones. -Will discuss at [facility] conference -GI consulted for outpatient ERCP, awaiting final recs -PRN analgesia -GIS low fat diet -HLIV -DARWIN, SCDs, OOB, Amb -RNF, may be discharged home pending GI clearance Raisa Vela MD, PGY1 Acute Care Surgery Service Pager [phone] till 6pm (on Wednesdays: 7pm) nights/ weekends pager [phone] ? Subjective INTERVAL EVENTS: No acute events. No new complaints. Pain controlled Objective PHYSICAL EXAM: BP 118/66 Pulse (!) 56 Temp 36.6 ?C (97.9 ?F) (Oral) Resp 16 Ht 165.1 cm (5' 5) Wt 98.7 kg (217 lb 9.6 oz) SpO2 98% BMI 36.21 kg/m? GEN: alert and in no acute distress HEENT: Normocephalic, Atraumatic, sclera anicteric PULM: Unlabored breathing on RA CV: hemodynamically stable ABD: Soft, Non-tender, Non-Distended EXT: warm and well perfused, no jaundice, no cyanosis, no edema NEURO: Awake, Alert DATA: Lines, Drains, and Airways Line Peripheral 05/23/18 1713 Short Right Forearm 22 Gauge less than 1 day Medications: Reviewed Current hospital medications: acetaminophen 650 mg tab(s) (TYLENOL) 650 mg ORAL q 4 H PRN heparin 5,000 Units injection 5,000 Units SUBCUTANEOUS q 12 H dextrose 5% in NaCl 0.45% with 20 mEq/L KCl iv infusion 100 mL/hr INTRAVENOUS CONTINUOUS oxyCODONE IR 5-10 mg tab(s) (ROXICODONE) 5-10 mg ORAL q 4 H PRN HYDROmorphone 0.2 mg injection (DILAUDID) 0.2 mg INTRAVENOUS q 4 H PRN Recent Labs 05/24/18 0615 05/23/18 0556 WBC 5.05 5.65 HB 11.9 12.5 HCT 35.9* 38.6 PLT 201 220 NA 139 142 K 4.0 4.0 CHLOR 103 103 CO2 24 25 CREAT 0.79 0.87 P 3.4 3.5 BUN 10 8 GLUC 92 86 TPROT 6.6 6.7 ALB 3.6* 3.7* MG 1.9 1.9 CA 8.8 9.1 ALKPHOS 104 109 TBILI 0.4 0.4 AST 21 22 ALT 19 20 AMYLASE -- 49 LIPASE -- 39 Active Problems: Retained gallstones following laparoscopic cholecystectomy Severe protein-calorie malnutrition (HCC) Resolved Problems: * No resolved hospital problems. * CBC Collected: 05/24/2018 Status: F Source: [place] 6:15 AM [facility] REPOSITORY TYPE CODE TESTS RESULT OUT OF REFERENCE UNITS RANGE LAB WBC 3.70-11.00 k/uL WBC 5.05 LAB RBC 3.90-5.20 m/uL RBC 4.01 LAB HGB 11.5-15.5 g/dL Hemoglobin 11.9 LAB HCT 36.0-46.0 % Low Hematocrit 35.9 LAB MCV 80.0-100.0 fL MCV 89.5 LAB MCH 26.0-34.0 pG MCH 29.7 LAB MCHC 30.5-36.0 g/dL MCHC 33.1 LAB RDWCV 11.5-15.0 % RDW-CV 13.3 LAB PLTCT 150-400 k/uL Platelet Count 201 LAB MPV 9.0-12.7 fL MPV 11.1 LAB ABSNUC <0.01 k/uL Absolute nRBC <0.01 Performed By: #### CBC, CMP, MG1, PHOS #### [facility] [address] [place], [place] [address] COMP METABOLIC PANEL Collected: 05/24/2018 Status: F Source: [place] 6:15 AM [facility] REPOSITORY TYPE CODE TESTS RESULT OUT OF REFERENCE UNITS RANGE LAB TP 6.3-8.0 g/dL Protein, Total 6.6 LAB ALB 3.9-4.9 g/dL Low Albumin 3.6 LAB CA 8.5-10.2 mg/dL Calcium, Total 8.8 LAB TBIL 0.2-1.3 mg/dL Bilirubin, Total 0.4 LAB ALKP 34-123 U/L Alkaline Phosphatase 104 LAB AST 13-35 U/L AST 21 LAB GLU 74-99 mg/dL Glucose 92 Result Comment: The [place] Diabetes Association (ADA) provides guidance for cutoff values for fasting glucose and random glucose. The ADA defines fasting as no caloric intake for at least 8 hours. Fas ting plasma glucose results between 100 to 125 mg/dL indicate increased risk for diabetes (prediabetes). Fasting plasma glucose results greater than or equal to 126 mg/dL meet the criteria for diagnosis of diabetes. In the absence of unequivocal hyperglycemia, results should be confirmed by repeat testing. In a patient with classic symptoms of hyperglycemia or hyperglycemic crisis, random plasma glucose results greater than or equal to 200 mg/dL meet the criteria for diagnosis of diabetes. Reference: Standards of Medical Care in Diabetes 2016, [place] [employer]. Diabetes Care. 2016.39(Suppl 1). LAB BUN 7-21 mg/dL BUN 10 LAB CRET 0.58-0.96 mg/dL Creatinine 0.79 LAB NA 136-144 mmol/L Sodium 139 LAB K 3.7-5.1 mmol/L Potassium 4.0 LAB CL 97-105 mmol/L Chloride 103 LAB CO2 22-30 mmol/L CO2 24 LAB AGAP 9-18 mmol/L Anion Gap 12 LAB ALT 7-38 U/L ALT 19 LAB GFRAA eGFR- Amer. >60 LAB GFRNAA . eGFR-All Other Races >60 Result Comment: eGFR (Estimated GFR) Units of measure: mL/min/1.73 meters squared eGFR is derived from the reexpressed MDRD Study equation using the following parameters: serum creatinine, age, gender and race. The creatinine assay has been calibrated to be traceable to IDMS. An eGFR <60 mL/min/1.73m2 for >3 months is consistent with chronic kidney disease. Refer to KDOQI guidelines for clinical interpretation. In patients with unstable renal function, e.g. those with acute kidney injury, the eGFR may not accurately reflect actual GFR. Performed By: #### CBC, CMP, MG1, PHOS #### [facility] [address] [place] [address] MAGNESIUM Collected: 05/24/2018 Status: F Source: [place] 6:15 AM [facility] REPOSITORY TYPE CODE TESTS RESULT OUT OF REFERENCE UNITS RANGE LAB MG 1.7-2.3 mg/dL Magnesium 1.9 Performed By: #### CBC, CMP, MG1, PHOS #### [facility] [address] [place] [address] PHOSPHORUS Collected: 05/24/2018 Status: F Source: [place] 6:15 AM [facility] REPOSITORY TYPE CODE TESTS RESULT OUT OF REFERENCE UNITS RANGE LAB PHOS 2.7-4.8 mg/dL Phosphorus 3.4 Performed By: #### CBC, CMP, MG1, PHOS #### [facility] [address] [place], [place] [address] CONSULT Observed: 05/23/2018 Status: COMPLETED Source: [place] 1:53 PM [facility] REPOSITORY HNO ID: [id number] Author: Tamara Ramires Service: Gastroenterology Author Type: Physician Type: Consults Filed: 05/26/2018 8:57 AM Note Text: INITIAL CONSULT GASTROENTEROLOGY SERVICE DATE: 05/23/2018 SERVICE TIME: 1230 Consulting Service: Gastroenterology Opinion/advice regardin stones in remnant cystic duct in a patient s/p lap albert with persistent RUQ pain Subjective HPI: This is a 32 year old female who presents with 3 stones in remnant cystic duct s/p lap albert with persistent RUQ pain. On 04/30, she presented to an OSH and was found to have choledocholithiasis complicated by pancreatitis and cholecystitis. She had an ERCP performed the following day. A lap albert was performed the following day, 05/02. 1 week later, her RUQ abdominal pain returned and she came back to the same OSH where she was found to have 3 stones in the remnant cystic duct. They treated with Laila in an attempt to dissolve the stones - she was discharged on 05/16. She then presented to a different hospital, repeat CT showed persistence of the 3 stones in the remnant cystic duct. She was transferred here for further management. Today, she complains of sharp RUQ pain that is a 5/10 in intensity that radiates to the middle of her upper back. It is being controlled with dilaudid as the pain has been a 10/10. She also complains of a decreased appetite, nausea but no vomiting and a 15 pound weight loss. She denies fever, jaundice, changes in the color or consistency of her BMs, no change in urine color. She is a former light smoker and has never drank. Gallstone risk factors: -Female -Obese -Was taking estrogen OCP; recently ( of child in December) PAST MEDICAL HISTORY Diagnosis Date - Closed fracture of unspecified part of femur right - Cough - Other forms of migraine - Unspecified open fracture of carpal bone right PAST SURGICAL HISTORY Procedure Laterality Date - BREAST BIOPSY 2012 FAMILY HISTORY Problem Relation Age of Onset - Hearing Loss Sister hearing impaired Social History Substance Use Topics - Smoking status: Former Smoker Years: 3.00 Quit date: 07/13/2016 - Smokeless tobacco: Never Used Comment: less than 1/4 pack daily - Alcohol use No MEDICATIONS: Prior to Admission Medications: ursodiol (ACTIGALL ORAL) Take by mouth twice daily. multivit with calcium,iron,min (WOMEN'S MULTIPLE VITAMINS ORAL) Take by mouth. predniSONE (DELTASONE) 20 mg tablet Prednisone 40 mg (2-20mg tablets) po QD for 5 days benzonatate (TESSALON PERLE) 100 mg capsule Take 1 capsule by mouth three times daily as needed. albuterol HFA (VENTOLIN HFA) 90 mcg/actuation inhaler Inhale 2 Puffs as instructed every 4 hours as needed for Wheezing/Shortness of Breath. SPRINTEC 0.25-35 mg-mcg per tablet Current hospital medications: acetaminophen 650 mg tab(s) (TYLENOL) 650 mg ORAL q 4 H PRN heparin 5,000 Units injection 5,000 Units SUBCUTANEOUS q 12 H dextrose 5% in NaCl 0.45% with 20 mEq/L KCl iv infusion 100 mL/hr INTRAVENOUS CONTINUOUS oxyCODONE IR 5-10 mg tab(s) (ROXICODONE) 5-10 mg ORAL q 4 H PRN HYDROmorphone 0.2 mg injection (DILAUDID) 0.2 mg INTRAVENOUS q 4 H PRN iv contrast (radiology procedure) INTRAVENOUS DIRECTED PRN ALLERGIES No Known Allergies GI SPECIFIC REVIEW OF SYSTEMS: Positive for poor appetite, RUQ abd pain, nausea, weight loss, has not had a BM in 2 days Negative for vomitting OTHER ROS: Negative for fever, night sweats, sleep problems, mood or depression. Objective PHYSICAL EXAM: BP 110/53 Pulse (!) 54 Temp 36.8 ?C (98.2 ?F) (Oral) Resp 16 Ht 165.1 cm (5' 5) Wt 98.7 kg (217 lb 9.6 oz) SpO2 100% BMI 36.21 kg/m? GENERAL- AAO x 3, no distress HEENT: Moist mucus membranes, no carotid bruit LUNGS: Clear to auscultation bilaterally CARDIAC: S1, S2 heard, no murmur appreciated ABDOMEN: Soft,tender in RUQ; no guarding or rigidity, reduced bowel sounds, trochar incision sites approximated and clean EXTREMITIES: No pedal edema DATA: Diagnostic Tests Reviewed for Today's Visit: Most recent labs and imaging results. Impression/Recommendations Impression 32 year old female who presents with 3 stones in remnant cystic duct s/p lap albert with persistent RUQ pain. Originally presented to OSH for choledocholithiasis complicated by cholecystitis and pancreatitis - ERCP and lap albert complete. 1 week after discharge presented with same pain that originally brought her in, found to have stones in remnant cystic duct by CT. Attempted medical management with Laila, discharged home, presented to different OSH. Repeat CT showed persistence of cystic duct remnant stones. Transferred here for further management. Plan - ERCP to be completed as outpatient, will be scheduled for next week. I saw and evaluated the patient. I reviewed the History, Exam, and Plan as documented by the resident/fellow. The following reflects my findings: agree fully with findings and plan. Will attempt ERCP, cystic duct cannulation for stone removal. Tamara Ramires MD SIGNATURE: Analy Aly Ms PATIENT NAME: Mary Alice Kimble DATE: May 23, 2018 TIME: 1:53 PM PAGER/CONTACT #: [phone] MRI 3D POST PROCESSING Observed: 05/23/2018 Status: F Source: [place] 1:04 PM [facility] REPOSITORY * * *Final Report* * * DATE OF EXAM: May 23 2018 1:04PM Q 0280 - MRI 3D POST PROCESSING / PROCEDURE REASON: Choledocolithiasis * * * * Physician Interpretation * * * * MRI ABDOMEN WITHOUT AND WITH IV CONTRAST HISTORY: 32 year old female with PMH of pancreatitis, cholecystitis and common bile duct stones s/p ERCP on May 01 and laparoscopic cholecystectomy on may 02 at [facility] who presents with continued abdominal pain. On May 09 abdominal pain returned and pt was found to have retained bile duct stones, she remained at [facility] receiving meds to dissolve stones until discharge on May 16. On 05/22 presented to [facility] ED with continued pain. CT done at [facility] shows 3 retained gallstones in cyctic duct region, CT abdomen done on 05/22 at [place] again shows 3 gallstones in remnant of cystic duct. TECHNIQUE: Magnet: 1.5T scanner. Multiplanar MRI with multiple sequences before and after contrast. 3-D images were post-processed on a dedicated off-line workstation and were reviewed by the interpreting physician. Contrast: IV: 20 ml of Dotarem COMPARISON: None. RESULT: Liver: Normal morphology. No hepatic steatosis. No mass. Biliary: Status post cholecystectomy. No intrahepatic or extrahepatic biliary dilation. The cystic duct remnant is dilated and contains 1.0 cm and 0.9 cm stones (7:47). There is mild wall thickening and hyperenhancement of the cystic duct remnant with hyperemia of the adjacent hepatic parenchyma, likely infectious/inflammatory in etiology. Spleen: No mass. No splenomegaly. Pancreas: No mass or duct dilation. Adrenals: No mass. Kidneys: No solid or cystic mass. No hydronephrosis. GI tract: No dilation or wall thickening. Lymph nodes: No abdominal or pelvic lymphadenopathy. Mesentery / Peritoneum / Retroperitoneum: No ascites or mass. Vasculature: The celiac axis and SMA are patent. The portal vein and branches, splenic vein, SMV, and hepatic veins are patent. Bones/Soft Tissues: No significant finding. Lower chest: Small bilateral pleural effusions. IMPRESSION: TWO RETAINED STONES WITHIN THE DILATED CYSTIC DUCT. MILD WALL THICKENING AND HYPERENHANCEMENT OF THE CYSTIC DUCT REMNANT, LIKELY INFECTIOUS/INFLAMMATORY IN ETIOLOGY. NO DILATION OF THE CBD OR INTRAHEPATIC BILIARY TREE. Cloth Desizing Range Operator Chief: [facility] Transcribe Date/Time: May 23 2018 1:35P Dictated by : SAURAV KATHLEEN MD This examination was interpreted and the report reviewed and electronically signed by: SAURAV KATHLEEN MD on May 23 2018 1:55PM EST [id number] MRI PANC/SAMUEL WO/W Observed: 05/23/2018 Status: F Source: [place] IVCON 1:04 PM [facility] REPOSITORY * * *Final Report* * * DATE OF EXAM: May 23 2018 1:04PM [facility] 0730 - MRI PANC/SAMUEL WO/W IVCON / PROCEDURE REASON: Choledocolithiasis * * * * Physician Interpretation * * * * MRI ABDOMEN WITHOUT AND WITH IV CONTRAST HISTORY: 32 year old female with PMH of pancreatitis, cholecystitis and common bile duct stones s/p ERCP on May 01 and laparoscopic cholecystectomy on may 02 at [facility] who presents with continued abdominal pain. On May 09 abdominal pain returned and pt was found to have retained bile duct stones, she remained at [facility] receiving meds to dissolve stones until discharge on May 16. On 05/22 presented to [facility] ED with continued pain. CT done at [facility] shows 3 retained gallstones in cyctic duct region, CT abdomen done on 05/22 at [place] again shows 3 gallstones in remnant of cystic duct. TECHNIQUE: Magnet: 1.5T scanner. Multiplanar MRI with multiple sequences before and after contrast. 3-D images were post-processed on a dedicated off-line workstation and were reviewed by the interpreting physician. Contrast: IV: 20 ml of Dotarem COMPARISON: None. RESULT: Liver: Normal morphology. No hepatic steatosis. No mass. Biliary: Status post cholecystectomy. No intrahepatic or extrahepatic biliary dilation. The cystic duct remnant is dilated and contains 1.0 cm and 0.9 cm stones (7:47). There is mild wall thickening and hyperenhancement of the cystic duct remnant with hyperemia of the adjacent hepatic parenchyma, likely infectious/inflammatory in etiology. Spleen: No mass. No splenomegaly. Pancreas: No mass or duct dilation. Adrenals: No mass. Kidneys: No solid or cystic mass. No hydronephrosis. GI tract: No dilation or wall thickening. Lymph nodes: No abdominal or pelvic lymphadenopathy. Mesentery / Peritoneum / Retroperitoneum: No ascites or mass. Vasculature: The celiac axis and SMA are patent. The portal vein and branches, splenic vein, SMV, and hepatic veins are patent. Bones/Soft Tissues: No significant finding. Lower chest: Small bilateral pleural effusions. IMPRESSION: TWO RETAINED STONES WITHIN THE DILATED CYSTIC DUCT. MILD WALL THICKENING AND HYPERENHANCEMENT OF THE CYSTIC DUCT REMNANT, LIKELY INFECTIOUS/INFLAMMATORY IN ETIOLOGY. NO DILATION OF THE CBD OR INTRAHEPATIC BILIARY TREE. Cloth Desizing Range Operator Chief: [facility] Transcribe Date/Time: May 23 2018 1:35P Dictated by : SAURAV KATHLEEN MD This examination was interpreted and the report reviewed and electronically signed by: SAURAV KATHLEEN MD on May 23 2018 1:55PM EST [id number] ALLIED HEALTH Observed: 05/23/2018 Status: COMPLETED Source: [place] 12:44 PM [facility] REPOSITORY HNO ID: [id number] Author: Harini Fernandez (Tech) Service: Radiology Author Type: Quality Process Lead Type: Allied Health Filed: 05/23/2018 12:46 PM Note Text: Radiology Service Progress Note PATIENT NAME: Mary Alice Kimble DATE OF SERVICE: May 23, 2018 TIME: 12:44 PM PATIENT IDENTITY VERIFICATION COMPLETED USING TWO (2) METHODS: Patient confirmed name verbally and ID band matches.. PATIENT GENDER DATA: Female. status: : No status: NO. PATIENT RELEVANT IMPLANT DATA REVIEWED: Yes RADIOLOGY DEPARTMENT: MR; Exam(s) Completed: Body: Pancreas/Biliary PERIPHERAL IV DATA: Inpatient: see LDA documentation SIGNED BY: Harini Fernandez / Sherlyn Patel RT May 23, 2018 12:44 PM PROGRESS Observed: 05/23/2018 Status: COMPLETED Source: [place] 12:20 PM [facility] REPOSITORY HNO ID: [id number] Author: Blanca (Rn) KIRSTEN Alejandro Service: Radiology Author Type: Registered Nurse Type: Progress Notes Filed: 05/23/2018 12:20 PM Note Text: Radiology Service Progress Note PATIENT NAME: Mary Alice Kimble DATE OF SERVICE: May 23, 2018 TIME: 12:20 PM PATIENT WEIGHT: 98.7 kg PATIENT IDENTITY VERIFICATION COMPLETED USING TWO (2) METHODS: Patient confirmed name verbally and ID band matches.. PATIENT GENDER DATA: Female. status: : No status: NO. CONTRAST INDUCED NEPHROPATHY RISK FACTORS: Not applicable CREATININE: Creatinine Date Value Ref Range Status 05/23/2018 0.87 0.58 - 0.96 mg/dL Final 11/09/2016 0.84 0.58 - 0.96 mg/dL Final eGFR-All Other Races Date Value Ref Range Status 05/23/2018 >60 . Final Comment: eGFR (Estimated GFR) Units of measure: mL/min/1.73 meters squared eGFR is derived from the reexpressed MDRD Study equation using the following parameters: serum creatinine, age, gender and race. The creatinine assay has been calibrated to be traceable to IDMS. An eGFR <60 mL/min/1.73m2 for >3 months is consistent with chronic kidney disease. Refer to KDOQI guidelines for clinical interpretation. In patients with unstable renal function, e.g. those with acute kidney injury, the eGFR may not accurately reflect actual GFR. eGFR- Date Value Ref Range Status 05/23/2018 >60 Final P.O.C.T. RESULTS: N/A May 23, 2018 TREATMENT: No Hydration needed. ALLERGIES: Reviewed and unchanged CONTRAST ALLERGY: NO. IV SITE: Inpatient - refer to LDA documentation IV SITE APPEARANCE: Clean,Dry and Intact SIGNED BY: Blanca Alejandro RN May 23, 2018 12:20 PM CASE MGT INIT Observed: 05/23/2018 Status: COMPLETED Source: [facility] 11:25 AM [facility] REPOSITORY HNO ID: [id number] Author: Aniya Barnett (Sw) Service: Care Management Author Type: Sleeper Cutter Type: Care Mgt Initial Assessment Filed: 05/23/2018 11:33 AM Note Text: CARE MANAGEMENT: ASSESSMENT AND DISCHARGE PLAN SERVICE DATE: 05/23/2018 SERVICE TIME: 11:25 AM PRIMARY CARE PHYSICIAN: Pankaj Amaya MD ADMISSION STATUS: Inpatient Needs Prior to Discharge: None MEDICAL: Patient/Slunk Skinner Stated Goals: To return home to life as it was Health Insurance: BLUE CARD PPO Health Issues Impacting Discharge Plan: None Last Admission Date: none Is this Within the Past 30 days? 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 How often do you need to have someone help you when you read instructions, pamphlets, or other written material from your doctor or pharmacy? Never - 1 2. How confident are you filling out medical forms by yourself? Extremely - 1 If Patient scores > 3 on either question, the following interventions were put into place: Patient did not score > 3 FUNCTIONAL AND COGNITIVE/BEHAVIORAL PRIOR TO ADMISSION: Baseline Mental Status: Alert AND Oriented, Person, Place , Time and Situation Functional Status: Independent Does Patient Currently Receive Any Community Services or Home Care? None Equipment Prior to Admission: None Has the Patient Been in a Intermediate Facility in the Past 30 days? No SOCIAL: Living Arrangement: Home Lives With: Spouse and and 5 children Financial Resources: Employed: N/A Primary Contact: Extended Emergency Contact Information Primary Emergency Contact: KimbleGlendy Answerology Relation: Spouse Secondary Emergency Contact: RosemaryObdulia Relation: Mother Supportive: No Other Important Patient Contacts: None Caregiver Assessment: Caregiver is ready, willing and able to meet the patient's needs as recommended by the inter-professional team? No Caregiver Needed Patient's transition needs and plan for meeting these needs: SW following hospital course and POC for any discharge needs. Does the patient have an acute stroke diagnosis, or has the patient had a stroke during this admission? No Medication Adherence: I am convinced of the importance of my prescription medication: Agree completely - 0 I worry that my prescription medication will do more harm than good to me Disagree completely - 0 I feel financially burdened by my [id number] expenses for my prescription medication: Disagree completely - 0 Patient is categorized as low risk < 2 Are you interested in bedside delivery of your medications? Yes Food Concerns: In the Last Month, Have You had Trouble Getting Food? No trouble getting food During the Last Month, Have You Worried Whether Your Food Would Run Out Before You Had Enough Money to Buy More? No Is the Patient Psychosocially Complex? No ASSESSMENT AND PLAN: Medical Needs: None Psychosocial Needs: None FREEDOM OF CHOICE EXPLAINED: N/A POTENTIAL TRANSITION PLANS Home Patient is a 32 year old female s/p ERCP on May 01 and laparoscopic cholecystectomy on may 02 at [facility] who presents with continued abdominal pain. SW met with patient at bedside to discuss any possible discharge needs. Patient was alert and oriented and engaged with questioning. Prior to admission patient reported being independent. Patient has no skilled needs identified at this time. Transportation home via /auto at d/c. SW following. Per phone conversation with MD Demetris Desir patient to possible d/c home this weekend with no skilled needs. If immediate needs arise, [place] [phone]. SIGNATURE: YURIY Cramer PATIENT NAME: Mary Alice Kimble DATE: May 23, 2018 TIME: 11:25 AM PAGER/CONTACT #: [phone] NUTRITION Observed: 05/23/2018 Status: COMPLETED Source: [place] 10:10 AM [facility] REPOSITORY [facility] ID: [id number] Author: Rosa Vargas RD Service: Nutrition Therapy Author Type: Registered Dietitian Type: Nutrition Filed: 05/23/2018 3:28 PM Note Text: NUTRITION THERAPY INITIAL ASSESSMENT SERVICE DATE: 05/23/2018 SERVICE TIME: 11:10 AM RECOMMENDED MALNUTRITION DIAGNOSIS: SEVERE PROTEIN-CALORIE MALNUTRITION In the context of Acute Illness or Injury based on: Unintentional Weight Loss: >5% over 1 month Insufficient Energy Intake: less than or equal to 50% for greater than or equal to 5 days NUTRITION CARE PLAN: Problem, Etiology and Signs/Symptoms: Inadequate protein energy intake related to altered GI function as evidenced by decline in oral intakes, weight loss, abdominal pain with nausea and vomiting. Intervention: 1. Monitor diet advancement when medically appropriate -Rec for pt to be on GI soft-fiber controlled diet when diet advances 2. If anticipated to remain NPO for >7days, would consider NST consult for PN evaluation Monitor and Evaluation: Nutrition care Indicator: Diet advancement, presence of bowel function Data Source: I/O's, francheska [place], pt/family report, lab reports Criteria for evaluation: oral diet advance in 2-3 days; pt to meet ~50% estimated needs Discharge Nutrition Recommendations: Diet: goal for gi soft CHIEF COMPLAINT: Abdominal pain Per HPI: 32 year old female with PMH of pancreatitis, cholecystitis and common bile duct stones s/p ERCP on May 01 and laparoscopic cholecystectomy on may 02 at [facility] who presents with continued abdominal pain. On May 09 abdominal pain returned and pt was found to have retained bile duct stones, she remained at [facility] receiving meds to dissolve stones until discharge on May 16. On 05/22 presented to [facility] ED with continued pain. CT done at [facility] shows 3 retained gallstones in cyctic duct region, CT abdomen done on 05/22 at [place] again shows 3 gallstones in remnant of cystic duct. Of note, during her hospital admission at [place], she was found to have bradycardia and was instructed to wear holter monitor. Pain is in RUQ ~5/10, sharp pressure like in character. Has decreased appetite, nausea, vomiting as well as ~15lb weight loss. Denies fever, CP, sob, TORRES, numbness or tingling in extremities, no changes in BM. Current Diet Order DIET NPO Lines and Drains: Peripheral 05/23/18 0150 Admission to Hospital Left Antecubital (Active) Nutritional Intake Prior to Admission: <75% estimated energy needs over the past 3 week(s) GI symptoms: nausea, vomiting, abdominal pain and early satiety Nutrition Abdominal Exam: and not assessed ANTHROPOMETRICS Height: 165.1 cm (5' 5) Admission Weight: 98.7 kg (217 lb 9.6 oz) Current Weight: 98.7 kg (217 lb 9.6 oz) Body mass index is 36.21 kg/m?. class 2 obesity Weight has decreased by 8.11 kg over 1 months representing 8 % weight change clinically significant Last Wt 05/23/18 : 98.7 kg (217 lb 9.6 oz) 01/30/18 : 100.6 kg (221 lb 12.8 oz) 05/16/17 : 108 kg (238 lb) 01/22/17 : 108.4 kg (239 lb) 11/28/16 : 104.8 kg (231 lb) 11/13/16 : 104.3 kg (230 lb) UBW: ~235lbs (106.8kg) [place] Body Weight: 56.8kg Dosing Weight: 98 kg Resting Metabolic Rate: 1709 Estimated kilocalorie needs: 2706-7400 kilocalories determined by 20-25 kcal/kg Estimated protein needs: 68-85 grams determined by 1.2-1.5 g/kg [place] weight Estimated fluid needs: 1414-2624 milliliters based on 1 mL per kcal NUTRITION FOCUSED PHYSICAL EXAM: Subcutaneous Fat Loss Orbital Mild Triceps No fat loss Mid-axillary at the iliac crest No fat loss Muscle Loss Locations: Temporalis No muscle loss Pectoralis No muscle loss Deltoids No muscle loss Interosseous No muscle loss Latissimus dorsi, trapezius Unable to determine at this time Quadriceps Unable to determine at this time Gastrocnemius Unable to determine at this time Potential micronutrient deficiency revealed in: No deficiency identified Edema: Yes Generalized and Non-pitting Ascites: No Assessment of Functional Status: Functional capacity is unrelated to nutrition status Temperature Max in 24 hours: Temp (24hrs), Av.4 ?C (97.6 ?F), Min:36.3 ?C (97.4 ?F), Max:36.6 ?C (97.8 ?F) BP 116/66 Pulse 65 Temp 36.6 ?C (97.8 ?F) (Oral) Resp 18 Ht 165.1 cm (5' 5) Wt 98.7 kg (217 lb 9.6 oz) SpO2 99% BMI 36.21 kg/m? Recent Labs 05/23/18 0556 GLUC 86 BUN 8 CREAT 0.87 NA 142 K 4.0 CHLOR 103 CO2 25 ALB 3.7* P 3.5 HB 12.5 HCT 38.6 WBC 5.65 MG 1.9 Potential Signs of Inflammation: hypoalbuminemia and imaging studies, acute post op ALLERGIES No Known Allergies Current Facility-Administered Medications: acetaminophen 650 mg tab(s) (TYLENOL) 650 mg ORAL q 4 H PRN heparin 5,000 Units injection 5,000 Units SUBCUTANEOUS q 12 H dextrose 5% in NaCl 0.45% with 20 mEq/L KCl iv infusion 100 mL/hr INTRAVENOUS CONTINUOUS oxyCODONE IR 5-10 mg tab(s) (ROXICODONE) 5-10 mg ORAL q 4 H PRN HYDROmorphone 0.2 mg injection (DILAUDID) 0.2 mg INTRAVENOUS q 4 H PRN iv contrast (radiology procedure) INTRAVENOUS DIRECTED PRN Date 05/22/18699 - 05/23/18658(Not Admitted) 05/23/18699 - 05/24/18 0659 Shift 4163-9413 0646-4858 5498-9747 24 Hour Total 5432-7682 6744-1447 7726-1860 24 Hour Total I N T A K E PO 0 0 PO 0 0 IV 200 200 D5 0.45%NS w/20KCL 200 200 Shift Total 200 200 0 0 O U T P U T Urine 300 300 Void (ml) 300 300 Shift Total 300 300 Weight (kg) 98.7 98.7 98.7 98.7 98.7 98.7 Vitamin and Mineral Labs in the past year:No results for input(s): CHROMIUM, COPPER, MANGANESE, SELENIUM, VITAMINA, VITB1, VITB2, VITB6, B12, METHYLMAL, VITD25, VITAMINE, VITAK, ZINC, TIBC, FE, BENJAMÍN in the last 8784 hours. MNT Billing Type: Initial Assess/15 min 4 units SIGNATURE: Rosa Vargas, MS, RD, LD PATIENT NAME: Mary Alice Kimble DATE: May 23, 2018 TIME: 10:10 AM PAGER: [phone] CBC AND DIFFERENTIAL Collected: 05/23/2018 Status: F Source: [place] 5:56 AM [facility] REPOSITORY TYPE CODE TESTS RESULT OUT OF REFERENCE UNITS RANGE LAB WBC 3.70-11.00 k/uL WBC 5.65 LAB RBC 3.90-5.20 m/uL RBC 4.17 LAB HGB 11.5-15.5 g/dL Hemoglobin 12.5 LAB HCT 36.0-46.0 % Hematocrit 38.6 LAB MCV 80.0-100.0 fL MCV 92.6 LAB MCH 26.0-34.0 pG MCH 30.0 LAB MCHC 30.5-36.0 g/dL MCHC 32.4 LAB RDWCV 11.5-15.0 % RDW-CV 13.7 LAB PLTCT 150-400 k/uL Platelet Count 220 LAB MPV 9.0-12.7 fL MPV 11.6 LAB ANEUT % Neut% 47.0 LAB AANEUT 1.45-7.50 k/uL Abs Neut 2.65 LAB ALYMP % Lymph% 37.0 LAB AALYMP 1.00-4.00 k/uL Abs Lymph 2.09 LAB AMONO % [place]% 12.4 LAB AAMONO <0.87 k/uL Abs [place] 0.70 LAB AEOS % Eosin% 2.7 LAB AAEOS <0.46 k/uL Abs Eosin 0.15 LAB ABASO % Baso% 0.9 LAB AABASO <0.11 k/uL Abs Baso 0.05 LAB AUNRBC 0 /100 WBC NRBCs 0.0 LAB ABNRBC <0.01 k/uL Absolute nRBC <0.01 LAB DTYP DTYPE Auto Diff Performed By: #### CBCDIF, AMYL, CMP, LIPA, MG1, PHOS, HCGQT #### [facility] [address] [place], [place] [address] AMYLASE Collected: 05/23/2018 Status: F Source: [place] 5:56 AM [facility] REPOSITORY TYPE CODE TESTS RESULT OUT OF REFERENCE UNITS RANGE LAB AMYL 30-104 U/L Amylase 49 Performed By: #### CBCDIF, AMYL, CMP, LIPA, MG1, PHOS, HCGQT #### [facility] [address] [place], [place] [address] COMP METABOLIC PANEL Collected: 05/23/2018 Status: F Source: [place] 5:56 AM [facility] REPOSITORY TYPE CODE TESTS RESULT OUT OF REFERENCE UNITS RANGE LAB TP 6.3-8.0 g/dL Protein, Total 6.7 LAB ALB 3.9-4.9 g/dL Low Albumin 3.7 LAB CA 8.5-10.2 mg/dL Calcium, Total 9.1 LAB TBIL 0.2-1.3 mg/dL Bilirubin, Total 0.4 LAB ALKP 34-123 U/L Alkaline Phosphatase 109 LAB AST 13-35 U/L AST 22 LAB GLU 74-99 mg/dL Glucose 86 Result Comment: The [place] Diabetes Association (ADA) provides guidance for cutoff values for fasting glucose and random glucose. The ADA defines fasting as no caloric intake for at least 8 hours. Fas ting plasma glucose results between 100 to 125 mg/dL indicate increased risk for diabetes (prediabetes). Fasting plasma glucose results greater than or equal to 126 mg/dL meet the criteria for diagnosis of diabetes. In the absence of unequivocal hyperglycemia, results should be confirmed by repeat testing. In a patient with classic symptoms of hyperglycemia or hyperglycemic crisis, random plasma glucose results greater than or equal to 200 mg/dL meet the criteria for diagnosis of diabetes. Reference: Standards of Medical Care in Diabetes 2016, [place] Diabetes Association. Diabetes Care. 2016.39(Suppl 1). LAB BUN 7-21 mg/dL BUN 8 LAB CRET 0.58-0.96 mg/dL Creatinine 0.87 LAB NA 136-144 mmol/L Sodium 142 LAB K 3.7-5.1 mmol/L Potassium 4.0 LAB CL 97-105 mmol/L Chloride 103 LAB CO2 22-30 mmol/L CO2 25 LAB AGAP 9-18 mmol/L Anion Gap 14 LAB ALT 7-38 U/L ALT 20 LAB GFRAA eGFR- Amer. >60 LAB GFRNAA . eGFR-All Other Races >60 Result Comment: eGFR (Estimated GFR) Units of measure: mL/min/1.73 meters squared eGFR is derived from the reexpressed MDRD Study equation using the following parameters: serum creatinine, age, gender and race. The creatinine assay has been calibrated to be traceable to IDMS. An eGFR <60 mL/min/1.73m2 for >3 months is consistent with chronic kidney disease. Refer to KDOQI guidelines for clinical interpretation. In patients with unstable renal function, e.g. those with acute kidney injury, the eGFR may not accurately reflect actual GFR. Performed By: #### CBCDIF, AMYL, CMP, LIPA, MG1, PHOS, HCGQT #### [place] [phone] LIPASE Collected: 05/23/2018 Status: F Source: [place] 5:56 AM [facility] REPOSITORY TYPE CODE TESTS RESULT OUT OF REFERENCE UNITS RANGE LAB LIPA 16-61 U/L Lipase 39 Performed By: #### CBCDIF, AMYL, CMP, LIPA, MG1, PHOS, HCGQT #### [place] [phone] MAGNESIUM Collected: 05/23/2018 Status: F Source: [place] 5:56 AM [facility] REPOSITORY TYPE CODE TESTS RESULT OUT OF REFERENCE UNITS RANGE LAB MG 1.7-2.3 mg/dL Magnesium 1.9 Performed By: #### CBCDIF, AMYL, CMP, LIPA, MG1, PHOS, HCGQT #### [place] [phone] PHOSPHORUS Collected: 05/23/2018 Status: F Source: [place] 5:56 AM [facility] REPOSITORY TYPE CODE TESTS RESULT OUT OF REFERENCE UNITS RANGE LAB PHOS 2.7-4.8 mg/dL Phosphorus 3.5 Performed By: #### CBCDIF, AMYL, CMP, LIPA, MG1, PHOS, HCGQT #### [place] [phone] HCG, QUANTITATIVE BL Collected: 05/23/2018 Status: F Source: [place] 5:56 AM [facility] REPOSITORY TYPE CODE TESTS RESULT OUT OF REFERENCE UNITS RANGE LAB HCGQT <5.0 mU/mL HCG, Quantitative Bl <0.6 Result Comment: NEGATIVE Performed By: #### CBCDIF, AMYL, CMP, LIPA, MG1, PHOS, HCGQT #### [facility] [address] [place], [place] [address] HISTORY PHYSICAL Observed: 05/23/2018 Status: COMPLETED Source: [place] 5:00 AM [facility] REPOSITORY HNO ID: [id number] Author: Torsten Melo MD Service: General Surgery Author Type: Resident Type: HANDP Filed: 05/23/2018 5:49 AM Note Text: ACUTE CARE SURGERY HISTORY AND PHYSICAL EVALUATION Mary Alice Kimble [id number] SERVICE DATE: 05/23/2018 SERVICE TIME: 5:02 AM PRIMARY CARE PHYSICIAN: Pankaj Amaya MD ASSESSMENT AND PLAN Neuro: Pain control with PRN meds CV: Vitals per protocol, telemetry d/t bradycardia NPO, mIVF Replace electrolytes as needed CBC w/ diff, BMP, Mg, Phos VTE ppx: SQH, SCDs Imaging: OSH CT Disposition Plan: RNF Consult to GI for ERCP SUBJECTIVE CHIEF COMPLAINT: Abdominal pain HISTORY OF PRESENT ILLNESS: Ms. Kimble is a 32 year old female with PMH of pancreatitis, cholecystitis and common bile duct stones s/p ERCP on May 01 and laparoscopic cholecystectomy on may 02 at [facility] who presents with continued abdominal pain. On May 09 abdominal pain returned and pt was found to have retained bile duct stones, she remained at [facility] receiving meds to dissolve stones until discharge on May 16. On 05/22 presented to [facility] ED with continued pain. CT done at [facility] shows 3 retained gallstones in cyctic duct region, CT abdomen done on 05/22 at [place] again shows 3 gallstones in remnant of cystic duct. Of note, during her hospital admission at [place], she was found to have bradycardia and was instructed to wear holter monitor. Pain is in RUQ ~5/10, sharp pressure like in character. Has decreased appetite, nausea, vomiting as well as ~15lb weight loss. Denies fever, CP, sob, TORRES, numbness or tingling in extremities, no changes in BM. PAST MEDICAL HISTORY: PAST MEDICAL HISTORY Diagnosis Date - Closed fracture of unspecified part of femur right - Cough - Other forms of migraine - Unspecified open fracture of carpal bone right PAST SURGICAL HISTORY: PAST SURGICAL HISTORY Procedure Laterality Date - BREAST BIOPSY 2011 FAMILY HISTORY: FAMILY HISTORY Problem Relation Age of Onset - Hearing Loss Sister hearing impaired SOCIAL HISTORY: Social History Substance Use Topics - Smoking status: Former Smoker Years: 3.00 Quit date: 07/13/2016 - Smokeless tobacco: Never Used Comment: less than 1/4 pack daily - Alcohol use No MEDICATIONS: Prior to Admission Medications: Prescriptions Prior to Admission: ursodiol (ACTIGALL ORAL) Take by mouth twice daily. Disp: Rfl: 05/22/2018 at 0900 multivit with calcium,iron,min (WOMEN'S MULTIPLE VITAMINS ORAL) Take by mouth. Disp: Rfl: predniSONE (DELTASONE) 20 mg tablet Prednisone 40 mg (2-20mg tablets) po QD for 5 days (Patient not taking: Reported on 01/30/2018 ) Disp: 10 tablet Rfl: 0 Not Taking benzonatate (TESSALON PERLE) 100 mg capsule Take 1 capsule by mouth three times daily as needed. (Patient not taking: Reported on 01/30/2018 ) Disp: 30 capsule Rfl: 0 Not Taking albuterol HFA (VENTOLIN HFA) 90 mcg/actuation inhaler Inhale 2 Puffs as instructed every 4 hours as needed for Wheezing/Shortness of Breath. Disp: 1 Inhaler Rfl: 0 Not Taking SPRINTEC 0.25-35 mg-mcg per tablet Disp: Rfl: Not Taking ALLERGIES: ALLERGIES No Known Allergies COMPLETE REVIEW OF SYSTEMS: GENERAL: Weight loss, Negative for malaise, fever HEENT: Negative for frequent or significant headaches NECK: Negative for lumps, goiter, pain and significant neck swelling RESPIRATORY: Negative for cough, hemoptysis, wheezing, COPD, dyspnea or shortness of breath CARDIOVASCULAR: Negative for chest pain, leg swelling, hypertension, CHF or palpitations GI: abdominal pain, nausea, vomitting, see HPI : No history of dysuria, frequency or incontinence SKIN: Negative for lesions, rash, and itching HEMATOLOGY/LYMPHOLOGY: Negative for prolonged bleeding, bruising easily or swollen nodes NEURO: No history of headaches, syncope, paralysis, seizures or tremors OBJECTIVE PHYSICAL EXAM: Patient Vitals for the past 24 hrs: BP Temp Temp src Pulse Resp SpO2 Height Weight 10/05/18 0133 - - - - - - 165.1 cm (5' 5) 98.7 kg (217 lb 9.6 oz) 05/23/18129 137/86 36.3 ?C (97.4 ?F) Oral 63 18 99 % - - Body mass index is 36.21 kg/m?. GENERAL: Alert, no distress, cooperative LUNGS: Lungs clear to auscultation, Good diaphragmatic excursion CARDIAC: Normal S1 and S2; no rubs, murmurs, or gallops ABDOMEN: Slight tenderness in RUQ to palpation, bs present, no HSM, soft, nd NEURO: Grossly normal cognition, motor function, and cranial nerves III-XII PULSES: 2+ radial DATA: Diagnostic tests reviewed for today's visit: Most recent labs and imaging results. Labs in progress CT Abdomen 05/23/18 FINDINGS: The visualized lung bases are unremarkable. The visualized portions of the heart are within normal limits. Normal liver. 3 gallstones are seen within a cystic duct remnant measuring approximately 9 mm each. Normal spleen. Normal pancreas. Normal bilateral adrenal glands. Normal right kidney. Normal left kidney. Normal visualized stomach. Normal small intestine. Normal colon. The appendix is visualized and appears normal. Normal abdominal aorta. Normal inferior vena cava. Normal retroperitoneum. Normal urinary bladder. Normal abdominal wall. Normal osseous structures SIGNATURE: Torsten Melo MD PATIENT NAME: Mary Alice Kimble DATE: May 23, 2018 TIME: 5:02 AM PAGER/CONTACT #: [phone] Weekends, holidays and after 6pm please page General Surgery Celeste Pager [phone] NURSING PROG Observed: 05/23/2018 Status: COMPLETED Source: [place] 1:25 AM [facility] REPOSITORY HNO ID: [id number] Author: lEissa (Rn) KIRSTEN Fishman Service: (none) Author Type: Registered Nurse Type: Nursing Progress Note Filed: 05/23/2018 1:25 AM Note Text: Nursing Progress Note Patient Name: Mary Alice Kimble Patient Location: H051 021/H051-22 Transfer Note: Patient transferred into room/unit H51-22 in stable condition. Actions taken: No futher actions taken at this time. Will continue to monitor and check with patient. This note was completed by: Elissa Fishman RN EMERGENCY DEPARTMENT Observed: 05/22/2018 Status: C Source: [place] SUMMARY 10:29 PM [facility] REPOSITORY [facility] Medical Records Department [address] [place] [address] Emergency Department Summary 05/22/18 1419 MR#: [id number] Acct: [id number] Name: MARY ALICE KIMBLE Rep #: [id number] : 1985 32 From: Esvin Vera MD PCP: Janee Norman Status: REG ER ADDENDUM by Kendra Stevenson MD on 05/22/18 at 2229 Patient was signed out to me pending bed assignment at [facility]. [facility] was called at 9:30 PM and they still state that beds are tightly do not know when they will have a bed. They recommend hospitalizing the patient here overnight while awaiting bed assignment. I spoke with hospitalist as well as the patient. Date Kendra Stevenson MD cc: Janee JESSICA * Addendum - ER Visit Summary Date of Service: 05/22/18 Chief Complaint: [] Abdominal pain pancreatitis, common bile duct stones cholecystectomy History of Present Illness: The patient is a 32 F [] patient reports that basically in April she began having pain in the right upper abdomen, she was seen at [facility] found to have cholecystitis/common bile duct stones, mid April she indicates she had an ERCP to remove the stones and then the next day she had a cholecystectomy she was discharged a few days later. She indicates around the she again developed severe abdominal pain and she was taken back to [facility] for management, she indicates she had studies done that showed she had recurrence of the common bile duct stones that could not be managed at [facility] they decided to put on a medicine to help dissolve the stones, she indicates the pain has persisted to the point now she is nauseated she cannot eat or drink. She indicates she has no other past history except as above She indicates she did not go back to [facility] because she is dissatisfied with the care that she received there and when she spoke with her primary care physician she was instructed to come to the [facility] In addition the patient reports that recently she was found to have bradycardia and she believes 2 days ago she had an outpatient Holter monitor she does not know those results, she believes her heart rate was anywhere from 40-60, she denies a history of cardiovascular disease Physical Examination: [] Her vital signs are within normal range this she is resting in the bed no distress she points to the epigastric area as area of discomfort head neck unremarkable lungs sound clear heart tones are normal the abdomen is soft there is a mild discomfort in the epigastric area and urban guarding organomegaly she indicates she is having bowel habits and urinary habits no blood, denies , no fever no cough upper lower extremity unremarkable and the rest of her exams unremarkable neurologically normal Test Results: [] Emergency Department Course and Treatment: [] She has a recent complicated history as above given all of the above we will obtain screening labs CT pain management I have explained to her that if she does not fact have pancreatitis and/or signs of common bile duct obstruction pancreatitis she may require transfer to [facility] and she is agreeable as she indicates she wanted to be seen there but the physicians at [facility] would not arrange for the visit, I further explained that sometimes those visits are done as an outpatient. The patient's screening labs are generally unremarkable see those reports, EKG shows a sinus rhythm no acute injury pattern appreciated, did obtain a CT scan from [facility] it does show 3 gallstones in the cystic duct region, CT abdomen done today shows 3 gallstones in the remnant of the cystic duct please see that report Patient's pain is improved but not gone completely she indicates she cannot continue to have abdominal pain and vomiting to where she cannot even take the prescribed home meds, given all the above, and as patient was requesting transfer she agreed to [facility], we spoke with [facility] Dr[facility] surgery accepted her in transfer, all records will be sent with her, discussed all of the above with the patient her family again they agree and were requesting transfer to [facility] Treatment Plan: [] Disposition: [] Transfer to [facility] Impression: [] Abdominal pain, status post cholecystectomy with retained stones in cystic duct remnant, failed outpatient therapy, history of bradycardia This note was generated with [employer] dictation software. It may contain incorrect words, spelling, and punctuation that were not noted in review of the chart prior to signing ED Disposition - Plan for ED Patient: Chief Complaint: Abd Pain Referrals: Pankaj Amaya MD [STAFF PHYSICIAN] - What to do if you have Problems For any increased pain, shortness of breath, bleeding, nausea or vomiting, chest pain, or any unexpected problems, contact your Primary Care Provider. Call [facility] ([phone]) or report to the closest Emergency Room. Call 911 if necessary. 05/22/18 1709 <Electronically signed by Esvin Vera MD> Date Esvin Vera MD Cosigner Signature (If Indicated): Date CC: Janee JESSICA URINALYSIS, COMPLETE Collected: 05/22/2018 Status: F Source: [place] 3:50 PM [facility] REPOSITORY Order Comment: Order Date: 05/22/18 How was Urine Obtained? CLEAN CATCH TYPE CODE TESTS RESULT OUT OF RANGE REFERENCE UNITS LAB L400.3000 Yellow COLOR Normal Yellow LAB L400.3050 Clear Normal CLARITY Clear LAB L400.3200 Normal mg/dl Normal GLUCOSE, UR Normal LAB L400.3300 Negative mg/dL Normal BILIRUBIN URINE Negative LAB L400.3400 Negative mg/dl Normal KETONE UR Negative LAB L400.3465 1.002-1.030 Normal SP.GR. DIPSTX 1.005 LAB L400.3550 5.0 - 8.0 pH UR Normal 7.0 LAB L400.3600 Negative mg/dl PROT Normal DIPSTX Negative LAB L400.3700 Normal mg/dl Normal UROBILI Normal LAB L400.3750 Negative Normal NITRITE UR Negative LAB L400.3780 Negative /ul Normal OCCULT BLOOD-UR Negative LAB L400.3800 Negative /ul LEUK Normal ESTERASE Negative LAB L400.4050 0-5 /hpf WBC 0 Normal SEEN LAB L400.4100 0-5 /hpf 0 Normal RBC-UA SEEN LAB L400.4150 5-10 /hpf SQUAM Normal EPI 10-25 SEEN LAB L400.4300 None Seen /hpf Normal BACTERIA RARE LAB L400.4350 <or=2+ /hpf 0 Normal MUCUS, URINE SEEN Performed By: #### L400.0001 #### [facility] [address] [place], [place], [id number] CBC W/DIFF, AUTOMATED Collected: 05/22/2018 Status: F Source: [place] 2:26 PM [facility] REPOSITORY TYPE CODE TESTS RESULT OUT OF RANGE REFERENCE UNITS LAB L100.1000 4.4-11.0 K/mm3 Normal WBC 6.2 LAB L100.1200 4.2-5.4 M/mm3 Normal RBC 4.24 LAB L100.1300 12.0-15.0 g/dl Normal HGB 12.9 LAB L100.1400 37-47 % Normal HCT 38.7 LAB L100.1500 81-99 fL Normal MCV 91.3 LAB L100.1600 27.0-32.0 pg Normal MCH 30.4 LAB L100.1700 32-36 g/gl Normal MCHC 33.3 LAB L100.1810 11.6-14.6 % Normal RDW CV 13.7 LAB L100.1820 35.1-43.9 fl High RDW SD 45.2 LAB L100.1900 150-450 K/mm3 Normal PLT 220 LAB L100.2000 6.2-12.0 fl Normal MPV 10.9 LAB L100.2100 47-70 % Normal NEUT% 57.3 LAB L100.2200 19-41 % Normal LY% 26.5 LAB L100.2300 0-10 % High MONO% 13.2 LAB L100.2400 0-5 % Normal EO% 2.4 LAB L100.2500 0-1 % Normal BASO% 0.6 LAB L100.2550 0.0-0.9 % Normal IM GRAN % 0.000 Result Comment: IG% - Immature Granulocytes (promyelocytes, myelocytes and metamyelocytes) > 1% indicates that a LEFT SHIFT is Present. LAB L100.2620 2.0-7.7 X10 3/uL Normal Absolute Neut 3.6 LAB L100.2720 0.83-4.51 X10 3/ul Normal Absolute Lymph 1.64 Performed By: #### L100.0100 #### [facility] [address] [place], [place], [id number] BASIC METABOLIC Collected: 05/22/2018 Status: F Source: [place] PROFILE (BMP) 2:26 PM [facility] REPOSITORY TYPE CODE TESTS RESULT OUT OF RANGE REFERENCE UNITS LAB L501.0100 74-106 mg/dL Normal GLU 90 Result Comment: Please note revised GLUCOSE reference range effective 2017. LAB L501.1000 7-18 mg/dL Normal BUN 9 LAB L501.1100 0.55-1.02 mg/dL Normal CREAT,SERUM 0.83 Result Comment: The validity of the calculated GFR AND GFRAA in patients over 70 years has not been determined. Clinical correlation is essential. LAB L501.1110 >60 mL/min Normal EST GFR 85 Result Comment: Non- GFR Calc LAB L501.1115 >60 mL/min Normal EST GFR - AA 103 Result Comment: GFR Calc LAB L501.1255 ml/min Normal Estimated CRCL 89.18 LAB L501.1300 10-20 RATIO Normal BUN/CRE 10.8 LAB L501.2200 8.5-10 mg/dL Normal .1 CA 8.8 LAB L501.5300 136-14 mmol/L Normal 5 NA 141 LAB L501.5600 3.5-5. mmol/L Normal 1 K 3.7 LAB L501.5900 98-107 mmol/L Normal CL 107 LAB L501.6100 21.0-3 mmol/L Normal 2.0 CO2 28.0 LAB L501.6200 5-15 Normal GAP 6 Performed By: #### L500.2500, L500.3400, L501.2450 #### [facility] [address] [place], [address] LIVER PROFILE Collected: 05/22/2018 Status: F Source: [place] 2:26 PM [facility] REPOSITORY TYPE CODE TESTS RESULT OUT OF RANGE REFERENCE UNITS LAB L501.1500 6.4-8.2 g/dL Normal T PROT 7.6 LAB L501.1800 3.2-5.0 g/dL Normal ALB 3.5 LAB L501.1950 2.2-4.2 g/dL Normal GLOB 4.1 LAB L501.4100 15-37 U/L Normal AST 19 LAB L501.4305 45-117 U/L High ALK P 133 LAB L501.4405 13-56 U/L Normal ALT 31 LAB L501.4600 0.20-1.00 mg/dL Normal T BILI 0.40 LAB L501.4700 0.00-0.30 mg/dL Normal D BILI 0.16 Performed By: #### L500.2500, L500.3400, L501.2450 #### [facility] [address] [place], [address] LIPASE Collected: 05/22/2018 Status: F Source: [place] 2:26 PM [facility] REPOSITORY TYPE CODE TESTS RESULT OUT OF RANGE REFERENCE UNITS LAB L501.2450 73-393 U/L Normal LIPASE 354 Performed By: #### L500.2500, L500.3400, L501.2450 #### [facility] [address] [place], [place], [id number] ,SERUM,HCG QUALI. Collected: Status: F Source: [place] 05/22/2018 2:26 PM [facility] REPOSITORY TYPE CODE TESTS RESULT OUT OF REFERENCE UNITS RANGE LAB L700.6700 =>Qualitative mIU/mL Normal HCG Qual < 1 triggr LAB L700.7000 0-9 Nonpreg Negative Normal HCGSQUAL NEGATIVE Performed By: #### L700.6800 #### [facility] [address] [place], [address] ABDOMEN/PELVIS W IV CONT Observed: 05/22/2018 Status: F Source: [place] ONLY 2:19 PM [facility] REPOSITORY [facility] Imaging Services [address] [place] [address] Abdomen/Pelvis W IV Cont ONLY MR#: [id number] Acct: [id number] Name: MARY ALICE KIMBLE Rep #: [id number] : 1985 F 32 From: Amanda Gonzales MD PCP: Pankaj Amaya MD Status: REG ER Study: Abdomen/Pelvis W IV Cont ONLY Date of Exam: 05/22/18 Exam# [id number] Ordering Dr: Esvin Vera MD STUDY: CT ABDOMEN AND PELVIS WITH CONTRAST REASON FOR EXAM: Female, 32 years old. UPPER ABDOM PAIN, HX OF GB REMOVED AND PANCREATITIS. RADIATION DOSAGE (If Supplied By Facility): CTDIvol = ( 17.19 ) mGy, DLP = ( 1149.26 ) mGycm TECHNIQUE: Transaxial images were obtained from the dome of the diaphragm to the symphysis pubis without oral contrast. 100 ml of Isovue 300 contrast was administered. Sagittal and coronal images were reconstructed. Individualized dose optimization techniques were used for this CT. COMPARISON: None. FINDINGS: The visualized lung bases are unremarkable. The visualized portions of the heart are within normal limits. Normal liver. 3 gallstones are seen within a cystic duct remnant measuring approximately 9 mm each. Normal spleen. Normal pancreas. Normal bilateral adrenal glands. Normal right kidney. Normal left kidney. Normal visualized stomach. Normal small intestine. Normal colon. The appendix is visualized and appears normal. Normal abdominal aorta. Normal inferior vena cava. Normal retroperitoneum. Normal urinary bladder. Normal abdominal wall. Normal osseous structures. CT/Abdomen/Pelvis W IV Cont ONLY IMPRESSION: 3 gallstones are seen within a cystic duct remnant measuring approximately 9 mm each. 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 Chief: Signed HOSP Observed: 05/22/2018 Status: COMPLETED Source: [place] 12:00 AM [facility] REPOSIT[facility] Patient:Mary Alice Kimble MRN: <[id number]> Height:5' 5(1.651 m) Weight:217 lb 9.6 oz (98.703 kg) Outpatient Medications as of 05/26/18: ursodiol (ACTIGALL ORAL) multivit with calcium,iron,min (WOMEN'S MULTIPLE VITAMINS ORAL) predniSONE (DELTASONE) 20 mg tablet benzonatate (TESSALON PERLE) 100 mg capsule albuterol HFA (VENTOLIN HFA) 90 mcg/actuation inhaler SPRINTEC 0.25-35 mg-mcg per tablet Admission/Clinic Administered Medications as of 05/26/18: lactated ringers infusion acetaminophen 650 mg tab(s) (TYLENOL) heparin 5,000 Units injection oxyCODONE IR 5-10 mg tab(s) (ROXICODONE) HYDROmorphone 0.2 mg injection (DILAUDID) Problem List: Migraine with aura [346.0] Low bladder compliance [N31.8] Backache, unspecified [M54.9] Retained gallstones following laparoscopic cholecystectomy [K91.89, K80.20] Severe protein-calorie malnutrition (HCC) [E43] Allergies: No Known Allergies Date Verified:05/26/18 Lab Values Lab Value Units Date High Low POTA* 3.8 mmol/L 05/26/2018 5.1 3.7 NYDIA* 38.2 % 05/26/2018 46.0 36.0 Progress Notes (): Elissa Fishman, RN, RN 05/23/2018 1:25 AM Signed Nursing Progress Note Patient Name: Mary Alice Kimble [address] Transfer Note: Patient transferred into room/unit H51-22 in stable condition. Actions taken: No futher actions taken at this time. Will continue to monitor and check with patient. This note was completed by: Elissa Fishman, KIRSTEN Melo MD, MD 05/23/2018 5:49 AM Signed ACUTE CARE SURGERY HISTORY AND PHYSICAL EVALUATION Mary Alice Kimble [id number] SERVICE DATE: 05/23/2018 SERVICE TIME: 5:02 AM PRIMARY CARE PHYSICIAN: Pankaj Amaya MD ASSESSMENT AND PLAN Neuro: Pain control with PRN meds CV: Vitals per protocol, telemetry d/t bradycardia NPO, mIVF Replace electrolytes as needed CBC w/ diff, BMP, Mg, Phos VTE ppx: SQH, SCDs Imaging: OSH CT Disposition Plan: RNF Consult to GI for ERCP SUBJECTIVE CHIEF COMPLAINT: Abdominal pain HISTORY OF PRESENT ILLNESS: Ms. Kibmle is a 32 year old female with PMH of pancreatitis, cholecystitis and common bile duct stones s/p ERCP on May 01 and laparoscopic cholecystectomy on may 02 at [facility] who presents with continued abdominal pain. On May 09 abdominal pain returned and pt was found to have retained bile duct stones, she remained at [facility] receiving meds to dissolve stones until discharge on May 16. On 05/22 presented to [facility] ED with continued pain. CT done at [facility] shows 3 retained gallstones in cyctic duct region, CT abdomen done on 05/22 at [place] again shows 3 gallstones in remnant of cystic duct. Of note, during her hospital admission at [place], she was found to have bradycardia and was instructed to wear holter monitor. Pain is in RUQ ~5/10, sharp pressure like in character. Has decreased appetite, nausea, vomiting as well as ~15lb weight loss. Denies fever, CP, sob, TORRES, numbness or tingling in extremities, no changes in BM. PAST MEDICAL HISTORY: PAST MEDICAL HISTORY Diagnosis Date - Closed fracture of unspecified part of femur right - Cough - Other forms of migraine - Unspecified open fracture of carpal bone right PAST SURGICAL HISTORY: PAST SURGICAL HISTORY Procedure Laterality Date - BREAST BIOPSY 2011 FAMILY HISTORY: FAMILY HISTORY Problem Relation Age of Onset - Hearing Loss Sister hearing impaired SOCIAL HISTORY: Social History Substance Use Topics - Smoking status: Former Smoker Years: 3.00 Quit date: 07/13/2016 - Smokeless tobacco: Never Used Comment: less than 1/4 pack daily - Alcohol use No MEDICATIONS: Prior to Admission Medications: Prescriptions Prior to Admission: ursodiol (ACTIGALL ORAL) Take by mouth twice daily. Disp: Rfl: 05/22/2018 at 0900 multivit with calcium,iron,min (WOMEN'S MULTIPLE VITAMINS ORAL) Take by mouth. Disp: Rfl: predniSONE (DELTASONE) 20 mg tablet Prednisone 40 mg (2-20mg tablets) po QD for 5 days (Patient not taking: Reported on 01/30/2018 ) Disp: 10 tablet Rfl: 0 Not Taking benzonatate (TESSALON PERLE) 100 mg capsule Take 1 capsule by mouth three times daily as needed. (Patient not taking: Reported on 01/30/2018 ) Disp: 30 capsule Rfl: 0 Not Taking albuterol HFA (VENTOLIN HFA) 90 mcg/actuation inhaler Inhale 2 Puffs as instructed every 4 hours as needed for Wheezing/Shortness of Breath. Disp: 1 Inhaler Rfl: 0 Not Taking SPRINTEC 0.25-35 mg-mcg per tablet Disp: Rfl: Not Taking ALLERGIES: ALLERGIES No Known Allergies COMPLETE REVIEW OF SYSTEMS: GENERAL: Weight loss, Negative for malaise, fever HEENT: Negative for frequent or significant headaches NECK: Negative for lumps, goiter, pain and significant neck swelling RESPIRATORY: Negative for cough, hemoptysis, wheezing, COPD, dyspnea or shortness of breath CARDIOVASCULAR: Negative for chest pain, leg swelling, hypertension, CHF or palpitations GI: abdominal pain, nausea, vomitting, see HPI : No history of dysuria, frequency or incontinence SKIN: Negative for lesions, rash, and itching HEMATOLOGY/LYMPHOLOGY: Negative for prolonged bleeding, bruising easily or swollen nodes NEURO: No history of headaches, syncope, paralysis, seizures or tremors OBJECTIVE PHYSICAL EXAM: Patient Vitals for the past 24 hrs: BP Temp Temp src Pulse Resp SpO2 Height Weight 05/23/18132 - - - - - - 165.1 cm (5' 5) 98.7 kg (217 lb 9.6 oz) 05/23/18129 137/86 36.3 ?C (97.4 ?F) Oral 63 18 99 % - - Body mass index is 36.21 kg/m?. GENERAL: Alert, no distress, cooperative LUNGS: Lungs clear to auscultation, Good diaphragmatic excursion CARDIAC: Normal S1 and S2; no rubs, murmurs, or gallops ABDOMEN: Slight tenderness in RUQ to palpation, bs present, no HSM, soft, nd NEURO: Grossly normal cognition, motor function, and cranial nerves III-XII PULSES: 2+ radial DATA: Diagnostic tests reviewed for today's visit: Most recent labs and imaging results. Labs in progress CT Abdomen 05/23/18 FINDINGS: The visualized lung bases are unremarkable. The visualized portions of the heart are within normal limits. Normal liver. 3 gallstones are seen within a cystic duct remnant measuring approximately 9 mm each. Normal spleen. Normal pancreas. Normal bilateral adrenal glands. Normal right kidney. Normal left kidney. Normal visualized stomach. Normal small intestine. Normal colon. The appendix is visualized and appears normal. Normal abdominal aorta. Normal inferior vena cava. Normal retroperitoneum. Normal urinary bladder. Normal abdominal wall. Normal osseous structures SIGNATURE: Torsten Melo MD PATIENT NAME: Mary Alice Kimble DATE: May 23, 2018 TIME: 5:02 AM PAGER/CONTACT #: [phone] Weekends, holidays and after 6pm please page General Surgery Celeste Pager [phone] Previous Version Rosa Vargas RD, RD 05/23/2018 3:28 PM Signed NUTRITION THERAPY INITIAL ASSESSMENT SERVICE DATE: 05/23/2018 SERVICE TIME: 11:10 AM RECOMMENDED MALNUTRITION DIAGNOSIS: SEVERE PROTEIN-CALORIE MALNUTRITION In the context of Acute Illness or Injury based on: Unintentional Weight Loss: >5% over 1 month Insufficient Energy Intake: less than or equal to 50% for greater than or equal to 5 days NUTRITION CARE PLAN: Problem, Etiology and Signs/Symptoms: Inadequate protein energy intake related to altered GI function as evidenced by decline in oral intakes, weight loss, abdominal pain with nausea and vomiting. Intervention: 1. Monitor diet advancement when medically appropriate -Rec for pt to be on GI soft-fiber controlled diet when diet advances 2. If anticipated to remain NPO for >7days, would consider NST consult for PN evaluation Monitor and Evaluation: Nutrition care Indicator: Diet advancement, presence of bowel function Data Source: I/O's, francheska [place], pt/family report, lab reports Criteria for evaluation: oral diet advance in 2-3 days; pt to meet ~50% estimated needs Discharge Nutrition Recommendations: Diet: goal for gi soft CHIEF COMPLAINT: Abdominal pain Per HPI: 32 year old female with PMH of pancreatitis, cholecystitis and common bile duct stones s/p ERCP on May 01 and laparoscopic cholecystectomy on may 02 at [facility] who presents with continued abdominal pain. On May 09 abdominal pain returned and pt was found to have retained bile duct stones, she remained at [facility] receiving meds to dissolve stones until discharge on May 16. On 05/22 presented to [facility] ED with continued pain. CT done at [facility] shows 3 retained gallstones in cyctic duct region, CT abdomen done on 05/22 at [place] again shows 3 gallstones in remnant of cystic duct. Of note, during her hospital admission at [place], she was found to have bradycardia and was instructed to wear holter monitor. Pain is in RUQ ~5/10, sharp pressure like in character. Has decreased appetite, nausea, vomiting as well as ~15lb weight loss. Denies fever, CP, sob, TORRES, numbness or tingling in extremities, no changes in BM. Current Diet Order DIET NPO Lines and Drains: Peripheral 05/23/18 0150 Admission to Hospital Left Antecubital (Active) Nutritional Intake Prior to Admission: <75% estimated energy needs over the past 3 week(s) GI symptoms: nausea, vomiting, abdominal pain and early satiety Nutrition Abdominal Exam: and not assessed ANTHROPOMETRICS Height: 165.1 cm (5' 5) Admission Weight: 98.7 kg (217 lb 9.6 oz) Current Weight: 98.7 kg (217 lb 9.6 oz) Body mass index is 36.21 kg/m?. class 2 obesity Weight has decreased by 8.11 kg over 1 months representing 8 % weight change clinically significant Last Wt 05/23/18 : 98.7 kg (217 lb 9.6 oz) 01/30/18 : 100.6 kg (221 lb 12.8 oz) 05/16/17 : 108 kg (238 lb) 01/22/17 : 108.4 kg (239 lb) 11/28/16 : 104.8 kg (231 lb) 11/13/16 : 104.3 kg (230 lb) UBW: ~235lbs (106.8kg) [place] Body Weight: 56.8kg Dosing Weight: 98 kg Resting Metabolic Rate: 1709 Estimated kilocalorie needs: 9455-0568 kilocalories determined by 20-25 kcal/kg Estimated protein needs: 68-85 grams determined by 1.2-1.5 g/kg [place] weight Estimated fluid needs: 2119-3728 milliliters based on 1 mL per kcal NUTRITION FOCUSED PHYSICAL EXAM: Subcutaneous Fat Loss Orbital Mild Triceps No fat loss Mid-axillary at the iliac crest No fat loss Muscle Loss Locations: Temporalis No muscle loss Pectoralis No muscle loss Deltoids No muscle loss Interosseous No muscle loss Latissimus dorsi, trapezius Unable to determine at this time Quadriceps Unable to determine at this time Gastrocnemius Unable to determine at this time Potential micronutrient deficiency revealed in: No deficiency identified Edema: Yes Generalized and Non-pitting Ascites: No Assessment of Functional Status: Functional capacity is unrelated to nutrition status Temperature Max in 24 hours: Temp (24hrs), Av.4 ?C (97.6 ?F), Min:36.3 ?C (97.4 ?F), Max:36.6 ?C (97.8 ?F) BP 116/66 Pulse 65 Temp 36.6 ?C (97.8 ?F) (Oral) Resp 18 Ht 165.1 cm (5' 5) Wt 98.7 kg (217 lb 9.6 oz) SpO2 99% BMI 36.21 kg/m? Recent Labs 05/23/18 0556 GLUC 86 BUN 8 CREAT 0.87 NA 142 K 4.0 CHLOR 103 CO2 25 ALB 3.7* P 3.5 HB 12.5 HCT 38.6 WBC 5.65 MG 1.9 Potential Signs of Inflammation: hypoalbuminemia and imaging studies, acute post op ALLERGIES No Known Allergies Current Facility-Administered Medications: acetaminophen 650 mg tab(s) (TYLENOL) 650 mg ORAL q 4 H PRN heparin 5,000 Units injection 5,000 Units SUBCUTANEOUS q 12 H dextrose 5% in NaCl 0.45% with 20 mEq/L KCl iv infusion 100 mL/hr INTRAVENOUS CONTINUOUS oxyCODONE IR 5-10 mg tab(s) (ROXICODONE) 5-10 mg ORAL q 4 H PRN HYDROmorphone 0.2 mg injection (DILAUDID) 0.2 mg INTRAVENOUS q 4 H PRN iv contrast (radiology procedure) INTRAVENOUS DIRECTED PRN Date 05/22/18699 - 05/23/18658(Not Admitted) 05/23/18699 - 05/24/1859 Shift 8936-6051 7561-5415 9096-0589 24 Hour Total 1758-6271 9440-0726 4781-9069 24 Hour Total I N T A K E PO 0 0 PO 0 0 IV 200 200 D5 0.45%NS w/20KCL 200 200 Shift Total 200 200 0 0 O U T P U T Urine 300 300 Void (ml) 300 300 Shift Total 300 300 Weight (kg) 98.7 98.7 98.7 98.7 98.7 98.7 Vitamin and Mineral Labs in the past year:No results for input(s): CHROMIUM, COPPER, MANGANESE, SELENIUM, VITAMINA, VITB1, VITB2, VITB6, B12, METHYLMAL, VITD25, VITAMINE, VITAK, ZINC, TIBC, FE, BENJAMÍN in the last 8784 hours. MNT Billing Type: Initial Assess/15 min 4 units SIGNATURE: Rosa Vargas MS, RD, LD PATIENT NAME: Mary Alice Kimble DATE: May 23, 2018 TIME: 10:10 AM PAGER: [phone] YURIY Cramer 05/23/2018 11:33 AM Signed CARE MANAGEMENT: ASSESSMENT AND DISCHARGE PLAN SERVICE DATE: 05/23/2018 SERVICE TIME: 11:25 AM PRIMARY CARE PHYSICIAN: Pankaj Amaya MD ADMISSION STATUS: Inpatient Needs Prior to Discharge: None MEDICAL: Patient/[place] Stated Goals: To return home to life as it was Health Insurance: BLUE CARD PPO Health Issues Impacting Discharge Plan: None Last Admission Date: none Is this Within the Past 30 days? 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 How often do you need to have someone help you when you read instructions, pamphlets, or other written material from your doctor or pharmacy? Never - 1 2. How confident are you filling out medical forms by yourself? Extremely - 1 If Patient scores > 3 on either question, the following interventions were put into place: Patient did not score > 3 FUNCTIONAL AND COGNITIVE/BEHAVIORAL PRIOR TO ADMISSION: Baseline Mental Status: Alert AND Oriented, Person, Place , Time and Situation Functional Status: Independent Does Patient Currently Receive Any Community Services or Home Care? None Equipment Prior to Admission: None Has the Patient Been in a Intermediate Facility in the Past 30 days? No SOCIAL: Living Arrangement: Home Lives With: Spouse and and 5 children Financial Resources: Employed: N/A Primary Contact: Extended Emergency Contact Information Primary Emergency Contact: Glendy Kimble Mobile Relation: Spouse Secondary Emergency Contact: Obdulia Riley Relation: Mother Supportive: No Other Important Patient Contacts: None Caregiver Assessment: Caregiver is ready, willing and able to meet the patient's needs as recommended by the inter-professional team? No Caregiver Needed Patient's transition needs and plan for meeting these needs: SW following hospital course and POC for any discharge needs. Does the patient have an acute stroke diagnosis, or has the patient had a stroke during this admission? No Medication Adherence: I am convinced of the importance of my prescription medication: Agree completely - 0 I worry that my prescription medication will do more harm than good to me Disagree completely - 0 I feel financially burdened by my [id number] expenses for my prescription medication: Disagree completely - 0 Patient is categorized as low risk < 2 Are you interested in bedside delivery of your medications? Yes Food Concerns: In the Last Month, Have You had Trouble Getting Food? No trouble getting food During the Last Month, Have You Worried Whether Your Food Would Run Out Before You Had Enough Money to Buy More? No Is the Patient Psychosocially Complex? No ASSESSMENT AND PLAN: Medical Needs: None Psychosocial Needs: None FREEDOM OF CHOICE EXPLAINED: N/A POTENTIAL TRANSITION PLANS Home Patient is a 32 year old female s/p ERCP on May 01 and laparoscopic cholecystectomy on may 02 at [facility] who presents with continued abdominal pain. SW met with patient at bedside to discuss any possible discharge needs. Patient was alert and oriented and engaged with questioning. Prior to admission patient reported being independent. Patient has no skilled needs identified at this time. Transportation home via /auto at d/c. SW following. Per phone conversation with MD Demetris Desir patient to possible d/c home this weekend with no skilled needs. If immediate needs arise, [place] [phone]. SIGNATURE: YURIY Cramer PATIENT NAME: Mary Alice Kimble DATE: May 23, 2018 TIME: 11:25 AM PAGER/CONTACT #: [phone] Blanca Alejandro, RN, RN 05/23/2018 12:20 PM Signed Radiology Service Progress Note PATIENT NAME: Mary Alice Kimble DATE OF SERVICE: May 23, 2018 TIME: 12:20 PM PATIENT WEIGHT: 98.7 kg PATIENT IDENTITY VERIFICATION COMPLETED USING TWO (2) METHODS: Patient confirmed name verbally and ID band matches.. PATIENT GENDER DATA: Female. status: : No status: NO. CONTRAST INDUCED NEPHROPATHY RISK FACTORS: Not applicable CREATININE: Creatinine Date Value Ref Range Status 05/23/2018 0.87 0.58 - 0.96 mg/dL Final 11/09/2016 0.84 0.58 - 0.96 mg/dL Final eGFR-All Other Races Date Value Ref Range Status 05/23/2018 >60 . Final Comment: eGFR (Estimated GFR) Units of measure: mL/min/1.73 meters squared eGFR is derived from the reexpressed MDRD Study equation using the following parameters: serum creatinine, age, gender and race. The creatinine assay has been calibrated to be traceable to IDMS. An eGFR <60 mL/min/1.73m2 for >3 months is consistent with chronic kidney disease. Refer to KDOQI guidelines for clinical interpretation. In patients with unstable renal function, e.g. those with acute kidney injury, the eGFR may not accurately reflect actual GFR. eGFR- Date Value Ref Range Status 05/23/2018 >60 Final P.O.C.T. RESULTS: N/A May 23, 2018 TREATMENT: No Hydration needed. ALLERGIES: Reviewed and unchanged CONTRAST ALLERGY: NO. IV SITE: Inpatient - refer to LDA documentation IV SITE APPEARANCE: Clean,Dry and Intact SIGNED BY: Blanac Alejandro RN May 23, 2018 12:20 PM Harini Fernandez Tech 05/23/2018 12:46 PM Signed Radiology Service Progress Note PATIENT NAME: Mary Alice Kimble DATE OF SERVICE: May 23, 2018 TIME: 12:44 PM PATIENT IDENTITY VERIFICATION COMPLETED USING TWO (2) METHODS: Patient confirmed name verbally and ID band matches.. PATIENT GENDER DATA: Female. status: : No status: NO. PATIENT RELEVANT IMPLANT DATA REVIEWED: Yes RADIOLOGY DEPARTMENT: MR; Exam(s) Completed: Body: Pancreas/Biliary PERIPHERAL IV DATA: Inpatient: see LDA documentation SIGNED BY: Harini Fernandez / Sherlyn Patel RT May 23, 2018 12:44 PM Tamara Ramires MD 05/26/2018 8:57 AM Addendum INITIAL CONSULT GASTROENTEROLOGY SERVICE DATE: 05/23/2018 SERVICE TIME: 1230 Consulting Service: Gastroenterology Opinion/advice regardin stones in remnant cystic duct in a patient s/p lap albert with persistent RUQ pain Subjective HPI: This is a 32 year old female who presents with 3 stones in remnant cystic duct s/p lap albert with persistent RUQ pain. On 04/30, she presented to an OSH and was found to have choledocholithiasis complicated by pancreatitis and cholecystitis. She had an ERCP performed the following day. A lap albert was performed the following day, 05/02. 1 week later, her RUQ abdominal pain returned and she came back to the same OSH where she was found to have 3 stones in the remnant cystic duct. They treated with Laila in an attempt to dissolve the stones - she was discharged on 05/16. She then presented to a different hospital, repeat CT showed persistence of the 3 stones in the remnant cystic duct. She was transferred here for further management. Today, she complains of sharp RUQ pain that is a 5/10 in intensity that radiates to the middle of her upper back. It is being controlled with dilaudid as the pain has been a 10/10. She also complains of a decreased appetite, nausea but no vomiting and a 15 pound weight loss. She denies fever, jaundice, changes in the color or consistency of her BMs, no change in urine color. She is a former light smoker and has never drank. Gallstone risk factors: -Female -Obese -Was taking estrogen OCP; recently ( of child in December) PAST MEDICAL HISTORY Diagnosis Date - Closed fracture of unspecified part of femur right - Cough - Other forms of migraine - Unspecified open fracture of carpal bone right PAST SURGICAL HISTORY Procedure Laterality Date - BREAST BIOPSY 2011 FAMILY HISTORY Problem Relation Age of Onset - Hearing Loss Sister hearing impaired Social History Substance Use Topics - Smoking status: Former Smoker Years: 3.00 Quit date: 07/13/2016 - Smokeless tobacco: Never Used Comment: less than 1/4 pack daily - Alcohol use No MEDICATIONS: Prior to Admission Medications: ursodiol (ACTIGALL ORAL) Take by mouth twice daily. multivit with calcium,iron,min (WOMEN'S MULTIPLE VITAMINS ORAL) Take by mouth. predniSONE (DELTASONE) 20 mg tablet Prednisone 40 mg (2-20mg tablets) po QD for 5 days benzonatate (TESSALON PERLE) 100 mg capsule Take 1 capsule by mouth three times daily as needed. albuterol HFA (VENTOLIN HFA) 90 mcg/actuation inhaler Inhale 2 Puffs as instructed every 4 hours as needed for Wheezing/Shortness of Breath. SPRINTEC 0.25-35 mg-mcg per tablet Current hospital medications: acetaminophen 650 mg tab(s) (TYLENOL) 650 mg ORAL q 4 H PRN heparin 5,000 Units injection 5,000 Units SUBCUTANEOUS q 12 H dextrose 5% in NaCl 0.45% with 20 mEq/L KCl iv infusion 100 mL/hr INTRAVENOUS CONTINUOUS oxyCODONE IR 5-10 mg tab(s) (ROXICODONE) 5-10 mg ORAL q 4 H PRN HYDROmorphone 0.2 mg injection (DILAUDID) 0.2 mg INTRAVENOUS q 4 H PRN iv contrast (radiology procedure) INTRAVENOUS DIRECTED PRN ALLERGIES No Known Allergies GI SPECIFIC REVIEW OF SYSTEMS: Positive for poor appetite, RUQ abd pain, nausea, weight loss, has not had a BM in 2 days Negative for vomitting OTHER ROS: Negative for fever, night sweats, sleep problems, mood or depression. Objective PHYSICAL EXAM: BP 110/53 Pulse (!) 54 Temp 36.8 ?C (98.2 ?F) (Oral) Resp 16 Ht 165.1 cm (5' 5) Wt 98.7 kg (217 lb 9.6 oz) SpO2 100% BMI 36.21 kg/m? GENERAL- AAO x 3, no distress HEENT: Moist mucus membranes, no carotid bruit LUNGS: Clear to auscultation bilaterally CARDIAC: S1, S2 heard, no murmur appreciated ABDOMEN: Soft,tender in RUQ; no guarding or rigidity, reduced bowel sounds, trochar incision sites approximated and clean EXTREMITIES: No pedal edema DATA: Diagnostic Tests Reviewed for Today's Visit: Most recent labs and imaging results. Impression/Recommendations Impression 32 year old female who presents with 3 stones in remnant cystic duct s/p lap albert with persistent RUQ pain. Originally presented to OSH for choledocholithiasis complicated by cholecystitis and pancreatitis - ERCP and lap albert complete. 1 week after discharge presented with same pain that originally brought her in, found to have stones in remnant cystic duct by CT. Attempted medical management with Laila, discharged home, presented to different OSH. Repeat CT showed persistence of cystic duct remnant stones. Transferred here for further management. Plan - ERCP to be completed as outpatient, will be scheduled for next week. I saw and evaluated the patient. I reviewed the History, Exam, and Plan as documented by the resident/fellow. The following reflects my findings: agree fully with findings and plan. Will attempt ERCP, cystic duct cannulation for stone removal. Tamara Ramires MD SIGNATURE: Analy Aly Ms PATIENT NAME: Mary Alice Kimble DATE: May 23, 2018 TIME: 1:53 PM PAGER/CONTACT #: [phone] Previous Version Raisa Vela MD 05/24/2018 9:12 AM Attested Attestation signed by Vazquez Horton at 05/24/2018 10:46 AM Addendum: I have reviewed the history and physical examination obtained and documented by the resident and I personally participated in the dumont components. I have discussed the case and management of the patient's care. The following comments revise or confirm relevant dumont components of the note. CC: Tired HPI: Pain is improved. No nausea or vomiting. Abdomen is soft nondistended. There is no tenderness. She isn't bleeding. Hungry and tolerating food. Plan: - ERCP per GI on Saturday for attempted retrieval of cystic duct stones - Presented HPV conference on Saturday morning - Okay for diet as tolerated this weekend will make nothing by mouth at midnight on Saturday night - Continue regular nursing floor SIGNATURE: Jerzy Horton MD [facility] surgery Pager: [phone] [facility] GENERAL SURGERY PROGRESS NOTE Mary Alice Kimble [id number] Hospital Day: 2 ASSESSMENT AND PLAN: 32 year old female with PMH of AV block, pancreatitis, cholecystitis and common bile duct stones s/p ERCP on May 01 and laparoscopic cholecystectomy on may 02 at [facility] who presents with retained cystic duct stones. -Will discuss at [facility] conference -GI consulted for outpatient ERCP, awaiting final recs -PRN analgesia -GIS low fat diet -HLIV -DARWIN, SCDs, OOB, Amb -RNF, may be discharged home pending GI clearance Raisa Vela MD, PGY1 Acute Care Surgery Service Pager [phone] till 6pm (on Wednesdays: 7pm) nights/ weekends pager [phone] ? Subjective INTERVAL EVENTS: No acute events. No new complaints. Pain controlled Objective PHYSICAL EXAM: BP 118/66 Pulse (!) 56 Temp 36.6 ?C (97.9 ?F) (Oral) Resp 16 Ht 165.1 cm (5' 5) Wt 98.7 kg (217 lb 9.6 oz) SpO2 98% BMI 36.21 kg/m? GEN: alert and in no acute distress HEENT: Normocephalic, Atraumatic, sclera anicteric PULM: Unlabored breathing on RA CV: hemodynamically stable ABD: Soft, Non-tender, Non-Distended EXT: warm and well perfused, no jaundice, no cyanosis, no edema NEURO: Awake, Alert DATA: Lines, Drains, and Airways Line Peripheral 05/23/18 1713 Short Right Forearm 22 Gauge less than 1 day Medications: Reviewed Current hospital medications: acetaminophen 650 mg tab(s) (TYLENOL) 650 mg ORAL q 4 H PRN heparin 5,000 Units injection 5,000 Units SUBCUTANEOUS q 12 H dextrose 5% in NaCl 0.45% with 20 mEq/L KCl iv infusion 100 mL/hr INTRAVENOUS CONTINUOUS oxyCODONE IR 5-10 mg tab(s) (ROXICODONE) 5-10 mg ORAL q 4 H PRN HYDROmorphone 0.2 mg injection (DILAUDID) 0.2 mg INTRAVENOUS q 4 H PRN Recent Labs 05/24/18 0615 05/23/18 0556 WBC 5.05 5.65 HB 11.9 12.5 HCT 35.9* 38.6 PLT 201 220 NA 139 142 K 4.0 4.0 CHLOR 103 103 CO2 24 25 CREAT 0.79 0.87 P 3.4 3.5 BUN 10 8 GLUC 92 86 TPROT 6.6 6.7 ALB 3.6* 3.7* MG 1.9 1.9 CA 8.8 9.1 ALKPHOS 104 109 TBILI 0.4 0.4 AST 21 22 ALT 19 20 AMYLASE -- 49 LIPASE -- 39 Active Problems: Retained gallstones following laparoscopic cholecystectomy Severe protein-calorie malnutrition (HCC) Resolved Problems: * No resolved hospital problems. * Jennifer Hernandez MD 05/24/2018 9:35 AM Signed Brief GI update: Case d/w Dr. Ramires yesterday. MRCP reviewed and retained stones in cystic duct remnant noted. Plan for ERCP for retrieval. Order placed and scheduled for Saturday at 10am. NPO after MN on Saturday MN - Ok for regular diet for now - Pain control per primary team Jennifer Henrandez M.D. Fellow, Gastroenterology AND Hepatology May 24, 2018 9:15 AM Raisa Vela MD 05/25/2018 10:41 AM Attested Attestation signed by Vazquez Horton at 05/25/2018 4:59 PM Addendum: I have reviewed the history and physical examination obtained and documented by the resident and I personally participated in the dumont components. I have discussed the case and management of the patient's care. The following comments revise or confirm relevant dumont components of the note. CC: Tired HPI: No new issues. Minimal abdominal pain. Tolerating PO. Ambulating. Having bowel movements. No nausea or vomiting. Afebrile. Plan: - ERCP tomorrow to attempt retrieval of cystic duct stones - NPO at midnight, diet as tolerated until then - Ambulate - Continue RNF SIGNATURE: Jerzy Horton MD B surgery Pager: [phone] [facility] GENERAL SURGERY PROGRESS NOTE Mary Alice Kimble [id number] Hospital Day: 3 ASSESSMENT AND PLAN: 32 year old female with PMH of AV block, pancreatitis, cholecystitis and common bile duct stones s/p ERCP on May 01 and laparoscopic cholecystectomy on may 02 at [facility] who presents with retained cystic duct stones. ? -ERCP Saturday 10Am with GI -GIS low fat, then NPO @ midnight -Will discuss at [facility] conference if ERCP unsuccessful -PRN analgesia -HLIV -DARWIN, SCDs, OOB, Amb -RNF Raisa Vela MD, PGY1 Acute Care Surgery Service Pager [phone] till 6pm (on Wednesdays: 7pm) nights/ weekends pager [phone] ? Subjective INTERVAL EVENTS: No acute events. No new complaints. Objective PHYSICAL EXAM: BP 120/63 Pulse 61 Temp 36.7 ?C (98 ?F) (Oral) Resp 16 Ht 165.1 cm (5' 5) Wt 98.7 kg (217 lb 9.6 oz) SpO2 99% BMI 36.21 kg/m? GEN: alert and in no acute distress HEENT: Normocephalic, Atraumatic, sclera anicteric, PULM: Unlabored breathing on RA CV: hemodynamically stable ABD: Soft, Non-tender, Non-Distended EXT: warm and well perfused, no jaundice, no cyanosis, no edema NEURO: Awake, Alert DATA: Lines, Drains, and Airways Line Peripheral 05/23/18 1713 Short Right Forearm 22 Gauge 1 day Medications: Reviewed Current hospital medications: acetaminophen 650 mg tab(s) (TYLENOL) 650 mg ORAL q 4 H PRN heparin 5,000 Units injection 5,000 Units SUBCUTANEOUS q 12 H oxyCODONE IR 5-10 mg tab(s) (ROXICODONE) 5-10 mg ORAL q 4 H PRN HYDROmorphone 0.2 mg injection (DILAUDID) 0.2 mg INTRAVENOUS q 4 H PRN Recent Labs 05/25/18 0720 05/24/18 0615 05/23/18 0556 WBC 5.50 5.05 5.65 HB 12.3 11.9 12.5 HCT 37.2 35.9* 38.6 PLT 208 201 220 NA 138 139 142 K 4.0 4.0 4.0 CHLOR 101 103 103 CO2 22 24 25 CREAT 0.83 0.79 0.87 P 3.2 3.4 3.5 BUN 11 10 8 GLUC 91 92 86 TPROT 6.9 6.6 6.7 ALB 3.9 3.6* 3.7* MG 1.9 1.9 1.9 CA 9.2 8.8 9.1 ALKPHOS 105 104 109 TBILI 0.3 0.4 0.4 AST 17 21 22 ALT 18 19 20 AMYLASE -- -- 49 LIPASE -- -- 39 Active Problems: Retained gallstones following laparoscopic cholecystectomy Severe protein-calorie malnutrition (HCC) Resolved Problems: * No resolved hospital problems. * Stefani Hunt, RN, RN 05/26/2018 3:08 AM Signed Nursing Progress Note Patient Name: Mary Alice Kimble Patient Location: H051 [id number]/[id number] Daily Note: Pt went to get OOB to bathroom and reported SOB and numbness/tingling in both legs from her feet up to her knees. When she got back to bed the symptoms improved. This was happening at the OSH when her HR would drop. Primary service notified. This note was completed by: KIRSTEN Brand MD 05/26/2018 10:32 AM Signed [facility] GENERAL SURGERY PROGRESS NOTE Mary Aliceavni Kimble [id number] Hospital Day: 4 ASSESSMENT AND PLAN: 32 year old female with PMH of AV block, pancreatitis, cholecystitis and common bile duct stones s/p ERCP on May 01 and laparoscopic cholecystectomy on may 02 at [facility] who presents with retained cystic duct stones. ? -ERCP today -diet after procedure -Will discuss at [facility] conference if ERCP unsuccessful -PRN analgesia -HLIV -DARWIN, SCDs, OOB, Amb -RNF, outpatient cardiology follow up for palpitations Raisa Vela MD, PGY1 Acute Care Surgery Service Pager [phone] till 6pm (on Wednesdays: 7pm) nights/ weekends pager [phone] ? Subjective INTERVAL EVENTS: No acute events. Feels heart racing when she gets up. Once episode of leg numbness and tingling overnight. No SOB/CP/syncope/N/V. Normal bowel function. Objective PHYSICAL EXAM: BP 102/57 Pulse 60 Temp 36.6 ?C (97.8 ?F) (Oral) Resp 16 Ht 165.1 cm (5' 5) Wt 98.7 kg (217 lb 9.6 oz) SpO2 97% BMI 36.21 kg/m? GEN: alert and in no acute distress HEENT: Normocephalic, Atraumatic, sclera anicteric, PULM: Unlabored breathing on RA CV: hemodynamically stable ABD: Soft, Non-tender, Non-Distended EXT: warm and well perfused, no jaundice, no cyanosis, no edema NEURO: Awake, Alert DATA: Lines, Drains, and Airways Line Peripheral 05/23/18 1713 Short Right Forearm 22 Gauge 2 days Medications: Reviewed Current hospital medications: lactated ringers infusion 100 mL/hr INTRAVENOUS CONTINUOUS acetaminophen 650 mg tab(s) (TYLENOL) 650 mg ORAL q 4 H PRN heparin 5,000 Units injection 5,000 Units SUBCUTANEOUS q 12 H oxyCODONE IR 5-10 mg tab(s) (ROXICODONE) 5-10 mg ORAL q 4 H PRN HYDROmorphone 0.2 mg injection (DILAUDID) 0.2 mg INTRAVENOUS q 4 H PRN Recent Labs 05/26/18 0556 05/25/18 0720 05/24/18 0615 WBC 5.89 5.50 5.05 HB 12.8 12.3 11.9 HCT 38.2 37.2 35.9* PLT 218 208 201 NA 139 138 139 K 3.8 4.0 4.0 CHLOR 105 101 103 CO2 21* 22 24 CREAT 0.80 0.83 0.79 P 3.6 3.2 3.4 BUN 12 11 10 GLUC 88 91 92 TPROT 7.1 6.9 6.6 ALB 3.9 3.9 3.6* MG 1.8 1.9 1.9 CA 9.5 9.2 8.8 ALKPHOS 101 105 104 TBILI 0.3 0.3 0.4 AST 14 17 21 ALT 14 18 19 APTT 27.9 -- -- INR 1.0 -- -- Active Problems: Retained gallstones following laparoscopic cholecystectomy Severe protein-calorie malnutrition (HCC) Resolved Problems: * No resolved hospital problems. * Rosa Vargas, RD, RD 05/26/2018 10:48 AM Incomplete NUTRITION THERAPY PROGRESS NOTE SERVICE DATE: 05/26/2018 SERVICE TIME: RECOMMENDED DIAGNOSIS: SEVERE PROTEIN-CALORIE MALNUTRITION per Registered Dietitian on 05/23 NUTRITION CARE PLAN Intervention: {Interventions:0372687} {Collaboration statement:852743} {Coordination of Care:9945527::Coordination of Care:} {Monitor and Evaluation :3855911::Monitor and Evaluation:} Discharge Nutrition Recommendations: { :096330} Per HPI: 32 year old female with PMH of AV block, pancreatitis, cholecystitis and common bile duct stones s/p ERCP on May 01 and laparoscopic cholecystectomy on may 02 at [facility] who presents with retained cystic duct stones. ? Interval History: Nutritional Intake: {:2426480} 05/25 : 100%, 100%, 100% = 1169 kcals, 54 g pro 05/24 : 100%, 100%, 100% = 1637 kcals, 66 g pro 05/23 : NPO, NPO, 100% = 518 kcals, 29 g pro Estimated kilocalorie needs: 8501-4332 kilocalories determined by 20-25 kcal/kg Estimated protein needs: 68-85 grams determined by 1.2-1.5 g/kg [place] weight Current Diet Order DIET NPO Height: 165.1 cm (5' 5) Admission Weight: 98.7 kg (217 lb 9.6 oz) Current Weight: 98.7 kg (217 lb 9.6 oz) Body mass index is 36.21 kg/m?. class 2 obesity Recent Labs 05/26/18 0556 GLUC 88 BUN 12 CREAT 0.80 NA 139 K 3.8 CHLOR 105 CO2 21* ALB 3.9 P 3.6 HB 12.8 HCT 38.2 WBC 5.89 MG 1.8 MNT Billing Type: Re-assess/15 min { :5742405} SIGNATURE: Rosa Vargas, MS, RD, LD PATIENT NAME: Mary Alice Kimble DATE: May 26, 2018 TIME: 10:42 AM PAGER: [phone] CT-ABDOMEN/PELVIS W IV CONT Observed: 05/22/2018 Status: F Source: [facility] 12:00 AM [facility] REPOSITORY Images were obtained outside of [facility] [id number] CBC Collected: 05/14/2018 Status: F Source: [facility] 10:02 AM [facility] REPOSITORY TYPE CODE TESTS RESULT OUT OF REFERENCE UNITS RANGE LAB WBC(LOINC) 4.50-10.80 10 3/mcL WBC 4.80 LAB RBCCT(LOINC 4.10-5.30 10 6/mcL ) Low RBC 3.88 LAB HGB(LOINC) 12.0-16.0 G/dL Low Hgb 11.6 LAB HCT(LOINC) 34.0-46.0 % Hct 34.7 LAB MCV(LOINC) 80.0-99.0 fL MCV 89.4 LAB MCH(LOINC) 27.0-33.0 pg MCH 29.9 LAB MCHC(LOINC) 32.0-36.0 G/dL MCHC 33.5 LAB RDW(LOINC) 11.5-15.5 % RDW 13.9 LAB PLT(LOINC) 150-450 10 3/mcL Platelet 220 LAB MPV(LOINC) 6.6-10.5 fL MPV 8.8 Performed By: #### CBC, ADIFF, ANEU, BMP, GFR #### [address] [address] .AUTO DIFF Collected: 05/14/2018 Status: F Source: [facility] 10:02 [facility] REPOSITORY TYPE CODE TESTS RESULT OUT OF REFERENCE UNITS RANGE LAB MEGAN(LOINC) 50.0-75.0 % Low Neutrophil % 49.3 LAB LYM(LOINC) 20.0-40.0 % Lymphocyte % 30.7 LAB MON(LOINC) 2.0-13.0 % Monocyte % 12.0 LAB EO(LOINC) 0.0-6.0 % High Eosinophil % 7.3 LAB BAS(LOINC) 0.0-2.5 % Basophil % 0.7 LAB ABLYM(LOIN 0.90-4.32 10 3/mcL C) Lymphocyte, 1.50 Absolute LAB JASMYN(LOINC 0.09-1.40 10 3/mcL ) Monocyte, 0.60 Absolute LAB AEOS(LOINC 0.00-0.65 10 3/mcL ) Eosinophil, 0.30 Absolute LAB ABAS(LOINC 0.00-0.27 10 3/mcL ) Basophil, 0.00 Absolute Performed By: #### CBC, ADIFF, ANEU, BMP, GFR #### [address] [address] .NEUABS Collected: 05/14/2018 Status: F Source: [facility] 10:02 [facility] REPOSITORY TYPE CODE TESTS RESULT OUT OF REFERENCE UNITS RANGE LAB ANEU(LOINC) 2.25-8.10 10 3/mcL Neutrophil, 2.30 Absolute Performed By: #### CBC, ADIFF, ANEU, BMP, GFR #### [address] [address] BMP Collected: 05/14/2018 Status: F Source: [facility] 10:02 [facility] REPOSITORY TYPE CODE TESTS RESULT OUT OF REFERENCE UNITS RANGE LAB GLU(LOINC) 70-110 mg/dL Glucose Level 90 LAB NA(LOINC) 136-145 mEq/L Sodium Level 144 LAB K(LOINC) 3.5-5.0 mEq/L Potassium Level 3.9 LAB CL(LOINC) 98-110 mEq/L Chloride 106 LAB CO2(LOINC) 22-32 mEq/L CO2 28 LAB EBAL(LOINC 4.0-15.0 mEq/L ) Electrolyte Balance 10.0 LAB BUN(LOINC) 8.0-22.0 mg/dL Low BUN 5.0 LAB CRE(LOINC) 0.50-1.20 mg/dL Creatinine Lvl (s) 0.94 LAB BC(LOINC) 10.0-22.0 ratio Low BUN/Creatinine 5.3 Ratio LAB CA(LOINC) 8.4-10.1 mg/dL Calcium Lvl 8.4 Performed By: #### CBC, ADIFF, ANEU, BMP, GFR #### [address] [address] .GFR Collected: 05/14/2018 Status: F Source: [facility] 10:02 [facility] REPOSITORY TYPE CODE TESTS RESULT OUT OF REFERENCE UNITS RANGE LAB GFRAA(LOINC ml/min/1.73 ) sqm GFR >60 Tongan Result Comment: GFR Population mean for , Non- Americans Ages 20-29 = 116 mL/min/1.73 sq.m. Ages 30-39 = 107 mL/min/1.73 sq.m. Ages 40-49 = 99 mL/min/1.73 sq.m. Ages 50-59 = 93 mL/min/1.73 sq.m. Ages 60-69 = 85 mL/min/1.73 sq.m. Ages 70+ = 75 mL/min/1.73 sq.m. Chronic Kidney Disease: Less than 60 mL/min/1.73 square meters End Stage Renal Disease: Less than 15 mL/min/1.73 square meters LAB GFRNO(LOINC) ml/min/1.73sqm GFR Non- >60 Result Comment: GFR Population mean for , Non- Americans Ages 20-29 = 116 mL/min/1.73 sq.m. Ages 30-39 = 107 mL/min/1.73 sq.m. Ages 40-49 = 99 mL/min/1.73 sq.m. Ages 50-59 = 93 mL/min/1.73 sq.m. Ages 60-69 = 85 mL/min/1.73 sq.m. Ages 70+ = 75 mL/min/1.73 sq.m. Chronic Kidney Disease: Less than 60 mL/min/1.73 square meters End Stage Renal Disease: Less than 15 mL/min/1.73 square meters Performed By: #### CBC, ADIFF, ANEU, BMP, GFR #### [place] [address] Observed: 05/13/2018 Status: F Source: [facility] 11:45 AM [facility] REPOSITORY . MICRO - Microbiology PROCEDURE: Clostridium difficile PCR [^1 *1] SOURCE: Stool BODY SITE: COLLECTED DATE/TIME: 05/13/2018 11:45 EDT RECEIVED DATE/TIME: 05/13/2018 15:44 EDT START DATE/TIME: 05/13/2018 15:44 EDT FREE TEXT SOURCE: FINAL REPORTS Final Report [] Verified Date/Time/Personnel: 05/13/2018 23:11 EDT NEGATIVE. No tcdB gene DNA detected. Negative test results may occur from improper collection, handling or storage of specimen, technical error, or number of organisms below the analytical sensitivity of the test. Interpretive Data ^1: Clostridium difficile PCR As with all in vitro diagnostic tests, positive and negative predictive values are highly dependent on prevalence. The [employer] C. difficile PCR Assay performance may vary depending on the prevalence and population tested. Performing Locations *1: This test was performed at: [address], [facility] , [facility] Performed By: #### CDPCR #### [place] [address] CBC Collected: 05/12/2018 Status: F Source: [facility] 3:43 AM [facility] REPOSITORY TYPE CODE TESTS RESULT OUT OF REFERENCE UNITS RANGE LAB WBC(LOINC) 4.50-10.80 10 3/mcL WBC 5.30 LAB RBCCT(LOINC 4.10-5.30 10 6/mcL ) Low RBC 3.85 LAB HGB(LOINC) 12.0-16.0 G/dL Low Hgb 11.9 LAB HCT(LOINC) 34.0-46.0 % Low Hct 33.9 LAB MCV(LOINC) 80.0-99.0 fL MCV 88.0 LAB MCH(LOINC) 27.0-33.0 pg MCH 30.9 LAB MCHC(LOINC) 32.0-36.0 G/dL MCHC 35.1 LAB RDW(LOINC) 11.5-15.5 % RDW 13.8 LAB PLT(LOINC) 150-450 10 3/mcL Platelet 245 LAB MPV(LOINC) 6.6-10.5 fL MPV 8.8 Performed By: #### CBC, ADIFF, ANEU, LIP, BMP, GFR, HFP #### [place] [address] .AUTO DIFF Collected: 05/12/2018 Status: F Source: [facility] 3:43 [facility] REPOSITORY TYPE CODE TESTS RESULT OUT OF REFERENCE UNITS RANGE LAB MEGAN(LOINC) 50.0-75.0 % Low Neutrophil % 49.3 LAB LYM(LOINC) 20.0-40.0 % Lymphocyte % 33.0 LAB MON(LOINC) 2.0-13.0 % Monocyte % 11.2 LAB EO(LOINC) 0.0-6.0 % Eosinophil % 5.3 LAB BAS(LOINC) 0.0-2.5 % Basophil % 1.2 LAB ABLYM(LOIN 0.90-4.32 10 3/mcL C) Lymphocyte, 1.70 Absolute LAB JASMYN(LOINC 0.09-1.40 10 3/mcL ) Monocyte, 0.60 Absolute LAB AEOS(LOINC 0.00-0.65 10 3/mcL ) Eosinophil, 0.30 Absolute LAB ABAS(LOINC 0.00-0.27 10 3/mcL ) Basophil, 0.10 Absolute Performed By: #### CBC, ADIFF, ANEU, LIP, BMP, GFR, HFP #### [place] [address] .NEUABS Collected: 05/12/2018 Status: F Source: [place] [facility] 3:43 AM [facility] REPOSITORY TYPE CODE TESTS RESULT OUT OF REFERENCE UNITS RANGE LAB ANEU(LOINC) 2.25-8.10 10 3/mcL Neutrophil, 2.60 Absolute Performed By: #### CBC, ADIFF, ANEU, LIP, BMP, GFR, HFP #### [place] [address] LIP Collected: 05/12/2018 Status: F Source: [facility] 3:43 AM [facility] REPOSITORY TYPE CODE TESTS RESULT OUT OF REFERENCE UNITS RANGE LAB LIP(LOINC) 73-393 U/L Lipase Level 354 Performed By: #### CBC, ADIFF, ANEU, LIP, BMP, GFR, HFP #### [place] [address] BMP Collected: 05/12/2018 Status: F Source: [place] [facility] 3:43 AM [facility] REPOSITORY TYPE CODE TESTS RESULT OUT OF REFERENCE UNITS RANGE LAB GLU(LOINC) 70-110 mg/dL Glucose Level 76 LAB NA(LOINC) 136-145 mEq/L Sodium Level 144 LAB K(LOINC) 3.5-5.0 mEq/L Potassium Level 3.7 LAB CL(LOINC) 98-110 mEq/L Chloride 106 LAB CO2(LOINC) 22-32 mEq/L CO2 28 LAB EBAL(LOINC 4.0-15.0 mEq/L ) Electrolyte Balance 10.0 LAB BUN(LOINC) 8.0-22.0 mg/dL Low BUN 6.0 LAB CRE(LOINC) 0.50-1.20 mg/dL Creatinine Lvl (s) 0.97 LAB BC(LOINC) 10.0-22.0 ratio Low BUN/Creatinine 6.2 Ratio LAB CA(LOINC) 8.4-10.1 mg/dL Calcium Lvl 8.5 Performed By: #### CBC, ADIFF, ANEU, LIP, BMP, GFR, HFP #### [place] [address] .GFR Collected: 05/12/2018 Status: F Source: [facility] 3:43 AM [facility] REPOSITORY TYPE CODE TESTS RESULT OUT OF REFERENCE UNITS RANGE LAB GFRAA(LOINC ml/min/1.73 ) sqm GFR >60 Tongan Result Comment: GFR Population mean for , Non- Americans Ages 20-29 = 116 mL/min/1.73 sq.m. Ages 30-39 = 107 mL/min/1.73 sq.m. Ages 40-49 = 99 mL/min/1.73 sq.m. Ages 50-59 = 93 mL/min/1.73 sq.m. Ages 60-69 = 85 mL/min/1.73 sq.m. Ages 70+ = 75 mL/min/1.73 sq.m. Chronic Kidney Disease: Less than 60 mL/min/1.73 square meters End Stage Renal Disease: Less than 15 mL/min/1.73 square meters LAB GFRNO(LOINC) ml/min/1.73sqm GFR Non- >60 Result Comment: GFR Population mean for , Non- Americans Ages 20-29 = 116 mL/min/1.73 sq.m. Ages 30-39 = 107 mL/min/1.73 sq.m. Ages 40-49 = 99 mL/min/1.73 sq.m. Ages 50-59 = 93 mL/min/1.73 sq.m. Ages 60-69 = 85 mL/min/1.73 sq.m. Ages 70+ = 75 mL/min/1.73 sq.m. Chronic Kidney Disease: Less than 60 mL/min/1.73 square meters End Stage Renal Disease: Less than 15 mL/min/1.73 square meters Performed By: #### CBC, ADIFF, ANEU, LIP, BMP, GFR, HFP #### [address] Collected: 05/12/2018 Status: F Source: [facility] 3:43 AM [facility] REPOSITORY TYPE CODE TESTS RESULT OUT OF REFERENCE UNITS RANGE LAB PROT(LOINC) 6.0-8.5 G/dL Total Protein 6.4 LAB ALB(LOINC) 3.2-4.8 G/dL Low Albumin Level 3.1 LAB GLB(LOINC) 1.5-3.8 G/dL Globulin 3.3 LAB AG(LOINC) 0.9-1.6 ratio A/G Ratio 0.9 LAB BILT(LOINC) 0.2-1.2 mg/dL Bili Total 0.4 LAB BILAD(LOINC 0.0-0.4 mg/dL ) Bili Direct 0.1 LAB BILI(LOINC) 0.1-10.0 mg/dL Bili Indirect 0.3 Result Comment: Calculation Performed by Rule LAB AP(LOINC) 38-126 U/L High Alk Phos 193 LAB AST(LOINC) 8-34 U/L AST/SGOT 15 LAB ALT(LOINC) 10-49 U/L ALT/SGPT 28 Performed By: #### CBC, ADIFF, ANEU, LIP, BMP, GFR, HFP #### [address] [address] TROPI Collected: 05/11/2018 Status: F Source: [facility] 8:25 AM [facility] REPOSITORY TYPE CODE TESTS RESULT OUT OF REFERENCE UNITS RANGE LAB TROPI(LOINC 0.000-0.040 ng/mL ) Troponin I 0.016 Result Comment: Troponin I reference ranges (04/26/14): 0.00-0.040 ng/mL Negative and non-diagnostic. >0.040 ng/mL Consistent with cardiac damage, increased clinical risk and possibility of myocardial infarction. Serial measurements, a rise & fall in test results, clinical history, appropriate symptoms and/or ECG changes may help assess possibility of NC. *Other non-acute coronary syndrome conditions such as CHF, myocarditis, pulmonary emboli, sepsis and cardiac surgery could result in myocardial damage and increased troponin levels. Performed By: #### TROPI #### [address] [address] CBC Collected: 05/11/2018 Status: F Source: [facility] 3:21 AM [facility] REPOSITORY TYPE CODE TESTS RESULT OUT OF REFERENCE UNITS RANGE LAB WBC(LOINC) 4.50-10.80 10 3/mcL WBC 5.80 LAB RBCCT(LOINC 4.10-5.30 10 6/mcL ) Low RBC 3.44 LAB HGB(LOINC) 12.0-16.0 G/dL Low Hgb 10.6 LAB HCT(LOINC) 34.0-46.0 % Low Hct 30.6 LAB MCV(LOINC) 80.0-99.0 fL MCV 88.8 LAB MCH(LOINC) 27.0-33.0 pg MCH 30.8 LAB MCHC(LOINC) 32.0-36.0 G/dL MCHC 34.7 LAB RDW(LOINC) 11.5-15.5 % RDW 13.8 LAB PLT(LOINC) 150-450 10 3/mcL Platelet 207 LAB MPV(LOINC) 6.6-10.5 fL MPV 8.9 Performed By: #### CBC, ADIFF, ANEU, MG, CMP, GFR #### [address] [address] .AUTO DIFF Collected: 05/11/2018 Status: F Source: [facility] 3:21 AM [facility] REPOSITORY TYPE CODE TESTS RESULT OUT OF REFERENCE UNITS RANGE LAB MEGAN(LOINC) 50.0-75.0 % Neutrophil % 53.9 LAB LYM(LOINC) 20.0-40.0 % Lymphocyte % 29.0 LAB MON(LOINC) 2.0-13.0 % Monocyte % 9.3 LAB EO(LOINC) 0.0-6.0 % High Eosinophil % 6.9 LAB BAS(LOINC) 0.0-2.5 % Basophil % 0.9 LAB ABLYM(LOIN 0.90-4.32 10 3/mcL C) Lymphocyte, 1.70 Absolute LAB JASMYN(LOINC 0.09-1.40 10 3/mcL ) Monocyte, 0.50 Absolute LAB AEOS(LOINC 0.00-0.65 10 3/mcL ) Eosinophil, 0.40 Absolute LAB ABAS(LOINC 0.00-0.27 10 3/mcL ) Basophil, 0.10 Absolute Performed By: #### CBC, ADIFF, ANEU, MG, CMP, GFR #### [address] [address] .NEUABS Collected: 05/11/2018 Status: F Source: [facility] 3:21 AM [facility] REPOSITORY TYPE CODE TESTS RESULT OUT OF REFERENCE UNITS RANGE LAB ANEU(LOINC) 2.25-8.10 10 3/mcL Neutrophil, 3.10 Absolute Performed By: #### CBC, ADIFF, ANEU, MG, CMP, GFR #### [address] [address] MG Collected: 05/11/2018 Status: F Source: [facility] 3:21 AM [facility] REPOSITORY TYPE CODE TESTS RESULT OUT OF REFERENCE UNITS RANGE LAB MG(LOINC) 1.6-2.4 mg/dL Magnesium Lvl 1.8 Performed By: #### CBC, ADIFF, ANEU, MG, CMP, GFR #### [place] [id number] [place] [address] CMP Collected: 05/11/2018 Status: F Source: [facility] 3:21 AM [facility] REPOSITORY TYPE CODE TESTS RESULT OUT OF REFERENCE UNITS RANGE LAB GLU(LOINC) 70-110 mg/dL Glucose Level 80 LAB NA(LOINC) 136-145 mEq/L Sodium Level 144 LAB K(LOINC) 3.5-5.0 mEq/L Potassium Level 3.9 LAB CL(LOINC) 98-110 mEq/L Chloride 109 LAB CO2(LOINC) 22-32 mEq/L CO2 27 LAB EBAL(LOINC 4.0-15.0 mEq/L ) Electrolyte Balance 8.0 LAB BUN(LOINC) 8.0-22.0 mg/dL Low BUN 4.0 LAB CRE(LOINC) 0.50-1.20 mg/dL Creatinine Lvl (s) 0.84 LAB BC(LOINC) 10.0-22.0 ratio Low BUN/Creatinine 4.8 Ratio LAB CA(LOINC) 8.4-10.1 mg/dL Low Calcium Lvl 8.1 LAB PROT(LOINC 6.0-8.5 G/dL ) Total Protein 6.0 LAB ALB(LOINC) 3.2-4.8 G/dL Low Albumin Level 2.9 LAB GLB(LOINC) 1.5-3.8 G/dL Globulin 3.1 LAB AG(LOINC) 0.9-1.6 ratio A/G Ratio 0.9 LAB BILT(LOINC 0.2-1.2 mg/dL ) Bili Total 0.3 LAB AP(LOINC) 38-126 U/L Alk Phos High 190 LAB AST(LOINC) 8-34 U/L AST/SGOT 19 LAB ALT(LOINC) 10-49 U/L ALT/SGPT 30 Performed By: #### CBC, ADIFF, ANEU, MG, CMP, GFR #### [address] [address] .GFR Collected: 05/11/2018 Status: F Source: [facility] 3:21 AM [facility] REPOSITORY TYPE CODE TESTS RESULT OUT OF REFERENCE UNITS RANGE LAB GFRAA(LOINC ml/min/1.73 ) sqm GFR >60 Tongan Result Comment: GFR Population mean for , Non- Americans Ages 20-29 = 116 mL/min/1.73 sq.m. Ages 30-39 = 107 mL/min/1.73 sq.m. Ages 40-49 = 99 mL/min/1.73 sq.m. Ages 50-59 = 93 mL/min/1.73 sq.m. Ages 60-69 = 85 mL/min/1.73 sq.m. Ages 70+ = 75 mL/min/1.73 sq.m. Chronic Kidney Disease: Less than 60 mL/min/1.73 square meters End Stage Renal Disease: Less than 15 mL/min/1.73 square meters LAB GFRNO(LOINC) ml/min/1.73sqm GFR Non- >60 Result Comment: GFR Population mean for , Non- Americans Ages 20-29 = 116 mL/min/1.73 sq.m. Ages 30-39 = 107 mL/min/1.73 sq.m. Ages 40-49 = 99 mL/min/1.73 sq.m. Ages 50-59 = 93 mL/min/1.73 sq.m. Ages 60-69 = 85 mL/min/1.73 sq.m. Ages 70+ = 75 mL/min/1.73 sq.m. Chronic Kidney Disease: Less than 60 mL/min/1.73 square meters End Stage Renal Disease: Less than 15 mL/min/1.73 square meters Performed By: #### CBC, ADIFF, ANEU, MG, CMP, GFR #### [address] [address] [address] ABD/PELVIS W/ IV Observed: 05/10/2018 Status: F Source: [facility] CONTRAST ONLY 11:01 AM [facility] REPOSITORY ORIGINAL CT ABD/PELVIS W/ IV CONTRAST ONLY This exam was performed according to our departmental dose optimization program, and includes the following measures where applicable: automated exposure control, adjustment of the mAs and/or kVp accord ing to patient size and/or exam, and an iterative reconstruction algorithm. CLINICAL STATEMENT: abdominal pain, status post laparoscopic cholecystectomy COMPARISON: 04/30/2018 FINDINGS: There are surgical clips in the gallbladder fossa. Three residual gallstones are present in the cystic duct region. There is a small amount of ill-defined fluid or blood products in the gallbladder fossa, approximately 1.5 cm in diameter. The common samuel e duct does not appear dilated and no calculi are seen along the course of the common bile duct. There is diminished/resolved pancreatic edema. The lung bases are clear. The liver, spleen, adrenal glands, and kidneys are unremarkable. The stomach is not distended, limiting its evaluation. The abdominal aorta is normal in caliber. There are no dilated segments of small or large bowel. The appendix is not inflamed. The uterus and bladder are unremarkable. Soft tissue infiltration deep to the umbilicus presumably relates to laparoscopic port placement. There are no suspicious bone lesions. IMPRESSION: Three residual gallstones are noted in the vicinity of cystic duct. Interpreted By: Shyla Mendoza MD Preliminary Report By: Shyla Mendoza MD Electronically Signed By: Shyla Mendoza MD Dictated Date: 05/10/2018 11:20:46 AM Prelim Date: 05/10/2018 11:20:46 AM Sign Date: 05/10/2018 11:27:33 AM CBC Collected: 05/10/2018 Status: F Source: [facility] 9:35 AM [facility] REPOSITORY TYPE CODE TESTS RESULT OUT OF REFERENCE UNITS RANGE LAB WBC(LOINC) 4.50-10.80 10 3/mcL WBC 5.90 LAB RBCCT(LOINC 4.10-5.30 10 6/mcL ) Low RBC 3.84 LAB HGB(LOINC) 12.0-16.0 G/dL Low Hgb 11.8 LAB HCT(LOINC) 34.0-46.0 % Hct 34.6 LAB MCV(LOINC) 80.0-99.0 fL MCV 90.2 LAB MCH(LOINC) 27.0-33.0 pg MCH 30.6 LAB MCHC(LOINC) 32.0-36.0 G/dL MCHC 34.0 LAB RDW(LOINC) 11.5-15.5 % RDW 14.1 LAB PLT(LOINC) 150-450 10 3/mcL Platelet 254 LAB MPV(LOINC) 6.6-10.5 fL MPV 9.5 Performed By: #### CBC, ADIFF, ANEU, LIP, CMP, GFR #### [place] [address] .AUTO DIFF Collected: 05/10/2018 Status: F Source: [facility] 9:35 AM [facility] REPOSITORY TYPE CODE TESTS RESULT OUT OF REFERENCE UNITS RANGE LAB MEGAN(LOINC) 50.0-75.0 % Neutrophil % 58.8 LAB LYM(LOINC) 20.0-40.0 % Lymphocyte % 24.6 LAB MON(LOINC) 2.0-13.0 % Monocyte % 9.6 LAB EO(LOINC) 0.0-6.0 % High Eosinophil % 6.6 LAB BAS(LOINC) 0.0-2.5 % Basophil % 0.4 LAB ABLYM(LOIN 0.90-4.32 10 3/mcL C) Lymphocyte, 1.40 Absolute LAB JASMYN(LOINC 0.09-1.40 10 3/mcL ) Monocyte, 0.60 Absolute LAB AEOS(LOINC 0.00-0.65 10 3/mcL ) Eosinophil, 0.40 Absolute LAB ABAS(LOINC 0.00-0.27 10 3/mcL ) Basophil, 0.00 Absolute Performed By: #### CBC, ADIFF, ANEU, LIP, CMP, GFR #### [place] [address] .NEUABS Collected: 05/10/2018 Status: F Source: [facility] 9:35 AM [facility] REPOSITORY TYPE CODE TESTS RESULT OUT OF REFERENCE UNITS RANGE LAB ANEU(LOINC) 2.25-8.10 10 3/mcL Neutrophil, 3.50 Absolute Performed By: #### CBC, ADIFF, ANEU, LIP, CMP, GFR #### [place] [address] LIP Collected: 05/10/2018 Status: F Source: [facility] 9:35 AM [facility] REPOSITORY TYPE CODE TESTS RESULT OUT OF REFERENCE UNITS RANGE LAB LIP(LOINC) 73-393 U/L High Lipase Level 750 Performed By: #### CBC, ADIFF, ANEU, LIP, CMP, GFR #### [place] [address] CMP Collected: 05/10/2018 Status: F Source: [facility] 9:35 AM [facility] REPOSITORY TYPE CODE TESTS RESULT OUT OF REFERENCE UNITS RANGE LAB GLU(LOINC) 70-110 mg/dL Glucose Level 77 LAB NA(LOINC) 136-145 mEq/L Sodium Level 143 LAB K(LOINC) 3.5-5.0 mEq/L Potassium Level 3.7 LAB CL(LOINC) 98-110 mEq/L Chloride 108 LAB CO2(LOINC) 22-32 mEq/L CO2 26 LAB EBAL(LOINC 4.0-15.0 mEq/L ) Electrolyte Balance 9.0 LAB BUN(LOINC) 8.0-22.0 mg/dL Low BUN 7.0 LAB CRE(LOINC) 0.50-1.20 mg/dL Creatinine Lvl (s) 0.79 LAB BC(LOINC) 10.0-22.0 ratio Low BUN/Creatinine 8.9 Ratio LAB CA(LOINC) 8.4-10.1 mg/dL Calcium Lvl 8.9 LAB PROT(LOINC 6.0-8.5 G/dL ) Total Protein 7.3 LAB ALB(LOINC) 3.2-4.8 G/dL Low Albumin Level 3.1 LAB GLB(LOINC) 1.5-3.8 G/dL Globulin High 4.2 LAB AG(LOINC) 0.9-1.6 ratio Low A/G Ratio 0.7 LAB BILT(LOINC 0.2-1.2 mg/dL ) Bili Total 0.3 LAB AP(LOINC) 38-126 U/L Alk Phos High 210 LAB AST(LOINC) 8-34 U/L AST/SGOT 20 LAB ALT(LOINC) 10-49 U/L ALT/SGPT 32 Performed By: #### CBC, ADIFF, ANEU, LIP, CMP, GFR #### [facility] [address] [place] [id number] .GFR Collected: 05/10/2018 Status: F Source: [facility] 9:35 AM [facility] REPOSITORY TYPE CODE TESTS RESULT OUT OF REFERENCE UNITS RANGE LAB GFRAA(LOINC ml/min/1.73 ) sqm GFR >60 Tongan Result Comment: GFR Population mean for , Non- Americans Ages 20-29 = 116 mL/min/1.73 sq.m. Ages 30-39 = 107 mL/min/1.73 sq.m. Ages 40-49 = 99 mL/min/1.73 sq.m. Ages 50-59 = 93 mL/min/1.73 sq.m. Ages 60-69 = 85 mL/min/1.73 sq.m. Ages 70+ = 75 mL/min/1.73 sq.m. Chronic Kidney Disease: Less than 60 mL/min/1.73 square meters End Stage Renal Disease: Less than 15 mL/min/1.73 square meters LAB GFRNO(LOINC) ml/min/1.73sqm GFR Non- >60 Result Comment: GFR Population mean for , Non- Americans Ages 20-29 = 116 mL/min/1.73 sq.m. Ages 30-39 = 107 mL/min/1.73 sq.m. Ages 40-49 = 99 mL/min/1.73 sq.m. Ages 50-59 = 93 mL/min/1.73 sq.m. Ages 60-69 = 85 mL/min/1.73 sq.m. Ages 70+ = 75 mL/min/1.73 sq.m. Chronic Kidney Disease: Less than 60 mL/min/1.73 square meters End Stage Renal Disease: Less than 15 mL/min/1.73 square meters Performed By: #### CBC, ADIFF, ANEU, LIP, CMP, GFR #### [place] [address] FINAL SURGICAL Observed: 05/02/2018 Status: F Source: [facility] PATHOLOGY REPORT 11:41 AM [facility] REPOSITORY . Pathology Reports Accession: Collected Date/Time: Received Date/Time: Pathologist: [id number] 05/02/2018 11:41 EDT 05/02/2018 13:04 EDT MD JARRED CALVIN Final Surgical Pathology Report DIAGNOSIS: GALLBLADDER, CHOLECYSTECTOMY: - CHRONIC CHOLECYSTITIS WITH CHOLELITHIASIS. CLINICAL INFORMATION: Procedure: LAPAROSCOPIC CHOLECYSTECTOMY Preoperative diagnosis : PANCREATITIS Postoperative diagnosis: SAME SPECIMEN: A GALLBLADDER GROSS DESCRIPTION: Received in formalin labeled gallbladder is a 7.2 x 2.6 x 2.0 cm gallbladder. The serosa is pink and smooth. Opening shows a small amount of yellow viscid bile and multiple green choleliths averaging 0.8 cm in greatest dimension. The mucosa is yellow- red and velvety. The wall averages 0.2 cm in thickness. RS -1 Dictated by Ella BERG ([facility]) MICROSCOPIC DESCRIPTION: Slides reviewed. Electronically Signed by Pathology Report verified by [facility] Electronically signed by JARRED CALVIN MD Sign out Date: 05/06/2018 09:01 Performing Lab: [facility], [address] [place] [address] Performed By: #### SPFR #### [place] [id number] XR ERCP BILIARY AND Observed: 05/01/2018 Status: F Source: [facility] PANCREATIC DUCT 10:15 AM [facility] REPOSITORY ORIGINAL XR ERCP BILIARY AND PANCREATIC DUCT CLINICAL STATEMENT: stones FLUORO: 1 minute 13 seconds AIR KERMA DOSE: 28 mGy BODY PART: Biliary tree IMPRESSION: Documentation of fluoroscopy. Please see intraoperative notes for additional details. Interpreted By: Sravani Grimes MD Preliminary Report By: Sravani Grimes MD Electronically Signed By: Sravani Grimes MD Dictated Date: 05/01/2018 4:43:27 PM Prelim Date: 05/01/2018 4:43:27 PM Sign Date: 05/01/2018 4:43:42 PM CBC Collected: 05/01/2018 Status: F Source: [facility] 6:49 AM [facility] REPOSITORY TYPE CODE TESTS RESULT OUT OF REFERENCE UNITS RANGE LAB WBC(LOINC) 4.50-10.80 10 3/mcL WBC 7.70 LAB RBCCT(LOINC 4.10-5.30 10 6/mcL ) RBC 4.25 LAB HGB(LOINC) 12.0-16.0 G/dL Hgb 13.1 LAB HCT(LOINC) 34.0-46.0 % Hct 38.5 LAB MCV(LOINC) 80.0-99.0 fL MCV 90.6 LAB MCH(LOINC) 27.0-33.0 pg MCH 30.8 LAB MCHC(LOINC) 32.0-36.0 G/dL MCHC 34.0 LAB RDW(LOINC) 11.5-15.5 % RDW 15.0 LAB PLT(LOINC) 150-450 10 3/mcL Platelet 208 LAB MPV(LOINC) 6.6-10.5 fL MPV 9.5 Performed By: #### CBC, ADIFF, ANEU, CMP, GFR, LIPID #### [place] [id number] .AUTO DIFF Collected: 05/01/2018 Status: F Source: [facility] 6:49 AM [facility] REPOSITORY TYPE CODE TESTS RESULT OUT OF REFERENCE UNITS RANGE LAB MEGAN(LOINC) 50.0-75.0 % Neutrophil % 61.5 LAB LYM(LOINC) 20.0-40.0 % Low Lymphocyte % 17.7 LAB MON(LOINC) 2.0-13.0 % Monocyte % 7.3 LAB EO(LOINC) 0.0-6.0 % High Eosinophil % 13.3 LAB BAS(LOINC) 0.0-2.5 % Basophil % 0.2 LAB ABLYM(LOIN 0.90-4.32 10 3/mcL C) Lymphocyte, 1.40 Absolute LAB JASMYN(LOINC 0.09-1.40 10 3/mcL ) Monocyte, 0.60 Absolute LAB AEOS(LOINC 0.00-0.65 10 3/mcL ) High Eosinophil, 1.00 Absolute LAB ABAS(LOINC 0.00-0.27 10 3/mcL ) Basophil, 0.00 Absolute Performed By: #### CBC, ADIFF, ANEU, CMP, GFR, LIPID #### [place] [id number] .NEUABS Collected: 05/01/2018 Status: F Source: [facility] 6:49 AM [facility] REPOSITORY TYPE CODE TESTS RESULT OUT OF REFERENCE UNITS RANGE LAB ANEU(LOINC) 2.25-8.10 10 3/mcL Neutrophil, 4.70 Absolute Performed By: #### CBC, ADIFF, ANEU, CMP, GFR, LIPID #### [place] [address] CMP Collected: 05/01/2018 Status: F Source: [facility] 6:49 AM [facility] REPOSITORY TYPE CODE TESTS RESULT OUT OF REFERENCE UNITS RANGE LAB GLU(LOINC) 70-110 mg/dL Glucose Level 76 LAB NA(LOINC) 136-145 mEq/L Sodium Level 142 LAB K(LOINC) 3.5-5.0 mEq/L Potassium Level 4.0 LAB CL(LOINC) 98-110 mEq/L Chloride 108 LAB CO2(LOINC) 22-32 mEq/L CO2 23 LAB EBAL(LOINC 4.0-15.0 mEq/L ) Electrolyte Balance 11.0 LAB BUN(LOINC) 8.0-22.0 mg/dL BUN 11.0 LAB CRE(LOINC) 0.50-1.20 mg/dL Creatinine Lvl (s) 0.78 LAB BC(LOINC) 10.0-22.0 ratio BUN/Creatinine 14.1 Ratio LAB CA(LOINC) 8.4-10.1 mg/dL Calcium Lvl 8.9 LAB PROT(LOINC 6.0-8.5 G/dL ) Total Protein 7.1 LAB ALB(LOINC) 3.2-4.8 G/dL Albumin Level 3.4 LAB GLB(LOINC) 1.5-3.8 G/dL Globulin 3.7 LAB AG(LOINC) 0.9-1.6 ratio A/G Ratio 0.9 LAB BILT(LOINC 0.2-1.2 mg/dL ) Bili Total 0.7 LAB AP(LOINC) 38-126 U/L Alk Phos High 409 LAB AST(LOINC) 8-34 U/L AST/SGOT High 42 LAB ALT(LOINC) 10-49 U/L ALT/SGPT High 100 Performed By: #### CBC, ADIFF, ANEU, CMP, GFR, LIPID #### [place] [address] .GFR Collected: 05/01/2018 Status: F Source: [facility] 6:49 AM [facility] REPOSITORY TYPE CODE TESTS RESULT OUT OF REFERENCE UNITS RANGE LAB GFRAA(LOINC ml/min/1.73 ) sqm GFR >60 Tongan Result Comment: GFR Population mean for , Non- Americans Ages 20-29 = 116 mL/min/1.73 sq.m. Ages 30-39 = 107 mL/min/1.73 sq.m. Ages 40-49 = 99 mL/min/1.73 sq.m. Ages 50-59 = 93 mL/min/1.73 sq.m. Ages 60-69 = 85 mL/min/1.73 sq.m. Ages 70+ = 75 mL/min/1.73 sq.m. Chronic Kidney Disease: Less than 60 mL/min/1.73 square meters End Stage Renal Disease: Less than 15 mL/min/1.73 square meters LAB GFRNO(LOINC) ml/min/1.73sqm GFR Non- >60 Result Comment: GFR Population mean for , Non- Americans Ages 20-29 = 116 mL/min/1.73 sq.m. Ages 30-39 = 107 mL/min/1.73 sq.m. Ages 40-49 = 99 mL/min/1.73 sq.m. Ages 50-59 = 93 mL/min/1.73 sq.m. Ages 60-69 = 85 mL/min/1.73 sq.m. Ages 70+ = 75 mL/min/1.73 sq.m. Chronic Kidney Disease: Less than 60 mL/min/1.73 square meters End Stage Renal Disease: Less than 15 mL/min/1.73 square meters Performed By: #### CBC, ADIFF, ANEU, CMP, GFR, LIPID #### [address] [id number] LIPID Collected: 05/01/2018 Status: F Source: [facility] 6:49 AM [facility] REPOSITORY TYPE CODE TESTS RESULT OUT OF REFERENCE UNITS RANGE LAB CHOL(LOINC 50-199 mg/dL ) Cholesterol 184 Result Comment: Cholesterol Reference Interval: Less than 200 Desirable 200-239 Borderline high risk 240 and above High risk LAB TRIG(LOINC) 3-149 mg/dL Triglycerides 117 Result Comment: Triglyceride Reference Interval: Less than 150 Normal 150-199 Borderline high risk 200-499 High risk 500 or higher Very high risk LAB HD(LOINC) 40-59 mg/dL HDL Cholesterol 42 Result Comment: HDL Reference Interval: Less than 40 Low - high risk 60 or above Optimal/lowers risk LAB LDL(LOINC) 0-129 mg/dL LDL Cholesterol 119 Result Comment: LDL is a calculated result and requires a 12-hr fast. LDL Reference Interval: Less than 100 Optimal 100-129 Near or above optimal 130-159 Borderline high risk 160-189 High risk 190 and above Very high risk Performed By: #### CBC, ADIFF, ANEU, CMP, GFR, LIPID #### [place] [id number] [place] [id number] ABD/PELVIS W/ IV Observed: 04/30/2018 Status: F Source: [facility] CONTRAST ONLY 3:57 PM [facility] REPOSITORY ORIGINAL CT ABDOMEN/PELVIS WITH IV CONTRAST: Multiplanar coronal, sagittal, and axial reconstructions were reviewed on a separate workstation This exam was performed according to our departmental dose optimization program, and includes the following measures where applicable: automated exposure control, adjustment of the mAs and/or kVp accord ing to patient size and/or exam, and an iterative reconstruction algorithm. CLINICAL STATEMENT: pain of RIGHT upper quadrant of abdomen for 1.5 months, nausea, denies vomiting COMPARISON: Ultrasound abdomen limited 04/17/2018 FINDINGS: The liver is unremarkable in size, contour and attenuation. There is mild intrahepatic biliary ductal dilation. The common bile duct is dilated up to 8 mm and exhibits a peripherally calcified gallstone s at the level of the ampulla, measuring up to 7 mm. The spleen, bilateral adrenal glands are unremarkable. The pancreas is mildly edematous exhibits peripancreatic fat stranding. There is no areas of necrosis involving the pancreatic parenchyma. Multiple peripherally calcified gallstones are noted. The kidneys enhance symmetrically without evidence of hydronephrosis or mass. The ureters are normal course and caliber. There is no evidence of urolithiasis. The visualized esophagus is unremarkable. Moderate enterogastric material is noted. The duodenum is unremarkable in course. The visualized aorta and inferior vena cava are unremarkable. The small bowel exhibits no acute abnormalities. The colon is of normal course and caliber. Minimal sigmoid colon diverticulosis is noted without acute diverticulitis. The appendix is normal. Prominent nonenlarged peripancreatic lymph nodes are identified, presumably reactive. No pathologically enlarged retroperitoneal, mesenteric, or pelvic lymph nodes are identified. There is no free intraperitoneal air or fluid. The urinary bladder is partially distended. The uterus is unremarkable. Bilateral ovarian follicles seen. Calcified pelvic phleboliths are additionally noted. A tiny fat-containing umbilical hernia is noted. No suspicious osteolytic or osteoblastic lesions are identified. Provided images of the lower thorax are unremarkable. IMPRESSION: Choledocholithiasis with intra and extrahepatic biliary duct dilation is described above. Interstitial edematous pancreatitis without evidence of necrosis. Cholelithiasis. I have personally reviewed the images of this examination and agree with the resident's findings and interpretation. Interpreted By: Antonio Hammond MD Preliminary Report By: Ovidio Salmeron DO Electronically Signed By: Antonio Hammond MD Dictated Date: 04/30/2018 4:05:22 PM Prelim Date: 04/30/2018 4:13:21 PM Sign Date: 04/30/2018 4:46:42 PM PREGU Collected: 04/30/2018 Status: F Source: [facility] 3:31 PM [facility] REPOSITORY TYPE CODE TESTS RESULT OUT OF RANGE REFERENCE UNITS LAB PREGU(LOIN C) Test Negative Urine LAB PRUG1(LOIN C) Unknown test HCG not (u) int detected. Performed By: #### PREGU #### [place] [id number] [place], [place] [address] CBC Collected: 04/30/2018 Status: F Source: [facility] 2:07 PM [facility] REPOSITORY TYPE CODE TESTS RESULT OUT OF REFERENCE UNITS RANGE LAB WBC(LOINC) 4.60-10.80 10 3/mcL WBC 7.90 LAB RBCCT(LOINC 4.20-5.40 10 6/mcL ) Low RBC 3.94 LAB HGB(LOINC) 12.0-16.0 G/dL Hgb 12.5 LAB HCT(LOINC) 37.0-47.0 % Low Hct 35.4 LAB MCV(LOINC) 80.0-94.0 fL MCV 89.8 LAB MCH(LOINC) 27.0-31.2 pg High MCH 31.7 LAB MCHC(LOINC) 33.0-37.0 G/dL MCHC 35.3 LAB RDW(LOINC) 11.5-14.5 % High RDW 14.7 LAB PLT(LOINC) 130-400 10 3/mcL Platelet 200 LAB MPV(LOINC) 7.4-10.4 fL MPV 9.0 Performed By: #### CBC, ADIFF, ANEU #### [address] [address] #### CMP, LIP, GFR #### [address] [address] .AUTO DIFF Collected: 04/30/2018 Status: F Source: [facility] 2:07 PM [facility] REPOSITORY TYPE CODE TESTS RESULT OUT OF REFERENCE UNITS RANGE LAB MEGAN(LOINC) 37.0-80.0 % Neutrophil % 65.3 LAB LYM(LOINC) 10.0-50.0 % Lymphocyte % 15.9 LAB MON(LOINC) 1.7-13.0 % Monocyte % 9.2 LAB EO(LOINC) 0.0-7.0 % High Eosinophil % 9.3 LAB BAS(LOINC) 0.0-2.5 % Basophil % 0.3 LAB ABLYM(LOIN 0.77-3.85 10 3/mcL C) Lymphocyte, 1.20 Absolute LAB JASMYN(LOINC 0.15-1.00 10 3/mcL ) Monocyte, 0.70 Absolute LAB AEOS(LOINC 0.00-0.40 10 3/mcL ) High Eosinophil, 0.70 Absolute LAB ABAS(LOINC 0.00-0.19 10 3/mcL ) Basophil, 0.00 Absolute Performed By: #### CBC, ADIFF, ANEU #### [address] [address] #### CMP, LIP, GFR #### [place] [address] .NEUABS Collected: 04/30/2018 Status: F Source: [facility] 2:07 [facility] REPOSITORY TYPE CODE TESTS RESULT OUT OF REFERENCE UNITS RANGE LAB ANEU(LOINC) 2.85-6.16 10 3/mcL Neutrophil, 5.10 Absolute Performed By: #### CBC, ADIFF, ANEU #### [address] [address] #### CMP, LIP, GFR #### [place] [address] CMP Collected: 04/30/2018 Status: F Source: [facility] 2:07 [facility] [place] REPOSITORY TYPE CODE TESTS RESULT OUT OF REFERENCE UNITS RANGE LAB GLU(LOINC) 70-105 mg/dL Glucose Level 97 LAB NA(LOINC) 136-145 mmol/L Sodium Level 140 LAB K(LOINC) 3.5-5.1 mmol/L Potassium Level 4.1 LAB CL(LOINC) 98-107 mmol/L Chloride 104 LAB CO2(LOINC) 22-29 mmol/L CO2 26 LAB EBAL(LOINC mEq/L ) Electrolyte Balance 10.0 LAB BUN(LOINC) 7-18 mg/dL BUN 15 LAB CRE(LOINC) 0.55-1.02 mg/dL Creatinine Lvl (s) 0.93 LAB BC(LOINC) 7-27 ratio BUN/Creatinine 16 Ratio LAB CA(LOINC) 8.4-10.2 mg/dL Calcium Lvl 9.0 LAB PROT(LOINC 6.4-8.2 G/dL ) Total Protein 7.0 LAB ALB(LOINC) 3.5-5.0 G/dL Albumin Level 3.6 LAB GLB(LOINC) G/dL Globulin 3.4 LAB AG(LOINC) 1.1-2.5 ratio A/G Ratio 1.1 LAB BILT(LOINC 0.2-1.0 mg/dL ) Bili Total 0.7 LAB AP(LOINC) 40-135 U/L Alk Phos High 450 LAB AST(LOINC) 10-40 U/L AST/SGOT High 48 LAB ALT(LOINC) 10-35 U/L ALT/SGPT High 120 Performed By: #### CBC, ADIFF, ANEU #### [address] [address] #### CMP, LIP, GFR #### [place] [address] LIP Collected: 04/30/2018 Status: F Source: [facility] 2:07 [facility] [place] REPOSITORY TYPE CODE TESTS RESULT OUT OF REFERENCE UNITS RANGE LAB LIP(LOINC) 73-393 U/L High Lipase Level >2250 Performed By: #### CBC, ADIFF, ANEU #### [address] [address] #### CMP, LIP, GFR #### [place] [address] .GFR Collected: 04/30/2018 Status: F Source: [facility] 2:07 [facility] [place] REPOSITORY TYPE CODE TESTS RESULT OUT OF REFERENCE UNITS RANGE LAB GFRAA(LOINC ml/min/1.73 ) sqm GFR 86 Tongan Result Comment: GFR Population mean for , Non- Americans Ages 20-29 = 116 mL/min/1.73 sq.m. Ages 30-39 = 107 mL/min/1.73 sq.m. Ages 40-49 = 99 mL/min/1.73 sq.m. Ages 50-59 = 93 mL/min/1.73 sq.m. Ages 60-69 = 85 mL/min/1.73 sq.m. Ages 70+ = 75 mL/min/1.73 sq.m. Chronic Kidney Disease: Less than 60 mL/min/1.73 square meters End Stage Renal Disease: Less than 15 mL/min/1.73 square meters LAB GFRNO(LOINC) ml/min/1.73sqm GFR Non- 71 Result Comment: GFR Population mean for , Non- Americans Ages 20-29 = 116 mL/min/1.73 sq.m. Ages 30-39 = 107 mL/min/1.73 sq.m. Ages 40-49 = 99 mL/min/1.73 sq.m. Ages 50-59 = 93 mL/min/1.73 sq.m. Ages 60-69 = 85 mL/min/1.73 sq.m. Ages 70+ = 75 mL/min/1.73 sq.m. Chronic Kidney Disease: Less than 60 mL/min/1.73 square meters End Stage Renal Disease: Less than 15 mL/min/1.73 square meters Performed By: #### CBC, ADIFF, ANEU #### [address] [address] #### CMP, LIP, GFR #### [address] [address] US ABDOMEN LIMITED Observed: 04/17/2018 Status: F [facility] 7:30 AM [facility] REPOSITORY ORIGINAL Ultrasound of the RIGHT upper quadrant CLINICAL STATEMENT:RUQ PAIN, COMPARISON: None FINDINGS: The gallbladder is moderately distended with multiple mobile calculi. There is no abnormal gallbladder wall thickening. The sonographic Marin sign is negative.. There is no intra or extrahepatic bile d uct dilatation. The common duct is 5 mm at the farhat hepatis. The visualized liver shows changes compatible with fatty infiltration. No focal lesions are seen.. The pancreas as visualized is normal No ascites is seen in the RIGHT upper quadrant. Survey images of the RIGHT kidney show no pelvocaliectasis. IMPRESSION: Fatty liver. Gallstones without other signs of acute cholecystitis. Interpreted By: Sathya De Oliveira MD Preliminary Report By: Sathya De Oliveira MD Electronically Signed By: Sathya De Oliveira MD Dictated Date: 04/17/2018 8:22:29 AM Prelim Date: 04/17/2018 8:22:29 AM Sign Date: 04/17/2018 8:23:05 AM CBC Collected: 04/11/2018 Status: F Source: [facility] 2:34 PM [facility] REPOSITORY TYPE CODE TESTS RESULT OUT OF REFERENCE UNITS RANGE LAB WBC(LOINC) 4.60-10.80 10 3/mcL WBC 7.70 LAB RBCCT(LOINC 4.20-5.40 10 6/mcL ) Low RBC 4.00 LAB HGB(LOINC) 12.0-16.0 G/dL Hgb 12.1 LAB HCT(LOINC) 37.0-47.0 % Low Hct 36.3 LAB MCV(LOINC) 80.0-94.0 fL MCV 90.7 LAB MCH(LOINC) 27.0-31.2 pg MCH 30.3 LAB MCHC(LOINC) 33.0-37.0 G/dL MCHC 33.4 LAB RDW(LOINC) 11.5-14.5 % High RDW 15.5 LAB PLT(LOINC) 130-400 10 3/mcL Platelet 233 LAB MPV(LOINC) 7.4-10.4 fL High MPV 11.3 Performed By: #### CBC, ADIFF, ANEU #### [address] [address] #### CMP, GFR #### [address] [address] .AUTO DIFF Collected: 04/11/2018 Status: F Source: [facility] 2:34 PM [facility] REPOSITORY TYPE CODE TESTS RESULT OUT OF REFERENCE UNITS RANGE LAB MEGAN(LOINC) 37.0-80.0 % Neutrophil % 64.7 LAB LYM(LOINC) 10.0-50.0 % Lymphocyte % 18.7 LAB MON(LOINC) 1.7-13.0 % Monocyte % 10.0 LAB EO(LOINC) 0.0-7.0 % Eosinophil % 6.3 LAB BAS(LOINC) 0.0-2.5 % Basophil % 0.3 LAB ABLYM(LOIN 0.77-3.85 10 3/mcL C) Lymphocyte, 1.40 Absolute LAB JASMYN(LOINC 0.15-1.00 10 3/mcL ) Monocyte, 0.80 Absolute LAB AEOS(LOINC 0.00-0.40 10 3/mcL ) High Eosinophil, 0.50 Absolute LAB ABAS(LOINC 0.00-0.19 10 3/mcL ) Basophil, 0.00 Absolute Performed By: #### CBC, ADIFF, ANEU #### [place] [id number] [place], [place] [address] #### CMP, GFR #### [facility] [address] [place] [address] .NEUABS Collected: 04/11/2018 Status: F Source: [facility] 2:34 [facility] [place] REPOSITORY TYPE CODE TESTS RESULT OUT OF REFERENCE UNITS RANGE LAB ANEU(LOINC) 2.85-6.16 10 3/mcL Neutrophil, 5.00 Absolute Performed By: #### CBC, ADIFF, ANEU #### [place] [id number] [place], [place] [address] #### CMP, GFR #### [address] [address] CMP Collected: 04/11/2018 Status: F Source: [facility] 2:34 [facility] REPOSITORY TYPE CODE TESTS RESULT OUT OF REFERENCE UNITS RANGE LAB GLU(LOINC) 70-105 mg/dL Glucose Level 94 LAB NA(LOINC) 136-145 mmol/L Sodium Level 138 LAB K(LOINC) 3.5-5.1 mmol/L Potassium Level 4.0 LAB CL(LOINC) 98-107 mmol/L Chloride 103 LAB CO2(LOINC) 22-29 mmol/L CO2 25 LAB EBAL(LOINC mEq/L ) Electrolyte Balance 10.0 LAB BUN(LOINC) 7-18 mg/dL BUN 17 LAB CRE(LOINC) 0.55-1.02 mg/dL Creatinine Lvl (s) 0.87 LAB BC(LOINC) 7-27 ratio BUN/Creatinine 20 Ratio LAB CA(LOINC) 8.4-10.2 mg/dL Calcium Lvl 9.1 LAB PROT(LOINC 6.4-8.2 G/dL ) Total Protein 7.2 LAB ALB(LOINC) 3.5-5.0 G/dL Low Albumin Level 3.4 LAB GLB(LOINC) G/dL Globulin 3.8 LAB AG(LOINC) 1.1-2.5 ratio Low A/G Ratio 0.9 LAB BILT(LOINC 0.2-1.0 mg/dL ) Bili Total 0.5 LAB AP(LOINC) 40-135 U/L Alk Phos High 1000 LAB AST(LOINC) 10-40 U/L AST/SGOT High 164 LAB ALT(LOINC) 10-35 U/L ALT/SGPT High 311 Performed By: #### CBC, ADIFF, ANEU #### [place] [id number] [place], [place] [address] #### CMP, GFR #### [facility] [address] [place] [address] .GFR Collected: 04/11/2018 Status: F Source: [facility] 2:34 PM [facility] REPOSITORY TYPE CODE TESTS RESULT OUT OF REFERENCE UNITS RANGE LAB GFRAA(LOINC ml/min/1.73 ) sqm GFR 93 Tongan Result Comment: GFR Population mean for , Non- Americans Ages 20-29 = 116 mL/min/1.73 sq.m. Ages 30-39 = 107 mL/min/1.73 sq.m. Ages 40-49 = 99 mL/min/1.73 sq.m. Ages 50-59 = 93 mL/min/1.73 sq.m. Ages 60-69 = 85 mL/min/1.73 sq.m. Ages 70+ = 75 mL/min/1.73 sq.m. Chronic Kidney Disease: Less than 60 mL/min/1.73 square meters End Stage Renal Disease: Less than 15 mL/min/1.73 square meters LAB GFRNO(LOINC) ml/min/1.73sqm GFR Non- 76 Result Comment: GFR Population mean for , Non- Americans Ages 20-29 = 116 mL/min/1.73 sq.m. Ages 30-39 = 107 mL/min/1.73 sq.m. Ages 40-49 = 99 mL/min/1.73 sq.m. Ages 50-59 = 93 mL/min/1.73 sq.m. Ages 60-69 = 85 mL/min/1.73 sq.m. Ages 70+ = 75 mL/min/1.73 sq.m. Chronic Kidney Disease: Less than 60 mL/min/1.73 square meters End Stage Renal Disease: Less than 15 mL/min/1.73 square meters Performed By: #### CBC, ADIFF, ANEU #### [facility] [address] [place], [place] [address] #### CMP, GFR #### [facility] [address] [place] [address] XR CHEST 2 VIEWS Observed: 03/13/2018 Status: F Source: [facility] 9:28 AM [facility] REPOSITORY ORIGINAL XR CHEST 2 VIEWS Clinical information: Chest Pain No prior studies are available for comparison. Lateral view is limited due to lack of arm elevation. The heart is normal in size and configuration. Pulmonary vascular pattern is normal. The lungs are cl ear and normally aerated. The pleural margins and bony thorax are unremarkable. IMPRESSION: No acute intrathoracic abnormality. Interpreted By: Gerardo Rowe MD Preliminary Report By: Gerardo Rowe MD Electronically Signed By: Gerardo Rowe MD Dictated Date: 03/13/2018 9:31:37 AM Prelim Date: 03/13/2018 9:31:37 AM Sign Date: 03/13/2018 9:32:57 AM US AXILLA LEFT Observed: 03/06/2018 Status: F Source: [facility] 2:00 PM [facility] REPOSITORY ORIGINAL US AXILLA LEFT CLINICAL STATEMENT: UNSPECIFIED LUMP IN BREAST COMPARISON: None FINDINGS: Scanning of the area of concern shows a single well-circumscribed ovoid hypoechoic structure in the superficial subcutaneous space that is 11 x 3 x 12 mm. There is no blood flow within this with Doppler and only low level internal echoes. Posterior enhancement is also present suggesting that this may be a complex cyst. IMPRESSION: Superficial subcutaneous space hypoechoic lesion is favored to be a complex cystic lesion rather than a lymph node or other pathology. It is otherwise nonspecific. Evaluate clinically. Interpreted By: Sathya De Oliveira MD Preliminary Report By: Sathya De Oliveira MD Electronically Signed By: Sathya De Oliveira MD Dictated Date: 03/06/2018 2:52:12 PM Prelim Date: 03/06/2018 2:52:12 PM Sign Date: 03/06/2018 2:54:05 PM PROGRESS Observed: 01/30/2018 Status: COMPLETED Source: [place] 6:13 PM [facility] REPOSITORY HNO ID: [id number] Author: Dottie Corona Service: (none) Author Type: Physician Sales Negotiator Type: Progress Notes Filed: 01/30/2018 6:42 PM Note Text: 01/30/2018 Patient presents with: weakness, achy, fever, brest tenderness: x 3 days-she is breast feeding SUBJECTIVE: This is a 32 year old that is here today for Complaint(s) of left breast redness and pain x 2-3 days. Started with the right, but that resolved. Low grade fever last night-100. + flu like sx- achy, weak. 2 weeks post and nursing. PAST MEDICAL HISTORY Diagnosis Date - Closed fracture of unspecified part of femur right - Cough - Other forms of migraine - Unspecified open fracture of carpal bone right ALLERGIES Patient has no known allergies. MEDICATIONS Current Outpatient Prescriptions: multivit with calcium,iron,min (WOMEN'S MULTIPLE VITAMINS ORAL) Take by mouth. predniSONE (DELTASONE) 20 mg tablet Prednisone 40 mg (2-20mg tablets) po QD for 5 days (Patient not taking: Reported on 01/30/2018 ) benzonatate (TESSALON PERLE) 100 mg capsule Take 1 capsule by mouth three times daily as needed. (Patient not taking: Reported on 01/30/2018 ) albuterol HFA (VENTOLIN HFA) 90 mcg/actuation inhaler Inhale 2 Puffs as instructed every 4 hours as needed for Wheezing/Shortness of Breath. (Patient not taking: Reported on 01/30/2018 ) SPRINTEC 0.25-35 mg-mcg per tablet No current facility-administered medications for this visit. SOCIAL HISTORY Social History Marital status: Spouse name: Years of education: Number of children: Social History Main Topics Smoking status: Former Smoker Packs/day: 0.00 Years: 3.00 Quit date: 07/13/2016 Smokeless tobacco: Never Used Comment: less than 1/4 pack daily Alcohol use: No Drug use: No Other Topics Concern Service No Blood Transfusions No Caffeine Concern No Occupational Exposure Yes Hobby Hazards No Sleep Concern No Stress Concern Yes Weight Concern Yes Special Diet No Back Care No Exercise No Bike Helmet No Seat Belt Yes Self-Exams No Comment:breast exam sheets REVIEW OF SYSTEMS All other reviewed and negative other than HPI. OBJECTIVE: BP 118/78 Pulse 80 Temp 36.6 ?C (97.9 ?F) (Tympanic) Resp 16 Wt 100.6 kg (221 lb 12.8 oz) BMI 36.91 kg/m? APPEARANCE Well appearing, alert, in no acute distress, well-hydrated, well nourished. BREAST FEMALE Symmetrical, normal consistency without masses., + mild erythema from areola to left upper outer breast at 2 o'clock. Mild induration noted. No fluctuance. +TTP. Normal nipples. and no axillary lymphadenopathy ASSESSMENT/PLAN: 1. Mastitis, left, acute - ICD9: 611.0, ICD10: N61.0 Afebrile currently Reviewed red flags and when to seek care sooner. PI printed from [facility] for patient Continue pumping/nursing f/u with CAR REPAIR SUPERVISOR/PCP in - CEPHALEXIN 500 MG CAPSULE The patient indicates understanding of these issues and agrees with the plan. Reviewed red flags and when to seek care sooner. Dottie Corona PA-C CNOV Observed: 01/30/2018 Status: COMPLETED Source: [place] 6:00 PM [facility] REPOSITORY Office Visit (WSTR) MARY ALICE KIMBLE ([id number]) 1985 F Date Time Provider Department 01/30/18 6:00 PM DOTTIE CORONA[facility] During your visit today, we recorded the following information about you: Temperature Pulse Respiration Blood pressure 97.9 degrees 80/minute 16/minute 118/78 Weight 100.6 kg Dottie Corona PA-C 01/30/2018 6:42 PM Signed 01/30/2018 Patient presents with: weakness, achy, fever, brest tenderness: x 3 days-she is breast feeding SUBJECTIVE: This is a 32 year old that is here today for Complaint(s) of left breast redness and pain x 2-3 days. Started with the right, but that resolved. Low grade fever last night-100. + flu like sx-achy, weak. 2 weeks post and nursing. PAST MEDICAL HISTORY Diagnosis Date - Closed fracture of unspecified part of femur right - Cough - Other forms of migraine - Unspecified open fracture of carpal bone right ALLERGIES Patient has no known allergies. MEDICATIONS Current Outpatient Prescriptions: multivit with calcium,iron,min (WOMEN'S MULTIPLE VITAMINS ORAL) Take by mouth. predniSONE (DELTASONE) 20 mg tablet Prednisone 40 mg (2-20mg tablets) po QD for 5 days (Patient not taking: Reported on 01/30/2018 ) benzonatate (TESSALON PERLE) 100 mg capsule Take 1 capsule by mouth three times daily as needed. (Patient not taking: Reported on 01/30/2018 ) albuterol HFA (VENTOLIN HFA) 90 mcg/actuation inhaler Inhale 2 Puffs as instructed every 4 hours as needed for Wheezing/Shortness of Breath. (Patient not taking: Reported on 01/30/2018 ) SPRINTEC 0.25-35 mg-mcg per tablet No current facility-administered medications for this visit. SOCIAL HISTORY Social History Marital status: Spouse name: Years of education: Number of children: Social History Main Topics Smoking status: Former Smoker Packs/day: 0.00 Years: 3.00 Quit date: 07/13/2016 Smokeless tobacco: Never Used Comment: less than 1/4 pack daily Alcohol use: No Drug use: No Other Topics Concern Service No Blood Transfusions No Caffeine Concern No Occupational Exposure Yes Hobby Hazards No Sleep Concern No Stress Concern Yes Weight Concern Yes Special Diet No Back Care No Exercise No Bike Helmet No Seat Belt Yes Self-Exams No Comment:breast exam sheets REVIEW OF SYSTEMS All other reviewed and negative other than HPI. OBJECTIVE: BP 118/78 Pulse 80 Temp 36.6 ?C (97.9 ?F) (Tympanic) Resp 16 Wt 100.6 kg (221 lb 12.8 oz) BMI 36.91 kg/m? APPEARANCE Well appearing, alert, in no acute distress, well- hydrated, well nourished. BREAST FEMALE Symmetrical, normal consistency without masses., + mild erythema from areola to left upper outer breast at 2 o'clock. Mild induration noted. No fluctuance. +TTP. Normal nipples. and no axillary lymphadenopathy ASSESSMENT/PLAN: 1. Mastitis, left, acute - ICD9: 611.0, ICD10: N61.0 Afebrile currently Reviewed red flags and when to seek care sooner. PI printed from [facility] for patient Continue pumping/nursing f/u with CAR REPAIR SUPERVISOR/PCP in - CEPHALEXIN 500 MG CAPSULE The patient indicates understanding of these issues and agrees with the plan. Reviewed red flags and when to seek care sooner. Dottie Corona PA-C Referring Provider: SELF [[id number]] Allergies As of Date: 01/30/2018 (No Known Allergies) Date Reviewed: 01/30/2018 Reviewed by: Leann Whipple LPN - Fully Assessed Reason for Visit: weakness, achy, fever, brest tenderness [Other] Cmt: x 3 days-she is breast feeding Primary Visit Diagnosis:Mastitis, left, acute [N61.0] Order(s):cephALEXin (KEFLEX) 500 mg capsuleTake 1 capsule by mouth four times daily for 10 days.Disp: 40 capsuleRfl: 0 Prescriptions as of 01/30/2018 Sig: WOMEN'S MULTIPLE VITAMINS ORAL Take by mouth. CEPHALEXIN 500 MG CAPSULE Take 1 capsule by mouth four * PREDNISONE 20 MG TABLET Prednisone 40 mg (2-20mg tabl* Patient not taking: Reported on 01/30/2018 BENZONATATE 100 MG CAPSULE Take 1 capsule by mouth three* Patient not taking: Reported on 01/30/2018 ALBUTEROL SULFATE HFA 90 MCG/* Inhale 2 Puffs as instructed * Patient not taking: Reported on 01/30/2018 SPRINTEC (28) 0.25 MG-35 MCG * Problem List As Of Date 01/30/2018 Noted Resolved CLASSICAL MIGRAINE [346.0] INVALID FOR* LOW BLADDER COMPLIANCE [N31.8] INVALID FOR* Backache, unspecified [M54.9] INVALID FOR* Prescriptions ordered this encounter Disp Refills Start End CEPHALEXIN 500 MG CAPSULE 40 c* 0 01/30/2018 02/09/2018 Route: ORAL Sig: Take 1 capsule by mouth four times daily for 10 days. Encounter Status:Closed by DOTTIE CORONA PA-C on 01/30/18 FINAL SURGICAL Observed: 01/15/2018 Status: F Source: [facility] PATHOLOGY REPORT 9:22 AM [facility] REPOSITORY . Pathology Reports Accession: Collected Date/Time: Received Date/Time: Pathologist: [id number] 01/15/2018 09:22 EDT 01/15/2018 14:14 EDT DO PANKAJ MANZANARES Final Surgical Pathology Report DIAGNOSIS: TWO TRANSECTED SEGMENTS OF FALLOPIAN TUBE, CLINICALLY BILATERAL SALPINGECTOMY. COMMENT: [facility] - # [id number] CLINICAL INFORMATION: Procedure: BILATERAL POST SALPINGECTOMY Preoperative diagnosis: DESIRES PERMANENT STERILIZATION Postoperative diagnosis: DESIRES PERMANENT STERILIZATION SPECIMEN: A TUBES, STERILE - BILATERAL FALLOPIAN TUBES - STITCH IN RIGHT GROSS DESCRIPTION: Received in formalin labeled bilateral fallopian tubes are 2 segments of fallopian tube. One segment shows a stitch indicating it is the right-sided specimen and is subsequently inked for identification. The right tube is 4.5 x 0.6 cm and displays a fimbriated end and a pinpoint lumen. The left tube is 9 x 0.4 cm, with a fimbriated end and a pinpoint lumen. RS-1 Dictated by [facility] MICROSCOPIC DESCRIPTION: Slides reviewed. Electronically Signed by Pathology Report verified by [facility] Electronically signed by PANKAJ MANZANARES DO Sign out Date: 01/16/2018 13:23 Performing Lab: [address] Performed By: #### SPFR #### [place] [address] HH Collected: 01/15/2018 Status: F Source: [facility] 5:01 AM [facility] REPOSITORY TYPE CODE TESTS RESULT OUT OF RANGE REFERENCE UNITS LAB HGB(LOINC) 12.0-16.0 G/dL Low Hgb 10.2 LAB HCT(LOINC) 37.0-47.0 % Low Hct 29.2 Performed By: #### #### [address] [address] CBC Collected: 01/14/2018 Status: F Source: [facility] 3:11 PM [facility] REPOSITORY TYPE CODE TESTS RESULT OUT OF REFERENCE UNITS RANGE LAB WBC(LOINC) 4.60-10.80 10 3/mcL High WBC 16.40 LAB RBCCT(LOINC 4.20-5.40 10 6/mcL ) Low RBC 3.84 LAB HGB(LOINC) 12.0-16.0 G/dL Low Hgb 11.6 LAB HCT(LOINC) 37.0-47.0 % Low Hct 34.4 LAB MCV(LOINC) 80.0-94.0 fL MCV 89.4 LAB MCH(LOINC) 27.0-31.2 pg MCH 30.3 LAB MCHC(LOINC) 33.0-37.0 G/dL MCHC 33.8 LAB RDW(LOINC) 11.5-14.5 % RDW 14.1 LAB PLT(LOINC) 130-400 10 3/mcL Platelet 156 LAB MPV(LOINC) 7.4-10.4 fL High MPV 10.8 Performed By: #### CBC, DIFF, MORPH, ABOG, ANSG #### [address] [address] .MANUAL DIFF Collected: 01/14/2018 Status: F Source: [facility] 3:11 PM [facility] REPOSITORY TYPE CODE TESTS RESULT OUT OF REFERENCE UNITS RANGE LAB NEUM(LOINC 37.0-80.0 % ) Neutrophil %, 77.0 Manual LAB LYMM(LOINC 10.0-50.0 % ) Lymphocyte %, 11.0 Manual LAB MONM(LOINC 1.7-13.0 % ) Monocyte %, Manual 3.0 LAB EOM(LOINC) 0.0-7.0 % Eosinophil %, 1.0 Manual LAB BASM(LOINC 0.0-2.5 % ) Basophil %, Manual 0.0 LAB BAND(LOINC 0.0-5.0 % ) Bands High 8.0 LAB ANEUM(LOIN 2.85-6.16 10 3/mcL C) High Neutrophil, Abs 13.90 Manual LAB ABLYMM(JOSEPH 0.77-3.85 10 3/mcL NC) Low Lymphocyte, Abs 0.20 Manual LAB AMONM(LOIN 0.15-1.00 10 3/mcL C) Monocyte, Abs 0.50 Manual LAB AEOSM(LOIN 0.00-0.40 10 3/mcL C) Eosinophil, Abs 0.10 Manual LAB ABASM(LOIN 0.00-0.19 10 3/mcL C) Basophil, Abs 0.00 Manual Performed By: #### CBC, DIFF, MORPH, ABOG, ANSG #### [address] [address] .MORPH Collected: 01/14/2018 Status: F Source: [facility] 3:11 PM [facility] REPOSITORY TYPE CODE TESTS RESULT OUT OF REFERENCE UNITS RANGE LAB PLTE(LOINC ) Platelet Normal Estimate LAB TGR(LOINC) Toxic Gran Moderate Performed By: #### CBC, DIFF, MORPH, ABOG, ANSG #### [place] [id number] [place], [place] [address] GEL ABO Collected: 01/14/2018 Status: F Source: [facility] 3:11 PM [facility] REPOSITORY TYPE CODE TESTS RESULT OUT OF RANGE REFERENCE UNITS LAB ABORH(LOINC ) Unknown ABO/Rh O POS Interp Performed By: #### CBC, DIFF, MORPH, ABOG, ANSG #### [address] [address] GEL ABS Collected: 01/14/2018 Status: F Source: [facility] 3:11 PM [facility] REPOSITORY TYPE CODE TESTS RESULT OUT OF REFERENCE UNITS RANGE LAB ANSG(LOINC ) Antibody Negative ABSC Screen Gel Performed By: #### CBC, DIFF, MORPH, ABOG, ANSG #### [address] [address] AMNI Collected: 01/06/2018 Status: F Source: [facility] 8:46 AM [facility] REPOSITORY TYPE CODE TESTS RESULT OUT OF REFERENCE UNITS RANGE LAB AMNI(LOINC Negative ) Amnisure Negative Performed By: #### AMNI #### [address] [address] CBC Collected: 10/17/2017 Status: F Source: [facility] 10:03 AM [facility] REPOSITORY TYPE CODE TESTS RESULT OUT OF REFERENCE UNITS RANGE LAB WBC(LOINC) 4.60-10.80 10 3/mcL WBC 8.10 LAB RBCCT(LOINC 4.20-5.40 10 6/mcL ) Low RBC 3.36 LAB HGB(LOINC) 12.0-16.0 G/dL Low Hgb 10.4 LAB HCT(LOINC) 37.0-47.0 % Low Hct 30.3 LAB MCV(LOINC) 80.0-94.0 fL MCV 90.0 LAB MCH(LOINC) 27.0-31.2 pg MCH 30.8 LAB MCHC(LOINC) 33.0-37.0 G/dL MCHC 34.2 LAB RDW(LOINC) 11.5-14.5 % RDW 13.6 LAB PLT(LOINC) 130-400 10 3/mcL Platelet 158 LAB MPV(LOINC) 7.4-10.4 fL MPV 9.1 Performed By: #### CBC, ADIFF, ANEU, GLU1P #### [address] [address] .AUTO DIFF Collected: 10/17/2017 Status: F Source: [facility] 10:03 AM [facility] REPOSITORY TYPE CODE TESTS RESULT OUT OF REFERENCE UNITS RANGE LAB MEGAN(LOINC) 37.0-80.0 % High Neutrophil % 81.6 LAB LYM(LOINC) 10.0-50.0 % Lymphocyte % 10.3 LAB MON(LOINC) 1.7-13.0 % Monocyte % 7.4 LAB EO(LOINC) 0.0-7.0 % Eosinophil % 0.5 LAB BAS(LOINC) 0.0-2.5 % Basophil % 0.2 LAB ABLYM(LOIN 0.77-3.85 10 3/mcL C) Lymphocyte, 0.80 Absolute LAB JASMYN(LOINC 0.15-1.00 10 3/mcL ) Monocyte, 0.60 Absolute LAB AEOS(LOINC 0.00-0.40 10 3/mcL ) Eosinophil, 0.00 Absolute LAB ABAS(LOINC 0.00-0.19 10 3/mcL ) Basophil, 0.00 Absolute Performed By: #### CBC, ADIFF, ANEU, GLU1P #### [address] [address] .NEUABS Collected: 10/17/2017 Status: F Source: [facility] 10:03 AM [facility] REPOSITORY TYPE CODE TESTS RESULT OUT OF REFERENCE UNITS RANGE LAB ANEU(LOINC) 2.85-6.16 10 3/mcL High Neutrophil, 6.60 Absolute Performed By: #### CBC, ADIFF, ANEU, GLU1P #### [address] [address] GLU1P Collected: 10/17/2017 Status: F Source: [facility] 10:03 AM [facility] REPOSITORY TYPE CODE TESTS RESULT OUT OF RANGE REFERENCE UNITS LAB GLU1P(LOINC 70-140 mg/dL ) Gluc 1Hr 110 PP Performed By: #### CBC, ADIFF, ANEU, GLU1P #### [place] [id number] [place], [place] [address] UA Collected: 10/16/2017 Status: F Source: [facility] 8:34 [facility] REPOSITORY TYPE CODE TESTS RESULT OUT OF RANGE REFERENCE UNITS LAB SPCUA(JOSEPH NC) UA Specimen Type Clean Catch LAB CLRUA(JOSEPH NC) UA Color YELLOW LAB APPUA(JOSEPH NC) UA Appear CLEAR LAB SGUA(LOIN C) UA Spec Grav 1.020 LAB GLUA(LOIN mg/dL C) UA Glucose NEGATIVE LAB BILUA(JOSEPH NC) UA Bili NEGATIVE LAB KETUA(JOSEPH Negative mg/dL NC) UA Ketones Abnormal >=80 LAB BLDUA(JOSEPH NC) UA Blood NEGATIVE LAB PHUA(LOIN C) UA pH 6.0 LAB PROUA(JOSEPH mg/dL NC) UA Protein NEGATIVE LAB UROUA(JOSEPH E.U./dL NC) UA Urobilinogen 0.2 LAB NITUA(JOSEPH NC) UA Nitrite NEGATIVE LAB LEUUA(JOSEPH NC) UA Leuk Est NEGATIVE Performed By: #### UA, UAMICAO #### [place] [id number] .URINALYSIS MICROSCOPIC Collected: 10/16/2017 Status: F Source: [place] [facility] 8:34 [facility] REPOSITORY TYPE CODE TESTS RESULT OUT OF REFERENCE UNITS RANGE LAB WBCUA(LOIN None Seen /hpf C) UA WBC None Seen LAB RBCUA(LOIN None Seen /hpf C) UA RBC None Seen LAB EPIUA(LOIN None Seen /hpf C) UA Squam Epithelial None Seen Performed By: #### UA, UAMICAO #### [place] [id number] .GFR Collected: 10/16/2017 Status: F Source: [facility] 8:34 [facility] [place] REPOSITORY TYPE CODE TESTS RESULT OUT OF REFERENCE UNITS RANGE LAB GFRAA(LOINC ml/min/1.73 ) sqm GFR 138 Tongan Result Comment: GFR Population mean for , Non- Americans Ages 20-29 = 116 mL/min/1.73 sq.m. Ages 30-39 = 107 mL/min/1.73 sq.m. Ages 40-49 = 99 mL/min/1.73 sq.m. Ages 50-59 = 93 mL/min/1.73 sq.m. Ages 60-69 = 85 mL/min/1.73 sq.m. Ages 70+ = 75 mL/min/1.73 sq.m. Chronic Kidney Disease: Less than 60 mL/min/1.73 square meters End Stage Renal Disease: Less than 15 mL/min/1.73 square meters LAB GFRNO(LOINC) ml/min/1.73sqm GFR Non- >60 Result Comment: GFR Population mean for , Non- Americans Ages 20-29 = 116 mL/min/1.73 sq.m. Ages 30-39 = 107 mL/min/1.73 sq.m. Ages 40-49 = 99 mL/min/1.73 sq.m. Ages 50-59 = 93 mL/min/1.73 sq.m. Ages 60-69 = 85 mL/min/1.73 sq.m. Ages 70+ = 75 mL/min/1.73 sq.m. Chronic Kidney Disease: Less than 60 mL/min/1.73 square meters End Stage Renal Disease: Less than 15 mL/min/1.73 square meters Performed By: #### GFR, CMP #### [address] [address] CMP Collected: 10/16/2017 Status: F Source: [facility] 8:34 PM [facility] REPOSITORY TYPE CODE TESTS RESULT OUT OF REFERENCE UNITS RANGE LAB 1547-9 70-105 mg/dL GLUCOSE 79 LAB NA(LOINC) 136-146 mEq/L Low Sodium Level 135 LAB K(LOINC) 3.5-5.1 mEq/L Potassium Level 4.2 LAB CL(LOINC) 98-107 mEq/L Chloride 105 LAB CO2(LOINC) 22-29 mEq/L CO2 23 LAB EBAL(LOINC mEq/L ) Electrolyte Balance 7.0 LAB BUN(LOINC) 7.0-18.0 mg/dL BUN 7.8 LAB CRE(LOINC) 0.6-1.2 mg/dL Creatinine Lvl (s) 0.6 LAB BC(LOINC) 7-27 ratio BUN/Creatinine 13 Ratio LAB CA(LOINC) 8.4-10.2 mg/dL Calcium Lvl 8.7 LAB PROT(LOINC 6.0-8.3 G/dL ) Total Protein 6.4 LAB ALB(LOINC) 3.5-5.0 G/dL Albumin Level 3.7 LAB GLB(LOINC) G/dL Globulin 2.7 LAB AG(LOINC) 1.1-2.5 ratio A/G Ratio 1.4 LAB BILT(LOINC 0.2-1.0 mg/dL ) Bili Total 0.3 LAB AP(LOINC) 40-135 IU/L Alk Phos 83 LAB AST(LOINC) 10-40 IU/L AST/SGOT 11 LAB ALT(LOINC) 10-35 IU/L ALT/SGPT 11 Performed By: #### GFR, CMP #### [place] [id number] [place], [place] [address] ED DOC Observed: 2017 Status: UNK Source: [facility] 12:39 PM [facility] REPOSITORY This is a preliminary report only, as the practitioner review and authentication has not occurred. ED DOC Observed: 2017 Status: UNK Source: [facility] 12:39 PM [facility] REPOSITORY PHYSICIAN ASSESSMENT RECORDS : FlexChartData Event Time: 09/15/2017 01:50 Status: Signed [facility] Mary Alicegabino Kimble [[id number]] Attending Physician 1985 Chart (V2b) Chart created at 09/15/2017 01:14 by Socrates Lopez Chart closed at 09/15/2017 01:18 Entry in Emergency Department at 2017 11:57, departure at 2017 12:39 Patient Name: Mary Alice Kimble Record Number: [id number] Date: 09/15/2017 01:14 Entered Department at: 2017 11:57 Patient Seen at: 2017 12:15 Historian: Patient PCP: Michael Flores Chief Complaint:Pts son at same day surgery when pt became dizzy and pale. Pt is 24 weeks . Triage Note reviewed and Initial Vital Signs reviewed. Temperature: 98.2 F (36.8 C). Pulse: 68. Respiratory Rate: 16. Blood-pressure: 113/57. Oxygen Saturation: 100% room air; Normal. History of Present Illness: 32 Year old female comes in for further evaluation after having a syncopal episode. Her son just had surgery and she was seeing him after the procedure. She said he began to freak out and she then passed out. She states she was feeling lightheaded prior to passing out. She was able to get into a chair before she passed out. She did not hit her head. She did not have [facility] PATIENT NAME: MARY ALICE KIMBLE [address] [facility] [address] MEDICAL REC #: [id number] [place] [address] EMERGENCY DEPARTMENT CHART EMERGENCY DEPARTMENT PHYSICIAN any chest pain or palpitations prior to the syncopal episode. She has no other complaints at this time. She states she is feeling much better. HPI Elements: Onset: 30 Minutes ago; Timing: Gradual; Location: see HPI; Severity: maximum None, now None; Context:(see HPI); Exacerbated by: Nothing; Alleviated by: Nothing Associated symptoms: see HPI. Review of Systems. All other systems reviewed and negative.. Past History, Medications, Allergies, Social History and Family History reviewed in nurses note. Medications: Reviewed RN Note. PRENATALS PO Allergies: Reviewed RN Note No Known Allergies Social History: Reviewed RN Note. Family History: Reviewed RN Note Physical Examination: General: Alert and Well Developed HEENT: Normal ENT inspection. Head: Atraumatic. Eyes: Lids Normal; PERRL; . Ear: Normal auricle. Nose: Normal inspection. Oropharynx / Throat: Normal Pharynx. Neck: Supple Respiratory: No Resp Distress and Normal Breath Sounds Cardio-Vascular: No murmur and RRR Abdomen: Normal Bowel Sounds, Non-tender and Soft Back: Non-tender Extremity: No edema and Normal Equal pulses Neurological: Alert, Oriented X3 and No Gross Weakness Skin: No rash Psychological: Mood/Affect Normal GLUCOSE METER, information as of 2017, 12:08 pm GLUCOSE METER: 108 Mg/Dl Medical Decision Making The patient has remained stable in the emergency department with no further complaints. Fingerstick [facility] PATIENT NAME: MARY ALICE KIMBLE [address] [facility] [address] MEDICAL REC #: [id number] [place] [address] EMERGENCY DEPARTMENT CHART EMERGENCY DEPARTMENT PHYSICIAN glucose was 108. The patient has had mouna kevin and crackers in the ED. She is feeling much better and would like to get back up to surgery to see her son. I think this is reasonable. I do not feel any testing is necessary at this time. This was likely a vagal response to seeing her son after surgery. She should follow up with her regular doctor and return to the ED with any concerns. Additional Information: Discussed Diagnosis and Follow-Up with Patient. Clinical Impression: 1. syncope Disposition: Discharged *Home. Condition: Stable MSE completed. I was the primary ED attending.. : Discharge Report Event Time: 2017 12:30 ===DISCHARGE REPORT=== : FlexChartData Event Time: 09/15/2017 01:50 : Discharge Report Event Time: 2017 12:30 Status: Draft Reasons to Return to the ER: You must return to the ER for any new, worsening or changing symptoms, or if you feel more ill or sick in any way. This is the most important thing to remember. Follow-up: The care you received in the ER was given on an emergency basis only, and it is often not possible to completely treat or diagnose a problem in a single ER visit. You must see your follow-up doctor for a recheck within a week unless you receive instructions with a different timeframe for follow-up. Please [facility] PATIENT NAME: MARY ALICE KIMBLE [address] MEDICAL REC #: [id number] [place] [address] EMERGENCY DEPARTMENT CHART EMERGENCY DEPARTMENT PHYSICIAN follow all your discharge instructions. Medications: Unless the ER doctor tells you differently, you should take all your regular medications and any new medications prescribed today. Because it is not possible for the ER doctor to review all of your medication side effects or interactions, you must review possible side effects and interactions with your pharmacist when you get your prescriptions filled. EKG and Radiology Results: A city alderman or radiologist will review any EKG or radiology results provided by the ER doctor. We will contact you if the results in the final EKG or radiology reports require a change in treatment. Culture Results: Cultures may have been ordered during your ER visit. We will contact you if the culture results require a change in treatment. Referrals: Most referrals to specialists come from the on-call list You should make your regular doctor aware of any referrals before you schedule the appointment so that they are aware and can make suggestions DIAGNOSIS: 1. syncope INSTRUCTIONS: Return to the ER if you develop worsening symptoms, any new symptoms, or any other concerns. REFERRAL Your regular doctor(s) Please call the above number to schedule a follow-up [facility] PATIENT NAME: MARY ALICE KIMBLE [address] MEDICAL REC #: [id number] [place] [address] EMERGENCY DEPARTMENT CHART EMERGENCY DEPARTMENT PHYSICIAN appointment. 2-3 days MEDICATIONS We have given you these prescriptions that you must fill and start taking: None My signature below indicates that I have received and understand the oral instructions regarding my medical problem. I also acknowledge receipt of this written instruction sheet including a list of major tests and procedures ordered during my visit. I will arrange for follow-up care as indicated by these instructions and referrals. This signed original will be kept in my medical record. Your signature below indicates consent for Case Management to contact [facility] in an effort to meet your ongoing healthcare needs. This will allow forcontinuity of care once you leave the Emergency Department. This exchange of informationwill include, but not be limited to, disclosure of your patient information and possible release of records. 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 [employer] Patient: MARY ALICE KIMBLE Sex: F : 1985 Age: 32 yr Account No: [id number] Registration Date: 11:57 2017 Address: [address] [place] [address] Address: [place] [address] REGISTRATION ED Number: [id number] [facility] PATIENT NAME: MARY ALICE KIMBLE [address] [facility] MED[facility] REC #: [id number] [place] [address] EMERGENCY DEPARTMENT CHART EMERGENCY DEPARTMENT PHYSICIAN Marital Status: M Financial Class: PPO TRIAGE Priority: 3 - Urgent Complaint: Dizziness Stated Complaint: Pts son at same day surgery when pt became dizzy and pale. Pt is 24 weeks . Arrival Date: 2017 11:57 Triage Date: 2017 11:58 Mode of Arrival: Other Transfer From: Other SAME DAY SURGERY WC: N Language: Hungarian Transport: Stretcher BED C37 In: 2017 12:00:56 2017 12:00:56 [facility] C37 (Removed From) Out: 2017 12:39:19 2017 12:39:19 [facility] PROVIDERS KIRSTEN SHEARER Provider Contact: 2017 12:02:20 [facility] End: MD Socrates Lopez Provider Contact: 2017 12:14:38 S End: TRIAGE HISTORY ALLERGIES Allergic To: No Known Allergies 2017 12:00 [facility] PATIENT NAME: COLETTE KIMBLEGABINO Vitale [address] [facility] [address] MEDICAL REC #: [id number] [place] [address] EMERGENCY DEPARTMENT CHART EMERGENCY DEPARTMENT PHYSICIAN CURRENT MEDS Name: PRENATALS PO 2017 12:00 [facility] ILLNESS Illness: *None 2017 12:00 [facility] PAST SURGERY HIST Surgery: BREAST BIOPSY X 2 2017 12:00 [facility] PAST SOCIAL HIST Social History: Communicates without difficulty 2017 12:00 [facility] Social History: Lives with family or significant other 2017 12:00 [facility] Social History: Alcohol - None 2017 12:00 [facility] Social History: Smoker-None 2017 12:00 [facility] Social History: Recreational Drugs - None 2017 12:00 [facility] Social History: Denies Domestic Violence 2017 12:00 [facility] Social History: Denies thoughts of self harm. 2017 12:00 [facility] Social History: Have you traveled in the past month? 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 MEDICAL REC #: [id number] [place] [address] EMERGENCY DEPARTMENT CHART EMERGENCY DEPARTMENT PHYSICIAN 2017 12:12 Pt reports dizziness and feeling faint after son became panicked after dental surgery. Pt denies dizziness at this time. Pt reports headache 11/26. Pt denies sickness or symptoms prior to this morning. Pt is 24 weeks and denies any complication. Pt given gingerale and qian crackers at same day surgery. Pt reports eating breakfast. Pt aandamp;ox3. Pt with easy, non-labored respers. Skin warm, dry. 2017 12:14 [facility] TREATMENT 2017 12:09 POC testing results and critical values - POC Glucometer (FSBS) 108 2017 12:10 [facility] 2017 12:10 Hourly Rounding - Rounding 2017 12:10 [facility] Elimination/Toileting N Position Comfortable Y Safe Environment Y Fall Risk Change N 2017 12:10 Patient Interaction - Call light placed within reach. 2017 12:10 [facility] 2017 12:10 Patient Interaction - Introduce self to Patient. 2017 12:10 [facility] 2017 12:10 Patient Interaction - Name Band on Pt 2017 12:10 [facility] 2017 12:10 Primary DOC Guide - A. 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 Fall Risk Assessment (Age andlt;65) 2017 12:10 [facility] Fall Risk Score 1-2 Points = Low Risk. 3-4 Points = Moderate Risk. 5 or more points = High Risk. 0 Fall Score Greater andgt;= 3? No 2017 12:10 Primary DOC Guide - D. Psychosocial Assessment 2017 12:10 [facility] Over the Last 2 weeks, how often have you had little interest or pleasure in doing things (0) Not at All Is Psychosocial Assessment Score 3 or more? If score is 3 or more please consult ED Navigator! No Total Psychosocial Assessment Score 0 Over the last 2 weeks, how often have you been feeling down, depressed or hopeless (0) Not at All 2017 12:10 Primary DOC Guide - E. Family Violence Assessment 2017 12:10 [facility] Within the past year, has anyone ever pushed, shoved, slapped, choked, hit, punched or kicked you: No Within the past year, has anyone ever pressured or forced you to have sexual activities when you did not want to: No Do you feel safe and well cared for: Yes Is there a partner from a previous or current relationship that is making you feel unsafe now: No Family Violence Clinical Observation All Negative Except 2017 12:39 Admit/Discharge - *Discharge instructions/tests andamp; procedures/med list reviewed and provided; prescriptions given to patient 2017 12:39 BN 2017 12:39 Admit/Discharge - Ambulated with steady gait home 2017 12:39 [facility] MEDICATIONS IV I AND O [facility] PATIENT NAME: MARY ALICE KIMBLE [address] [place] MEDICAL REC #: [id number] [place] [address] EMERGENCY DEPARTMENT CHART EMERGENCY DEPARTMENT PHYSICIAN VITALS VS-ROUTINE Time: 2017 12:02 B/P: 113/57 - Right Upper Arm - Sitting - Machine Pulse: 68 - Monitor Resp: 16 Sa02: 100 Room Air Temp: 98.20 F - Oral 2017 12:03 [facility] VS-Pain Time: 2017 12:02 Pain Level: 4 2017 12:03 [facility] VS-GCS Time: 2017 12:02 Visual: 4 Verbal: 5 Motor: 6 GCS Total: 15 2017 12:03 [facility] VS-HT/WT Time: 2017 12:02 Ht: 65 in. Stated Weight: 226 lbs Stated 2017 12:03 BN VS-Visual Time: 2017 12:02 2017 12:03 [facility] VS-FHT Time: 2017 12:02 2017 12:03 [facility] VS-Notes Time: 2017 12:02 map 79 2017 12:03 [facility] ORDERS Discharge patient 2017 12:32 N/A Ordered: 2017 12:30 By . Other Reviewed: 2017 12:32 By . Other [employer]ER ORDER: POCGLU 2017 12:28 None Ordered: 2017 12:28 Completed Time: 2017 12:28 Results Time: 2017 12:28 DISCHARGE Diagnosis: 1. syncope 2017 12:30 Disposition: Time: 2017 12:30 By: Socrates Lopez Discharge Time: 2017 12:39 Type: Discharge Condition: Stable for admission/discharge/transfer after emergency evaluation/treatment Category: *NOT APPLICABLE Concurred: 2017 12:32 Referral: [facility] PATIENT NAME: NOMAN KIMBLEAVNI Vitale [address] [facility] [address] [place] MEDICAL REC #: [id number] [place] [address] EMERGENCY DEPARTMENT CHART EMERGENCY DEPARTMENT PHYSICIAN 2017 12:30 PRESCRIPTIONS CHARGES SIGNATURE Socrates SHEARER RN [facility] PATIENT NAME: MARY ALICE KIMBLE [address] [facility] [address] [place] MEDICAL REC #: [id number] [place] [address] EMERGENCY DEPARTMENT CHART EMERGENCY DEPARTMENT PHYSICIAN GLUCOSE METER Collected: 2017 Status: F Source: [facility] 12:08 PM [facility] REPOSITORY TYPE CODE TESTS RESULT OUT OF RANGE REFERENCE UNITS LAB L500.90469 70-115 MG/DL Normal GLUCOSE METER 108 ALLERGIES ALLERGIES DATE TYPE / CODE NAME / CODE REACTION SEVERITY SOURCE 08/04/2018 Drug No Known Unknown [facility] Allergy/416 Allergies/L46907 Hospital 540831(SNOM 0388(RXNORM) Repository ED CT) Drug NO KNOWN [facility] Class/35178 ALLERGIES [place] 1003(SNOMED Repository CT) ENCOUNTERS ENCOUNTERS ADMIT/DISCHARGE ACCOUNT NUMBER ADMITTING ENCOUNTER LOCATION SOURCE CLASS 08/17/2018/08/25/19 [id number] Ambulatory [address] [place] Repository 08/17/2018/08/18/20 [id number] Ambulatory [address] Repository 08/04/2018/08/04/20 [id number] Emergency [address] ding:ED Repository 07/08/2018/07/08/20 [id number] Ambulatory [address] Repository 07/02/2018/07/02/20 [id number] Emergency [address] ding:ED Repository 06/24/2018/06/24/20 [id number] Ambulatory [address] [place] Repository 06/22/2018/06/24/20 [id number] [place], Inpatient [place] [address] VAZQUEZ (FEL) Encounter [facility] [place] Repository 06/13/2018/06/19/20 [id number] [place] Inpatient [place] [address] VAZQUEZ (FEL) Encounter [facility] [place] Repository 06/06/2018/06/17/20 [id number] Ambulatory [address] [place] Repository 05/27/2018/05/27/20 [id number] Ambulatory [address] [place] Repository 05/26/2018/05/26/20 [id number] Ambulatory [address] [place] Repository 05/23/2018/05/27/20 [id number] Ambulatory [address] Repository 05/23/2018/05/27/20 [id number] CLIFFORD, Inpatient [place] [address] VAZQUEZ (WILTON) [facility] Repository 05/22/2018/05/23/20 [id number] Emergency [place] [facility] ding:ED Repository 05/19/2018/05/19/20 [id number] Ambulatory JEANETH Jeaneth [address] [place] [address] ding:OLAB [facility] Repository 05/10/2018/05/16/20 [id number] VU CR, Inpatient ABuilding:ME Jeaneth [place] Encounter 4SRoom: Health 4651Bed: A [facility] Repository 05/01/2018 [id number] Ambulatory BBuilding:OP Jeaneth [facility] Repository 04/30/2018/05/03/20 [id number] SOMMER CR., Inpatient ABuilding:ME Jeaneth Cordova MD. VAZQUEZ [place] Encounter 4NRoom: Health 4610Bed: A [facility] Repository 04/30/2018/04/30/20 [id number] Emergency BBuilding:ER Jeaneth 18 [facility] Repository 04/28/2018 [id number] Ambulatory BBuilding:OS Jeaneth DU [facility] Repository 04/17/2018/04/17/20 [id number] Ambulatory [address] ding:RAD [facility] Repository 04/11/2018/04/15/20 [id number] Ambulatory JEANETH Jeaneth [address] [place] [address] ding:DROP [facility] Repository 03/13/2018/03/13/20 [id number] Emergency BBuilding:ER Jeaneth 18 O [facility] Repository 03/06/2018/03/06/20 [id number] Ambulatory JEANETH [address] ding:RAD [facility] Repository 01/30/2018/02/01/20 [id number] Ambulatory [address] Repository 01/14/2018/01/16/20 [id number] PANTERA TIJERINA, Inpatient BBuilding:OB Jeaneth [place] Encounter URoom: Health E. 0216Bed: A [facility] Repository 01/06/2018/05/21/20 [id number] Ambulatory BBuilding:OB Jeaneth 18 URoom: Health 0216Bed: A [facility] Repository 10/18/2017/10/19/19 [id number] Ambulatory JEANETH Jeaneth 18 [facility] ding:RAD [facility] Repository 10/17/2017/10/18/19 [id number] Ambulatory JEANETH Jeaneth [address] [place] [address] ding:OLAB [facility] Repository 10/16/2017/10/18/19 [id number] Ambulatory BBuilding:OB Jeaneth 18 URoom: Health 0211Bed: A [facility] Repository 2017 [id number] Emergency [facility] Repository ng:AGNIESZKA PAYERS PAYERS ENCOUNTER GUARANTOR PAYER SUBSCRIBER SOURCE 08/04/2018 MARY ALICE D Primary MARY ALICE D [place] [id number] Insurance:ANTHEMPolicy PHILLIPSDOB: Community [place] Number: [id number] [id number] Repository [address]Vmb: 330 ve Date:[id number] [phone] () [address] [place] [address]IS: 08/04/2018 Secondary NOT GIVENUNK [place] Insurance:SELF PAY [facility] Number: Effective Repository Date:2018-08-04 07/02/2018 MARY ALICE D Primary MARY ALICE D [place] [id number] Insurance:ANTHEMPolicy PHILLIPSDOB: Community [place] Number: [id number], [place] [id number] Repository [address]16[address]Otq: 330) ve Date:1122-39-10NB [phone] () [address]CMMCJKP, [place] [address]HO: 07/02/2018 Secondary NOT GIVENUNK [place] Insurance:SELF PAY [facility] Number: Effective Repository Date:2018-07-02 05/22/2018 MARY ALICE D Primary MARY ALICE D [place] [id number] Insurance:ANTHEMPolicy PHILLIPSDOB: Community [place] Number: [id number], [place] [id number] Repository [address]Lod: (330) ve Date:1130-03-56RQ [phone] () [address]VDNCJDM, [place] [address]EI: 05/22/2018 Secondary NOT GIVENUNK [place] Insurance:SELF PAY [facility] Number: Effective Repository Date:2018-05-22 05/19/2018 MARY ALICE D Primary [facility] PHILLIPSDOB: Insurance:ANTHEM BLUE PHILLIPSDOB: [facility] [id number] Repository [place] Number: VASU [place], [place] [id number] [place] [address] ve Date:2018-05-19Tel: 330) [email or web address] [id number] [phone] (HP)Tel: OMTel: (330) Name:FAITH [address] [phone] [address]12[address]Umlajuz, [place] () (HP)Tel: [phone]: (WP) [phone] 05/10/2018 MARY ALICE D Primary [facility] PHILLIPSDOB: Insurance:LiBRADHA Insportant PHILLIPSDOB: [facility] [id number] Repository [place] Number: [place] [id number] [place] [address] ve Date:2018-05-1033589Iqu: (330) [email or web address] [email or web address] [phone] (HP)Tel: OMTel: ([phone]) Name:[address] BOX [phone] [address]n, [place] (WP) (HP)Tel: [phone]: (WP) [phone] 05/01/2018 MARY ALICE D Primary [facility] PHILLIPSDOB: Insurance:ANTHEM BLUE PHILLIPSDOB: [facility] COMM[facility] [id number] Repository [place] Number: TIFFANIE VIDALES [id number] [place] [address] ve Date:2018-04-28Tel: 330) [email or web address] [email or web address] [phone] (HP)Tel: OMTel: (330) Name:O BOX ([phone]) [phone] 337[address]Upqcvcv, [place] (WP) (HP)Tel: [phone]: (WP) [phone] 04/30/2018 MARY ALICE D [facility]IDA [facility] [id number] Repository [place] Number: TIFFANIE VIDALES [id number] [place] [address] ve Date:2018-04-30Tel: 330) [email or web address] [phone] (HP)Tel: OMTel: (330) Name:O BOX ([phone]) [phone], [place] (WP) (HP)Tel: [phone]: (WP) [phone] 04/30/2018 MARY ALICE D Primary [facility] PHILLIPSDOB: Insurance:AIDA [facility]L [facility] [id number] Repository [place] Number: TIFFANIE VIDALES [id number] [place] [address] ve Date:2018-04-30Tel: 330) [email or web address] [phone] (HP)Tel: OMTel: (330) Name:O BOX [phone]) [phone] 535[address]BevyjflKOURTNEY Murphy () (HP)Tel: [phone]: (WP) [phone] 04/28/2018 [facility] PHILLIPSDOB: Insurance:AIDA KIMBLEDOB: [facility] [employer] COMMERCIALMain [facility] [id number] Repository [place] Number: TIFFANIE VIDALES [id number] [place], [place] [address]Vnp: (330) ve Date:2018-04-28 206[address]Xjz: (HP) [id number] [phone] (HP)Tel: Name:[address]XjejadmKOURTNEY Murphy () [address]WH: 04/17/2018 [facility] PHILLIPSDOB: Insurance:ANTHRADHA KIMBLEDOB: [facility] COMMERCIALMain [facility] [id number] Repository [place] Number: [place] [id number] [place], [place] [address]Vai: (330) ve Date:2018-04-1493285Kpn: (HP) [id number] [phone] (HP)Tel: Name:[address]TtaswcbKOURTNEY Murphy () [address]XU: 04/11/2018 [facility] PHILLIPSDOB: Insurance:AIDA KIMBLEDOB: [facility] COMM[facility]CIALMain [facility] [id number] Repository [place] Number: [place] [id number] [place], [place] [address]Kzh: (330) ve Date:2018-04-11 886[address]Zdx: (HP) [id number] [phone] (HP)Tel: Name:BPO BOX KOURTNEY Serrano () [address]PO: 03/13/2018 [facility]: [facility]IDA [facility]L [facility]ATH[employer] COMMERCIALPolunitypoint [facility] [id number] Repository [place] Number: [place] [id number] [place], [place] [address]Bpm: (330) ve Date:2018-03-13Tel: (HP) [id number] [phone] (HP)Tel: Name:BPO BOX KOURTNEY Serrano () [address]EP: 03/06/2018 [facility]: Insurance:AIDA KIMBLEDOB: [facility] COMMERCIALMain [facility] [id number] Repository [place] Number: [place], [place] [id number] [place], [place] [address]Mhe: (330) ve Date:2018-02-27Tel: (HP) [id number] [phone] (HP)Tel: Name:BPO BOX KOURTNEY Serrano () [address]YA: 01/14/2018 [facility]: Insurance:AIDA KIMBLEDOB: [facility] COMMERCIALPolunitypoint [facility] [id number] Repository [place] Number: [place], [place] [id number] [place], [place] [address]Ryq: (330) ve Date:2018-01-14Tel: (HP) [id number] [phone] (HP)Tel: Name:BPO BOX KOURTNEY Serrano () [address]EF: 01/06/2018 MARY ALICE D [facility] PHILLIPSDOB: Insurance:ANTHEM BLUE PHILLIPSDOB: [facility] COMMERCIALMain [facility] [id number] Repository [place] Number: [place] [id number] [place], [place] [address]Ogw: (330) ve Date:2018-01-06Tel: (HP) [id number] [phone] (HP)Tel: Name:O BOX KOURTNEY Serrano (WP) [address]VD: 10/18/2017 MARY ALICE D [facility] PHILLIPSDOB: Insurance:ANTHEM BLUE PHILLIPSDOB: [facility] COMMERCIALMain [facility] [id number] Repository [place] Number: [place], [place] [id number] RDORRCLEVELAND [place], [place] [address]Njv: (330) ve Date:2017-10-17Tel: (HP) [id number] [phone] (HP)Tel: Name:O BOX KOURTNEY Serrano (WP) [address]ME: 10/17/2017 MARY ALICE D [facility] PHILLIPSDOB: Insurance:ANTHEM BLUE PHILLIPSDOB: [facility]ATH[facility] COMMERCIALPolunitypoint health[facility] [id number] Repository [place] Number: [place], [place] [id number] [place], [place] [address]Zfj: (330) ve Date:2017-10-17Tel: (HP) [id number] [phone] (HP)Tel: Name:FAITH BOX KOURTNEY Serrano () [address]NY: 10/16/2017 MARY ALICE D Primary [facility]: Insurance:AIDA PEARL GILCHRISTB: Foundation [id number] CROSS COMMERCIALPolicy [id number] Repository [place] Number: [place]ERNORTH [place] [id number] [place], [place] [address]Bfa: 330) ve Date:2017-10-16 506[address]Gbg: (HP) [id number] [phone] (HP)Tel: Name:O BOX KOURTNEY Serrano (WP) [address]BU: 2017 MARY ALICE [place] [facility] Insurance:AIDA LINN [facility] VASU OTHERMain Line Health/[facility] Number: Repository [place] [id number] [address]Jza: 330) ve Date: [phone] (HP) KOURTNEY SERRANO [address]EC:
== END 2018-08-04 14:46 | disposition home or self-care (01) ==
PROVIDERS: Emergency Provider Emergency Medicine; Family Provider Nurse Practitioner Primary Care; PCP Nurse Practitioner Primary Care
DX: R10.11 Right upper quadrant pain (principal); Z86.19 Personal history of other infectious and parasitic diseases; Z90.49 Acquired absence of other specified parts of digestive tract
CPT/HCPCS: 80048; 80076; 83690; 85025; 96374; 99285; A4216

== ENCOUNTER 2018-12-25 05:01 | Emergency (ER) | payer BC, SELFPAY ==
[2018-12-25 05:02] VITALS: BP 145/98; PULSE 84; RESP 20; TEMP 36.6; O2SAT 99; BMI 37.7
--- NOTE | 2018-12-25 05:19 | RAD_ITS ---
STUDY: X-RAY - ACUTE ABDOMINAL SERIES REASON FOR EXAM: Female, 33 years old. Abdominal pain TECHNIQUE: Single view of the chest. Supine, 3 view(s) of the abdomen were obtained. COMPARISON: None. FINDINGS: The lungs are clear and expanded. Normal size heart. Normal mediastinum and cesar. Normal visualized pulmonary arteries. Normal visualized aortic arch and descending thoracic aorta. There is a non-specific bowel gas pattern. The soft tissue structures of the abdomen and pelvis are unremarkable. Normal visualized osseous structures. RAD/Acute Abdomen Inc Chest IMPRESSION: Normal x-ray examination of the chest, abdomen, and pelvis. Electronically Signed: Mp Rashid MD at 6:08 EDT , Service support ,
--- NOTE | 2018-12-25 05:20 | ED.VISSUMM ---
- ER Visit Summary Date of Service: 12/25/18 Chief Complaint: Abdominal pain History of Present Illness: The patient is a 33 F who presents for 3 hours of abdominal pain. Patient states that she woke up with severe epigastric abdominal pain radiating into her back. She has had this pain intermittently since she had a cholecystectomy in May 2018. Patient states that the pain is been constant though for the last few hours. She tried Tylenol without relief. She has had associated nausea but no vomiting, diarrhea, urinary symptoms, fever, chest pain, shortness of breath or URI symptoms. Patient denies and states she had her tubes removed. Patient last had work-up for this pain a couple weeks ago and states she had a CT scan at that time. She has a history of prior pancreatitis. States she does not drink alcohol. Physical Examination: Vital signs: afebrile, hemodynamically stable, no hypoxia on room air General: well nourished, well developed, in no distress but tearful Skin: warm, dry, no rash, no pallor HEENT: normocephalic and atraumatic; PERRL, EOMI, moist mucous membranes Cardiovascular: regular rate and rhythm without murmurs, no peripheral edema, 2+ pulses all distal extremities Respiratory: No increased work of breathing, lungs are clear to auscultation bilaterally, no rales, rhonchi or wheezing Abdominal: Abdomen is soft, mildly tender in the epigastrium with normoactive bowel sounds, no guarding or rebound, no masses MSK: Moves all extremities, no deformities, normal strength Neuro: Awake and alert, oriented ?4. No facial droop, sensation and motor function intact and symmetric Test Results: Abnormal Lab Results 12/25/18 12/25/18 12/25/18 05:10 05:10 05:20 WBC 9.4 RBC 4.24 Hgb 12.5 Hct 37.8 MCV 89.2 MCH 29.5 MCHC 33.1 RDW 13.9 RDW Differential 44.7 H Plt Count 224 MPV 10.9 Immature Gran % (Auto) 0.100 Neut % (Auto) 46.6 L Lymph % (Auto) 39.3 [place] % (Auto) 12.5 H Eos % (Auto) 1.0 Baso % (Auto) 0.5 Absolute Neuts (auto) 4.4 Absolute Lymphs (auto) 3.69 Total Counted Not Reportable Sodium 138 Potassium 3.6 Chloride 105 Carbon Dioxide 26.0 Anion Gap 7 BUN 20 H Creatinine 1.00 Estim Creat Clear Calc 76.31 Est GFR (MDRD) Af Amer 83 Est GFR (MDRD) Non-Af 69 BUN/Creatinine Ratio 20.0 Glucose 95 Calcium 8.6 Total Bilirubin 0.30 AST 26 ALT 26 Alkaline Phosphatase 92 Total Protein 7.8 Albumin 3.8 Globulin 4.0 Albumin/Globulin Ratio 1.0 Lipase 118 Urine Color Yellow Urine Clarity Clear Urine pH 6.0 Ur Specific [place] 1.015 Urine Protein Negative Urine Glucose (UA) Normal Urine Ketones Negative Urine Occult Blood Negative Urine Nitrite Negative Urine Bilirubin Negative Urine Urobilinogen Normal Ur Leukocyte Esterase 25 H Urine RBC 0 SEEN Urine WBC 0-5 SEEN Ur Squamous Epith Cells 0-5 SEEN Urine Bacteria 0 SEEN Urine Mucus 0 SEEN Medications Given Sodium Chloride () 1,000 mls @ 1,000 mls/hr IV .Q1H ONE Stop: 12/25/18 06:18 Last Admin: 12/25/18 05:31 Dose: 1,000 mls/hr Discontinued Medications Ketorolac Tromethamine (Toradol) 15 mg IV X1 ONE Stop: 12/25/18 05:20 Last Admin: 12/25/18 05:31 Dose: 15 mg Ondansetron HCl (Zofran) 4 mg IV X1 ONE Stop: 12/25/18 05:20 Last Admin: 12/25/18 05:31 Dose: 4 mg Emergency Department Course and Treatment: Patient presents for epigastric pain, which is a recurrent issue for her over the last several months, but states it is worse today. Patient was given Toradol, Zofran and IV fluids for symptomatic relief. Labs showed no leukocytosis. CMP was unremarkable. Lipase was normal. Urine negative for infection. Abdominal x-ray performed. On reevaluation patient was feeling better after the medications. She currently has no antiemetics at home and was given a prescription for Zofran. Patient also given a prescription for Bentyl. We discussed that her symptoms today are likely a continuance of her recurrent abdominal pain, and she needs to follow-up with her doctor who is managing it for her. Patient had a nonsurgical abdominal exam and is feeling much better after medications. At this time there is no indication for further testing, imaging, surgical evaluation or admission. Patient discharged home in improved condition. Treatment Plan: [] Disposition: [] Impression: Recurrent epigastric abdominal pain This note was generated with Mapiliary dictation software. It may contain incorrect words, spelling, and punctuation that were not noted in review of the chart prior to signing ED Disposition - Plan for ED Patient: Disposition: Home or Assisted Living Instructions: ED Abdominal Pain Unkn Cause Prescriptions: Ondansetron [Zofran Odt] 4 mg PO Q8H PRN PRN #20 tab PRN Reason: Nausea Dicyclomine HCl 20 mg PO ACHS #20 tab Referrals: Divine Avendano NP-C [Primary Care Provider] - 3-5 Days if not improving Additional Instructions: Please follow-up with your doctor for further evaluation of your abdominal pain that keeps coming back. Use the Zofran as needed for nausea and the Bentyl for crampy abdominal pain. If you have any worsening of your condition or any new concerning symptoms, please return immediately to the emergency department for another evaluation.
[2018-12-25 05:28] LABS: Absolute Lymphocyte Count 3.69 X10^3/ul (0.83-4.51); Absolute Neutrophil Count 4.4 X10^3/uL (2.0-7.7); Basophil# 0.05 X10^3/uL; Basophil% 0.5 % (0-1); Eosinophil# 0.09 X10^3/uL; Hematocrit 37.8 % (37-47); Hemoglobin 12.5 g/dl (12.0-15.0); Lymphocyte # 3.69 X10^3/ul (4.0); Lymphocyte % 39.3 % (19-41); Mean Corp Hgb Conc 33.1 g/gl (32-36); Mean Corpuscular Hgb 29.5 pg (27.0-32.0); Mean Corpuscular Volume 89.2 fL (81-99); Mean Platelet Vol. 10.9 fl (6.2-12.0); Monocyte# 1.17 X10^3/uL; Monocyte% 12.5 % (0-10); Neutrophil # 4.37 X10^3/uL (2.7-7.7); Neutrophil % 46.6 % (47-70); Platelet Count 224 K/mm3 (150-450); RBC Distribution Width CV 13.9 % (11.6-14.6); RBC Distribution Width SD 44.7 fl (35.1-43.9); Red Blood Count 4.24 M/mm3 (4.2-5.4); White Blood Count 9.4 K/mm3 (4.4-11.0)
[2018-12-25 05:29] LABS: Bacteria 0 SEEN /hpf (None Seen); Mucous, Urine 0 SEEN /hpf (<or=2+); Red Blood Cells-Urine 0 SEEN /hpf (0-5)
[2018-12-25 05:29] LABS: POSITIVE COUNT NO; POSITIVE DIFFERENTIAL NO; POSITIVE MORPHOLOGY NO
[2018-12-25] MEDS: Ondansetron 4 MG/2 ML Vial IV (05:31)
[2018-12-25] MEDS: Ketorolac 30 MG/ML Syringe 15 MG IV (05:31)
[2018-12-25] MEDS: 0.9% Normal Saline 1,000 ML 1000 ML IV (05:31)
[2018-12-25 05:39] LABS: Color, Urine Yellow (Yellow); Glucose, Dipstick Normal (Normal); Ketone-Dipstick Negative (Negative); Leukocyte Esterase-Dipstick 25 /ul (Negative); Nitrite-Dipstick Negative (Negative); Occult Blood-Urine Negative /ul (Negative); Protein-Dipstick Negative (Negative); Specific Gravity, Urine 1.015 (1.002-1.030); Urine Bilirubin Dipstick Negative (Negative); Urine Clarity Clear (Clear); Urine Urobilinogen Normal (Normal)
[2018-12-25 05:40] LABS: Squamous Epithelial Cells - UA 0-5 SEEN /hpf (5-10); White Blood Cells 0-5 SEEN /hpf (0-5)
[2018-12-25 05:43] LABS: AST(SGOT) 26 U/L (15-37); Alanine Aminotransfer ALT/SGPT 26 U/L (13-56); Albumin, Serum 3.8 g/dL (3.2-5.0); Alkaline Phosphatase 92 U/L (45-117); Anion Gap 7 (5-15); BUN 20 mg/dL (7-18); Calcium,Total 8.6 mg/dL (8.5-10.1); Chloride 105 mmol/L (98-107); EST Glomerular Filtration Rate 69 mL/min (>60); Est Glom Filt Rate - Afr Amer 83 mL/min (>60); Estimated Creatinine Clearance 76.31 ml/min; Glucose 95 mg/dL (74-106); Lipase 118 U/L (73-393); Potassium 3.6 mmol/L (3.5-5.1); Protein, Total 7.8 g/dL (6.4-8.2); Sodium Level 138 mmol/L (136-145)
[2018-12-25 06:25] VITALS: BP 120/72; PULSE 64; RESP 18; O2SAT 98
== END 2018-12-25 06:26 | disposition home or self-care (01) ==
PROVIDERS: Emergency Provider Emergency Medicine; Family Provider Nurse Practitioner Family; PCP Nurse Practitioner Family
DX: R10.13 Epigastric pain (principal); G89.29 Other chronic pain; R11.0 Nausea; E66.9 Obesity, unspecified
CPT/HCPCS: 74022; 80053; 81001; 83690; 85025; 96361; 96374; 96375; 99285; J7030; A4216; J2405

== ENCOUNTER 2019-03-11 12:39 | Emergency (ER) | payer SELFPAY ==
[2019-03-11 12:40] VITALS: BP 141/85; PULSE 56; RESP 16; TEMP 36.3; O2SAT 99; BMI 38.0
--- NOTE | 2019-03-11 13:02 | EKG12_ITS ---
Test Reason : CP Blood Pressure : / mmHG Vent. Rate : 043 BPM Atrial Rate : 043 BPM P-R Int : 180 ms QRS Dur : 090 ms QT Int : 428 ms P-R-T Axes : 016 064 046 degrees QTc Int : 361 ms Marked sinus bradycardia Low voltage QRS Abnormal ECG Confirmed by KAMINI BERRY ([id number]), editorial writer DONAL DEL VALLE ([id number]) on 03/12/2019 9:48:26 AM Referred By: ELMER/TL Confirmed By:KAMINI BERRY
--- NOTE | 2019-03-11 13:03 | ED.VISSUMM ---
- ER Visit Summary Date of Service: 03/11/19 Chief Complaint: Chest pain History of Present Illness: The patient is a 33 F who presents to the emergency department for evaluation of chest pain. Patient states that last April she required 2 cholecystectomy procedures. She states that since that time she has had intermittent chest pain. She describes it as a squeezing sensation in her midsternum. It radiates into her back. Sometimes makes her arm ache. She states that she had an episode yesterday. She also had an episode this morning around 0800 hrs. while she was cooking her children breakfast. She states she recently had a endoscopy that tested positive for H. pylori. She finished that treatment about a 1 month ago. She called her paperback machine operator today and they advised her to come to the emergency department. She takes Prilosec. She occasionally smokes. She states she has a history of intermittent bradycardia and one point was admitted in [place] with a heart rate in the 20s but states that no diagnosis was found. Physical Examination: Afebrile vital signs stable Gen: Well-nourished well-developed Head: Normocephalic atraumatic Eyes: Perrl EOMI ENT: TMs clear no rhinorrhea moist mucous membranes Neck: Supple no lymphadenopathy no JVD nontender CVS: Regular rate rhythm no murmurs normal S1-S2 Respiratory: No distress clear to auscultation bilaterally chest nontender Abdomen: Soft nontender nondistended normal bowel sounds no masses Back: Nontender Extremity: Nontender no edema Skin: Normal color no rash Neuro: alert orientated ?3 CN II-XII intact normal strength sensation Psych: Normal affect normal mood Test Results: EKG shows a sinus bradycardia at a rate of 43. CBC BMP troponin negative. Chest x-ray showed a normal mediastinal silhouette. Emergency Department Course and Treatment: I do not believe the patient is presenting with features of ACS. The patient has had the symptoms for almost 1 year. I do not believe she needs to be hospitalized at this point. I recommend that she follow-up with GI. Prep she is having esophageal spasms. I do not see evidence of acute emergency today. Impression: 1. Chest pain This note was generated with Apptera dictation software. It may contain incorrect words, spelling, and punctuation that were not noted in review of the chart prior to signing ED Disposition - Plan for ED Patient: Disposition: Home or Assisted Living Instructions: CHEST PAIN, Uncertain Cause Referrals: Divine Avendano NP-C [Primary Care Provider] - As soon as possible
--- NOTE | 2019-03-11 13:05 | RAD_ITS ---
HISTORY: chest pain XR Chest 1 View TECHNIQUE: Single frontal view of chest. # of images incl. paperwork: 1 COMPARISON: 12/25/2018 FINDINGS: LINES: None. CARDIOVASCULAR STRUCTURES: Normal cardiomediastinal silhouette. Pulmonary vasculature appears normal. LUNGS: The lungs are clear. PLEURA: No pleural effusions or pneumothorax. BONES: No acute osseous abnormality of the thorax. RAD/Chest 1 View (Portable) IMPRESSION: 1. No acute cardiopulmonary disease. at 1323 Reported and signed by: Antonio Kerr MD Electronically Signed: Antonio Kerr MD at 13:22 EDT Tel , Service support ,
[2019-03-11 13:08] VITALS: BP 124/80; PULSE 50; RESP 16; O2SAT 99
[2019-03-11 13:22] LABS: Absolute Lymphocyte Count 1.74 X10^3/uL (0.83-4.51); Absolute Neutrophil Count 4.1 X10^3/uL (2.0-7.7); Basophil# 0.06 X10^3/uL; Basophil% 0.9 % (0-1); Eosinophil# 0.21 X10^3/uL; Eosinophils% 3.1 % (0-5); Hematocrit 36.8 % (37-47); Hemoglobin 12.3 g/dL (12.0-15.0); Lymphocyte # 1.74 X10^3/ul (4.0); Lymphocyte % 25.5 % (19-41); Mean Corp Hgb Conc 33.4 g/dL (32-36); Mean Corpuscular Hgb 30.8 pg (27.0-32.0); Mean Corpuscular Volume 92.2 fL (81-99); Mean Platelet Vol. 10.8 fl (6.2-12.0); Monocyte# 0.71 X10^3/uL; Monocyte% 10.4 % (0-10); NRBC Flagged by Analyzer 0 % (0-5); Neutrophil # 4.09 X10^3/uL (2.7-7.7); Platelet Count 202 K/mm3 (150-450); RBC Distribution Width CV 12.7 % (11.6-14.6); RBC Distribution Width SD 43.1 fl (35.1-43.9); Red Blood Count 3.99 M/mm3 (4.2-5.4); White Blood Count 6.8 K/mm3 (4.4-11.0)
[2019-03-11 13:42] LABS: Anion Gap 3 (5-15); BUN 9 mg/dL (7-18); BUN/Creat Ratio 10.4 RATIO (10-20); Calcium,Total 9.1 mg/dL (8.5-10.1); Chloride 107 mmol/L (98-107); Creatinine, Serum 0.86 mg/dL (0.55-1.02); EST Glomerular Filtration Rate 81 mL/min (>60); Est Glom Filt Rate - Afr Amer 98 mL/min (>60); Estimated Creatinine Clearance 88.73 ml/min; Glucose 77 mg/dL (74-106); Sodium Level 137 mmol/L (136-145)
[2019-03-11] MEDS: Mag Hydrox/Al Hydrox/Simeth 30 ML UDC PO (13:47)
[2019-03-11 14:17] VITALS: BP 109/57; PULSE 44; RESP 16; O2SAT 98
== END 2019-03-11 14:18 | disposition home or self-care (01) ==
PROVIDERS: Emergency Provider Emergency Medicine; Family Provider Nurse Practitioner Family; PCP Nurse Practitioner Family
DX: R07.9 Chest pain, unspecified (principal); R00.1 Bradycardia, unspecified; K21.9 Gastro-esophageal reflux disease without esophagitis; F32.9 Major depressive disorder, single episode, unspecified; E66.9 Obesity, unspecified; Z79.899 Other long term (current) drug therapy; F17.200 Nicotine dependence, unspecified, uncomplicated; Z90.49 Acquired absence of other specified parts of digestive tract
CPT/HCPCS: 71045; 80048; 84484; 85025; 93005; 99284; A4216

== ENCOUNTER 2019-03-11 21:54 | Emergency (ER) | payer SELFPAY ==
[2019-03-11 12:40] VITALS: BMI 38.0
[2019-03-11 21:56] VITALS: BP 134/76; PULSE 58; RESP 17; TEMP 36.8; O2SAT 100; BMI 38.0
--- NOTE | 2019-03-11 21:57 | ED.RN ---
RESPIRATORY CONTACTED TO OBTAIN EKG ON PT.
--- NOTE | 2019-03-11 22:02 | EKG12_ITS ---
Test Reason : CP Blood Pressure : / mmHG Vent. Rate : 058 BPM Atrial Rate : 058 BPM P-R Int : 200 ms QRS Dur : 092 ms QT Int : 420 ms P-R-T Axes : 021 056 050 degrees QTc Int : 412 ms Sinus bradycardia Low voltage QRS Borderline ECG Confirmed by KAMINI BERRY ([id number]), mix house tender DONAL DEL VALLE ([id number]) on 03/12/2019 9:45:56 AM Referred By: Confirmed By:KAMINI BERRY
--- NOTE | 2019-03-11 22:02 | RAD_ITS ---
STUDY: X-RAY CHEST REASON FOR EXAM: Female, 33 years old. Chest pain TECHNIQUE: Single frontal view of the chest. COMPARISON: 03/11/2019 FINDINGS: The lungs are clear and expanded. There is no demonstrated pleural abnormality. Normal size heart. Normal mediastinum and cesar. Normal visualized pulmonary arteries. Normal visualized aortic arch and descending thoracic aorta. Normal visualized thoracic spine. Normal visualized ribs, clavicles, and shoulders. There is no demonstrated abnormality of the visualized soft tissue structures of the upper abdomen. RAD/Chest 1 View (Portable) IMPRESSION: Normal x-ray examination of the chest. Electronically Signed: Ruddy Tanner MD at 22:23 EDT Tel , Service support ,
--- NOTE | 2019-03-11 22:08 | ED.DCSUM_ITS ---
- ER Visit Summary Date of Service: 03/11/19 Chief Complaint: Chest pain History of Present Illness: The patient is a 33 F presenting with chest pain which started after eating tonight. Patient was seen in the ED earlier today for similar complaints. She has had these symptoms intermittently for the past year. She is on Prilosec for history of GERD. She states she came back to the ED tonight because the pain returned. She had a GI cocktail earlier which improved her symptoms. Her mom has a history of DVT, no other PE/DVT risk factors. She is a smoker, no other CAD risk factors. Physical Examination: Vitals are stable. Patient is afebrile. Alert no acute distress. HEENT exam is unremarkable. Neck is supple. Lungs are clear and equal bilaterally. Heart is regular rate and rhythm. Abdomen is soft nontender nondistended. No guarding or rebound Extremities are unremarkable. Skin is warm and dry. No focal neurologic deficit. Remainder of exam is unremarkable. Emergency Department Course and Treatment: Patient was given a GI cocktail. EKG is sinus bradycardia rate of 58 with no acute changes. Chest x-ray is normal. Troponin is negative. D-dimer negative. Lipase is normal. HCG negative. On reevaluation her symptoms have improved. Delta troponin will be drawn and is pending. She will be checked out to the oncoming physician. Disposition: Pending Impression: Atypical chest pain This note was generated with [employer] dictation software. It may contain incorrect words, spelling, and punctuation that were not noted in review of the chart prior to signing ED Disposition - Plan for ED Patient: Instructions: CHEST PAIN, Uncertain Cause Prescriptions: Sucralfate [Carafate] 1 gm PO 4X/DAY #40 tab Prescription Printed Referrals: Alexei Holland MD [NON-STAFF] - Divine Avendano NP-C [Primary Care Provider] -
[2019-03-11 22:22] LABS: Internal QC Validated? YES +Cl - CLEAR BKGD; Pregnancy, Serum, hCG Quali. NEGATIVE Negative
[2019-03-11 22:25] LABS: D-Dimer Quantitative (DVT/PE) < 0.27 FEU/ug/m (0.27-0.49)
[2019-03-11] MEDS: Mag Hydrox/Al Hydrox/Simeth 30 ML UDC PO (22:26)
[2019-03-11 22:32] LABS: Lipase 134 U/L (73-393)
--- NOTE | 2019-03-11 22:49 | ED.DEP ---
ED Disposition - Plan for ED Patient: Instructions: CHEST PAIN, Uncertain Cause Prescriptions: Sucralfate [Carafate] 1 gm PO 4X/DAY #40 tablet Referrals: Divine Avendano NP-C [Primary Care Provider] - Alexei Holland MD [NON-STAFF] -
[2019-03-11 22:54] VITALS: BP 138/93; PULSE 52; RESP 16; O2SAT 100
[2019-03-11 23:00] VITALS: BP 138/93; PULSE 51; RESP 16; O2SAT 100
[2019-03-12 01:00] VITALS: BP 120/93; PULSE 60; RESP 16; O2SAT 96
[2019-03-12 02:28] VITALS: BP 113/77; PULSE 52; RESP 16; O2SAT 97
== END 2019-03-12 02:28 | disposition home or self-care (01) ==
PROVIDERS: Emergency Medicine; Emergency Provider Emergency Medicine; Family Provider Nurse Practitioner Family; PCP Nurse Practitioner Family
DX: R07.89 Other chest pain (principal); R00.1 Bradycardia, unspecified; F32.9 Major depressive disorder, single episode, unspecified; F41.9 Anxiety disorder, unspecified; K21.9 Gastro-esophageal reflux disease without esophagitis; F17.200 Nicotine dependence, unspecified, uncomplicated; Z79.899 Other long term (current) drug therapy
CPT/HCPCS: 36415; 71045; 83690; 84484; 84703; 85379; 93005; 99284; A4216

== ENCOUNTER 2019-12-26 11:15 | Emergency (ER) | payer SELFPAY ==
[2019-12-26 11:16] VITALS: BP 156/100; PULSE 77; RESP 16; TEMP 36.8; O2SAT 98; BMI 41.1
[2019-12-26 11:45] LABS: Absolute Lymphocyte Count 1.49 X10^3/uL (0.83-4.51); Absolute Neutrophil Count 3.9 X10^3/uL (2.0-7.7); Basophil# 0.03 X10^3/uL; Basophil% 0.5 % (0-1); Eosinophil# 0.29 X10^3/uL; Eosinophils% 4.5 % (0-5); Hematocrit 36.2 % (37-47); Lymphocyte # 1.49 X10^3/ul (4.0); Lymphocyte % 23.3 % (19-41); Mean Corp Hgb Conc 33.1 g/dL (32-36); Mean Corpuscular Hgb 30.2 pg (27.0-32.0); Mean Corpuscular Volume 91.2 fL (81-99); Mean Platelet Vol. 11.1 fl (6.2-12.0); Monocyte# 0.64 X10^3/uL; NRBC Flagged by Analyzer 0 % (0-5); Neutrophil # 3.92 X10^3/uL (2.7-7.7); Neutrophil % 61.2 % (47-70); Platelet Count 221 K/mm3 (150-450); RBC Distribution Width CV 13.2 % (11.6-14.6); RBC Distribution Width SD 43.3 fl (35.1-43.9); Red Blood Count 3.97 M/mm3 (4.2-5.4); White Blood Count 6.4 K/mm3 (4.4-11.0)
[2019-12-26] MEDS: 0.9% Normal Saline 1,000 ML 1000 ML IV (11:48)
[2019-12-26] MEDS: Morphine 4 MG/ML Syringe IV (11:48)
[2019-12-26] MEDS: Ondansetron 4 MG/2 ML Vial IV (11:48)
[2019-12-26 11:52] LABS: Internal QC Validated? YES +Cl - CLEAR BKGD; Pregnancy, Serum, hCG Quali. NEGATIVE Negative
[2019-12-26 12:01] LABS: ALB/GLOB Ratio 0.8 RATIO (0.9-2.4); AST(SGOT) 27 U/L (15-37); Alanine Aminotransfer ALT/SGPT 41 U/L (13-56); Albumin, Serum 3.2 g/dL (3.2-5.0); Alkaline Phosphatase 117 U/L (45-117); Anion Gap 8 (5-15); BUN 5 mg/dL (7-18); BUN/Creat Ratio 6.7 RATIO (10-20); Bilirubin, Direct 0.06 mg/dL (0.00-0.30); Calcium,Total 8.7 mg/dL (8.5-10.1); Chloride 109 mmol/L (98-107); Creatinine, Serum 0.75 mg/dL (0.55-1.02); EST Glomerular Filtration Rate 95 mL/min (>60); Est Glom Filt Rate - Afr Amer 115 mL/min (>60); Estimated Creatinine Clearance 100.81 ml/min; Globulin 3.8 g/dL (2.2-4.2); Glucose 95 mg/dL (74-106); Lipase 49 U/L (73-393); Potassium 3.9 mmol/L (3.5-5.1); Sodium Level 143 mmol/L (136-145)
--- NOTE | 2019-12-26 12:23 | ED.DCSUM_ITS ---
- ER Visit Summary Date of Service: 12/26/19 Chief Complaint: Abdominal pain History of Present Illness: The patient is a 34 F with abdominal pain that started over the past week. The patient has a history of this pain and has been dealing with it on and off for 2 years. It seems to be getting worse. She is following up with GI this week. She has a history of H. pylori, pancreatitis, cholecystectomy, and multiple EGDs. Symptoms are worse with eating and drinking. She is taking ibuprofen and Tylenol with minimal relief. She had some diarrhea earlier in the week but no other associated symptoms. Physical Examination: Afebrile and vital signs unremarkable. Alert and orient ed. No acute distress. No tenderness noted. No jaundice noted. Test Results: CBC, CMP, lipase, hCG unremarkable. Emergency Department Course and Treatment: Patient's labs, vitals, exam are reassuring. I believe she is appropriate for outpatient care. She received morphine, Zofran, and IV fluids here. I discussed her results with her. I do not believe that the potential benefits of CT imaging or other imaging outweigh any risks. Patient will follow-up as an outpatient and I believe this is appropriate. Will add a PPI. She will take a bland diet and plenty of fluids. Treatment Plan: As above Disposition: Discharge, return if worse Impression: Epigastric pain This note was generated with [employer] dictation software. It may contain incorrect words, spelling, and punctuation that were not noted in review of the chart prior to signing ED Disposition - Plan for ED Patient: Referrals: Divine Avendano, IGNACIA-C [Primary Care Provider] -
--- NOTE | 2019-12-26 12:25 | ED.DEP ---
ED Disposition - Plan for ED Patient: Instructions: ED Abdominal Pain Unkn Cause Fem Prescriptions: Omeprazole Magnesium [Prilosec Otc] 20 mg PO BID #20 tablet.dr Prescription Printed Referrals: Alexei Holland MD [NON-STAFF] -
[2019-12-26 12:42] VITALS: BP 114/69; PULSE 61; RESP 18; O2SAT 98
--- NOTE | 2019-12-26 12:43 | ED.RN ---
REVIEWED D/C INSTRUCTIONS, FOLLOW UP CARE, PRESCRIPTION, AND S/S THAT WOULD WARRANT A RETURN TO THE ED WITH PT. PT VERBALIZED AN UNDERSTANDING AND DENIES FURTHER QUESTIONS FOR THIS RN. PT SKIN P/W/D, RESP EVEN AND UNLABORED, PT A&O X 3, NO DISTRESS NOTED. PT AMBULATED OUT OF ED, GAIT STEADY.
== END 2019-12-26 12:45 | disposition home or self-care (01) ==
LOC: ED 12:37
PROVIDERS: Emergency Provider Emergency Medicine; PCP Nurse Practitioner Family
DX: R10.13 Epigastric pain (principal); R19.7 Diarrhea, unspecified; Z72.0 Tobacco use; Z86.19 Personal history of other infectious and parasitic diseases; Z90.49 Acquired absence of other specified parts of digestive tract
CPT/HCPCS: 80053; 82248; 83690; 84703; 85025; 96361; 96374; 96375; 99282; J7030; A4216; J2405